=== PATIENT | female | born 1955 | race Caucasian/White ===

== ENCOUNTER 2024-08-23 08:53 | Inpatient (IN) ==
[~2024-08-23 08:53] MED LIST: MIDAZOLAM HCL 1 MG/ML 2ML VIAL ONE
--- NOTE | 2024-08-23 09:15 | Emergency Department Note ---
Impression & Plan Severe sepsis with acute organ dysfunction, Status post laparoscopic appendectomy, Pneumoperitoneum, Acute renal failure, Atrial fibrillation, new onset, Ileus due to infection ED Provider Note Name: BART PULLIAM Age: 68 Sex: Female Arrives Via: Walk-In Informant: Patient, ED Provider: Ricki Escobar MD Chief Complaint: Postoperative abdominal pain Impression: As per impressions above Medical Decision Making: Pleasant 68-year-old female who had no significant past medical history. She had appendectomy 5 days ago with mucocele found. Apparently surgical approach was difficult. Since discharge continued worsening abdominal pain, abdominal distention and nausea. No bowel movements in several days. On examination she has diffuse tenderness palpation without overt peritonitis. She does have decreased bowel sounds as well. CT scan of the abdomen pelvis was ordered initially with IV contrast but following findings of acute renal failure this was converted to Noncon. Laboratory workup reveals significant changes from her baseline with acute renal failure, hyperkalemia amongst others. The CT shows significant more free air than would be expected along with some free fluid. At this point blood cultures and lactic acid were ordered. Due to amount of nausea and her gastric distention without any recent oral intake, NG tube was felt indicated. While no clear evidence of obstruction via CT her examination and gastric distention with lead towards consideration of ileus to the point of needing an NG tube. Patient was ordered 2 L normal saline bolus IV for acute renal failure in the setting of hyperkalemia and development of paroxysmal A-fib while in the department. In the setting of moderate hyperkalemia it was felt that with the flipping in and out of A-fib it would be appropriate to start her on calcium bicarb and insulin. Patient does have a low sodium however in the setting of arrhythmia and elevated potassium along with acute kidney failure fluid boluses are indicated. Given the recent surgery and symptoms I do feel that the kidney issues are most likely due to prerenal dehydration from not eating or drinking anything for the last 4 to 5 days. Following NG tube patient did have worsening respiratory distress. Some crackles and shortness of breath were noted along with hypoxia. She was being evaluated by hospitalist at this point. Concern for possible aspiration during NG tube placement versus fluid overload as she has now received 2 L fluid. Hospitalist ordering further workup and management. Hospitalist also ordered some Lopressor for A-fib as it continues despite adequate fluid boluses and treatment of the moderate hyperkalemia. Surgeon did evaluate the patient. They feel that it would be best to medically manage the patient given her multiple other findings rather than emergently taken to the OR at this time. Hospitalist on board and aware of this plan. Given the elevated lactate the somewhat elevated white blood cell count and the concern for possible intra-abdominal infection treatment for sepsis indicated. With that in mind I would not give her 30 mL/kg IV fluids as we are concerned she is already overloaded along with being in acute renal failure and thus only received the 2 L normal saline bolus. She was given Zosyn IV for broad-spectrum coverage. Multiple repeat evaluations do reveal that patient's blood pressure is stable. She does not require pressors. A repeat sepsis examination was completed at 1:30 PM by me. Triage/Nursing Notes reviewed by Me External Chart Review by me: I did review the surgical note from 08/21/2024. Differential:Infection, dehydration, metabolic abnormality, hypo/hyperglycemia, electrolyte disturbance, anemia, hypoxia, cardiac sources, intracerebral event, toxicologic, neurologic, as well as other pathologies. Vital Signs: reviewed and remarkable for no significant abnormalities Interventions: Normal saline bolus IV, insulin IV, calcium IV, bicarb IV, glucose of IV, Zosyn IV Labs:ED labs Reviewed by me and remarkable for acute kidney failure, hyponatremia, hyperkalemia Imaging:CT of the abdomen pelvis as per my informant to rotation reveals diffuse free air and free fluid. This was immediately discussed with who evaluated the patient at bedside. Confirmed by radiologist EKG:#1: Normal sinus rhythm at 93 beats minute QTc of 410. There is no ectopy nor ischemia. There are no previous EKGs for comparison. EKG #2: A-fib with RVR at 150 bpm and a QTc of 458. There is no overt ischemia. When compared to EKG from 1019 she is now in A-fib. Cardiac/Tele Monitoring: Cardiac Monitoring: An Order was placed for continuous cardiac monitoring. The monitor shows a rate of 130 with a paroxysmal afib rhythm. Consults:Discussed with Dr. Vaughn of the [facility] surgical service as well as Dr. Oropeza of the [facility] service who will manage patient. Plan: Disposition:Hospitalization. Condition: Serious History of Present Illness: 68-year-old female arrives for evaluation of abdominal discomfort. Patient had an appendectomy on Saturday (5 days ago). During surgery it was felt that the patient had a mucocele and thus further exploration with increased port entry was done. She states following the surgery she had some abdominal discomfort but was feeling bit better and thus went home. Over the last few days worsening abdominal distention discomfort, lack of appetite, nausea, periodic vomiting and no bowel movements. Does feel that her abdomen continues to distend. Discomfort with any ambulation. She states she had some blood in her urine yesterday but has had minimal urine output since then. Patient has been using Percocet at home and initially was using a stool softener but has been able to eat anything for the last several days. Denies any falls, trauma, injuries. She does note she is a bit lightheaded as well. Not having any chest pain, shortness of breath, syncope, measured fevers, rashes, leg swelling or other concerning signs or symptoms. Past Medical History: Denies significant past medical history. Did have surgery on her foot and hip. 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 Dry mucous membranes RESPIRATORY: No dyspnea. Clear to auscultation and equal bilaterally. CARDIOVASCULAR: Tachy.No murmur appreciated. GASTROINTESTINAL: Moderately distended with diffuse tenderness palpation, minimal active bowel sounds appreciated. No overt peritonitis. Multiple port sites throughout abdomen with Dermabond over them. No significant surrounding cellulitis or drainage appreciated EXTREMITIES: Normal motion all extremities, no cyanosis, no edema. NEUROLOGIC: Alert and oriented. No focal neurologic deficits appreciated SKIN: No rash, no jaundice, no diaphoresis. PSYCH: Appropriate GCS: 15 ED Course: Times/Reassessments: Multiple repeat evaluations patient throughout the stay. She did get quite hypoxic following NG tube placement with concern for possible aspiration versus pulmonary edema. Placed on nonrebreather and will get breathing treatments. Patient's blood pressure remained stable. She did develop A-fib RVR while in the department. Did not initially respond to fluids and treatment for hyperkalemia thus Lopressor being ordered by hospital service. Critical Care: I have personally spent 35 minutes of critical care time in the direct management of this patient. Acute renal failure with hyperkalemia and cardiac irritability/A-fib RVR possibly secondary to severe sepsis. This was a life/limb threatening event. This 35 minutes is in excess of all separately billable procedures. 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 no hx medication or intervention. Last occurence: " i don't know" Rotator cuff tear no hx sx, right, denies limitations. Arthritis of both feet Gallstone found on last ct may of 2024/no trouble with at current. Elevated blood pressure reading at dr's offices elevated. monitored. Obesity Surgical History History of foot surgery left/hardware History of colonoscopy Hx of tooth extraction History of lumpectomy of left breast Social History Smoking Status: Never smoker Second Hand Exposure: No; Do You Dip or Chew Tobacco: No; Hx Alcohol Use: No Hx Substance Use: No Preferred Language: Frisian Communication Ability: Effective Visual Impairment: No Limitations Pricing Strategist Required: No Beliefs That Will Affect Care: None Current Living Situation: Spouse Feels Safe at Home: Yes Assistive Devices: None Allergies Allergies Allergy/AdvReac Type Severity Reaction Status Date / Time No Known Allergies Allergy Verified 08/23/24 11:05 Home Meds Home Medications Medication Instructions Recorded Confirmed No Known Home Medications 08/23/24 08/23/24 Results & Data (ED) Vital Signs Vital Signs - 24 hr 08/23/24 08:57 08/23/24 09:26 08/23/24 10:24 Temperature 36.7 C Temperature Source Skin Pulse Rate 98 H 99 H 160 H Pulse Rate [Apical] Respiratory Rate 16 Respiratory Effort / Characteristics Non-Labored Spontaneous Respiratory Depth Normal Respiratory Pattern Regular Blood Pressure 144/80 H Blood Pressure [Right Arm] Blood Pressure Mean 101 Blood Pressure Mean [Right Arm] Blood Pressure Position Sitting Pulse Oximetry 96 Oxygen Delivery Method Room Air Sepsis Recent Fever Within 48 Hours No Sepsis New/Unexplained Change in Mental Status N/A Sepsis Action Taken by Nursing No Action Required 08/23/24 10:53 08/23/24 11:45 Temperature Temperature Source Pulse Rate 136 H Pulse Rate [Apical] 163 H Respiratory Rate 20 Respiratory Effort / Characteristics Non-Labored Spontaneous Respiratory Depth Normal Respiratory Pattern Blood Pressure 144/95 H Blood Pressure [Right Arm] 168/84 H Blood Pressure Mean Blood Pressure Mean [Right Arm] 112 Blood Pressure Position Pulse Oximetry 91 Oxygen Delivery Method Room Air Sepsis Recent Fever Within 48 Hours Sepsis New/Unexplained Change in Mental Status Sepsis Action Taken by Nursing Laboratory Data 08/23/24 13:34 08/23/24 13:34 Lab Results 08/23/24 08/23/24 08/23/24 Range/Units 09:15 09:15 09:15 WBC 14.35 H (4.8-10.8) K/ul RBC 4.83 (4.20-5.40) M/uL Hgb 13.2 (12.0-16.0) g/dl Hct 38.2 (37.0-47.0) % MCV 79.1 L (80.0-100.0) fL MCH 27.3 (25.0-34.0) pg MCHC 34.6 (32.0-36.0) g/dL RDW Std Deviation 42.9 (36.4-46.3) fL RDW Coeff of Albino 15.0 H (11.5-14.5) % Plt Count 322 (130-400) K/uL MPV 10.1 (9.4-12.4) fL Immature Gran % (Auto) 1.5 % Neut % (Auto) 87.5 % Lymph % (Auto) 6.1 % Wayne % (Auto) 4.7 % Eos % (Auto) 0.1 % Baso % (Auto) 0.1 % Neut # (Auto) 12.54 H (1.40-6.50) K/uL Lymph # (Auto) 0.88 L (1.20-3.40) K/uL Wayne # (Auto) 0.67 H (0.11-0.59) K/uL Eos # (Auto) 0.02 (0.00-0.50) K/uL Baso # (Auto) 0.02 (0.00-0.20) K/uL Immature Gran # (Auto) 0.22 H (0.01-0.20) K/uL Absolute Nucleated RBC 0.04 (0.00-0.12) K/uL Nucleated RBC % (auto) 0.3 % Toxic Granulation 3+ Toxic Vacuolation 2+ Dohle Bodies 1+ Echinocytes 1+ Sodium Cancelled 121 L Potassium Cancelled 5.8 H Chloride Cancelled Carbon Dioxide Anion Gap BUN Creatinine Est Cr Clr Drug Dosing eGFR BUN/Creatinine Ratio Glucose POC Glucose (70-99) mg/dl Lactate (0.4-2.0) mmol/L Calcium Magnesium (1.7-2.4) mg/dl Total Bilirubin (0.2-1.0) mg/dl Direct Bilirubin (0-0.2) mg/dl AST (13-39) U/L ALT (7-52) U/L Alkaline Phosphatase (34-104) U/L Troponin I High Sens (0-14) pg/ml Total Protein (6.0-8.3) gm/dl Albumin (3.4-5.0) gm/dl Lipase (11-82) U/L Procalcitonin (0-0.5) ng/ml Blood Type Antibody Screen 08/23/24 08/23/24 08/23/24 Range/Units 09:15 09:15 09:15 WBC (4.8-10.8) K/ul RBC (4.20-5.40) M/uL Hgb (12.0-16.0) g/dl Hct (37.0-47.0) % MCV (80.0-100.0) fL MCH (25.0-34.0) pg MCHC (32.0-36.0) g/dL RDW Std Deviation (36.4-46.3) fL RDW Coeff of Albino (11.5-14.5) % Plt Count (130-400) K/uL MPV (9.4-12.4) fL Immature Gran % (Auto) % Neut % (Auto) % Lymph % (Auto) % Wayne % (Auto) % Eos % (Auto) % Baso % (Auto) % Neut # (Auto) (1.40-6.50) K/uL Lymph # (Auto) (1.20-3.40) K/uL Wayne # (Auto) (0.11-0.59) K/uL Eos # (Auto) (0.00-0.50) K/uL Baso # (Auto) (0.00-0.20) K/uL Immature Gran # (Auto) (0.01-0.20) K/uL Absolute Nucleated RBC (0.00-0.12) K/uL Nucleated RBC % (auto) % Toxic Granulation Toxic Vacuolation Dohle Bodies Echinocytes Sodium Potassium Chloride 81 L Carbon Dioxide Cancelled 25 Anion Gap Cancelled 15 H BUN Cancelled Creatinine Est Cr Clr Drug Dosing eGFR BUN/Creatinine Ratio Glucose POC Glucose (70-99) mg/dl Lactate (0.4-2.0) mmol/L Calcium Magnesium (1.7-2.4) mg/dl Total Bilirubin (0.2-1.0) mg/dl Direct Bilirubin (0-0.2) mg/dl AST (13-39) U/L ALT (7-52) U/L Alkaline Phosphatase (34-104) U/L Troponin I High Sens (0-14) pg/ml Total Protein (6.0-8.3) gm/dl Albumin (3.4-5.0) gm/dl Lipase (11-82) U/L Procalcitonin (0-0.5) ng/ml Blood Type Antibody Screen 08/23/24 08/23/24 08/23/24 Range/Units 09:15 09:15 09:15 WBC (4.8-10.8) K/ul RBC (4.20-5.40) M/uL Hgb (12.0-16.0) g/dl Hct (37.0-47.0) % MCV (80.0-100.0) fL MCH (25.0-34.0) pg MCHC (32.0-36.0) g/dL RDW Std Deviation (36.4-46.3) fL RDW Coeff of Albino (11.5-14.5) % Plt Count (130-400) K/uL MPV (9.4-12.4) fL Immature Gran % (Auto) % Neut % (Auto) % Lymph % (Auto) % Wayne % (Auto) % Eos % (Auto) % Baso % (Auto) % Neut # (Auto) (1.40-6.50) K/uL Lymph # (Auto) (1.20-3.40) K/uL Wayne # (Auto) (0.11-0.59) K/uL Eos # (Auto) (0.00-0.50) K/uL Baso # (Auto) (0.00-0.20) K/uL Immature Gran # (Auto) (0.01-0.20) K/uL Absolute Nucleated RBC (0.00-0.12) K/uL Nucleated RBC % (auto) % Toxic Granulation Toxic Vacuolation Dohle Bodies Echinocytes Sodium Potassium Chloride Carbon Dioxide Anion Gap BUN 77 H Creatinine Cancelled 4.78 H* Est Cr Clr Drug Dosing Cancelled 11.2 eGFR Cancelled BUN/Creatinine Ratio Glucose POC Glucose (70-99) mg/dl Lactate (0.4-2.0) mmol/L Calcium Magnesium (1.7-2.4) mg/dl Total Bilirubin (0.2-1.0) mg/dl Direct Bilirubin (0-0.2) mg/dl AST (13-39) U/L ALT (7-52) U/L Alkaline Phosphatase (34-104) U/L Troponin I High Sens (0-14) pg/ml Total Protein (6.0-8.3) gm/dl Albumin (3.4-5.0) gm/dl Lipase (11-82) U/L Procalcitonin (0-0.5) ng/ml Blood Type Antibody Screen 08/23/24 08/23/24 08/23/24 Range/Units 09:15 09:15 09:15 WBC (4.8-10.8) K/ul RBC (4.20-5.40) M/uL Hgb (12.0-16.0) g/dl Hct (37.0-47.0) % MCV (80.0-100.0) fL MCH (25.0-34.0) pg MCHC (32.0-36.0) g/dL RDW Std Deviation (36.4-46.3) fL RDW Coeff of Albino (11.5-14.5) % Plt Count (130-400) K/uL MPV (9.4-12.4) fL Immature Gran % (Auto) % Neut % (Auto) % Lymph % (Auto) % Wayne % (Auto) % Eos % (Auto) % Baso % (Auto) % Neut # (Auto) (1.40-6.50) K/uL Lymph # (Auto) (1.20-3.40) K/uL Wayne # (Auto) (0.11-0.59) K/uL Eos # (Auto) (0.00-0.50) K/uL Baso # (Auto) (0.00-0.20) K/uL Immature Gran # (Auto) (0.01-0.20) K/uL Absolute Nucleated RBC (0.00-0.12) K/uL Nucleated RBC % (auto) % Toxic Granulation Toxic Vacuolation Dohle Bodies Echinocytes Sodium Potassium Chloride Carbon Dioxide Anion Gap BUN Creatinine Est Cr Clr Drug Dosing eGFR 9.39 BUN/Creatinine Ratio Cancelled 16.1 Glucose Cancelled 104 H POC Glucose (70-99) mg/dl Lactate (0.4-2.0) mmol/L Calcium Cancelled Magnesium (1.7-2.4) mg/dl Total Bilirubin (0.2-1.0) mg/dl Direct Bilirubin (0-0.2) mg/dl AST (13-39) U/L ALT (7-52) U/L Alkaline Phosphatase (34-104) U/L Troponin I High Sens (0-14) pg/ml Total Protein (6.0-8.3) gm/dl Albumin (3.4-5.0) gm/dl Lipase (11-82) U/L Procalcitonin (0-0.5) ng/ml Blood Type Antibody Screen 08/23/24 08/23/24 08/23/24 Range/Units 09:15 10:33 11:05 WBC (4.8-10.8) K/ul RBC (4.20-5.40) M/uL Hgb (12.0-16.0) g/dl Hct (37.0-47.0) % MCV (80.0-100.0) fL MCH (25.0-34.0) pg MCHC (32.0-36.0) g/dL RDW Std Deviation (36.4-46.3) fL RDW Coeff of Albino (11.5-14.5) % Plt Count (130-400) K/uL MPV (9.4-12.4) fL Immature Gran % (Auto) % Neut % (Auto) % Lymph % (Auto) % Wayne % (Auto) % Eos % (Auto) % Baso % (Auto) % Neut # (Auto) (1.40-6.50) K/uL Lymph # (Auto) (1.20-3.40) K/uL Wayne # (Auto) (0.11-0.59) K/uL Eos # (Auto) (0.00-0.50) K/uL Baso # (Auto) (0.00-0.20) K/uL Immature Gran # (Auto) (0.01-0.20) K/uL Absolute Nucleated RBC (0.00-0.12) K/uL Nucleated RBC % (auto) % Toxic Granulation Toxic Vacuolation Dohle Bodies Echinocytes Sodium Potassium Chloride Carbon Dioxide Anion Gap BUN Creatinine Est Cr Clr Drug Dosing eGFR BUN/Creatinine Ratio Glucose POC Glucose 86 (70-99) mg/dl Lactate 2.9 H* (0.4-2.0) mmol/L Calcium 9.9 Magnesium 4.5 H (1.7-2.4) mg/dl Total Bilirubin 0.6 (0.2-1.0) mg/dl Direct Bilirubin 0.2 (0-0.2) mg/dl AST 22 (13-39) U/L ALT 18 (7-52) U/L Alkaline Phosphatase 117 H (34-104) U/L Troponin I High Sens 16.5 H (0-14) pg/ml Total Protein 7.5 (6.0-8.3) gm/dl Albumin 3.6 (3.4-5.0) gm/dl Lipase 4 L (11-82) U/L Procalcitonin 53.40 H (0-0.5) ng/ml Blood Type A Positive Antibody Screen NEGATIVE Administered Medications Dextrose/Sodium Chloride (D5w And Nss) 1,000 mls @ 125 mls/hr IV .Q8H ARMANDO Stop: 08/26/24 13:08 Last Admin: 08/23/24 13:59 Dose: 125 mls/hr Documented By: KEATON Discontinued Medications Albuterol (Albut/Ipratrop 3mg/0.5mg Neb 3 Ml Vial) 3 ml NEB NOW STA; Protocol Stop: 08/23/24 11:28 Last Admin: 08/23/24 11:44 Dose: 3 ml Documented By: JONI Benzocaine/Butamben/Tetracaine HCl (Benzocaine/Tetracain/Butam 50 Appln/5 Gm Can) Confirm Administered Dose 50 appln EXT .STK-MED ONE Stop: 08/23/24 10:37 Last Admin: 08/23/24 10:41 Dose: Not Given Documented By: PAWAN Benzocaine/Butamben/Tetracaine HCl (Benzocaine/Tetracain/Butam 50 Appln/5 Gm Can) 1 appln EXT ONCE ONE Stop: 08/23/24 10:41 Last Admin: 08/23/24 11:54 Dose: 1 appln Documented By: JONI Dextrose (Dextrose 50% 50 Ml Syringe) 50 ml IV NOW ONE Stop: 08/23/24 10:26 Last Admin: 08/23/24 10:34 Dose: 50 ml Documented By: JONI Dextrose (Dextrose 50% 50 Ml Syringe) 25 - 50 ml IV UD STA; Protocol Stop: 08/23/24 11:50 Last Admin: 08/23/24 12:13 Dose: 50 ml Documented By: JONI Hydromorphone HCl (Hydromorphone Inj 0.5 Mg/0.5 Ml Syr) 0.5 mg IV NOW STA Stop: 08/23/24 09:11 Last Admin: 08/23/24 09:16 Dose: 0.5 mg Documented By: SAMUEL Sodium Chloride (Nss) 1,000 mls @ 999 mls/hr IV .Q1H1M ONE Stop: 08/23/24 10:10 Last Infusion: 08/23/24 10:27 Dose: Infused Documented By: Admin: 08/23/24 09:16 Dose: 999 mls/hr Documented By: SAMUEL Calcium Gluconate () 1,000 mg in 60 mls @ 240 mls/hr IV NOW STA Stop: 08/23/24 10:39 Last Infusion: 08/23/24 10:51 Dose: Infused Documented By: Admin: 08/23/24 10:36 Dose: 240 mls/hr Documented By: JONI Insulin Human Regular 10 units (/ Syringe) 10 mls @ 30 mls/min IV ONE ONE Stop: 08/23/24 10:46 Last Admin: 08/23/24 10:47 Dose: 30 mls/min Documented By: JONI Co-signed By: PAWAN Sodium Chloride (Nss) 1,000 mls @ 999 mls/hr IV .Q1H1M ONE Stop: 08/23/24 11:41 Last Infusion: 08/23/24 11:53 Dose: Infused Documented By: Admin: 08/23/24 10:44 Dose: 999 mls/hr Documented By: JONI Piperacillin Sod/Tazobactam Sod (Zosyn) 4.5 gm in 100 mls @ 200 mls/hr IV NOW ONE; Protocol Stop: 08/23/24 11:49 Last Infusion: 08/23/24 12:19 Dose: Infused Documented By: Admin: 08/23/24 11:43 Dose: 200 mls/hr Documented By: JONI Insulin Human Regular (Novolin-R Insulin Per Unit Charge) Confirm Administered Dose 1 units .ROUTE .STK-MED ONE Stop: 08/23/24 10:48 Last Admin: 08/23/24 10:49 Dose: Not Given Documented By: JONI Lidocaine HCl (Lidocaine Viscous 2% 15 Ml Udc) Confirm Administered Dose 15 ml .ROUTE .STK-MED ONE Stop: 08/23/24 10:37 Last Admin: 08/23/24 10:41 Dose: Not Given Documented By: PAWAN Lidocaine HCl (Lidocaine Viscous 2% 15 Ml Udc) 15 ml PO NOW ONE Stop: 08/23/24 10:40 Last Admin: 08/23/24 10:44 Dose: 15 ml Documented By: PAWAN Metoprolol Tartrate (Metoprolol Tartrate 1 Mg/Ml Vial) 5 mg IV NOW STA Stop: 08/23/24 11:28 Last Admin: 08/23/24 11:45 Dose: 5 mg Documented By: JONI Ondansetron HCl (Ondansetron Inj 2 Mg/Ml 2 Ml Vial) 4 mg IV NOW STA Stop: 08/23/24 09:11 Last Admin: 08/23/24 09:16 Dose: 4 mg Documented By: SAMUEL Sodium Bicarbonate (Sodium Bicarb 8.4% Inj 50 Meq/50 Ml Syr) 50 meq IV NOW STA Stop: 08/23/24 10:26 Last Admin: 08/23/24 10:40 Dose: 50 meq Documented By: JONI Imaging Data Radiologist's Impression: Abdomen/Pelvis CT 08/23/24 10:01 EXAMINATION: CT of the abdomen and pelvis performed without contrast. TECHNIQUE: Helical CT images from the lung bases through the symphysis pubis were obtained without contrast. Coronal and sagittal reformatted images were generated at a workstation for further assessment. Dose reduction techniques were achieved by using automatic exposure control and/or adjustment of mA and/or kV according to patient size and/or use of iterative reconstruction technique. HISTORY: Post appendectomy with continued pain. COMPARISON: None. FINDINGS: Licensed Therapist film demonstrates air-fluid levels within the bowel. Additional linear gas densities likely representing pneumoperitoneum. Lung windows demonstrate likely bibasilar subsegmental atelectasis. Small element of pneumomediastinum. Mild scattered elements of pneumoperitoneum. Additional prominent soft tissue gas right pararenal and retroperitoneal space. Soft tissue windows demonstrate 1 cm round calcification at the level of the oleg hepatis. Definitive location indeterminant. No intrahepatic or extrahepatic ductal dilatation. Pancreas is within normal limits. Prominent distended probably fluid-filled gastric viscus. No discrete mechanical obstruction. Gallbladder is not identified. Correlate with clinical data. Bilateral adrenal glands and spleen are within normal limits. Nonobstructing approximately 6 mm calcified left renal calculus. Free fluid within the abdomen and pelvis. Hounsfield units measured 23. Fluid extends along the paracolic gutters. Air-fluid levels at these levels are noted. Radiopaque staple line at the level of the cecum. Surgical clips right lower abdominal quadrant. Appendix is not identified consistent with appendectomy history. Increased fluid and gas and mesenteric fat stranding at the level of the postsurgical right lower quadrant. No definitive encapsulated process. Fecal type densities within the distal small bowel with additional prominent fluid-filled proximal small bowel. This can be seen in slow small bowel transit. Remaining solid and hollow organs of the abdomen and pelvis are within normal limits. Fat stranding along the ventral abdomen subcutaneous soft tissues likely postintervention in origin. There is a uncomplicated fat-containing anterior left pelvis hernia. Bone windows demonstrate degenerative changes of the spine. No appreciated acute osseous process. IMPRESSION: 1. Absent appendix consistent with appendectomy history with increased fluid and gas throughout the abdomen and pelvis more than expected particularly at the level of the surgical bed. Dehiscence is not excluded. No discrete encapsulated drainable fluid collection although early abscess cannot be excluded. Recommend contrast-enhanced exam. Recommend surgical consult. 2. Prominent fluid distended proximal small bowel and to some extent distal small bowel fecal type densities which can be seen in slow small bowel transit. Mild ileus is not excluded. 3. Likely bibasilar subsegmental atelectasis. Please see above for details. Electronically signed by Lan Blanton 08-23-2024 10:51 AM KUB X-Ray 08/23/24 11:13 Exam: KUB. History: Gastric intubation tube placement. Comparison: CT abdomen and pelvis correlate earlier same day. Findings: Interval gastric intubation tube with tip at the level of the left abdomen likely within the gastric viscus. Nonspecific bowel gas pattern. Impression: Interval gastric intubation tube with tip at the level of the left abdomen likely within the distal gastric viscus. Correlate with clinical data. Electronically signed by Lan Blanton 08-23-2024 12:02 PM Discharge Plan Visit Data Chief Complaint: Abdominal Pain Stated Complaint: APPENDIX OUT WEDS, STILL PAIN, CAN'T EAT/DRINK ED Provider: Ricki Escobar Discharge Problem: Severe sepsis with acute organ dysfunction, Status post laparoscopic appendectomy, Pneumoperitoneum, Acute renal failure, Atrial fibrillation, new onset, Ileus due to infection Patient Disposition: Admitted As Inpatient Condition: Serious Discharge Instructions Interventions: ED Discharge Assessment Last Done: 08/23/24 12:09
[2024-08-23] MEDS: HYDROmorphone INJ 0.5 MG/0.5 ML SYR IV STA (09:16)
[2024-08-23] MEDS: SODIUM CHLORIDE 0.9% 1,000 ML IV ONE ×2 (09:16→10:44)
[2024-08-23] MEDS: ONDANSETRON INJ 2 MG/ML 2 ML VIAL IV STA (09:16)
[2024-08-23 09:43] LABS: Hematocrit (blood only) 38.2 % (37.0-47.0); Hemoglobin 13.2 g/dl (12.0-16.0); Mean Corpuscular Hemoglobin 27.3 pg (25.0-34.0); Mean Corpuscular Volume 79.1 fL (80.0-100.0); Platelet Count 322 K/uL (130-400); RDW Standard Deviation 42.9 fL (36.4-46.3); Red Blood Count 4.83 M/uL (4.20-5.40)
[2024-08-23 09:49] LABS: White Blood Count 14.35 K/ul (4.8-10.8)
[2024-08-23 10:02] LABS: Alanine Aminotransferase 18.0 U/L (7-52); Alkaline Phosphatase 117.0 U/L (34-104); Anion Gap 15.0 (3-11); Bilirubin,Total 0.6 mg/dl (0.2-1.0); Blood Urea Nitrogen 77.0 mg/dl (6-23); Calcium 9.9 mg/dl (8.6-10.3); Carbon Dioxide 25.0 mmol/L (21-32); Chloride 81.0 mmol/L (98-107); Creatinine Clr Calc Pharmacy 11.2 ml/min; Glucose 104.0 mg/dl (70-99(Fasting)); Lipase 4.0 U/L (11-82); Magnesium 4.5 mg/dl (1.7-2.4); Potassium 5.8 mmol/L (3.5-5.1); Sodium 121.0 mmol/L (136-145); Total Protein 7.5 gm/dl (6.0-8.3)
[2024-08-23 10:08] LABS: Dohle Bodies 1+; Immature Granulocytes # (auto) 0.22 K/uL (0.01-0.20); Immature Granulocytes % (auto) 1.5 %; Toxic Granulation 3+; Toxic Vacuolation 2+
[2024-08-23] MEDS ORDERED: INSULIN HUMAN REGULAR IV STA (10:25)
[2024-08-23] MEDS: DEXTROSE 50% 50 ML SYRINGE IV ONE (10:34)
[2024-08-23] MEDS: CALCIUM GLUCONATE 1,000 MG/60 ML BAG IV STA (10:36)
[2024-08-23] MEDS: SODIUM BICARB 8.4% INJ 50 MEQ/50 ML SYR IV STA (10:40)
[2024-08-23] MEDS: LIDOCAINE VISCOUS 2% 15 ML UDC ONE (10:41)
[2024-08-23] MEDS: BENZOCAINE/TETRACAIN/BUTAM 50 APPLN/5 GM CAN EXT ONE ×2 (10:41→11:54)
[2024-08-23] MEDS: LIDOCAINE VISCOUS 2% 15 ML UDC PO ONE (10:44)
[2024-08-23] MEDS: INSULIN HUMAN REGULAR PER UNIT 10 UNITS in SYRINGE 9.9 ML IV ONE (10:47)
[2024-08-23] MEDS: NovoLIN-R INSULIN PER UNIT CHARGE ONE (10:49)
--- NOTE | 2024-08-23 10:52 | CT Scan Report ---
EXAMINATION: CT of the abdomen and pelvis performed without contrast. TECHNIQUE: Helical CT images from the lung bases through the symphysis pubis were obtained without contrast. Coronal and sagittal reformatted images were generated at a workstation for further assessment. Dose reduction techniques were achieved by using automatic exposure control and/or adjustment of mA and/or kV according to patient size and/or use of iterative reconstruction technique. HISTORY: Post appendectomy with continued pain. COMPARISON: None. FINDINGS: Sweatband Cutting Machine Operator film demonstrates air-fluid levels within the bowel. Additional linear gas densities likely representing pneumoperitoneum. Lung windows demonstrate likely bibasilar subsegmental atelectasis. Small element of pneumomediastinum. Mild scattered elements of pneumoperitoneum. Additional prominent soft tissue gas right pararenal and retroperitoneal space. Soft tissue windows demonstrate 1 cm round calcification at the level of the oleg hepatis. Definitive location indeterminant. No intrahepatic or extrahepatic ductal dilatation. Pancreas is within normal limits. Prominent distended probably fluid-filled gastric viscus. No discrete mechanical obstruction. Gallbladder is not identified. Correlate with clinical data. Bilateral adrenal glands and spleen are within normal limits. Nonobstructing approximately 6 mm calcified left renal calculus. Free fluid within the abdomen and pelvis. Hounsfield units measured 23. Fluid extends along the paracolic gutters. Air-fluid levels at these levels are noted. Radiopaque staple line at the level of the cecum. Surgical clips right lower abdominal quadrant. Appendix is not identified consistent with appendectomy history. Increased fluid and gas and mesenteric fat stranding at the level of the postsurgical right lower quadrant. No definitive encapsulated process. Fecal type densities within the distal small bowel with additional prominent fluid-filled proximal small bowel. This can be seen in slow small bowel transit. Remaining solid and hollow organs of the abdomen and pelvis are within normal limits. Fat stranding along the ventral abdomen subcutaneous soft tissues likely postintervention in origin. There is a uncomplicated fat-containing anterior left pelvis hernia. Bone windows demonstrate degenerative changes of the spine. No appreciated acute osseous process. IMPRESSION: 1. Absent appendix consistent with appendectomy history with increased fluid and gas throughout the abdomen and pelvis more than expected particularly at the level of the surgical bed. Dehiscence is not excluded. No discrete encapsulated drainable fluid collection although early abscess cannot be excluded. Recommend contrast-enhanced exam. Recommend surgical consult. 2. Prominent fluid distended proximal small bowel and to some extent distal small bowel fecal type densities which can be seen in slow small bowel transit. Mild ileus is not excluded. 3. Likely bibasilar subsegmental atelectasis. Please see above for details. Electronically signed by Lan Blanton 08-23-2024 10:51 AM
[2024-08-23] MEDS: PIPERACILLIN/TAZOBACTAM 4.5 GM/100 ML BAG IV ONE (11:43)
[2024-08-23] MEDS: ALBUT/IPRATROP 3MG/0.5MG NEB 3 ML VIAL NEB STA (11:44)
[2024-08-23] MEDS: METOPROLOL TARTRATE 1 MG/ML VIAL IV STA (11:45)
[2024-08-23] MEDS ORDERED: DEXTROSE 50% 50 ML SYRINGE IV PRN ×2 (11:48→11:54)
[2024-08-23] MEDS ORDERED: GLUCOSE 40% GEL 15 GM TUBE PO PRN (11:54)
[2024-08-23] MEDS ORDERED: GLUCAGON FOR INJ 1 MG VIAL SQ PRN (11:54)
[2024-08-23] MEDS ORDERED: CARBOHYDRATES FOR HYPOGLYCEMIA PO PRN (11:54)
[2024-08-23] MEDS ORDERED: GLUCOSE 10 TAB/TUBE PO PRN (11:54)
--- NOTE | 2024-08-23 11:55 | Surgery Consultation ---
Date of Consultation August 23, 2024 Assessment & Plan (1) Mucocele of appendix: Her CT images and results were personally viewed and interpreted by myself She does have a fair amount of pneumoperitoneum which is mainly confined to the right lower quadrant and right retroperitoneum I did review Dr. Pacheco's operative note which stated he did have some difficulty mobilizing the cecum and mucocele and appendix and had to do a fair amount of work in the retroperitoneum The patient is in A-fib with RVR as well as hyperkalemic and in acute renal failure Medicine is admitting the patient and there is no current indications for any surgical intervention at this time Hopefully with some fluid resuscitation we can correct her electrolyte abnormalities If she does decompensate, would plan on diagnostic laparoscopy versus laparotomy Surgery will follow closely (2) Status post laparoscopic appendectomy: (3) Pneumoperitoneum: History of Present Illness Reason for Consultation: Postoperative pain/pneumoperitoneum History of Present Illness This is a 68-year-old female who presented to the ER today with worsening generalized abdominal pain right greater than left. She underwent a la paroscopic appendectomy for an appendiceal mucocele with Dr. Pacheco on 08/19/2024. She is also been nauseous since surgery. She states the pain has been present since surgery. It did worsen today which part of the ER. She denies any fevers or chills. This was her only abdominal surgery. She has not had a bowel movement since surgery. Allergies Allergy/AdvReac Type Severity Reaction Status Date / Time No Known Allergies Allergy Verified 08/23/24 11:05 Home Medications Medication Instructions Recorded Confirmed Type No Known Home Medications 08/23/24 08/23/24 History Patient History Medical History Paroxysmal SVT (supraventricular tachycardia) sometimes occurs in the morning hours/not at any other times. no hx medication or intervention. Last occurence: " i don't know" Rotator cuff tear no hx sx, right, denies limitations. Arthritis of both feet Gallstone found on last ct may of 2024/no trouble with at current. Elevated blood pressure reading at dr's offices elevated. monitored. Obesity Surgical History History of foot surgery left/hardware History of colonoscopy Hx of tooth extraction History of lumpectomy of left breast Social History Smoking Status: Never smoker Second Hand Exposure: No; Do You Dip or Chew Tobacco: No; Hx Alcohol Use: Yes Alcohol type: wine Hx Substance Use: No Preferred Language: [place] Communication Ability: Effective Visual Impairment: No Limitations Speech Language Pathologist Travel Required: No Beliefs That Will Affect Care: None Current Living Situation: Spouse Feels Safe at Home: Yes Assistive Devices: Other Review of Systems Constitutional: no fever and no chills Eyes: no blind spots and no corrective lenses Ear, Nose, Mouth, Throat: no ear pain and no hearing loss Respiratory: no cough and no dyspnea Cardiovascular: no chest pain and no dyspnea on exertion Gastrointestinal: + abdominal pain, + nausea, + vomiting a nd + constipation; no diarrhea/loose stools Genitourinary: no dysuria and no urinary urgency Musculoskeletal: no back pain and no neck pain Integumentary: no acne and no lesions Neurologic: no gait abnormality and no unsteadiness Psychiatric: no behavioral changes and no depression Hematologic / Lymphatic: no easy bleeding and no easy bruising Physical Exam Constitutional: WD/WN, vitals as above Eyes: PERRL, conjunctivae normal, anicteric sclerae ENMT: external ear and nose normal, oropharynx normal Neck: trachea midline, no thyromegaly Respiratory: normal respiratory effort, lungs clear to auscultation Cardiovascular: Rate/Rhythm: + tachycardic and + irregularly irregular Gastrointestinal (Abdomen): Inspection/Auscultation: abdomen normal to inspection and + abdomen distended (Mild) Percussion/Palpation: + abdomen tender (Generalized) and abdomen soft; no guarding Musculoskeletal: no cyanosis or clubbing, extremities motor strength 5/5 Skin: no rashes, warm and dry Neurologic: PERRL, EOMI, accommodation nl, no face palsy, no dysarthria Psychiatric: A+Ox3, euthymic affect Results & Data Vital Signs (Past 12 Hours) Vital Signs Temp Pulse Pulse Resp BP BP Pulse Ox 08/23/24 11:45 136 H 144/95 H 08/23/24 10:53 163 H 20 168/84 H 91 08/23/24 10:24 160 H 08/23/24 09:26 99 H 08/23/24 08:57 36.7 C 98 H 16 144/80 H 96 O2 Del Method 08/23/24 11:45 08/23/24 10:53 Room Air 08/23/24 10:24 08/23/24 09:26 08/23/24 08:57 Room Air PG Care Time/CCT Total # of Minutes Spent Total Time Spent with Patient: Total time spent is greater than 50% in coordination of care (as documented) at patient's floor/unit and/or counseling patient: Coding Level of Care Code 91558 INT INP/OBS CARE 3/75MIN Diagnoses Mucocele of appendix K38.8 Status post laparoscopic appendectomy Z90.49 Pneumoperitoneum K66.8
--- NOTE | 2024-08-23 12:02 | XRay Report ---
Exam: KUB. History: Gastric intubation tube placement. Comparison: CT abdomen and pelvis correlate earlier same day. Findings: Interval gastric intubation tube with tip at the level of the left abdomen likely within the gastric viscus. Nonspecific bowel gas pattern. Impression: Interval gastric intubation tube with tip at the level of the left abdomen likely within the distal gastric viscus. Correlate with clinical data. Electronically signed by Lan Blanton 08-23-2024 12:02 PM
--- NOTE | 2024-08-23 12:06 | History & Physical Report ---
Date of Service August 23, 2024 Assessment & Plan (1) Severe sepsis with acute organ dysfunction: (2) Atrial fibrillation, new onset: (3) Acute renal failure: (4) Ileus due to infection: (5) Peritonitis due to abscess: (6) Electrolyte abnormality: (7) Pneumoperitoneum: (8) Demand ischemia of myocardium: (9) Low grade mucinous neoplasm of appendix: (10) Status post laparoscopic appendectomy: (11) Paroxysmal SVT (supraventricular tachycardia): Plan Patient is a 68-year-old female status post appendectomy for mucocele on 08/19/2024. Presents critically ill with acute renal failure, multiple electrolyte abnormalities and evidence of severe sepsis with organ dysfunction as evidenced by renal failure and new onset atrial fibrillation. 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 Patient requires hospital level care with IV medications, support, specialty consultation and possible surgical intervention Admit to the PCU monitored setting Broad-spectrum IV antibiotics, Zosyn Fluid resuscitation, add dextrose to IV fluids Patient was given treatment for hyperkalemia in the ED Patient will need additional glucose supplementation, her glucose was decreased after given some insulin for the hyperkalemia. Closely monitor laboratory studies, recheck labs this afternoon Monitor glucose and supplement as needed Communication with Dr. Vaughn, general surgery, will need to consider additi onal imaging with oral contrast at some point. He will continue to monitor patient's symptoms determine whether imaging or surgical intervention is required. Echocardiogram for new onset atrial fibrillation, suspect this is due to her sepsis. Will hold on full anticoagulation at this time. She is at high risk for possibly needing surgical intervention. Suspect atrial fibrillation may only be transient in the setting of severe sepsis. CHADSVASC=2. Consult cardiology for new onset atrial fibrillation. IV Lopressor for rate control NG tube to low intermittent suction and maintain n.p.o. Suspect patient may have had an aspiration event when placing NG tube. Reported that she had some emesis while that was being placed and acute desaturation. Support with oxygen to maintain adequate O2 sat DuoNeb treatments as needed at bedside understands the plan of care as well. History of Present Illness Chief Complaint: Abdominal pain persistent after appendectomy. Unable to eat or drink, no bowel movement Primary Care Provider: Jairo Broussard DO Patient is a 68-year-old female who underwent laparoscopic appendectomy and removal of mucocele on 08/19/2024. There were no immediate postoperative complications. Patient was at home recovering. However she continued with some significant abdominal pain. Since her discharge she really has been unable to eat or drink much at all. She denies any fever or chills but noticed increasing abdominal pain and no bowel movement since yesterday came to the emergency room for evaluation. In the emergency room laboratory studies were revealing for significant electrolyte abnormalities, elevated white blood cell count and acute renal failure. Imaging was consistent with ileus and fluid and gas surrounding the surgical site. While in the emergency department patient also had new onset of atrial fibrillation with rapid ventricular response. Unfortunately when inserting the NG tube patient had some emesis at the high suspicion of aspiration with acute desaturation. Patient was referred to our service for medical management and coordination of specialty care. Time my evaluation patient had just had NG tube placed. She was on oxy mask to support oxygen. She states that she has had persistent abdominal pain and is worsening over the last 24 hours. She denies any fever or chills. She is short of breath with some audible wheezing after this aspiration event but was not short of breath prior to insertion of the NG tube. No chest pain. No noted changes in her urinary habits. is at the bedside confirms history. They both state that at the most she has had a few bites of applesauce, crackers and a little bit of fluid intake since her discharge. No new joint pains. No new noted swelling. Reviewing her medical history she has had a previous history of paroxysmal SVT this is somewhat remotely and she is not on any medications for this. Allergies Allergy/AdvReac Type Severity Reaction Status Date / Time No Known Allergies Allergy Verified 08/23/24 11:05 Home Medications Medication Instructions Recorded Confirmed Type No Known Home Medications 08/23/24 08/23/24 History Past Med/Surg History Problem List (Updated 08/23/24 @ 12:18 by Julian Oropeza DO) Peritonitis due to abscess Ileus due to infection Low grade mucinous neoplasm of appendix Atrial fibrillation, new onset Demand ischemia of myocardium Electrolyte abnormality Acute renal failure Severe sepsis with acute organ dysfunction Pneumoperitoneum Status post laparoscopic appendectomy Mucocele of appendix Arthritis of right hip Greater trochanteric bursitis of right hip Rotator cuff tear, right Left foot pain Degenerative arthritis of left foot Bone cyst of left foot Metatarsalgia, left foot 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 no hx medication or intervention. Last occurence: " i don't know" Rotator cuff tear no hx sx, right, denies limitations. Arthritis of both feet Gallstone found on last ct may of 2024/no trouble with at current. Elevated blood pressure reading at dr's offices elevated. monitored. Obesity Surgical History History of foot surgery left/hardware History of colonoscopy Hx of tooth extraction History of lumpectomy of left breast Social History Smoking Status: Never smoker Second Hand Exposure: No; Do You Dip or Chew Tobacco: No; Hx Alcohol Use: Yes Alcohol type: wine Hx Substance Use: No Preferred Language: Pashto Communication Ability: Effective Visual Impairment: No Limitations Tourist Information Officer Required: No Beliefs That Will Affect Care: None Current Living Situation: Spouse Feels Safe at Home: Yes Assistive Devices: Other Review of Systems Review of Systems: Pertinent positive and negative review of systems as mentioned in the HPI Physical Exam Physical Exam: Constitutional: Alert, ill in appearance, moderate distress, mildly toxic HEENT: Mucous membranes dry sclera clear Neck: Soft, no adenopathy Lungs: Decreased breath sounds, tight airflow with wheezing and some upper airway rhonchi CV: S1-S2, irregular, tachycardic, no murmurs Abdomen: Hypoactive bowel sounds, moderate distention, diffuse tenderness right lower quadrant with guarding, no definitive rigidity Extremities: Trace pretibial edema Musculoskeletal: No significant joint tenderness Neuro: No focal deficits, generally weak Psych: Cooperative, slightly anxious Results & Data Results & Data Vital Signs (Past 12 Hours) Vital Signs Temp Pulse Pulse Resp BP BP Pulse Ox 08/23/24 11:45 136 H 144/95 H 08/23/24 10:53 163 H 20 168/84 H 91 08/23/24 10:24 160 H 08/23/24 09:26 99 H 08/23/24 08:57 36.7 C 98 H 16 144/80 H 96 O2 Del Method 08/23/24 11:45 08/23/24 10:53 Room Air 08/23/24 10:24 08/23/24 09:26 08/23/24 08:57 Room Air Diagnostic Findings Reviewed imaging, laboratory and diagnostic studies. Pertinent findings as below. Reviewed CT abdomen pelvis report, fluid and gas throughout the abdomen and pelvis could not exclude dehiscence, evidence of ileus versus partial bowel obstruction and some atelectasis Personally reviewed KUB post NG tube insertion, NG tube below the diaphragm in the stomach. No infiltrative process in the lungs noted Personally reviewed EKG initially on presentation normal sinus rhythm. Telemetry review at this time shows atrial fibrillation WBCs 14.3 Hemoglobin 13.2 Platelets of 322 Sodium 121 Potassium 5.8 Chloride of 81 Anion gap 15 BUN 77 Creatinine 4.78 Glucose 104 Lactate 2.8 Magnesium 4.5 Troponin 16.5 Lipase 4 Procalcitonin 53.4 Reviewed outside EMR. Reviewed preoperative medical clearance Reviewed echocardiogram from 2017, normal ejection fraction, no significant valvular dysfunctions, no significant right ventricular failure Reviewed preoperative laboratory studies done June 2024, renal function within normal range, electrolytes within normal range at that time. Code Status & VTE Plan VTE Prophylaxis Plan VTE Prophylaxis will be ordered: No Reason for no VTE drug order: Treatment not indicated
[2024-08-23] MEDS: DEXTROSE 50% 50 ML SYRINGE IV STA (12:13)
[2024-08-23] MEDS ORDERED: ALBUT/IPRATROP 3MG/0.5MG NEB 3 ML VIAL NEB PRN (13:09)
[2024-08-23 13:57] LABS: Hematocrit (blood only) 36.5 % (37.0-47.0); Hemoglobin 12.3 g/dl (12.0-16.0); Mean Corpuscular Hemoglobin 27.3 pg (25.0-34.0); Mean Corpuscular Volume 80.9 fL (80.0-100.0); Platelet Count 236 K/uL (130-400); RDW Standard Deviation 44.9 fL (36.4-46.3); Red Blood Count 4.51 M/uL (4.20-5.40); White Blood Count 7.88 K/ul (4.8-10.8)
[2024-08-23] MEDS: D5W AND NSS 1,000 ML IV SCH (13:59)
[2024-08-23 14:05] LABS: Anion Gap 15.0 (3-11); Calcium 8.9 mg/dl (8.6-10.3); Carbon Dioxide 22.0 mmol/L (21-32); Chloride 89.0 mmol/L (98-107); Magnesium 4.0 mg/dl (1.7-2.4); Potassium 4.9 mmol/L (3.5-5.1); Sodium 126.0 mmol/L (136-145)
[2024-08-23 14:10] LABS: Blood Urea Nitrogen 75.0 mg/dl (6-23); Creatinine Clr Calc Pharmacy 13.4 ml/min; Glucose 102.0 mg/dl (70-99(Fasting))
[2024-08-23] MEDS: HEPARIN SOD 5,000 UNIT/0.5 ML VIAL SQ SCH (15:22)
[2024-08-23] MEDS: METOPROLOL TARTRATE 1 MG/ML VIAL IV SCH (17:34)
[2024-08-23] MEDS: PIPERACILLIN/TAZOBACTAM 4.5 GM/100 ML BAG IV SCH (21:42)
[2024-08-23 21:55] LABS: Appearance Urine Turbid (Clear); Bacteria Urine Automated None Seen (None Seen); Cast Urine Automated >20 /lpf (0-2); Glucose Urine UA Negative (Negative); WBC Urine Automated 0-5 /hpf (0-5)
[2024-08-24 04:15] LABS: A calco-baum cmplx NotReported Not Detected (NotDetected); Bact fragilis Not Reported Not Detected (NotDetected); Blood Culture Id Panel See PCR Comment (NotDetected); C auris Not Reported Not Detected (NotDetected); CTX-M Resistant Gene Not Detected (NotDetected); Calbicans Not Reported Not Detected (NotDetected); Candida glabrata Not Reported Not Detected (NotDetected); Candida krusei Not Reported Not Detected (NotDetected); Cneoformans/gatti Not Reported Not Detected (NotDetected); Cparapsilosis Not Reported Not Detected (NotDetected); Ctropicalis Not Reported Not Detected (NotDetected); E cloacae compx Not Reported Not Detected (NotDetected); Efaecalis Not Reported Not Detected (NotDetected); Efaecium Not Reported Not Detected (NotDetected); Enterobacterales DETECTED (NotDetected); Enterobacterales Not Reported DETECTED (NotDetected); Escherichia coli Not Reported Not Detected (NotDetected); H influenzae Not Reported Not Detected (NotDetected); IMP Resistant Gene Not Detected (NotDetected); K aerogenes Not Reported Not Detected (NotDetected); KPC Resistant Gene Not Detected (NotDetected); Koxytoca Not Reported Not Detected (NotDetected); Kpneumoniae grp Not Reported Not Detected (NotDetected); Lmonocyt Not Reported Not Detected (NotDetected); N meningitidis Not Reported Not Detected (NotDetected); NDM Resistant Gene Not Detected (NotDetected); OXA 48 Like Resistant Gene Not Detected (NotDetected); P aeruginosa Not Reported Not Detected (NotDetected); Proteus spp Not Reported DETECTED (NotDetected); Salmonella spp Not Reported Not Detected (NotDetected); Staph lugdunensis Not Reported Not Detected (NotDetected); Staph spp. Not Reported Not Detected (NotDetected); Staphaureus Not Reported Not Detected (NotDetected); Staphepi Not Reported Not Detected (NotDetected); Stenmaltophilia Not Reported Not Detected (NotDetected); Strep agal(GrpB) Not Reported Not Detected (NotDetected); Strep pneum Not Reported Not Detected (NotDetected); Strep pyog (GrpA) Not Reported Not Detected (NotDetected); Strep spp Not Reported Not Detected (NotDetected); VIM Resistant Gene Not Detected (NotDetected)
[2024-08-24 04:31] LABS: Proteus species DETECTED (NotDetected)
--- NOTE | 2024-08-24 06:00 | Electrocardiogram Report ---
Test Reason : Blood Pressure : */* mmHG Vent. Rate : 93 BPM Atrial Rate : 93 BPM P-R Int : 138 ms QRS Dur : 88 ms QT Int : 330 ms P-R-T Axes : 52 77 12 degrees QTcB Int : 410 ms Normal sinus rhythm Normal ECG No previous ECGs available Confirmed by Yoshi Quijano ([id number]) on 08/24/2024 5:59:59 AM Referred By: REFERRED SELF Confirmed By: Yoshi Quijano
[2024-08-24 06:08] LABS: Hematocrit (blood only) 30.7 % (37.0-47.0); Hemoglobin 10.8 g/dl (12.0-16.0); Mean Corpuscular Hemoglobin 27.6 pg (25.0-34.0); Mean Corpuscular Volume 78.3 fL (80.0-100.0); Platelet Count 245 K/uL (130-400); RDW Standard Deviation 42.9 fL (36.4-46.3); Red Blood Count 3.92 M/uL (4.20-5.40); White Blood Count 14.71 K/ul (4.8-10.8)
[2024-08-24 06:24] LABS: Anion Gap 12.0 (3-11); Blood Urea Nitrogen 85.0 mg/dl (6-23); Calcium 8.3 mg/dl (8.6-10.3); Carbon Dioxide 26.0 mmol/L (21-32); Chloride 91.0 mmol/L (98-107); Creatinine Clr Calc Pharmacy 13.8 ml/min; Glucose 117.0 mg/dl (70-99(Fasting)); Magnesium 4.0 mg/dl (1.7-2.4); Potassium 5.1 mmol/L (3.5-5.1); Sodium 129.0 mmol/L (136-145)
[2024-08-24] MEDS: D5W AND NSS 1,000 ML IV SCH (07:40)
--- NOTE | 2024-08-24 08:58 | Cardiology Consultation ---
Date of Consultation August 24, 2024 Assessment & Plan (1) Severe sepsis with acute organ dysfunction: (2) Gram-negative bacteremia: (3) Atrial fibrillation, new onset: (4) Acute renal failure: (5) Status post laparoscopic appendectomy: Plan 68-year-old female admitted after recent laparoscopic appendectomy with evidence of severe sepsis and gram-negative bacteremia. Acute renal failure with serum creatinine up to 4.0 (previously normal). Transient paroxysmal atrial fibri llation with rapid ventricular response secondary to sepsis, electrolyte derangement, and hypovolemia. Currently sinus rhythm. Recommendations: * Continue IV Lopressor 2.5 mg every 6 hours. * Would not recommend additional IV heparin infusion at this time due to brief duration of atrial fibrillation. * Continue subcutaneous heparin for DVT prophylaxis. * Monitor telemetry. * Supplement electrolytes as indicated to maintain serum potassium greater than 4.0, and serum magnesium greater than 2.0. * Bedside echocardiogram demonstrates normal LV function without significant valvular pathology. * Consider nephrology consultation. * Antibiotics, sepsis management as per internal medicine. Lalo Ortega DO, [facility] History of Present Illness Reason for Consultation: New atrial fibrillation, sepsis Requesting Physician: Dr. Chago Oropeza Attending Physician: Jered Hollis MD History of Present Illness 68-year-old female with recent laparoscopic appendectomy for removal of mucocele 08/19/2024. No immediate postoperative complications noted. Significant abdominal discomfort noted at home with poor p.o. intake. Came to the ER due to worsening abdominal discomfort. Abdominal discomfort/distention ongoing. Atrial fibrillation with rapid rate ventricular response recorded on telemetry from 11 AM to 12 PM yesterday. Heart rates ranging 150 to 170 bpm. She spontaneously converted to sinus rhythm. Remains in sinus rhythm today with heart rate in the 70s and 80s. N.p.o. at this time due to abdominal issues. Tolerating IV Lopressor. No recurrent atrial fibrillation on telemetry. Previously evaluated by the undersigned due to palpitations and supraventricular tachycardia January 2018. ZIO monitor performed in January 2018 demonstrating 11 runs of supraventricular tachycardia correlating with patient's symptoms. Patient declined prescription of beta-royce therapy at that time. Allergies Allergy/AdvReac Type Severity Reaction Status Date / Time No Known Allergies Allergy Verified 08/23/24 11:05 Home Medications Medication Instructions Recorded Confirmed Type No Known Home Medications 08/23/24 08/23/24 History Patient History Medical History Paroxysmal SVT (supraventricular tachycardia) sometimes occurs in the morning hours/not at any other times. no hx medication or intervention. Last occurence: " i don't know" Rotator cuff tear no hx sx, right, denies limitations. Arthritis of both feet Gallstone found on last ct may of 2024/no trouble with at current. Elevated blood pressure reading at dr's offices elevated. monitored. Obesity Surgical History History of foot surgery left/hardware History of colonoscopy Hx of tooth extraction History of lumpectomy of left breast Social History Smoking Status: Never smoker Second Hand Exposure: No; Do You Dip or Chew Tobacco: No; Hx Alcohol Use: No Hx Substance Use: No Preferred Language: Salvadorean Communication Ability: Effective Visual Impairment: No Limitations Financial Internship Required: No Beliefs That Will Affect Care: None Current Living Situation: Spouse Feels Safe at Home: Yes Assistive Devices: None Review of Systems Review of Systems: All systems reviewed & are unremarkable except as noted in Subjective Physical Exam Constitutional: well nourished; no acute distress Respiratory: no respiratory distress, no labored breathing and no retractions Auscultation: no crackles, no rales, no rhonchi and no wheezes Cardiovascular: Rate/Rhythm: regular rate and regular rhythm Heart Sounds: normal S1 and normal S2; no murmur Vessels: radial pulses present; no JVD and no carotid bruit Extremities: no edema Gastrointestinal (Abdomen): Inspection/Auscultation: + abdomen distended; + ab normal bowel sounds (Absent/hypoactive) Percussion/Palpation: + abdomen tender; no guarding and abdomen not rigid Neurologic: CN's II-XI intact bilaterally and moves all extremities; no focal motor deficits Results & Data Vital Signs (Past 12 Hours) Vital Signs Temp Pulse Pulse Resp BP BP Pulse Ox 08/24/24 08:38 78 08/24/24 07:34 37.0 C 78 20 135/71 94 08/24/24 06:16 89 154/73 H 08/24/24 03:04 37.3 C 86 18 118/69 95 08/24/24 01:56 87 106/65 08/24/24 01:54 36.6 C 87 18 106/65 94 08/24/24 01:09 103 H 124/69 08/24/24 00:49 36.6 C 103 H 18 124/69 90 08/23/24 22:00 97 H 08/23/24 21:22 90 138/70 O2 Del Method O2 Flow Rate 08/24/24 08:38 08/24/24 07:34 Room Air 08/24/24 06:16 08/24/24 03:04 Nasal Cannula 2 08/24/24 01:56 08/24/24 01:54 Nasal Cannula 2 08/24/24 01:09 08/24/24 00:49 Nasal Cannula 1 08/23/24 22:00 08/23/24 21:22 Laboratory Results Cardiac Enzymes 08/23/24 08/23/24 Range/Units 13:34 18:44 Troponin I High Sens 11.6 D 23.2 H D (0-14) pg/ml CBC 08/23/24 08/24/24 Range/Units 13:34 05:31 WBC 7.88 14.71 H (4.8-10.8) K/ul RBC 4.51 3.92 L (4.20-5.40) M/uL Hgb 12.3 10.8 L (12.0-16.0) g/dl Hct 36.5 L 30.7 L (37.0-47.0) % Plt Count 236 245 (130-400) K/uL Comprehensive Metabolic Panel 08/23/24 08/24/24 Range/Units 13:34 05:31 Sodium 126 L 129 L (136-145) mmol/L Potassium 4.9 5.1 (3.5-5.1) mmol/L Chloride 89 L 91 L (98-107) mmol/L Carbon Dioxide 22 26 (21-32) mmol/L BUN 75 H 85 H (6-23) mg/dl Creatinine 4.11 H D 3.99 H (0.6-1.2) mg/dl Glucose 102 H 117 H (70-99(Fasting)) mg/dl Calcium 8.9 8.3 L (8.6-10.3) mg/dl Intake and Output 08/23/24 08/24/24 08/24/24 22:59 06:59 14:59 Intake Total 1950 / 4410 300 / 4410 1000 / 1000 Balance 1950 / 4210 300 / 4210 1000 / 1000 Intake: IV 1000 / 3260 100 / 3260 1000 / 1000 D5w and Nss 1,000 ml @ 125 mls/ 1000 / 1000 1000 / 1000 hr IV .Q8H ARMANDO Rx#:[id number] Piperacillin/Tazobactam 4.5 gm 100 / 100 In 100 ml @ 25 mls/hr IV Q12H ARMANDO Rx#:[id number] Other 950 / 1150 200 / 1150 Other: Other Intake Source Iv fluids iv # Unmeasured Voids 2 Weight 81.3 kg Weight Measurement Method Built in [facility]
--- NOTE | 2024-08-24 10:02 | Surgery Progress Note ---
Date of Service August 24, 2024 Assessment & Plan (1) Ileus due to infection: (2) Atrial fibrillation, new onset: (3) Severe sepsis with acute organ dysfunction: (4) Acute renal failure: (5) Status post laparoscopic appendectomy: (6) Mucocele of appendix: (7) Pneumoperitoneum: Plan POD # 5 s/p laparoscopic appendectomy for large mucocele of appendix avss Creatinine slowly improving blood culture + gram negative bacilli leukocytosis of 14k today abdomen soft with firmness in RLQ no peritonitis, mild distention Plan: Order ct scan abd/pelvis with oral contrast via NGT to further evaluate continue IV abx pain management and antiemetics as needed Cardiology consulted continue scds and encouraged incentive spirometer Continue medical management Discussed with Dr. Pacheco who agrees with above. Admission and Anticipated Discharge Date Admission Date: August 23, 2024 Subjective "just not feeling well" no further nausea and vomiting since NGT was placed feeling very hot not passing gas , has not had bowel movement since surgery no chest pain or shortness of breath was able to urinate on own but not very much Physical Exam Constitutional: WD/WN, vitals as above + ill appearing and cooperative; no acute distress, + uncomfortable, not combative and not diaphoretic Respiratory: normal respiratory effort; no respiratory distress, no labored breathing and no retractions Gastrointestinal (Abdomen): Inspection/Auscultation: + abdomen distended (mild distention), + abdominal surgical incision (c/d/i with dermabdon, surrounding ecchymosis) and + hypoactive bowel sounds; + abnormal bowel sounds Percussion/Palpation: + abdomen tender (RLQ), abdomen soft and + abdomen firm (Firm in the RLQ on palpation); no guarding and abdomen not rigid Skin: no rashes, warm and dry Psychiatric: Orientation: alert and oriented x 3 Results & Data Vital Signs (Past 12 Hours) Vital Signs Temp Pulse Pulse Resp BP BP Pulse Ox 08/24/24 08:38 78 08/24/24 07:34 37.0 C 78 20 135/71 94 08/24/24 06:16 89 154/73 H 08/24/24 03:04 37.3 C 86 18 118/69 95 08/24/24 01:56 87 106/65 08/24/24 01:54 36.6 C 87 18 106/65 94 08/24/24 01:09 103 H 124/69 08/24/24 00:49 36.6 C 103 H 18 124/69 90 08/23/24 22:00 97 H O2 Del Method O2 Flow Rate 08/24/24 08:38 08/24/24 07:34 Room Air 08/24/24 06:16 08/24/24 03:04 Nasal Cannula 2 08/24/24 01:56 08/24/24 01:54 Nasal Cannula 2 08/24/24 01:09 08/24/24 00:49 Nasal Cannula 1 08/23/24 22:00 Laboratory Results 08/24/24 08/24/24 08/23/24 Range/Units 05:31 03:12 Unknown WBC 14.71 H (4.8-10.8) K/ul RBC 3.92 L (4.20-5.40) M/uL Hgb 10.8 L (12.0-16.0) g/dl Hct 30.7 L (37.0-47.0) % MCV 78.3 L (80.0-100.0) fL MCH 27.6 (25.0-34.0) pg MCHC 35.2 (32.0-36.0) g/dL RDW Std Deviation 42.9 (36.4-46.3) fL RDW Coeff of [place] 15.1 H (11.5-14.5) % Plt Count 245 (130-400) K/uL MPV 10.3 (9.4-12.4) fL Immature Gran % (Auto) % Neut % (Auto) % Lymph % (Auto) % [place] % (Auto) % Eos % (Auto) % Baso % (Auto) % Neut # (Auto) (1.40-6.50) K/uL Lymph # (Auto) (1.20-3.40) K/uL [place] # (Auto) (0.11-0.59) K/uL Eos # (Auto) (0.00-0.50) K/uL Baso # (Auto) (0.00-0.20) K/uL Immature Gran # (Auto) (0.01-0.20) K/uL Absolute Nucleated RBC 0.07 (0.00-0.12) K/uL Nucleated RBC % (auto) 0.5 % Toxic Granulation Toxic Vacuolation Dohle Bodies Echinocytes Sodium 129 L (136-145) mmol/L Potassium 5.1 (3.5-5.1) mmol/L Chloride 91 L (98-107) mmol/L Carbon Dioxide 26 (21-32) mmol/L Anion Gap 12 H (3-11) BUN 85 H (6-23) mg/dl Creatinine 3.99 H (0.6-1.2) mg/dl Est Cr Clr Drug Dosing 13.8 ml/min eGFR 11.66 BUN/Creatinine Ratio 21.3 H (10-20) Glucose 117 H (70-99(Fasting)) mg/dl POC Glucose 110 H (70-99) mg/dl Lactate (0.4-2.0) mmol/L Calcium 8.3 L (8.6-10.3) mg/dl Phosphorus 5.3 H (2.5-4.9) mg/dl Magnesium 4.0 H (1.7-2.4) mg/dl Total Bilirubin (0.2-1.0) mg/dl Direct Bilirubin (0-0.2) mg/dl AST (13-39) U/L ALT (7-52) U/L Alkaline Phosphatase (34-104) U/L Troponin I High Sens (0-14) pg/ml Total Protein (6.0-8.3) gm/dl Albumin (3.4-5.0) gm/dl Lipase (11-82) U/L Procalcitonin (0-0.5) ng/ml Urine Color Dark Yellow Urine Appearance Turbid A (Clear) Urine pH 5.0 (4.5-7.5) Ur Specific [place] 1.021 (1.000-1.030) Urine Protein 2+ H (Negative) Urine Glucose (UA) Negative (Negative) Urine Ketones Trace H (Negative) Urine Blood Negative (Negative) Urine Nitrite Negative (Negative) Urine Bilirubin Negative (Negative) Urine Urobilinogen Negative (Negative) Ur Leukocyte Esterase Negative (Negative) Urine WBC (Auto) 0-5 (0-5) /hpf Urine RBC (Auto) 6-10 H (0-2) /hpf U Hyaline Cast (Auto) >20 H (0-2) /lpf U Epithel Cells (Auto) 11-20 H (0-2) /hpf Urine Bacteria (Auto) None Seen (None Seen) Calcium Oxalate Crystal Present A (None Prsent) Urine Comment Enterobacterales (PCR) (NotDetected) Proteus species (PCR) (NotDetected) blaIMP Car res Gene PCR (NotDetected) KPC-Carbap Res Gene PCR (NotDetected) blaNDM Car Res Gene PCR (NotDetected) OXA-48 Carbapenem Resis Gene (PCR) (NotDetected) blaVIM Car Res Gene PCR (NotDetected) CTX-M Gene Resistance (PCR) (NotDetected) Bld Cult ID Panel PCR (NotDetected) Blood Type Antibody Screen 08/23/24 08/23/24 08/23/24 Range/Units 18:44 13:34 13:11 WBC 7.88 (4.8-10.8) K/ul RBC 4.51 (4.20-5.40) M/uL Hgb 12.3 (12.0-16.0) g/dl Hct 36.5 L (37.0-47.0) % MCV 80.9 (80.0-100.0) fL MCH 27.3 (25.0-34.0) pg MCHC 33.7 (32.0-36.0) g/dL RDW Std Deviation 44.9 (36.4-46.3) fL RDW Coeff of [place] 15.3 H (11.5-14.5) % Plt Count 236 (130-400) K/uL MPV 10.2 (9.4-12.4) fL Immature Gran % (Auto) % Neut % (Auto) % Lymph % (Auto) % [place] % (Auto) % Eos % (Auto) % Baso % (Auto) % Neut # (Auto) (1.40-6.50) K/uL Lymph # (Auto) (1.20-3.40) K/uL [place] # (Auto) (0.11-0.59) K/uL Eos # (Auto) (0.00-0.50) K/uL Baso # (Auto) (0.00-0.20) K/uL Immature Gran # (Auto) (0.01-0.20) K/uL Absolute Nucleated RBC 0.03 (0.00-0.12) K/uL Nucleated RBC % (auto) 0.4 % Toxic Granulation Toxic Vacuolation Dohle Bodies Echinocytes Sodium 126 L (136-145) mmol/L Potassium 4.9 (3.5-5.1) mmol/L Chloride 89 L (98-107) mmol/L Carbon Dioxide 22 (21-32) mmol/L Anion Gap 15 H (3-11) BUN 75 H (6-23) mg/dl Creatinine 4.11 H D (0.6-1.2) mg/dl Est Cr Clr Drug Dosing 13.4 ml/min eGFR 11.25 BUN/Creatinine Ratio 18.2 (10-20) Glucose 102 H (70-99(Fasting)) mg/dl POC Glucose (70-99) mg/dl Lactate 3.8 H* 4.1 H* (0.4-2.0) mmol/L Calcium 8.9 (8.6-10.3) mg/dl Phosphorus (2.5-4.9) mg/dl Magnesium 4.0 H (1.7-2.4) mg/dl Total Bilirubin (0.2-1.0) mg/dl Direct Bilirubin (0-0.2) mg/dl AST (13-39) U/L ALT (7-52) U/L Alkaline Phosphatase (34-104) U/L Troponin I High Sens 23.2 H D 11.6 D (0-14) pg/ml Total Protein (6.0-8.3) gm/dl Albumin (3.4-5.0) gm/dl Lipase (11-82) U/L Procalcitonin (0-0.5) ng/ml Urine Color Urine Appearance (Clear) Urine pH (4.5-7.5) Ur Specific [place] (1.000-1.030) Urine Protein (Negative) Urine Glucose (UA) (Negative) Urine Ketones (Negative) Urine Blood (Negative) Urine Nitrite (Negative) Urine Bilirubin (Negative) Urine Urobilinogen (Negative) Ur Leukocyte Esterase (Negative) Urine WBC (Auto) (0-5) /hpf Urine RBC (Auto) (0-2) /hpf U Hyaline Cast (Auto) (0-2) /lpf U Epithel Cells (Auto) (0-2) /hpf Urine Bacteria (Auto) (None Seen) Calcium Oxalate Crystal (None Prsent) Urine Comment Enterobacterales (PCR) (NotDetected) Proteus species (PCR) (NotDetected) blaIMP Car res Gene PCR (NotDetected) KPC-Carbap Res Gene PCR (NotDetected) blaNDM Car Res Gene PCR (NotDetected) OXA-48 Carbapenem Resis Gene (PCR) (NotDetected) blaVIM Car Res Gene PCR (NotDetected) CTX-M Gene Resistance (PCR) (NotDetected) Bld Cult ID Panel PCR (NotDetected) Blood Type Antibody Screen 08/23/24 08/23/24 08/23/24 Range/Units 11:42 11:05 10:33 WBC (4.8-10.8) K/ul RBC (4.20-5.40) M/uL Hgb (12.0-16.0) g/dl Hct (37.0-47.0) % MCV (80.0-100.0) fL MCH (25.0-34.0) pg MCHC (32.0-36.0) g/dL RDW Std Deviation (36.4-46.3) fL RDW Coeff of [place]ino (11.5-14.5) % Plt Count (130-400) K/uL MPV (9.4-12.4) fL Immature Gran % (Auto) % Neut % (Auto) % Lymph % (Auto) % [place] % (Auto) % Eos % (Auto) % Baso % (Auto) % Neut # (Auto) (1.40-6.50) K/uL Lymph # (Auto) (1.20-3.40) K/uL [place] # (Auto) (0.11-0.59) K/uL Eos # (Auto) (0.00-0.50) K/uL Baso # (Auto) (0.00-0.20) K/uL Immature Gran # (Auto) (0.01-0.20) K/uL Absolute Nucleated RBC (0.00-0.12) K/uL Nucleated RBC % (auto) % Toxic Granulation Toxic Vacuolation Dohle Bodies Echinocytes Sodium (136-145) mmol/L Potassium (3.5-5.1) mmol/L Chloride (98-107) mmol/L Carbon Dioxide (21-32) mmol/L Anion Gap (3-11) BUN (6-23) mg/dl Creatinine (0.6-1.2) mg/dl Est Cr Clr Drug Dosing ml/min eGFR BUN/Creatinine Ratio (10-20) Glucose (70-99(Fasting)) mg/dl POC Glucose 74 86 (70-99) mg/dl Lactate 2.9 H* (0.4-2.0) mmol/L Calcium (8.6-10.3) mg/dl Phosphorus (2.5-4.9) mg/dl Magnesium (1.7-2.4) mg/dl Total Bilirubin (0.2-1.0) mg/dl Direct Bilirubin (0-0.2) mg/dl AST (13-39) U/L ALT (7-52) U/L Alkaline Phosphatase (34-104) U/L Troponin I High Sens (0-14) pg/ml Total Protein (6.0-8.3) gm/dl Albumin (3.4-5.0) gm/dl Lipase (11-82) U/L Procalcitonin 53.40 H (0-0.5) ng/ml Urine Color Urine Appearance (Clear) Urine pH (4.5-7.5) Ur Specific [place] (1.000-1.030) Urine Protein (Negative) Urine Glucose (UA) (Negative) Urine Ketones (Negative) Urine Blood (Negative) Urine Nitrite (Negative) Urine Bilirubin (Negative) Urine Urobilinogen (Negative) Ur Leukocyte Esterase (Negative) Urine WBC (Auto) (0-5) /hpf Urine RBC (Auto) (0-2) /hpf U Hyaline Cast (Auto) (0-2) /lpf U Epithel Cells (Auto) (0-2) /hpf Urine Bacteria (Auto) (None Seen) Calcium Oxalate Crystal (None Prsent) Urine Comment Enterobacterales (PCR) DETECTED A (NotDetected) Proteus species (PCR) DETECTED A (NotDetected) blaIMP Car res Gene PCR Not Detected (NotDetected) KPC-Carbap Res Gene PCR Not Detected (NotDetected) blaNDM Car Res Gene PCR Not Detected (NotDetected) OXA-48 Carbapenem Resis Gene (PCR) Not Detected (NotDetected) blaVIM Car Res Gene PCR Not Detected (NotDetected) CTX-M Gene Resistance (PCR) Not Detected (NotDetected) Bld Cult ID Panel PCR See PCR Comment (NotDetected) Blood Type A Positive Antibody Screen NEGATIVE 08/23/24 Range/Units 09:15 WBC (4.8-10.8) K/ul RBC (4.20-5.40) M/uL Hgb (12.0-16.0) g/dl Hct (37.0-47.0) % MCV (80.0-100.0) fL MCH (25.0-34.0) pg MCHC (32.0-36.0) g/dL RDW Std Deviation (36.4-46.3) fL RDW Coeff of [place] (11.5-14.5) % Plt Count (130-400) K/uL MPV (9.4-12.4) fL Immature Gran % (Auto) 1.5 % Neut % (Auto) 87.5 % Lymph % (Auto) 6.1 % [place] % (Auto) 4.7 % Eos % (Auto) 0.1 % Baso % (Auto) 0.1 % Neut # (Auto) 12.54 H (1.40-6.50) K/uL Lymph # (Auto) 0.88 L (1.20-3.40) K/uL [place] # (Auto) 0.67 H (0.11-0.59) K/uL Eos # (Auto) 0.02 (0.00-0.50) K/uL Baso # (Auto) 0.02 (0.00-0.20) K/uL Immature Gran # (Auto) 0.22 H (0.01-0.20) K/uL Absolute Nucleated RBC (0.00-0.12) K/uL Nucleated RBC % (auto) % Toxic Granulation 3+ Toxic Vacuolation 2+ Dohle Bodies 1+ Echinocytes 1+ Sodium 121 L (136-145) mmol/L Potassium 5.8 H (3.5-5.1) mmol/L Chloride 81 L (98-107) mmol/L Carbon Dioxide 25 (21-32) mmol/L Anion Gap 15 H (3-11) BUN 77 H (6-23) mg/dl Creatinine 4.78 H* (0.6-1.2) mg/dl Est Cr Clr Drug Dosing 11.2 ml/min eGFR 9.39 BUN/Creatinine Ratio 16.1 (10-20) Glucose 104 H (70-99(Fasting)) mg/dl POC Glucose (70-99) mg/dl Lactate (0.4-2.0) mmol/L Calcium 9.9 (8.6-10.3) mg/dl Phosphorus (2.5-4.9) mg/dl Magnesium 4.5 H (1.7-2.4) mg/dl Total Bilirubin 0.6 (0.2-1.0) mg/dl Direct Bilirubin 0.2 (0-0.2) mg/dl AST 22 (13-39) U/L ALT 18 (7-52) U/L Alkaline Phosphatase 117 H (34-104) U/L Troponin I High Sens 16.5 H (0-14) pg/ml Total Protein 7.5 (6.0-8.3) gm/dl Albumin 3.6 (3.4-5.0) gm/dl Lipase 4 L (11-82) U/L Procalcitonin (0-0.5) ng/ml Urine Color Urine Appearance (Clear) Urine pH (4.5-7.5) Ur Specific [place] (1.000-1.030) Urine Protein (Negative) Urine Glucose (UA) (Negative) Urine Ketones (Negative) Urine Blood (Negative) Urine Nitrite (Negative) Urine Bilirubin (Negative) Urine Urobilinogen (Negative) Ur Leukocyte Esterase (Negative) Urine WBC (Auto) (0-5) /hpf Urine RBC (Auto) (0-2) /hpf U Hyaline Cast (Auto) (0-2) /lpf U Epithel Cells (Auto) (0-2) /hpf Urine Bacteria (Auto) (None Seen) Calcium Oxalate Crystal (None Prsent) Urine Comment Enterobacterales (PCR) (NotDetected) Proteus species (PCR) (NotDetected) blaIMP Car res Gene PCR (NotDetected) KPC-Carbap Res Gene PCR (NotDetected) blaNDM Car Res Gene PCR (NotDetected) OXA-48 Carbapenem Resis Gene (PCR) (NotDetected) blaVIM Car Res Gene PCR (NotDetected) CTX-M Gene Resistance (PCR) (NotDetected) Bld Cult ID Panel PCR (NotDetected) Blood Type Antibody Screen
--- NOTE | 2024-08-24 11:14 | Hospitalist Progress Note ---
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 Presents critically ill with acute renal failure, multiple electrolyte abnormalities and evidence of severe sepsis with organ dysfunction as evidenced by renal failure, postsurgical ileus, and new onset atrial fibrillation. Postsurgical ileus Mucocele of appendix Pneumoperitoneum S/P laparoscopic appendicectomy of large mucocele of appendix by Dr. Pacheco on 08/19/2024 --CT ABD:Absent appendix consistent with appendectomy history with increased fluid and gas throughout the abdomen and pelvis more than expected particularly at the level of the surgical bed. Dehiscence is not excluded. No discrete encapsulated drainable fluid collection although early abscess cannot be excluded. Prominent fluid distended proximal small bowel and to some extent distal small bowel fecal type densities which can be seen in slow small bowel transit. Mild ileus is not excluded. -- CT abdomen with oral contrast pending --Continue NG tube, bowel rest, IV fluids Empirically on IV Zosyn Appreciate surgery input Sepsis Gram-negative bacteremia Due to above -- Blood culture growing gram-negative --Continue IV Zosyn for now --Continue IV fluids Atrial fibrillation--new onset In the setting of sepsis Spontaneously converted to sinus --ECHO: EF 55 to 60%. Mild concentric LVH. Left atrium mildly dilated. Mild tricuspid regurgitation. No significant pulmonary hypertension. Continue IV Lopressor 2.5 mg every 6 hours for now Hold anticoagulation for now Appreciate cardiology input Replete electrolytes as needed May need ZIO monitor as outpatient Acute kidney injury Creatinine 3.9 today Likely ATN, prerenal Hypomagnesemia likely due to above Continue IV fluids Renal function slowly improving Avoid nephrotoxic agents as able Bladder scan as needed to monitor for retention Consider nephrology evaluation if no improvement Hyponatremia Likely due to dehydration Sodium level slowly improving Continue to monitor sodium levels Mild troponin elevation Likely demand ischemia secondary to sepsis, A-fib RVR Denies any chest pain, dyspnea Monitor Hyperkalemia Received bicarbonate, insulin, calcium gluconate Potassium levels normalized Monitor DVT Px: Heparin SQ Code Status Full Code Admission and Anticipated Discharge Date Admission Date: August 23, 2024 Subjective Patient is seen and examined at bedside Nausea resolved after placing NG tube States having right-sided abdominal pain, last bowel movement many days ago Denies any chest pain, dyspnea, dizziness No other complaints Review of Systems Review of Systems: All systems reviewed & are unremarkable except as noted in Subjective Physical Exam Physical Exam: Physical Exam: Vitals signs as noted above General Appearance:Moderately built and nourished, no apparent distress Head: normocephalic, Atraumatic,+ NG tube Eyes: normal inspection, EOMI Neck: supple, Trachea midline Respiratory/Chest: Normal breath sounds, CTA, No accessory muscle use Cardiovascular: S1, S2, No murmur Abdomen/GI:Soft, right sided tender, hypoactive Bowel sounds, mildly distended Extremities/Musculoskeletal:normal inspection, Trace edema Neurologic/Psych:AAOX3, grossly no focal neurological deficits Skin: normal color, warm Results & Data Results & Data Vital Signs (Past 12 Hours) Vital Signs Temp Pulse Pulse Resp BP BP Pulse Ox 08/24/24 08:38 78 08/24/24 07:34 37.0 C 78 20 135/71 94 08/24/24 06:16 89 154/73 H 08/24/24 03:04 37.3 C 86 18 118/69 95 08/24/24 01:56 87 106/65 08/24/24 01:54 36.6 C 87 18 106/65 94 08/24/24 01:09 103 H 124/69 08/24/24 00:49 36.6 C 103 H 18 124/69 90 O2 Del Method O2 Flow Rate 08/24/24 08:38 08/24/24 07:34 Room Air 08/24/24 06:16 08/24/24 03:04 Nasal Cannula 2 08/24/24 01:56 08/24/24 01:54 Nasal Cannula 2 08/24/24 01:09 08/24/24 00:49 Nasal Cannula 1 Laboratory Results Short CBC 08/23/24 08/24/24 Range/Units 13:34 05:31 WBC 7.88 14.71 H (4.8-10.8) K/ul Hgb 12.3 10.8 L (12.0-16.0) g/dl Hct 36.5 L 30.7 L (37.0-47.0) % Plt Count 236 245 (130-400) K/uL BMP 08/23/24 08/24/24 13:34 05:31 Sodium 126 L 129 L Potassium 4.9 5.1 Chloride 89 L 91 L Carbon Dioxide 22 26 BUN 75 H 85 H Creatinine 4.11 H D 3.99 H Glucose 102 H 117 H Calcium 8.9 8.3 L Urine 08/23/24 Range/Units Unknown Urine Color Dark Yellow Urine Appearance Turbid A (Clear) Urine pH 5.0 (4.5-7.5) Ur Specific [place] 1.021 (1.000-1.030) Urine Protein 2+ H (Negative) Urine Glucose (UA) Negative (Negative)
--- NOTE | 2024-08-24 12:41 | CT Scan Report ---
ABDOMEN AND PELVIS CT WITH ORAL CONTRAST CT DOSE: 1383.92 mGy.cm HISTORY: s/p lap appy for large mucocele, r/o leak TECHNIQUE: Multiaxial CT images of the abdomen and pelvis were performed following the use of oral co ntrast. A dose lowering technique was utilized adhering to the principles of ALARA. COMPARISON STUDY: 08/23/2024 FINDINGS: There is a very small right pleural effusion with mild bilateral lung base atelectasis. ABDOMEN: There is a small amount of free air, stable. Nasogastric tube tip is in the distal body of t he stomach. Stomach is mildly distended with enteric contrast. Stable mildly distended proximal jejun um. Stable collection of predominantly gas with small amount of layering fluid left abdomen just belo w the stomach measuring 7 cm greatest dimension. Stable small amount of scattered free fluid. There is a gallstone without evidence of acute cholecystitis. Liver, spleen, pancreas, and adrenal gl ands have an unremarkable non-IV contrasted appearance. Kidneys show no hydronephrosis. Stable small calculus lower left kidney. Pelvis: Uterus and adnexal regions are grossly unremarkable. Urinary bladder is nondistended. There i s mild sigmoid diverticulosis. No acute diverticulitis. Stable appendectomy. There is stable mild wal l thickening at the cecum. Stable small amount of scattered free fluid and free air. Significant ente tisha contrast has not progressed to the ileum or colon. No extravasated enteric contrast seen. No acut e osseous findings. IMPRESSION: 1. Majority of the contrast remains in the stomach. There is mild distention of the proximal jejunum, likely ileus. Suggest follow-up CT scan tonight or tomorrow morning to see if the contrast progresse s beyond the appendectomy site to better evaluate for leak. 2. Stable small amount of scattered free fluid and free air. 3. Otherwise as described. ACT 112: Negative or not required by law. The above report was generated using voice recognition software. It may contain grammatical, syntax o r spelling errors. Electronically signed by: Joshua Godinez M.D. 08/24/2024 12:39 PM
[2024-08-24] MEDS: METOPROLOL TARTRATE 1 MG/ML VIAL IV SCH (12:42)
--- NOTE | 2024-08-24 15:51 | Surgery Progress Note ---
Date of Service August 24, 2024 Assessment & Plan (1) Ileus due to infection: Plan: pain about the same vitals stable CT as above repeat CT in AM IV abx Admission and Anticipated Discharge Date Admission Date: August 23, 2024 Subjective feels about the same no increased pain Physical Exam Gastrointestinal (Abdomen): Percussion/Palpation: + abdomen tender and abdomen soft; no guarding and abdomen not rigid Results & Data Vital Signs (Past 12 Hours) Vital Signs Temp Pulse Pulse Resp BP BP Pulse Ox 08/24/24 11:15 36.7 C 87 14 179/81 H 94 08/24/24 08:38 78 08/24/24 08:36 08/24/24 07:34 37.0 C 78 20 135/71 94 08/24/24 06:16 89 154/73 H O2 Del Method O2 Flow Rate 08/24/24 11:15 Room Air 08/24/24 08:38 08/24/24 08:36 Nasal Cannula 1 08/24/24 07:34 Room Air 08/24/24 06:16 Diagnostic Findings ABDOMEN AND PELVIS CT WITH ORAL CONTRAST CT DOSE: 1383.92 mGy.cm HISTORY: s/p lap appy for large mucocele, r/o leak TECHNIQUE: Multiaxial CT images of the abdomen and pelvis were performed following the use of oral contrast. A dose lowering technique was utilized adhering to the principles of ALARA. COMPARISON STUDY: 08/23/2024 FINDINGS: There is a very small right pleural effusion with mild bilateral lung base atelectasis. ABDOMEN: There is a small amount of free air, stable. Nasogastric tube tip is in the distal body of the stomach. Stomach is mildly distended with enteric contrast. Stable mildly distended proximal jejunum. Stable collection of predominantly gas with small amount of layering fluid left abdomen just below the stomach measuring 7 cm greatest dimension. Stable small amount of scattered free fluid. There is a gallstone without evidence of acute cholecystitis. Liver, spleen, pancreas, and adrenal glands have an unremarkable non-IV contrasted appearance. Kidneys show no hydronephrosis. Stable small calculus lower left kidney. Pelvis: Uterus and adnexal regions are grossly unremarkable. Urinary bladder is nondistended. There is mild sigmoid diverticulosis. No acute diverticulitis. Stable appendectomy. There is stable mild wall thickening at the cecum. Stable small amount of scattered free fluid and free air. Significant enteric contrast has not progressed to the ileum or colon. No extravasated enteric contrast seen. No acute osseous findings. IMPRESSION: 1. Majority of the contrast remains in the stomach. There is mild distention of the proximal jejunum, likely ileus. Suggest follow-up CT scan tonight or tomorrow morning to see if the contrast progresses beyond the appendectomy site to better evaluate for leak. 2. Stable small amount of scattered free fluid and free air. 3. Otherwise as described.
[2024-08-24 20:49] LABS: Base Excess VBG 5.5 mEq/L; HCO3 VBG 29 mmol/L; Oxygen Saturation VBG 95.9 %; PCO2 VBG 37 mmHg (38-50); PO2 VBG 68 mmHg; pH VBG 7.50 (7.36-7.41)
[2024-08-24 21:10] LABS: Anion Gap 13.0 (3-11); Blood Urea Nitrogen 83.0 mg/dl (6-23); Calcium 8.2 mg/dl (8.6-10.3); Carbon Dioxide 26.0 mmol/L (21-32); Chloride 94.0 mmol/L (98-107); Creatinine Clr Calc Pharmacy 18.9 ml/min; Glucose 138.0 mg/dl (70-99(Fasting)); Potassium 4.0 mmol/L (3.5-5.1); Sodium 133.0 mmol/L (136-145)
[2024-08-24 21:43] LABS: Thyroid Stimulating Hormone 1.1 uIu/ml (0.300-4.500)
[2024-08-25 06:03] LABS: Anion Gap 10.0 (3-11); Calcium 7.8 mg/dl (8.6-10.3); Carbon Dioxide 29.0 mmol/L (21-32); Chloride 97.0 mmol/L (98-107); Magnesium 3.8 mg/dl (1.7-2.4); Potassium 3.5 mmol/L (3.5-5.1); Sodium 136.0 mmol/L (136-145)
[2024-08-25 06:09] LABS: Blood Urea Nitrogen 69.0 mg/dl (6-23); Creatinine Clr Calc Pharmacy 24.6 ml/min; Glucose 147.0 mg/dl (70-99(Fasting))
[2024-08-25 07:11] LABS: Hematocrit (blood only) 29.6 % (37.0-47.0); Hemoglobin 10.3 g/dl (12.0-16.0); Mean Corpuscular Hemoglobin 27.2 pg (25.0-34.0); Mean Corpuscular Volume 78.1 fL (80.0-100.0); Platelet Count 231 K/uL (130-400); RDW Standard Deviation 42.6 fL (36.4-46.3); Red Blood Count 3.79 M/uL (4.20-5.40); White Blood Count 18.64 K/ul (4.8-10.8)
[2024-08-25] MEDS ORDERED: LABETALOL HCL IV 5 MG/ML 20ML IV PRN (09:08)
[2024-08-25] MEDS: POTASSIUM CHLORIDE / WTR 10 MEQ/100 ML PLCT IV SCH (10:25)
--- NOTE | 2024-08-25 11:43 | Surgery Progress Note ---
Date of Service August 25, 2024 Assessment & Plan (1) Ileus due to infection: Plan: better this AM WBC increased, will trend afebrile vitals stable con't NG, IVF, and IV abx Admission and Anticipated Discharge Date Admission Date: August 23, 2024 Subjective feels better some flatus NG bilious Review of Systems Constitutional: no fever and no chills Respiratory: no cough and no dyspnea Cardiovascular: no chest pain Gastrointestinal: + abdominal pain and + change in bowel h abits; no nausea and no vomiting Neurologic: + generalized weakness; no localized wea kness Psychiatric: no behavioral changes Physical Exam Constitutional: WD/WN, vitals as above Respiratory: normal respiratory effort, lungs clear to auscultation Cardiovascular: RRR, no murmur, no edema Gastrointestinal (Abdomen): Inspection/Auscultation: abdomen normal to inspection, + abdomen distended and normal bowel sounds Percussion/Palpation: + abdomen tender and abdomen soft; no guarding and abdomen not rigid Musculoskeletal: Head/Neck/Chest: normocephalic and head atraumatic Skin: no rashes, warm and dry Results & Data Vital Signs (Past 12 Hours) Vital Signs Temp Pulse Pulse Resp BP BP Pulse Ox 08/25/24 10:46 36.8 C 74 18 150/80 H 97 08/25/24 09:52 83 08/25/24 05:55 81 170/67 H 08/25/24 05:39 90 171/79 H 08/25/24 03:00 37.1 C 80 18 150/83 H 96 O2 Del Method O2 Flow Rate 08/25/24 10:46 Room Air 2 08/25/24 09:52 08/25/24 05:55 08/25/24 05:39 08/25/24 03:00 Nasal Cannula 2
--- NOTE | 2024-08-25 13:28 | CT Scan Report ---
CT OF THE ABDOMEN AND PELVIS WITHOUT CONTRAST CLINICAL HISTORY: s/p lap appy r/o leak f/u ct 08/24/24 with oral cont COMPARISON STUDY: CTs of the abdomen and pelvis August 23, 2024 and August 24, 2024. TECHNIQUE: Axial images of the abdomen and pelvis were obtained without IV contrast. Images were revi ewed in the axial, sagittal, and coronal planes. Automated exposure control was utilized for the dina dy. A dose lowering technique was utilized adhering to the principles of ALARA. FINDINGS: Tip of nasogastric tube is within the distal body of the stomach. Trace right pleural effus ion is present. Subpleural lower lung opacities favor atelectasis. Pneumomediastinum has decreased si nce CT of August 24, 2024. Pneumoperitoneum and right retroperitoneal gas has mildly decreased since CT of August 24, 2024. Evaluat ion of the abdomen and pelvis is suboptimal on this unenhanced exam. There is no biliary or pancreati c ductal dilatation. There is a gallstone within the gallbladder. The gallbladder is mildly distended without pericholecystic infiltration. Unenhanced images of the adrenal glands, right kidney and panc reas are normal. There is a 5 mm left renal calculus. There are no ureteral calculi. Abdominal wall s tranding is likely postsurgical. Postoperative findings consistent with appendectomy are noted. Multi ple fluid and gas containing collections within the lower abdomen and pelvis are similar to prior exa m. Index right retroperitoneal fluid collection lateral to the right psoas muscle on image [id number] me asures 5.7 x 3.8 cm. An additional fluid and gas containing collection along the posterior left of th e right colon measures 4.9 x 2.8 cm. A central mesenteric fluid collection measuring 7 x 5.1 cm is un changed. Several smaller left-sided fluid collections are unchanged. Moderate amount of fluid within the pelvis is unchanged. Mild dilatation of small and large bowel similar to prior exam. Oral contras t has not reached the distal small bowel. Thickening of the cecum and ascending colon is unchanged. IMPRESSION: 1. Status post appendectomy. Pneumoperitoneum and right retroperitoneal gas, mildly decreased in amou nt since CT of August 24, 2024. No change in numerous fluid and gas containing collections within the lo wer abdomen and pelvis. These findings may be postsurgical however an anastomotic leak with abscess f ormation could appear similar. Oral contrast from prior exam has not reached the distal small bowel. 2. No change in mild small and large bowel dilatation suggestive of an ileus. 3. No change in cecal and ascending colon wall thickening. 4. Subpleural opacities within the lower lungs suggestive of atelectasis. ACT 112: Negative or not required by law. Electronically signed by: Yovany Belle M.D. 08/25/2024 1:27 PM
--- NOTE | 2024-08-25 14:06 | Hospitalist Progress Note ---
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 Presents critically ill with acute renal failure, multiple electrolyte abnormalities and evidence of severe sepsis with organ dysfunction as evidenced by renal failure, postsurgical ileus, and new onset atrial fibrillation. Postsurgical ileus Mucocele of appendix Pneumoperitoneum S/P laparoscopic appendicectomy of large mucocele of appendix by Dr. Pacheco on 08/19/2024 --CT ABD:Absent appendix consistent with appendectomy history with increased fluid and gas throughout the abdomen and pelvis more than expected particularly at the level of the surgical bed. Dehiscence is not excluded. No discrete encapsulated drainable fluid collection although early abscess cannot be excluded. Prominent fluid distended proximal small bowel and to some extent distal small bowel fecal type densities which can be seen in slow small bowel transit. Mild ileus is not excluded. -- CT abdomen with oral contrast: Pneumoperitoneum with right retroperitoneal gas mildly decreased. Cannot rule out anastomotic leak with abscess. Contrast has not reached the distal small bowel. Findings suggestive of ileus. --Continue NG tube, bowel rest, IV fluids Empirically on IV Zosyn Appreciate surgery input Continue conservative management as recommended by surgery Sepsis Proteus bacteremia Due to above -- Blood culture grew Proteus vulgaris on preliminary cultures --Continue IV Zosyn for now --Continue IV fluids Adjust antibiotics as needed once sensitivities result Atrial fibrillation--new onset In the setting of sepsis Spontaneously converted to sinus --ECHO: EF 55 to 60%. Mild concentric LVH. Left atrium mildly dilated. Mild tricuspid regurgitation. No significant pulmonary hypertension. Continue IV Lopressor 2.5 mg every 6 hours for now Hold anticoagulation for now Appreciate cardiology input Replete electrolytes as needed May need ZIO monitor as outpatient Acute kidney injury Creatinine 3.9>>2.26 Likely ATN, prerenal Hypermagnesemia likely due to above Continue IV fluids Avoid nephrotoxic agents as able Bladder scan as needed to monitor for retention Renal function improving Hyponatremia--resolved Likely due to dehydration Sodium level 136 today Continue to monitor sodium levels Mild troponin elevation Likely demand ischemia secondary to sepsis, A-fib RVR Denies any chest pain, dyspnea Monitor Hyperkalemia--resolved Received bicarbonate, insulin, calcium gluconate Potassium levels normalized Monitor DVT Px: Heparin SQ Code Status Full Code Admission and Anticipated Discharge Date Admission Date: August 23, 2024 Subjective Patient is seen and examined at bedside Less abdominal pain today No bowel movement or flatus today Denies any nausea, vomiting, chest pain, dyspnea, dizziness Had abdominal CT scan today Review of Systems Review of Systems: All systems reviewed & are unremarkable except as noted in Subjective Physical Exam Physical Exam: Physical Exam: Vitals signs as noted above General Appearance:Moderately built and nourished, no apparent distress Head: normocephalic, Atraumatic,+ NG tube Eyes: normal inspection, EOMI Neck: supple, Trachea midline Respiratory/Chest: Normal breath sounds, CTA, No accessory muscle use Cardiovascular: S1, S2, No murmur Abdomen/GI:Soft, non tender, hypoactive Bowel sounds, mildly distended Extremities/Musculoskeletal:normal inspection, Trace edema Neurologic/Psych:AAOX3, grossly no focal neurological deficits Skin: normal color, warm Results & Data Results & Data Vital Signs (Past 12 Hours) Vital Signs Temp Pulse Pulse Resp BP BP Pulse Ox 08/25/24 13:04 74 08/25/24 10:46 36.8 C 74 18 150/80 H 97 08/25/24 09:52 83 08/25/24 05:55 81 170/67 H 08/25/24 05:39 90 171/79 H 08/25/24 03:00 37.1 C 80 18 150/83 H 96 O2 Del Method O2 Flow Rate 08/25/24 13:04 08/25/24 10:46 Room Air 2 08/25/24 09:52 08/25/24 05:55 08/25/24 05:39 08/25/24 03:00 Nasal Cannula 2 Laboratory Results Short CBC 08/25/24 Range/Units 05:18 WBC 18.64 H (4.8-10.8) K/ul Hgb 10.3 L (12.0-16.0) g/dl Hct 29.6 L (37.0-47.0) % Plt Count 231 (130-400) K/uL BMP 08/24/24 08/25/24 20:27 05:18 Sodium 133 L 136 Potassium 4.0 D 3.5 Chloride 94 L 97 L Carbon Dioxide 26 29 BUN 83 H 69 H Creatinine 2.94 H D 2.26 H D Glucose 138 H 147 H Calcium 8.2 L 7.8 L
--- NOTE | 2024-08-25 14:37 | Cardiology Progress Note ---
Date of Service August 25, 2024 Assessment & Plan (1) Severe sepsis with acute organ dysfunction: (2) Gram-negative bacteremia: (3) Atrial fibrillation, new onset: (4) Acute renal failure: (5) Status post laparoscopic appendectomy: Plan 68-year-old female admitted after recent laparoscopic appendectomy with evidence of severe sepsis and gram-negative bacteremia. Acute renal failure with serum creatinine up to 4.0 (previously normal). Creatinine trending downward today. Transient paroxysmal atrial fibrillation with rapid ventricular response secondary to sepsis, electrolyte derangement, and hypovolemia. Currently sinus rhythm. Recommendations: * Continue IV Lopressor 2.5 mg every 6 hours. * Transition to oral metoprolol to tartrate 25 mg twice daily when able to take oral medications. * Would not recommend additional IV heparin infusion at this time due to brief d uration of atrial fibrillation. * Continue subcutaneous heparin for DVT prophylaxis. * Monitor telemetry. * Supplement electrolytes as indicated to maintain serum potassium greater than 4.0, and serum magnesium greater than 2.0. * Bedside echocardiogram demonstrates normal LV function without significant valvular pathology. * Antibiotics, sepsis management as per internal medicine. * Cardiology will sign off. Please contact with any further concerns/questions. Lalo Ortega DO, [facility] Admission and Anticipated Discharge Date Admission Date: August 23, 2024 Subjective 68-year-old female seen and examined at the bedside. Generally feeling unwell. Abdominal distention/discomfort unchanged. No recurrent atrial fibrillation on telemetry. Review of Systems Review of Systems: All systems reviewed & are unremarkable except as noted in Subjective Physical Exam Constitutional: well nourished; no acute distress Respiratory: no respiratory distress, no labored breathing and no retractions Auscultation: no crackles, no rales, no rhonchi and no wheezes Cardiovascular: Rate/Rhythm: regular rate and regular rhythm Heart Sounds: normal S1 and normal S2; no murmur Vessels: radial pulses present; no JVD and no carotid bruit Extremities: no edema Gastrointestinal (Abdomen): Inspection/Auscultation: + abdomen distended; + abnormal bowel sounds (Absent/hypoactive) Percussion/Palpation: + abdomen tender; no guarding and abdomen not rigid Neurologic: CN's II-XI intact bilaterally and moves all extremities; no focal motor deficits Results & Data Vital Signs (Past 12 Hours) Vital Signs Temp Pulse Pulse Resp BP BP Pulse Ox 08/25/24 13:04 74 08/25/24 10:46 36.8 C 74 18 150/80 H 97 08/25/24 09:52 83 08/25/24 05:55 81 170/67 H 08/25/24 05:39 90 171/79 H 08/25/24 03:00 37.1 C 80 18 150/83 H 96 O2 Del Method O2 Flow Rate 08/25/24 13:04 08/25/24 10:46 Room Air 2 08/25/24 09:52 08/25/24 05:55 08/25/24 05:39 08/25/24 03:00 Nasal Cannula 2 Laboratory Results CBC 08/25/24 Range/Units 05:18 WBC 18.64 H (4.8-10.8) K/ul RBC 3.79 L (4.20-5.40) M/uL Hgb 10.3 L (12.0-16.0) g/dl Hct 29.6 L (37.0-47.0) % Plt Count 231 (130-400) K/uL Comprehensive Metabolic Panel 08/24/24 08/25/24 Range/Units 20:27 05:18 Sodium 133 L 136 (136-145) mmol/L Potassium 4.0 D 3.5 (3.5-5.1) mmol/L Chloride 94 L 97 L (98-107) mmol/L Carbon Dioxide 26 29 (21-32) mmol/L BUN 83 H 69 H (6-23) mg/dl Creatinine 2.94 H D 2.26 H D (0.6-1.2) mg/dl Glucose 138 H 147 H (70-99(Fasting)) mg/dl Calcium 8.2 L 7.8 L (8.6-10.3) mg/dl Intake and Output 08/24/24 08/25/24 08/25/24 22:59 06:59 14:59 Intake Total 158.333 / 3200.000 1100 / 3200.000 300 / 300 Output Total 650 / 2950 1200 / 2950 600 / 600 Balance -491.667 / 250.000 -100 / 250.000 -300 / -300 Intake: IV 158.333 / 3200.000 1100 / 3200.000 300 / 300 D5w and Nss 1,000 ml @ 75 mls/ 158.333 / 3000.000 1000 / 3000.000 hr IV .[id number] [facility] Rx#:[id number] Piperacillin/Tazobactam 4.5 gm 100 / 200 100 / 100 In 100 ml @ 25 mls/hr IV Q12H [facility] Rx#:[id number] Potassium Chloride / Wtr 10 meq 200 / 200 In 100 ml @ 100 mls/hr IV Q1H [facility] Rx#:[id number] Output: Urine 650 / 1650 700 / 1650 600 / 600 Gastric Drainage 500 / 1300 Right Nare 500 / 1300 Other: Other Intake Source [employer]
[2024-08-25] MEDS: PIPERACILLIN/TAZOBACTAM 4.5 GM/100 ML BAG IV SCH (17:03)
--- NOTE | 2024-08-25 22:31 | Electrocardiogram Report ---
Test Reason : Blood Pressure : */* mmHG Vent. Rate : 150 BPM Atrial Rate : * BPM P-R Int : * ms QRS Dur : 90 ms QT Int : 290 ms P-R-T Axes : * 86 -30 degrees QTcB Int : 458 ms Atrial fibrillation with rapid ventricular response Cannot rule out Anterior infarct , age undetermined Abnormal ECG When compared with ECG of 23-Aug-2024 10:19, Atrial fibrillation has replaced Sinus rhythm Vent. rate has increased by 57 bpm T wave inversion more evident in Inferior leads Confirmed by Yoshi Quijano ([id number]) on 08/25/2024 10:30:55 PM Referred By: REFERRED SELF Confirmed By: Yoshi Quijano
[2024-08-26] MEDS ORDERED: ATROPINE SULFATE 0.1 MG/ML 10ML SYR IV PRN (03:17)
--- NOTE | 2024-08-26 04:41 | Communication Note ---
Date of Service: August 26, 2024 Patient with episodic bradycardic episodes, heart rate 40s. Patient asymptomatic. AP Episodic bradycardia Patient asymptomatic Hold beta-royce for now Update cardiology of development in a.m.
[2024-08-26 06:17] LABS: Hematocrit (blood only) 34.5 % (37.0-47.0); Hemoglobin 11.5 g/dl (12.0-16.0); Mean Corpuscular Hemoglobin 27.2 pg (25.0-34.0); Mean Corpuscular Volume 81.6 fL (80.0-100.0); Platelet Count 218 K/uL (130-400); RDW Standard Deviation 46.0 fL (36.4-46.3); Red Blood Count 4.23 M/uL (4.20-5.40); White Blood Count 17.19 K/ul (4.8-10.8)
[2024-08-26 06:36] LABS: Anion Gap 10.0 (3-11); Blood Urea Nitrogen 44.0 mg/dl (6-23); Calcium 7.9 mg/dl (8.6-10.3); Carbon Dioxide 31.0 mmol/L (21-32); Chloride 102.0 mmol/L (98-107); Creatinine Clr Calc Pharmacy 52.5 ml/min; Glucose 166.0 mg/dl (70-99(Fasting)); Magnesium 3.4 mg/dl (1.7-2.4); Potassium 3.2 mmol/L (3.5-5.1); Sodium 143.0 mmol/L (136-145)
[2024-08-26] MEDS: POTASSIUM CHLORIDE / WTR 10 MEQ/100 ML PLCT IV SCH (09:18)
--- NOTE | 2024-08-26 11:34 | Hospitalist Progress Note ---
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 Presents critically ill with acute renal failure, multiple electrolyte abnormalities and evidence of severe sepsis with organ dysfunction as evidenced by renal failure, postsurgical ileus, and new onset atrial fibrillation. Postsurgical ileus S/P laparoscopic appendicectomy of large mucocele of appendix by Dr. Pacheco on 08/19/2024 -CT ABD:Absent appendix consistent with appendectomy history with increased fluid and gas throughout the abdomen and pelvis more than expected particularly at the level of the surgical bed. Dehiscence is not excluded. No discrete encapsulated drainable fluid collection although early abscess cannot be excluded. Prominent fluid distended proximal small bowel and to some extent distal small bowel fecal type densities which can be seen in slow small bowel transit. Mild ileus is not excluded. - CT abdomen with oral contrast: Pneumoperitoneum with right retroperitoneal gas mildly decreased. Cannot rule out anastomotic leak with abscess. Contrast has not reached the distal small bowel. Findings suggestive of ileus. Currently on NGT per surgery If diet is not started soon, will consider PPN for nutrition Continue to monitor GI function Replete hypokalemia and monitor. Will ensure adequate electrolyte repletion Continue IVF Sepsis Proteus bacteremia Due to above - Blood culture grew Proteus vulgaris on preliminary cultures Continue IV Zosyn for now Atrial fibrillation--new onset In the setting of sepsis Spontaneously converted to sinus -ECHO: EF 55 to 60%. Mild concentric LVH. Left atrium mildly dilated. Mild tricuspid regurgitation. No significant pulmonary hypertension. Cardiology eval noted. No anticoagulation recommended Had bradycardia with HR down to 40s overnight and lopressor IV 2.5mg q6h was held Tele reviewed Discussed with Cardiology team (Nancy) today. Recommends changing lopressor IV to 2.5mg q8h and once able to take po to do metoprolol succinate 25mg qAM May need ZIO monitor as outpatient Acute kidney injury Resolving Creatinine 3.9>>2.26>>1.09 Continue IV fluids Avoid nephrotoxic agents as able Bladder scan as needed to monitor for retention Hyponatremia--resolved Hypokalemia today. Repletion ordered as above Mild troponin elevation Likely demand ischemia secondary to sepsis, A-fib RVR Denies any chest pain, dyspnea DVT Px: Heparin SQ Code Status Full Code I spent a total of 60 minutes coordinating, documenting and providing care for this patient excluding time spent in performance of separately billed services Admission and Anticipated Discharge Date Admission Date: August 23, 2024 Subjective Patient seen and examined Reports fatigue Denied nausea, vomiting No BM yet No other complaints Had Bradycardia to 40s overnight and iv lopressor was held Physical Exam Constitutional: + well hydrated; no acute distress Eyes: PERRL, conjunctivae normal, anicteric sclerae ENMT: NGT in situ Respiratory: normal respiratory effort, lungs clear to auscultation Cardiovascular: Rate/Rhythm: regular rate and regular rhythm Gastrointestinal (Abdomen): Soft, mild tenderness, normal bowel sounds Musculoskeletal: No pedal edema Neurologic: PERRL, EOMI, accommodation nl, no face palsy, no dysarthria Psychiatric: A+Ox3, euthymic affect Results & Data Results & Data Vital Signs (Past 12 Hours) Vital Signs Temp Pulse Resp BP BP BP Pulse Ox 08/26/24 10:59 36.7 C 71 18 147/76 H 90 08/26/24 07:15 36.5 C 69 19 159/81 H 96 08/26/24 03:34 36.6 C 70 18 143/74 H 92 08/25/24 23:40 157/74 H O2 Del Method O2 Flow Rate 08/26/24 10:59 Room Air 08/26/24 07:15 Nasal Cannula 2 08/26/24 03:34 Room Air 08/25/24 23:40 Laboratory Results Abnormal lab results 08/25/24 08/25/24 08/26/24 Range/Units 16:42 23:20 05:27 WBC 17.19 H (4.8-10.8) K/ul Hgb 11.5 L (12.0-16.0) g/dl Hct 34.5 L (37.0-47.0) % RDW Coeff of Albino 15.6 H (11.5-14.5) % Potassium 3.2 L (3.5-5.1) mmol/L BUN 44 H D (6-23) mg/dl BUN/Creatinine Ratio 40.4 H (10-20) Glucose 166 H (70-99(Fasting)) mg/dl POC Glucose 174 H 161 H (70-99) mg/dl Calcium 7.9 L (8.6-10.3) mg/dl Magnesium 3.4 H (1.7-2.4) mg/dl 08/26/24 08/26/24 Range/Units 05:57 11:52 WBC (4.8-10.8) K/ul Hgb (12.0-16.0) g/dl Hct (37.0-47.0) % RDW Coeff of Albino (11.5-14.5) % Potassium (3.5-5.1) mmol/L BUN (6-23) mg/dl BUN/Creatinine Ratio (10-20) Glucose (70-99(Fasting)) mg/dl POC Glucose 158 H 174 H (70-99) mg/dl Calcium (8.6-10.3) mg/dl Magnesium (1.7-2.4) mg/dl
--- NOTE | 2024-08-26 12:00 | Surgery Progress Note ---
Date of Service August 26, 2024 Assessment & Plan (1) Ileus due to infection: Plan: con't NG check KUB in AM clears but only sips IV abx WBC down Admission and Anticipated Discharge Date Admission Date: August 23, 2024 Subjective feels OK working with PT minimal GI function Review of Systems Constitutional: no fever and no chills Respiratory: no cough Cardiovascular: no chest pain Gastrointestinal: + abdominal pain; no nausea and no vomit ing Neurologic: + generalized weakness Psychiatric: no behavioral changes Physical Exam Constitutional: WD/WN, vitals as above Respiratory: normal respiratory effort, lungs clear to auscultation Cardiovascular: RRR, no murmur, no edema Gastrointestinal (Abdomen): Inspection/Auscultation: abdomen normal to inspection, + abdomen distended and normal bowel sounds Percussion/Palpation: + abdomen tender and abdomen soft; no guarding and abdomen not rigid Musculoskeletal: Head/Neck/Chest: normocephalic and head atraumatic Results & Data Vital Signs (Past 12 Hours) Vital Signs Temp Pulse Resp BP BP Pulse Ox O2 Del Method 08/26/24 10:59 36.7 C 71 18 147/76 H 90 Room Air 08/26/24 07:15 36.5 C 69 19 159/81 H 96 Nasal Cannula 08/26/24 03:34 36.6 C 70 18 143/74 H 92 Room Air O2 Flow Rate 08/26/24 10:59 08/26/24 07:15 2 08/26/24 03:34
[2024-08-26] MEDS: D5W AND NSS 1,000 ML IV SCH (14:08)
[2024-08-26] MEDS: SODIUM CHLORIDE 0.9% 1,000 ML IV SCH (22:31)
[2024-08-27 06:29] LABS: Hematocrit (blood only) 34.8 % (37.0-47.0); Hemoglobin 11.3 g/dl (12.0-16.0); Mean Corpuscular Hemoglobin 27.0 pg (25.0-34.0); Mean Corpuscular Volume 83.1 fL (80.0-100.0); Platelet Count 232 K/uL (130-400); RDW Standard Deviation 47.3 fL (36.4-46.3); Red Blood Count 4.19 M/uL (4.20-5.40); White Blood Count 17.51 K/ul (4.8-10.8)
[2024-08-27 07:00] LABS: Anion Gap 9.0 (3-11); Blood Urea Nitrogen 32.0 mg/dl (6-23); Calcium 7.6 mg/dl (8.6-10.3); Carbon Dioxide 34.0 mmol/L (21-32); Chloride 104.0 mmol/L (98-107); Creatinine Clr Calc Pharmacy 78.5 ml/min; Glucose 147.0 mg/dl (70-99(Fasting)); Magnesium 3.0 mg/dl (1.7-2.4); Potassium 2.9 mmol/L (3.5-5.1); Sodium 147.0 mmol/L (136-145)
--- NOTE | 2024-08-27 07:56 | XRay Report ---
EXAM: XR KUB/Abdomen 1 view CLINICAL HISTORY: ileus and contrast movement TECHNIQUE: X-ray images of the abdomen were obtained in supine and upright positions. COMPARISON: 08/23/2024 10:38:00 [employer] FINDINGS: Gastric tube is seen in situ with tip is noted in the body of stomach. Gas Pattern: Gas pattern within the abdomen is normal. No evidence of bowel obstruction or distention. Soft Tissues: Soft tissues of the abdomen appear normal without evidence of masses or calcifications. Liver, spleen, and kidneys are of normal size and position. Few metallic clips are noted involving right lower quadrant IMPRESSION: Normal abdominal X-ray. No acute abnormalities identified. No other new interval abnormality since prior study. Electronically signed by Jc Barclay 08-27-2024 07:55 AM
[2024-08-27 07:58] LABS: Hemoglobin A1C 6.3 % (4.5-5.6)
[2024-08-27] MEDS: SODIUM CHLORIDE 0.45 % 1,000 ML IV SCH (08:55)
[2024-08-27] MEDS: POTASSIUM CHLORIDE / WTR 10 MEQ/100 ML PLCT IV SCH ×2 (08:57→16:58)
--- NOTE | 2024-08-27 09:01 | Surgery Progress Note ---
Date of Service August 27, 2024 Assessment & Plan (1) Ileus due to infection: Plan: con't abx attempt NG removal ambulate IVF sips/chips only Admission and Anticipated Discharge Date Admission Date: August 23, 2024 Subjective feels better one small episode of emesis yesterday passing flatus KUB normal without ileus pattern WBC stable Review of Systems Constitutional: no fever and no chills Respiratory: no cough and no dyspnea Cardiovascular: no chest pain Gastrointestinal: + abdominal pain and + vomiting; no naus ea Neurologic: + generalized weakness Psychiatric: no behavioral changes Physical Exam Constitutional: WD/WN, vitals as above Respiratory: normal respiratory effort, lungs clear to auscultation Cardiovascular: RRR, no murmur, no edema Gastrointestinal (Abdomen): Inspection/Auscultation: abdomen normal to inspection and normal bowel sounds; abdomen not distended Percussion/Palpation: + abdomen tender and abdomen soft; no guarding and abdomen not rigid Musculoskeletal: Head/Neck/Chest: normocephalic and head atraumatic Results & Data Vital Signs (Past 12 Hours) Vital Signs Temp Pulse Pulse Resp BP BP Pulse Ox 08/27/24 08:20 36.4 C L 69 17 156/77 H 97 08/27/24 03:00 36.6 C 72 20 144/76 H 96 08/26/24 23:37 37.0 C 76 17 152/82 H 92 08/26/24 21:45 72 O2 Del Method O2 Flow Rate 08/27/24 08:20 Nasal Cannula 2 08/27/24 03:00 Nasal Cannula 2 08/26/24 23:37 Room Air 08/26/24 21:45
--- NOTE | 2024-08-27 10:28 | Hospitalist Progress Note ---
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 Presents critically ill with acute renal failure, multiple electrolyte abnormalities and evidence of severe sepsis with organ dysfunction as evidenced by renal failure, postsurgical ileus, and new onset atrial fibrillation. Postsurgical ileus S/P laparoscopic appendicectomy of large mucocele of appendix by Dr. Pacheco on 08/19/2024 -CT ABD:Absent appendix consistent with appendectomy history with increased fluid and gas throughout the abdomen and pelvis more than expected particularly at the level of the surgical bed. Dehiscence is not excluded. No discrete encapsulated drainable fluid collection although early abscess cannot be excluded. Prominent fluid distended proximal small bowel and to some extent distal small bowel fecal type densities which can be seen in slow small bowel transit. Mild ileus is not excluded. - CT abdomen with oral contrast: Pneumoperitoneum with right retroperitoneal gas mildly decreased. Cannot rule out anastomotic leak with abscess. Contrast has not reached the distal small bowel. Findings suggestive of ileus. NGT has been removed this AM On clears Will monitor Surgery recs noted Sepsis Proteus bacteremia Due to above - Blood culture grew Proteus vulgaris on preliminary cultures Still has leukocytosis Continue IV Zosyn for now Atrial fibrillation--new onset In the setting of sepsis Spontaneously converted to sinus -ECHO: EF 55 to 60%. Mild concentric LVH. Left atrium mildly dilated. Mild tricuspid regurgitation. No significant pulmonary hypertension. Cardiology eval noted. No anticoagulation recommended Continue tele monitor Continue lopressor IV 2.5mg q8h. Plan to change to metoprolol succinate 25mg qAM eventually May need ZIO monitor as outpatient Acute kidney injury Resolved Creatinine 3.9>>2.26>>0.74 Continue IV fluids Avoid nephrotoxic agents as able Bladder scan as needed to monitor for retention Hypernatremia Hypokalemia Na is 147 and K is 2.9 today IVF changed to 0.45% saline IV Potassium Chloride repletion ordered Recheck BMP at 2 pm Mild troponin elevation Likely demand ischemia secondary to sepsis, A-fib RVR Denies any chest pain, dyspnea DVT Px: Heparin SQ Code Status Full Code I spent a total of 50 minutes coordinating, documenting and providing care for this patient excluding time spent in performance of separately billed services Admission and Anticipated Discharge Date Admission Date: August 23, 2024 Subjective Patient seen and examined Had an episode of vomiting last night NGT removed this AM. Has been moving around. On clear liquid Reports passing flatus but no BM Reports abd pain is improving On sips and ice chips Physical Exam Constitutional: + well hydrated; no acute distress Eyes: PERRL, conjunctivae normal, anicteric sclerae Respiratory: normal respiratory effort, lungs clear to auscultation Cardiovascular: Rate/Rhythm: regular rate and regular rhythm Gastrointestinal (Abdomen): Soft, mild tenderness, normal bowel sounds Musculoskeletal: No pedal edema Neurologic: PERRL, EOMI, accommodation nl, no face palsy, no dysarthria Psychiatric: A+Ox3, euthymic affect Results & Data Results & Data Vital Signs (Past 12 Hours) Vital Signs Temp Pulse Resp BP BP Pulse Ox O2 Del Method 08/27/24 08:20 36.4 C L 69 17 156/77 H 97 Nasal Cannula 08/27/24 03:00 36.6 C 72 20 144/76 H 96 Nasal Cannula 08/26/24 23:37 37.0 C 76 17 152/82 H 92 Room Air O2 Flow Rate 08/27/24 08:20 2 08/27/24 03:00 2 08/26/24 23:37 Laboratory Results Abnormal lab results 08/26/24 08/26/24 08/26/24 Range/Units 11:52 16:43 20:32 WBC (4.8-10.8) K/ul RBC (4.20-5.40) M/uL Hgb (12.0-16.0) g/dl Hct (37.0-47.0) % RDW Std Deviation (36.4-46.3) fL RDW Coeff of Albino (11.5-14.5) % Sodium (136-145) mmol/L Potassium (3.5-5.1) mmol/L Carbon Dioxide (21-32) mmol/L BUN (6-23) mg/dl BUN/Creatinine Ratio (10-20) Glucose (70-99(Fasting)) mg/dl POC Glucose 174 H 184 H 210 H (70-99) mg/dl Hemoglobin A1c (4.5-5.6) % Calcium (8.6-10.3) mg/dl Phosphorus (2.5-4.9) mg/dl Magnesium (1.7-2.4) mg/dl 08/27/24 Range/Units 05:59 WBC 17.51 H (4.8-10.8) K/ul RBC 4.19 L (4.20-5.40) M/uL Hgb 11.3 L (12.0-16.0) g/dl Hct 34.8 L (37.0-47.0) % RDW Std Deviation 47.3 H (36.4-46.3) fL RDW Coeff of Albino 15.8 H (11.5-14.5) % Sodium 147 H (136-145) mmol/L Potassium 2.9 L (3.5-5.1) mmol/L Carbon Dioxide 34 H (21-32) mmol/L BUN 32 H (6-23) mg/dl BUN/Creatinine Ratio 43.2 H (10-20) Glucose 147 H (70-99(Fasting)) mg/dl POC Glucose (70-99) mg/dl Hemoglobin A1c 6.3 H (4.5-5.6) % Calcium 7.6 L (8.6-10.3) mg/dl Phosphorus 2.3 L (2.5-4.9) mg/dl Magnesium 3.0 H (1.7-2.4) mg/dl
[2024-08-27 15:16] LABS: Anion Gap 9.0 (3-11); Blood Urea Nitrogen 32.0 mg/dl (6-23); Calcium 7.9 mg/dl (8.6-10.3); Carbon Dioxide 33.0 mmol/L (21-32); Chloride 99.0 mmol/L (98-107); Creatinine Clr Calc Pharmacy 68.4 ml/min; Glucose 211.0 mg/dl (70-99(Fasting)); Potassium 3.0 mmol/L (3.5-5.1); Sodium 141.0 mmol/L (136-145)
[2024-08-27] MEDS: HYDROmorphone INJ 0.5 MG/0.5 ML SYR IV PRN (23:03)
[2024-08-28 04:15] LABS: Hematocrit (blood only) 34.3 % (37.0-47.0); Hemoglobin 11.0 g/dl (12.0-16.0); Mean Corpuscular Hemoglobin 27.2 pg (25.0-34.0); Mean Corpuscular Volume 84.9 fL (80.0-100.0); Platelet Count 236 K/uL (130-400); RDW Standard Deviation 48.5 fL (36.4-46.3); Red Blood Count 4.04 M/uL (4.20-5.40); White Blood Count 26.68 K/ul (4.8-10.8)
[2024-08-28 04:18] LABS: Anion Gap 10.0 (3-11); Calcium 6.7 mg/dl (8.6-10.3); Carbon Dioxide 26.0 mmol/L (21-32); Chloride 100.0 mmol/L (98-107); Magnesium 2.2 mg/dl (1.7-2.4); Potassium 3.4 mmol/L (3.5-5.1); Sodium 136.0 mmol/L (136-145)
[2024-08-28 04:24] LABS: Blood Urea Nitrogen 28.0 mg/dl (6-23); Creatinine Clr Calc Pharmacy 61.8 ml/min; Glucose 106.0 mg/dl (70-99(Fasting))
[2024-08-28] MEDS ORDERED: POTASSIUM PHOS 3 MMOL/1 ML INFUSION IV STA (04:29)
[2024-08-28] MEDS: POTASSIUM PHOSPHATE 30 MMOL in SODIUM CHLORIDE 0.9% 500 ML IV ONE (04:56)
[2024-08-28 05:55] LABS: Cdiff Toxin B Gene (2yr or >) Positive Cdiff Gene (Neg)
[2024-08-28 05:58] LABS: Cdiff Toxin A+B Negative Cdiff Toxin (Negative)
--- NOTE | 2024-08-28 09:02 | Surgery Progress Note ---
Date of Service August 28, 2024 Assessment & Plan (1) Low grade mucinous neoplasm of appendix: (2) Acute renal failure: Plan: resolved creatinine 0.96 (3) Severe sepsis with acute organ dysfunction: (4) Ileus due to infection: Plan: resolving, + BMs last night Plan POD # 9 s/p laparoscopic appendectomy for large mucocele -avss - leukocytosis increasing 17k to 26k today - + more abdominal pain last evening required IV Dilaudid x 2 (has not had any during this admission since last night) - no peritonitis on examination but tender in RLQ with firmness in RLQ - Initial CT scan without IV contrast and repeat CT scans with oral contrast limited as patient had ileus and retained oral contrast in stomach and small bowel - Bacteremia with gram negative bacilli - C. diff gene positive, tx negative Plan: Given increase in leukocytosis would consider repeating CT scan with IV contrast to evaluate for postop abscess need for IR drainage/intervention May need to consider switching IV abx as leukocytosis increase on IV Zosyn, ID Consult? continue IV fluids continue pain management and antiemetics as needed continue scds and IV heparin q 8h for DVT prophylaxis PT/OT encouraged incentive spirometry as shallow breathing although lungs clear, atelectasis on CT scan OOB to chair and ambulate continue medical management will discuss with Dr. Pacheco for next steps/imaging above Admission and Anticipated Discharge Date Admission Date: August 23, 2024 Subjective feeling about the same, pain at incision sites when bending over no n,v tolerating clears but belching loose bowel movement last evening , mild streak of blood no sharon blood nurse states he more pain last night per report and required IV dilaudid x 2 no fever or chills no chest pain or shortness of breath urinating without difficulty Physical Exam Constitutional: WD/WN, vitals as above + obese and cooperative; no acute distress, not ill appearing, not in distress and not diaphoretic Respiratory: no labored breathing, no retractions and no cough Auscultation: lungs clear to auscultation bilaterally and + diminished lung sounds Cardiovascular: Rate/Rhythm: regular rate and regular rhythm Heart Sounds: no murmur Gastrointestinal (Abdomen): Inspection/Auscultation: abdomen normal to inspection and + abdominal surgical incision (c/d/i with dermabond); abdomen not distended Percussion/Palpation: + abdomen tender (RLQ ), abdomen soft and + abdomen firm (firm to palpation in the RLQ); no guarding and abdomen not rigid Skin: no rashes, warm and dry Psychiatric: Orientation: alert and oriented x 3 Eye Contact: good eye contact Affect: + flat affect Results & Data Vital Signs (Past 12 Hours) Vital Signs Temp Pulse Pulse Resp BP BP Pulse Ox 08/28/24 07:48 36.7 C 92 H 20 102/70 91 08/28/24 02:51 36.7 C 112 H 22 93/61 L 92 08/27/24 23:03 37.0 C 73 18 139/79 93 08/27/24 21:55 77 O2 Del Method 08/28/24 07:48 Room Air 08/28/24 02:51 Room Air 08/27/24 23:03 Room Air 08/27/24 21:55 Laboratory Results 08/28/24 08/28/24 08/27/24 Range/Units Unknown 03:01 14:34 WBC 26.68 H D (4.8-10.8) K/ul RBC 4.04 L (4.20-5.40) M/uL Hgb 11.0 L (12.0-16.0) g/dl Hct 34.3 L (37.0-47.0) % MCV 84.9 (80.0-100.0) fL MCH 27.2 (25.0-34.0) pg MCHC 32.1 (32.0-36.0) g/dL RDW Std Deviation 48.5 H (36.4-46.3) fL RDW Coeff of Albino 15.7 H (11.5-14.5) % Plt Count 236 (130-400) K/uL MPV 10.2 (9.4-12.4) fL Absolute Nucleated RBC 0.05 (0.00-0.12) K/uL Nucleated RBC % (auto) 0.2 % Sodium 136 141 (136-145) mmol/L Potassium 3.4 L 3.0 L (3.5-5.1) mmol/L Chloride 100 99 (98-107) mmol/L Carbon Dioxide 26 33 H (21-32) mmol/L Anion Gap 10 9 (3-11) BUN 28 H 32 H (6-23) mg/dl Creatinine 0.94 0.85 (0.6-1.2) mg/dl Est Cr Clr Drug Dosing 61.8 68.4 ml/min eGFR 66.09 74.58 BUN/Creatinine Ratio 29.8 H 37.6 H (10-20) Glucose 106 H 211 H (70-99(Fasting)) mg/dl Calcium 6.7 L 7.9 L (8.6-10.3) mg/dl Phosphorus 1.4 L* (2.5-4.9) mg/dl Magnesium 2.2 (1.7-2.4) mg/dl Stl C. diff Tox B Gene Positive Cdiff Gene A (Neg) Stl C.difficile Tox A&B Negative Cdiff Toxin (Negative) Stl C. diff [id number] NEGATIVE Microbiology 08/23/24 11:00 Blood Aerobic Blood Culture - Preliminary No growth in Aerobic bottle after 48 hours. 08/23/24 11:00 Blood Anaerobic Blood Culture - Final 08/23/24 11:05 Blood Aerobic Blood Culture - Preliminary Proteus vulagris group 08/23/24 11:05 Blood Anaerobic Blood Culture - Preliminary Proteus vulagris group
--- NOTE | 2024-08-28 10:02 | Hospitalist Progress Note ---
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 Presents critically ill with acute renal failure, multiple electrolyte abnormalities and evidence of severe sepsis with organ dysfunction as evidenced by renal failure, postsurgical ileus, and new onset atrial fibrillation. Sepsis Proteus bacteremia Intra abdominal abscesses Postsurgical ileus Recent laparoscopic appendicectomy of large mucocele of appendix by Dr. Pacheco on 08/19/2024 -CT ABD:Absent appendix consistent with appendectomy history with increased fluid and gas throughout the abdomen and pelvis more than expected particularly at the level of the surgical bed. Dehiscence is not excluded. No discrete encapsulated drainable fluid collection although early abscess cannot be excluded. Prominent fluid distended proximal small bowel and to some extent distal small bowel fecal type densities which can be seen in slow small bowel transit. Mild ileus is not excluded. - CT abdomen with oral contrast: Pneumoperitoneum with right retroperitoneal gas mildly decreased. Cannot rule out anastomotic leak with abscess. Contrast has not reached the distal small bowel. Findings suggestive of ileus. NGT removed on 08/27/24 Blood culture grew Proteus vulgaris on preliminary cultures With worsening leukocytosis and increased pain last night, concern for worsening infection. ID consulted Discussed with Gen Surg team CT Abd/Pelvis with IV contrast today showed increased pneumoperitoneum and right retroperitoneal gas, multifocal abscesses IV antibiotics broadened to Vanc and meropenem Discussed with Gen surg who recommends IR drainage of abscess Will follow up drain culture Pain control Atrial fibrillation--new onset In the setting of sepsis Spontaneously converted to sinus -ECHO: EF 55 to 60%. Mild concentric LVH. Left atrium mildly dilated. Mild tricuspid regurgitation. No significant pulmonary hypertension. Cardiology eval noted. No anticoagulation recommended Continue tele monitor Continue lopressor IV 2.5mg q8h. Plan to change to metoprolol succinate 25mg qAM eventually May need ZIO monitor as outpatient Acute kidney injury Resolved Creatinine 3.9>>2.26>>0.94 Continue IV fluids especially with IV contrast as above Avoid nephrotoxic agents as able Bladder scan as needed to monitor for retention Hypernatremia - resolved Hypokalemia Hypophosphatemia K is 3.4 and Phos 1.4 Getting repletion Recheck BMP and Phos this afternoon Mild troponin elevation Likely demand ischemia secondary to sepsis, A-fib RVR Denies any chest pain, dyspnea DVT Px: Heparin SQ Code Status Full Code I spent a total of 55 minutes coordinating, documenting and providing care for this patient excluding time spent in performance of separately billed services Admission and Anticipated Discharge Date Admission Date: August 23, 2024 Subjective Patient seen and examined Reports increased pain overnight requiring IV diluadid Reports she feels better now Still reports fatigue. No nausea/vomiting Had large BM last night with some blood in it per Night team No fever but worsening leukocytosis Physical Exam Constitutional: + well hydrated; no acute distress Eyes: PERRL, conjunctivae normal, anicteric sclerae ENMT: external ear and nose normal, oropharynx normal Respiratory: normal respiratory effort, lungs clear to auscultation Cardiovascular: Rate/Rhythm: regular rate and regular rhythm Gastrointestinal (Abdomen): Soft, +tenderness, normal bolwel sounds Neurologic: PERRL, EOMI, accommodation nl, no face palsy, no dysarthria Psychiatric: A+Ox3, euthymic affect Results & Data Results & Data Vital Signs (Past 12 Hours) Vital Signs Temp Pulse Resp BP BP Pulse Ox O2 Del Method 08/28/24 07:48 36.7 C 92 H 20 102/70 91 Room Air 08/28/24 02:51 36.7 C 112 H 22 93/61 L 92 Room Air 08/27/24 23:03 37.0 C 73 18 139/79 93 Room Air Laboratory Results Abnormal lab results 08/27/24 08/28/24 08/28/24 Range/Units 14:34 03:01 Unknown WBC 26.68 H D (4.8-10.8) K/ul RBC 4.04 L (4.20-5.40) M/uL Hgb 11.0 L (12.0-16.0) g/dl Hct 34.3 L (37.0-47.0) % RDW Std Deviation 48.5 H (36.4-46.3) fL RDW Coeff of Albino 15.7 H (11.5-14.5) % Potassium 3.0 L 3.4 L (3.5-5.1) mmol/L Carbon Dioxide 33 H (21-32) mmol/L BUN 32 H 28 H (6-23) mg/dl BUN/Creatinine Ratio 37.6 H 29.8 H (10-20) Glucose 211 H 106 H (70-99(Fasting)) mg/dl Calcium 7.9 L 6.7 L (8.6-10.3) mg/dl Phosphorus 1.4 L* (2.5-4.9) mg/dl Stl C. diff Tox B Gene Positive Cdiff Gene A (Neg)
[2024-08-28] MEDS: OPTIRAY 320 100ml IV ONE (11:01)
--- NOTE | 2024-08-28 11:47 | CT Scan Report ---
CT SCAN OF THE ABDOMEN AND PELVIS WITH IV CONTRAST CLINICAL HISTORY: Leukocytosis. Status post appendectomy. COMPARISON STUDY: CT of the abdomen and pelvis August 25, 2024. KUB August 27, 2024. TECHNIQUE: Following the IV administration of 94 cc of Optiray 320, CT scan of the abdomen and pelvi s is performed from the lung bases to the proximal femora. Images are reviewed in the axial, sagittal , and coronal planes. IV contrast was administered without complication. A dose lowering technique wa s utilized adhering to the principles of ALARA. CT DOSE: 1354.22 mGy.cm FINDINGS: A small right pleural effusion has slightly increased in size. Subpleural right lower lobe opacity favors atelectasis. A small amount of pneumomediastinum shown on prior CTs related to pneumop eritoneum. Pneumomediastinum has decreased. Mild circumferential wall thickening of the esophagus is present. The nasogastric tube has been removed. The stomach and duodenum are mildly distended and flu id-filled. A gallstone within the gallbladder is noted. The gallbladder is moderately distended. Ther e is no pericholecystic infiltration. There are no hepatic lesions. Spleen, adrenal glands, right kid emmie and pancreas are unremarkable. There is a 5 mm renal calculus. There are postoperative findings c onsistent with appendectomy. Extensive adjacent intraperitoneal and extraperitoneal gas has increased since CT of August 242024. A suspected anastomotic leak, likely within the cecum, on image 222 o f 381 is noted. There are numerous gas and fluid containing intraperitoneal and right retroperitoneal fluid collections. A central mesenteric collection on image 166 of 381 measures 7.1 x 5.5 cm. This c ontains hyperdense material which may represent oral contrast from prior CT. A rim-enhancing right pe lvic fluid collection measures 9.5 x 7.2 cm. An adjacent contiguous anterior pelvic fluid collection measures 8.8 x 4.9 cm. There are multiple gas and fluid containing collection along the paracolic gut ters. Diffuse mesenteric stranding associated ascites has increased. Diffuse small bowel wall thicken ing is noted. IMPRESSION: 1. Status post appendectomy. Increase in pneumoperitoneum and right retroperitoneal extraluminal gas since CT of August 25, 2024 consistent with anastomotic leak, likely within the cecum. This finding will be called/faxed to the ordering provider at time of dictation. 2. Numerous associated fluid and gas containing abdominal and pelvic fluid collections suggestive of multifocal abscesses. Central mesenteric fluid collection contains hyperdense material which likely r epresents oral contrast from prior CT. 3. Increase in diffuse mesenteric stranding which suggests diffuse peritoneal inflammation. Increase in ascites and small bowel wall thickening. 4. Mildly distended fluid-filled stomach and duodenum. Distended portions of the colon. The findings may represent an ileus. 5. Circumferential wall thickening of the distal esophagus. This may represent esophagitis. 6. Cholelithiasis with gallbladder distention. However, no convincing evidence for acute cholecystiti s. ACT 112: Negative or not required by law. Electronically signed by: Yovany Belle M.D. 08/28/2024 11:45 AM
[2024-08-28] MEDS ORDERED: VANCOMYCIN CONSULT ACTIVE PRN (12:12)
[2024-08-28] MEDS: MEROPENEM 500 MG in SYRINGE 0 ML IV SCH (13:55)
[2024-08-28] MEDS: VANCOMYCIN HCL 2,000 MG in SODIUM CHLORIDE 0.9% 500 ML IV ONE (13:59)
--- NOTE | 2024-08-28 14:31 | Pharmacy Report ---
Pharmacy PK ABX Note - Date of Service August 28, 2024 - Assessment and Plan Assessment 68 year old F receiving vancomycin and meropenem for treatment of sepsis and likely multiple abscesses in the abdomen and pelvis. Patient was previously on Zosyn but condition was worsening so antibiotic treatment was escalated. ID has been consulted. Pertinent microbiologic data includes: Blood cultures x 2 from 08/23 are growing steiner sensitive P. vulgaris Day # 1 of vancomycin therapy. Plan Vancomycin * Loading dose: 2000 mg IV x 1 * Maintenance dose: 1500 mg IV every 24 hours * Regimen is predicted to achieve target AUC/ESTELLA of 400-600 mg/L.hr * Random level ordered for: 08/31/24 with AM labs. Pharmacy will continue to follow and will adjust dose/frequency as necessary. Thank you. Pharmacy has transitioned to AUC monitoring for vancomycin. AUC/ESTELLA is the p referred PK/PD target and is associated with decreased risk of nephrotoxicity compared to traditional trough targets.
--- NOTE | 2024-08-28 15:47 | CT Scan Report ---
CT-guided pelvic abscess drain placement INDICATION: Large pelvic abscess PROCEDURE: Procedure and risks were explained. Informed consent was obtained. A final timeout was com pleted. The patient was placed prone on the CT exam table. The right gluteal region was prepped and d raped in sterile fashion. 1% lidocaine was utilized for skin anesthesia. Utilizing CT guidance, an 18-gauge Chiba needle was advanced into pelvic fluid collection. A 0.035 Am curtis wire was introduced through the entry needle and exchanged for an 8 Portuguese locking pigtail cath eter. Approximately 200 mL of purulent fluid was removed at the time the procedure with a small porti on sent to lab for analysis. The catheter was sutured to the skin with 2-0 Prolene and placed to suct ion bag drainage. The patient tolerated the procedure well. Post CT imaging demonstrated adequate cat heter position without immediate complication. Vital signs will be monitored on the floor. IMPRESSION: Pelvic abscess drain placement as above. Performed, dictated, and signed by Korey Valle PA-C; to be co-signed by Dr. Joshua Godinez. Electronically signed by: Joshua Godinez M.D. 08/28/2024 4:00 PM
[2024-08-28 16:52] LABS: Anion Gap 11.0 (3-11); Blood Urea Nitrogen 37.0 mg/dl (6-23); Calcium 6.7 mg/dl (8.6-10.3); Carbon Dioxide 26.0 mmol/L (21-32); Chloride 95.0 mmol/L (98-107); Creatinine Clr Calc Pharmacy 38.3 ml/min; Glucose 144.0 mg/dl (70-99(Fasting)); Potassium 3.8 mmol/L (3.5-5.1); Sodium 132.0 mmol/L (136-145)
[2024-08-28] MEDS: ACETAMINOPHEN 325 MG TAB PO PRN (16:53)
[2024-08-28] MEDS: SODIUM CHLORIDE 0.9% 1,000 ML IV SCH (17:44)
[2024-08-28] MEDS: METOPROLOL TARTRATE 1 MG/ML VIAL IV STA (21:38)
[2024-08-28] MEDS: METOPROLOL TARTRATE 1 MG/ML VIAL IV ONE (21:40)
[2024-08-28] MEDS: ONDANSETRON INJ 2 MG/ML 2 ML VIAL IV PRN (21:51)
[2024-08-29] MEDS: VANCOMYCIN HCL 1,500 MG in SODIUM CHLORIDE 0.9% 500 ML IV SCH (06:01)
[2024-08-29] MEDS: METOPROLOL TARTRATE 1 MG/ML VIAL IV ONE (06:11)
[2024-08-29] MEDS: METOPROLOL TARTRATE 1 MG/ML VIAL IV STA ×2 (06:11→06:36)
[2024-08-29 06:32] LABS: Hematocrit (blood only) 28.2 % (37.0-47.0); Hemoglobin 9.5 g/dl (12.0-16.0); Mean Corpuscular Hemoglobin 27.4 pg (25.0-34.0); Mean Corpuscular Volume 81.3 fL (80.0-100.0); Platelet Count 237 K/uL (130-400); RDW Standard Deviation 45.7 fL (36.4-46.3); Red Blood Count 3.47 M/uL (4.20-5.40); White Blood Count 38.86 K/ul (4.8-10.8)
[2024-08-29 06:37] LABS: Anion Gap 13.0 (3-11); Blood Urea Nitrogen 43.0 mg/dl (6-23); Calcium 6.5 mg/dl (8.6-10.3); Carbon Dioxide 23.0 mmol/L (21-32); Chloride 99.0 mmol/L (98-107); Creatinine Clr Calc Pharmacy 39.9 ml/min; Glucose 104.0 mg/dl (70-99(Fasting)); Magnesium 2.3 mg/dl (1.7-2.4); Potassium 3.7 mmol/L (3.5-5.1); Sodium 135.0 mmol/L (136-145)
[2024-08-29] MEDS: HYDROmorphone INJ 1 MG/ML SYRINGE IV PRN (07:49)
--- NOTE | 2024-08-29 09:40 | Hospitalist Progress Note ---
Date of Service August 29, 2024 Assessment & Plan (1) Severe sepsis with acute organ dysfunction: (2) Atrial fibrillation, new onset: (3) Acute renal failure: (4) Ileus due to infection: (5) Peritonitis due to abscess: (6) Electrolyte abnormality: (7) Pneumoperitoneum: (8) Demand ischemia of myocardium: (9) Low grade mucinous neoplasm of appendix: (10) Status post laparoscopic appendectomy: (11) Paroxysmal SVT (supraventricular tachycardia): Plan 68-year-old female status post appendectomy for mucocele on 08/19/2024. Presents critically ill with acute renal failure, multiple electrolyte abnormalities and evidence of severe sepsis with organ dysfunction as evidenced by renal failure, postsurgical ileus, and new onset atrial fibrillation. Sepsis Proteus bacteremia Intra abdominal abscesses Postsurgical ileus Recent laparoscopic appendicectomy of large mucocele of appendix by Dr. Pacheco on 08/19/2024 -CT ABD 08/25/24 :Absent appendix consistent with appendectomy history with increased fluid and gas throughout the abdomen and pelvis more than expected particularly at the level of the surgical bed. Dehiscence is not excluded. No discrete encapsulated drainable fluid collection although early abscess cannot be excluded. Prominent fluid distended proximal small bowel and to some extent distal small bowel fecal type densities which can be seen in slow small bowel transit. Mild ileus is not excluded. - CT abdomen with oral contrast: Pneumoperitoneum with right retroperitoneal gas mildly decreased. Cannot rule out anastomotic leak with abscess. Contrast has not reached the distal small bowel. Findings suggestive of ileus. NGT removed on 08/27/24 Blood culture grew Proteus vulgaris on preliminary cultures CT Abd/Pelvis with IV contrast on 08/28/24 showed increased pneumoperitoneum and right retroperitoneal gas, multifocal abscesses IV antibiotics broadened to Vanc and meropenem S/p IR placement of drain on 08/28/24 Worsening leukocytosis Follow up cultures Awaiting ID eval Will follow up surgery. May need exploration Meropenem dose adjusted per CrCl Monitor Vanc level Atrial fibrillation--new onset In the setting of sepsis Spontaneously converted to sinus -ECHO: EF 55 to 60%. Mild concentric LVH. Left atrium mildly dilated. Mild tricuspid regurgitation. No significant pulmonary hypertension. Cardiology eval noted. No anticoagulation recommended Continue tele monitor Continue lopressor IV 2.5mg q8h. Plan to change to metoprolol succinate 25mg qAM eventually May need ZIO monitor as outpatient Acute kidney injury JANET had initially resolved but developed again yesterday with worsening clinical status Creatinine 3.9>>2.26>>0.94>1.51>1.45 Likely from sepsis + contrast Continue IVF Will appreciate Nephro eval considering patient's clinical status Hypernatremia - resolved Hypokalemia - resolved K is 3.7 today. Monitor Mild troponin elevation Likely demand ischemia secondary to sepsis, A-fib RVR Denies any chest pain, dyspnea DVT Px: Heparin SQ Code Status Full Code I spent a total of 55 minutes coordinating, documenting and providing care for this patient excluding time spent in performance of separately billed services Admission and Anticipated Discharge Date Admission Date: August 23, 2024 Subjective Patient seen and examined Reports fatigue. Had abdominal pain earlier which was controlled with meds Had paroxysmal Afib on tele overnight but back to sinus rhythm Physical Exam Constitutional: + well hydrated; no acute distress Eyes: PERRL, conjunctivae normal, anicteric sclerae ENMT: external ear and nose normal, oropharynx normal Respiratory: normal respiratory effort, lungs clear to auscultation Cardiovascular: Rate/Rhythm: regular rate and regular rhythm Gastrointestinal (Abdomen): Soft, distended, +tender, posterior pelvic drain in situ with bloody purulent drainage Neurologic: PERRL, EOMI, accommodation nl, no face palsy, no dysarthria Psychiatric: A+Ox3, euthymic affect Results & Data Results & Data Vital Signs (Past 12 Hours) Vital Signs Temp Pulse Pulse Resp BP BP BP 08/29/24 07:16 37.5 C 88 19 137/73 08/29/24 07:03 80 94/64 L 08/29/24 06:35 143 H 101/67 08/29/24 06:26 88 08/29/24 05:59 161 H 119/76 08/29/24 03:17 37.4 C 100 H 20 113/73 08/28/24 23:00 36.6 C 104 H 18 111/70 08/28/24 22:15 89 101/67 08/28/24 21:53 119 H 108/57 L Pulse Ox O2 Del Method 08/29/24 07:16 92 Room Air 08/29/24 07:03 08/29/24 06:35 08/29/24 06:26 08/29/24 05:59 08/29/24 03:17 93 Room Air 08/28/24 23:00 95 Room Air 08/28/24 22:15 92 Room Air 08/28/24 21:53 Laboratory Results Abnormal lab results 08/28/24 08/29/24 Range/Units 16:02 05:36 WBC 38.86 H* (4.8-10.8) K/ul RBC 3.47 L (4.20-5.40) M/uL Hgb 9.5 L (12.0-16.0) g/dl Hct 28.2 L (37.0-47.0) % RDW Coeff of Albino 15.5 H (11.5-14.5) % Sodium 132 L 135 L (136-145) mmol/L Chloride 95 L (98-107) mmol/L Anion Gap 13 H (3-11) BUN 37 H 43 H (6-23) mg/dl Creatinine 1.51 H D 1.45 H (0.6-1.2) mg/dl BUN/Creatinine Ratio 24.5 H 29.7 H (10-20) Glucose 144 H 104 H (70-99(Fasting)) mg/dl Calcium 6.7 L 6.5 L (8.6-10.3) mg/dl Phosphorus 5.0 H (2.5-4.9) mg/dl
--- NOTE | 2024-08-29 09:56 | Surgery Progress Note ---
Date of Service August 29, 2024 Assessment & Plan (1) Peritonitis due to abscess: Plan: will give gentle prep con't IV abx/drain will plan exploration and R colectomy in AM if she does not turn the corner today clears NPO p MN Admission and Anticipated Discharge Date Admission Date: August 23, 2024 Subjective Feels better but had rough night vitals stable WBC elevatred drain with purulent drainage Review of Systems Constitutional: + fever; no chills and no anorexia Respiratory: no cough and no dyspnea Cardiovascular: no chest pain Gastrointestinal: + abdominal pain, + nausea and + vomitin g Musculoskeletal: no back pain Neurologic: + generalized weakness Physical Exam Constitutional: WD/WN, vitals as above Respiratory: normal respiratory effort, lungs clear to auscultation Cardiovascular: RRR, no murmur, no edema Gastrointestinal (Abdomen): Inspection/Auscultation: abdomen normal to inspection, + abdomen distended and normal bowel sounds Percussion/Palpation: + abdomen tender and abdomen soft; no guarding and abdomen not rigid Musculoskeletal: Head/Neck/Chest: normocephalic and head atraumatic Results & Data Vital Signs (Past 12 Hours) Vital Signs Temp Pulse Pulse Resp BP BP BP 08/29/24 07:16 37.5 C 88 19 137/73 08/29/24 07:03 80 94/64 L 08/29/24 06:35 143 H 101/67 08/29/24 06:26 88 08/29/24 05:59 161 H 119/76 08/29/24 03:17 37.4 C 100 H 20 113/73 08/28/24 23:00 36.6 C 104 H 18 111/70 08/28/24 22:15 89 101/67 08/28/24 21:53 119 H 108/57 L Pulse Ox O2 Del Method 08/29/24 07:16 92 Room Air 08/29/24 07:03 08/29/24 06:35 08/29/24 06:26 08/29/24 05:59 08/29/24 03:17 93 Room Air 08/28/24 23:00 95 Room Air 08/28/24 22:15 92 Room Air 08/28/24 21:53
[2024-08-29] MEDS: METOPROLOL TARTRATE 1 MG/ML VIAL IV SCH (12:28)
--- NOTE | 2024-08-29 16:28 | Surgery Progress Note ---
Date of Service August 29, 2024 Assessment & Plan (1) Peritonitis due to abscess: Plan: alittle better still not great response abdomen uptwister tender but no peritonitis if not significantly improved by AM, will plan ex lap and R colectomy Admission and Anticipated Discharge Date Admission Date: August 23, 2024 Results & Data Vital Signs (Past 12 Hours) Vital Signs Temp Pulse Pulse Resp BP BP Pulse Ox 08/29/24 15:43 36.8 C 84 19 136/82 96 08/29/24 15:21 77 08/29/24 12:43 84 119/77 08/29/24 12:33 101/64 08/29/24 12:28 70 114/47 L 08/29/24 11:25 36.4 C L 70 18 120/72 92 08/29/24 07:16 37.5 C 88 19 137/73 92 08/29/24 07:03 80 94/64 L 08/29/24 06:35 143 H 101/67 08/29/24 06:26 88 08/29/24 05:59 161 H 119/76 O2 Del Method 08/29/24 15:43 Room Air 08/29/24 15:21 08/29/24 12:43 08/29/24 12:33 08/29/24 12:28 08/29/24 11:25 Room Air 08/29/24 07:16 Room Air 08/29/24 07:03 08/29/24 06:35 08/29/24 06:26 08/29/24 05:59
--- NOTE | 2024-08-29 17:16 | Nephrology Consultation ---
Date of Consultation August 29, 2024 Assessment & Plan (1) Acute renal failure: Patient with acute kidney injury likely due to contrast-induced nephropathy. Patient initially had acute kidney injury likely ATN in setting of sepsis but had improved back to normal. Creatinine started rising after contrast administration 08/28. CT showed no hydronephrosis. She has non obstructive kidney stone. Creatinine remained stable today. She has hypocalcemia and hyperphosphatemia. She has signs of volume overload. -Recommend stopping IV fluids unless patient is hypotensive. -Avoid further contrast. -Will give ergocalciferal [id number] once -Will continue to monitor input output Daily BMP (2) Peritonitis due to abscess: She is on vancomycin and meropenem renally dosed. Monitor vanco level and avoid levels above 25 which can potentially worsen renal function. History of Present Illness Reason for Consultation: Acute Kidney injury Requesting Physician: Peggy Gupta MD Attending Physician: Peggy Gupta MD History of Present Illness This is a 68-year-old female who was initially admitted for appendectomy on 08/19/2024. She was then discharged home but continued to have abdominal pain. She was readmitted 08/23/24 and found to have intra-abdominal abscess as well as Proteus bacteremia. She is status post drainage of the abscess but continues to have leukocytosis. On admission she had acute kidney injury with creatinine peak of 4.7 on 08/23/2024. Creatinine improved back to normal but started uptrending on 08/[address] scan at 1.5. The CT showed intra- abdominal abscess but no hydronephrosis. She will evaluate her renal stone. Today she feels better denies any nausea or vomiting. No diarrhea. She is making urine about 900 mL today. She complains of shortness of breath lying flat and prefers to lie in the semiprone position. Patient is receiving normal saline at 100 mL/h. She has hypocalcemia of 6.5 high phosphorus of 5. at the bedside. Allergies Allergy/AdvReac Type Severity Reaction Status Date / Time No Known Allergies Allergy Verified 08/23/24 11:05 Home Medications Medication Instructions Recorded Confirmed Type No Known Home Medications 08/23/24 08/23/24 History Patient History Medical History Paroxysmal SVT (supraventricular tachycardia) sometimes occurs in the morning hours/not at any other times. no hx medication or intervention. Last occurence: " i don't know" Rotator cuff tear no hx sx, right, denies limitations. Arthritis of both feet Gallstone found on last ct may of 2024/no trouble with at current. Elevated blood pressure reading at dr's offices elevated. monitored. Obesity Surgical History History of foot surgery left/hardware History of colonoscopy Hx of tooth extraction History of lumpectomy of left breast Social History Smoking Status: Never smoker Second Hand Exposure: No; Do You Dip or Chew Tobacco: No; Hx Alcohol Use: No Hx Substance Use: No Preferred Language: Danish Communication Ability: Effective Visual Impairment: No Limitations Wood Setter Required: No Beliefs That Will Affect Care: None Current Living Situation: Spouse Feels Safe at Home: Yes Assistive Devices: None Review of Systems 2 Review of Systems: All other systems were reviewed and negative except as noted in HPI Physical Exam 2 Physical Exam: General exam: Appears comfortable, no acute distress HEENT: Pupils are equal and reactive to light Neck: No JVD, neck is supple trachea is midline Respiratory system: Clear breath sounds bilaterally. Gastrointestinal: Abdomen is soft, non distended, non tender, bowel sounds are present CVS: Regular rate and rhythm. No murmurs, rubs or gallops Musculoskeletal: No joint or muscle tenderness Extremities: Non tender, 1+ thigh edema, Neuro: Oriented, no tremors, no focal neurological deficits Skin: No rashes Results & Data Vital Signs (Past 12 Hours) Vital Signs Temp Pulse Pulse Resp BP BP Pulse Ox 08/29/24 15:43 36.8 C 84 19 136/82 96 08/29/24 15:21 77 08/29/24 12:43 84 119/77 08/29/24 12:33 101/64 08/29/24 12:28 70 114/47 L 08/29/24 11:25 36.4 C L 70 18 120/72 92 08/29/24 07:16 37.5 C 88 19 137/73 92 08/29/24 07:03 80 94/64 L 08/29/24 06:35 143 H 101/67 08/29/24 06:26 88 08/29/24 05:59 161 H 119/76 O2 Del Method 08/29/24 15:43 Room Air 08/29/24 15:21 08/29/24 12:43 08/29/24 12:33 08/29/24 12:28 08/29/24 11:25 Room Air 08/29/24 07:16 Room Air 08/29/24 07:03 08/29/24 06:35 08/29/24 06:26 08/29/24 05:59 Laboratory Results 08/29/24 05:36 08/29/24 05:36 WBC 38.86 H* RBC 3.47 L MCV 81.3 MCH 27.4 MCHC 33.7 RDW Std Deviation 45.7 RDW Coeff of Albino 15.5 H Plt Count 237 MPV 10.4 Phosphorus 5.0 H
[2024-08-29] MEDS: ERGOCALCIFEROL 1250 MCG (50,000 UNITS) CAP PO ONE (17:57)
[2024-08-29] MEDS: POLYETHYLENE (MIRALAX) 17 GM PACK PO SCH (20:20)
[2024-08-29] MEDS: MEROPENEM 500 MG in SYRINGE 0 ML IV SCH (20:20)
[2024-08-30 05:11] LABS: Hematocrit (blood only) 27.1 % (37.0-47.0); Hemoglobin 9.0 g/dl (12.0-16.0); Mean Corpuscular Hemoglobin 27.2 pg (25.0-34.0); Mean Corpuscular Volume 81.9 fL (80.0-100.0); Platelet Count 255 K/uL (130-400); RDW Standard Deviation 45.8 fL (36.4-46.3); Red Blood Count 3.31 M/uL (4.20-5.40); White Blood Count 25.62 K/ul (4.8-10.8)
[2024-08-30 05:26] LABS: Anion Gap 10.0 (3-11); Blood Urea Nitrogen 51.0 mg/dl (6-23); Calcium 6.5 mg/dl (8.6-10.3); Carbon Dioxide 22.0 mmol/L (21-32); Chloride 99.0 mmol/L (98-107); Creatinine Clr Calc Pharmacy 40.9 ml/min; Glucose 112.0 mg/dl (70-99(Fasting)); Magnesium 2.3 mg/dl (1.7-2.4); Potassium 3.6 mmol/L (3.5-5.1); Sodium 131.0 mmol/L (136-145)
--- NOTE | 2024-08-30 08:13 | Surgery Progress Note ---
Date of Service August 30, 2024 Assessment & Plan (1) Peritonitis due to abscess: Plan: clinically not progressing will plan ex lap and right colon resection and abd washout risks explained Admission and Anticipated Discharge Date Admission Date: August 23, 2024 Subjective clinically not improving well WBC down AF VSS Review of Systems Constitutional: no fever and no chills Gastrointestinal: + abdominal pain, + nausea and + change in bowel habits; no vomiting Neurologic: + generalized weakness Psychiatric: no behavioral changes Physical Exam Constitutional: WD/WN, vitals as above Gastrointestinal (Abdomen): Inspection/Auscultation: abdomen normal to inspection, + abdomen distended and normal bowel sounds Percussion/Palpation: + abdomen tender and abdomen soft; no guarding and abdomen not rigid Musculoskeletal: Head/Neck/Chest: normocephalic and head atraumatic Results & Data Vital Signs (Past 12 Hours) Vital Signs Temp Pulse Pulse Resp BP Pulse Ox O2 Del Method 08/30/24 07:33 86 08/30/24 07:17 37.1 C 80 16 110/65 94 Room Air 08/30/24 06:20 79 08/30/24 03:54 36.9 C 85 16 143/88 H 95 Room Air 08/29/24 23:49 37.0 C 80 19 148/80 H 95 Room Air 08/29/24 22:07 91 H 08/29/24 20:33 93 H
--- NOTE | 2024-08-30 08:26 | Anesthesiology Consultation ---
Date of Service August 30, 2024 Assessment & Plan Chart Review Chart Review: Acceptable Risk for Surgery and Patient NOT seen in Pre Admission Testing Consults Requested none ASA [id number] Proposed Anesthesia Anesthesia Type: General Anesthesia Line Insertion: Arterial line History Surgery Operation Date: 08/30/24 08:30 Proposed Procedures p Sigmoid Colon Resection - Macario Pacheco MD Height/Weight Height: 5 ft 4 in Weight: 93.485 kg Allergies Allergy/AdvReac Type Severity Reaction Status Date / Time No Known Allergies Allergy Verified 08/23/24 11:05 Medications Home Medications Medication Instructions Recorded Confirmed Last Taken No Known Home Medications 08/23/24 08/23/24 Unknown Active Medications Generic Name Dose Route Start Last Admin Trade Name Freq PRN Reason Stop Dose Admin Acetaminophen 650 mg 08/23/24 13:09 08/29/24 22:59 Acetaminophen 325 Mg Tab PO 09/22/24 13:08 650 mg Q4H PRN Administration Pain or Fever Heparin Sodium (Porcine) 5,000 units 08/23/24 14:00 08/30/24 06:04 Heparin Sod 5,000 Unit/0.5 Ml Vial SQ 09/22/24 13:59 5,000 units Q8 ARMANDO Administration Hydromorphone HCl 0.5 mg 08/23/24 13:09 08/28/24 05:03 Hydromorphone Inj 0.5 Mg/0.5 Ml Syr IV 09/06/24 13:08 0.5 mg Q3H PRN Administration moderate pain Hydromorphone HCl 1 mg 08/28/24 13:30 08/29/24 15:50 Hydromorphone Inj 1 Mg/Ml Syringe IV 09/11/24 13:29 1 mg Q3H PRN Administration severe pain Meropenem 500 mg/ Syringe 10 mls @ 2 mls/min 08/29/24 21:00 08/30/24 06:06 IV 09/11/24 12:59 2 mls/min Q8H ARMANDO Administration Protocol Metoprolol Tartrate 2.5 mg 08/26/24 13:00 08/30/24 06:05 Metoprolol Tartrate 1 Mg/Ml Vial IV 09/25/24 12:59 2.5 mg Q8H ARMANDO Administration Ondansetron HCl 4 mg 08/23/24 13:09 08/28/24 21:51 Ondansetron Inj 2 Mg/Ml 2 Ml Vial IV 09/22/24 13:08 4 mg Q6H PRN Administration Nausea Polyethylene Glycol 17 gm 08/29/24 21:00 08/30/24 07:10 Polyethylene (Miralax) 17 Gm Pack PO 09/28/24 20:59 Not Given BID ARMANDO Past Medical History Medical History Paroxysmal SVT (supraventricular tachycardia) sometimes occurs in the morning hours/not at any other times. no hx medication or intervention. Last occurence: " i don't know" Rotator cuff tear no hx sx, right, denies limitations. Arthritis of both feet Gallstone found on last ct may of 2024/no trouble with at current. Elevated blood pressure reading at dr's offices elevated. monitored. Obesity new onset A Fib JANET/ARF Sepsis Hyponatremia Anemia SVT Aspiration pneumonitis Exercise / Class Metabolic Activity III < 4 Walking/Shop/Light housework Past Surgical History Surgical History History of foot surgery left/hardware History of colonoscopy Hx of tooth extraction History of lumpectomy of left breast Past Anesthesia History No Hx of Anesthesia Complications and No Family Hx of Anesthesia Complications History of PONV No Hx of PONV and No Hx of Motion Sickness Social History Smoking Status: Never smoker Do You Dip or Chew Tobacco: No Hx Alcohol Use: No Alcohol type: wine alcohol intake frequency: a few times a month Hx Substance Use: No substance use type: does not use Physical Exam Vital Signs Last Vital Signs Temp 37.1 C 08/30/24 07:17 Pulse 86 08/30/24 07:33 Resp 16 08/30/24 07:17 BP 110/65 08/30/24 07:17 Pulse Ox 94 08/30/24 07:17 O2 Del Method Room Air 08/30/24 08:20 O2 Flow Rate 2 08/27/24 08:20 Testing Laboratory Results 08/30/24 04:56 08/30/24 04:56 Hemoglobin A1c 6.3 % (4.5-5.6) H 08/27/24 05:59 Urine Color Dark Yellow 08/23/24 Unknown Urine Appearance Turbid (Clear) A 08/23/24 Unknown Urine pH 5.0 (4.5-7.5) 08/23/24 Unknown Ur Specific [place] 1.021 (1.000-1.030) 08/23/24 Unknown Urine Protein 2+ (Negative) H 08/23/24 Unknown Urine Glucose (UA) Negative (Negative) 08/23/24 Unknown Urine Ketones Trace (Negative) H 08/23/24 Unknown Urine Nitrite Negative (Negative) 08/23/24 Unknown Ur Leukocyte Esterase Negative (Negative) 08/23/24 Unknown Urine WBC (Auto) 0-5 /hpf (0-5) 08/23/24 Unknown Urine RBC (Auto) 6-10 /hpf (0-2) H 08/23/24 Unknown U Hyaline Cast (Auto) >20 /lpf (0-2) H 08/23/24 Unknown U Epithel Cells (Auto) 11-20 /hpf (0-2) H 08/23/24 Unknown Urine Bacteria (Auto) None Seen (None Seen) 08/23/24 Unknown Blood Type A Positive 08/23/24 11:05 Antibody Screen NEGATIVE 08/23/24 11:05 08/23/24 11:05 Aerobic Blood Culture - Final Blood Proteus vulagris group Anaerobic Blood Culture - Final Proteus vulagris group 08/28/24 Unknown Gram Stain - Final Abdomen Aerobic and Anaerobic Culture - Preliminary Pin-point growth present, reincubating. 08/23/24 11:00 Aerobic Blood Culture - Final Blood No growth in Aerobic bottle after 5 days. Anaerobic Blood Culture - Final Electrocardiogram Date: 08/23/24 Findings: + AFIB @ (@ 150 RVR; ST & T wave abnl) Echocardiogram Date: 08/23/24 EF: 55% LV Function: normal RWMA: + none Other Findings: + atrial enlargement (LA mildly dilated), + LVH (mild) and + diastolic dysfunction (Grade 1) TR/OK-mild
[2024-08-30] MEDS ORDERED: SODIUM CHLORIDE 0.9% 100 ML IV PRN (08:28)
--- NOTE | 2024-08-30 09:24 | Hospitalist Progress Note ---
Date of Service August 30, 2024 Assessment & Plan (1) Severe sepsis with acute organ dysfunction: (2) Atrial fibrillation, new onset: (3) Acute renal failure: (4) Ileus due to infection: (5) Peritonitis due to abscess: (6) Electrolyte abnormality: (7) Pneumoperitoneum: (8) Demand ischemia of myocardium: (9) Low grade mucinous neoplasm of appendix: (10) Status post laparoscopic appendectomy: (11) Paroxysmal SVT (supraventricular tachycardia): Plan 68-year-old female status post appendectomy for mucocele on 08/19/2024. Presents critically ill with acute renal failure, multiple electrolyte abnormalities and evidence of severe sepsis with organ dysfunction as evidenced by renal failure, postsurgical ileus, and new onset atrial fibrillation. Sepsis Proteus bacteremia Intra abdominal abscesses Postsurgical ileus Recent laparoscopic appendicectomy of large mucocele of appendix by Dr. Pacheco on 08/19/2024 -CT ABD 08/25/24 :Absent appendix consistent with appendectomy history with increased fluid and gas throughout the abdomen and pelvis more than expected particularly at the level of the surgical bed. Dehiscence is not excluded. No discrete encapsulated drainable fluid collection although early abscess cannot be excluded. Prominent fluid distended proximal small bowel and to some extent distal small bowel fecal type densities which can be seen in slow small bowel transit. Mild ileus is not excluded. - CT abdomen with oral contrast: Pneumoperitoneum with right retroperitoneal gas mildly decreased. Cannot rule out anastomotic leak with abscess. Contrast has not reached the distal small bowel. Findings suggestive of ileus. NGT removed on 08/27/24 Blood culture grew Proteus vulgaris on preliminary cultures CT Abd/Pelvis with IV contrast on 08/28/24 showed increased pneumoperitoneum and right retroperitoneal gas, multifocal abscesses IV antibiotics broadened to Vanc and meropenem S/p IR placement of drain on 08/28/24 Persistent leukocytosis Follow up IR cultures. No growth so far Awaiting ID eval Gen surg planing exploration and possible sigmoid resection today Continue vanc and meropenem (renally dosed) Atrial fibrillation--new onset In the setting of sepsis Spontaneously converted to sinus -ECHO: EF 55 to 60%. Mild concentric LVH. Left atrium mildly dilated. Mild tricuspid regurgitation. No significant pulmonary hypertension. Cardiology eval noted. No anticoagulation recommended Continue tele monitor Continue lopressor IV 2.5mg q8h. Plan to change to metoprolol succinate 25mg qAM eventually May need ZIO monitor as outpatient Acute kidney injury JANET had initially resolved but developed again yesterday with worsening clinical status Creatinine 3.9>>2.26>>0.94>1.51>1.46 Likely from sepsis + contrast Avoid further contrast Nephro recs noted IVF held for now in view of volume status. Will continue to monitor and reassess Hyponatremia Hypokalemia - resolved K is 3.6 today. Monitor Mild troponin elevation Likely demand ischemia secondary to sepsis, A-fib RVR Denies any chest pain, dyspnea DVT Px: Heparin SQ on hold for procedure Code Status Full Code Discussed with and daughter at bedside I spent a total of 50 minutes coordinating, documenting and providing care for this patient excluding time spent in performance of separately billed services Admission and Anticipated Discharge Date Admission Date: August 23, 2024 Subjective Patient seen and examined Reports fatigue and abd pain Physical Exam Constitutional: + ill appearing and + well hydrated Eyes: PERRL, conjunctivae normal, anicteric sclerae ENMT: external ear and nose normal, oropharynx normal Respiratory: normal respiratory effort, lungs clear to auscultation Cardiovascular: Rate/Rhythm: regular rate and regular rhythm Gastrointestinal (Abdomen): Abd is distended, tender. IR drain in situ Musculoskeletal: +pedal edema Neurologic: PERRL, EOMI, accommodation nl, no face palsy, no dysarthria Psychiatric: A+Ox3, euthymic affect Results & Data Results & Data Vital Signs (Past 12 Hours) Vital Signs Temp Pulse Pulse Resp BP Pulse Ox O2 Del Method 08/30/24 08:20 Room Air 08/30/24 07:33 86 08/30/24 07:17 37.1 C 80 16 110/65 94 Room Air 08/30/24 06:20 79 08/30/24 03:54 36.9 C 85 16 143/88 H 95 Room Air 08/29/24 23:49 37.0 C 80 19 148/80 H 95 Room Air 08/29/24 22:07 91 H Laboratory Results Abnormal lab results 08/30/24 08/30/24 Range/Units 04:56 09:47 WBC 25.62 H (4.8-10.8) K/ul RBC 3.31 L (4.20-5.40) M/uL Hgb 9.0 L (12.0-16.0) g/dl Hct 27.1 L (37.0-47.0) % RDW Coeff of Albino 15.5 H (11.5-14.5) % Sodium 131 L (136-145) mmol/L BUN 51 H (6-23) mg/dl Creatinine 1.46 H (0.6-1.2) mg/dl BUN/Creatinine Ratio 34.9 H (10-20) Glucose 112 H (70-99(Fasting)) mg/dl Calcium 6.5 L (8.6-10.3) mg/dl Crossmatch See Detail
--- NOTE | 2024-08-30 09:35 | Pharmacy Report ---
Pharmacy PK ABX Note - Date of Service August 30, 2024 - Assessment and Plan Assessment * 68 year old F receiving vancomycin and meropenem for treatment of sepsis 2nd Proteus vulgaris bacteremia and multiple abscesses in the abdomen and pelvis, s/p drainage 08/28. Patient was previously on pip/tazo but condition was worsening so antibiotic treatment was escalated. * ID has been consulted - awaiting input * Pertinent microbiologic data includes: * Blood cultures x 2 from 08/23 are growing steiner sensitive P. vulgaris * Abdomen / abscess 08/28 with gram stain only showing GPC, GNR, GPB * SCr jumped significantly yesterday. Stable but remains elevated today. Will dose vancomycin via level Plan Vancomycin * Target AUC/ESTELLA of 400-600 mg/L.hr, once renal function stabilizes. Will dose via level for now. * Random level of 15.9 mcg/mL this AM. Will wait a few hours then give one time dose at lower than previous (1000 mg) * Random level ordered for: 08/31/24 with AM labs. Pharmacy will continue to follow and will adjust dose/frequency as necessary. Thank you. Pharmacy has transitioned to AUC monitoring for vancomycin. AUC/ESTELLA is the preferred PK/PD target and is associated with decreased risk of nephrotoxicity compared to traditional trough targets.
[2024-08-30] MEDS ORDERED: DEXAMETHASONE SOD INJ 4 MG/ML VIAL ONE (10:06)
[2024-08-30] MEDS ORDERED: SUGAMMADEX SODIUM 200 MG/2 ML VIAL IV ONE (10:06)
[2024-08-30] MEDS ORDERED: SUCCINYLCHOLINE CHLORIDE 20 MG/ML 10 ML VIAL IV ONE (10:06)
[2024-08-30] MEDS ORDERED: PROPOFOL IV EMULSION 10 MG/ML 20 ML VIAL IV ONE ×2 (10:06→12:38)
[2024-08-30] MEDS ORDERED: ROCURONIUM BROMIDE 10 MG/ML 5 ML VIAL IV ONE (10:06)
[2024-08-30] MEDS ORDERED: ONDANSETRON INJ 2 MG/ML 2 ML VIAL ONE (10:06)
[2024-08-30] MEDS ORDERED: CISATRACURIUM BESYLATE IV SOLN 2 MG/ML 10 ML VIAL IV ONE ×3 (10:57→11:54)
[2024-08-30] MEDS ORDERED: ONDANSETRON INJ 2 MG/ML 2 ML VIAL IV PRN (11:11)
[2024-08-30] MEDS ORDERED: HYDROmorphone INJ 1 MG/ML SYRINGE IV PRN (11:11)
[2024-08-30] MEDS ORDERED: ATROPINE SULFATE 0.1 MG/ML 10ML SYR IV PRN (11:11)
[2024-08-30] MEDS ORDERED: NALOXONE HCL 0.4 MG/1 ML VIAL/CARP IV PRN (11:11)
[2024-08-30] MEDS ORDERED: FLUMAZENIL 0.1 MG/1 ML 10 ML VIAL IV PRN (11:11)
[2024-08-30] MEDS ORDERED: NEOSTIGMINE METHYLSULFATE 1 MG/ML 10ML VIAL ONE (11:11)
[2024-08-30] MEDS ORDERED: PROMETHAZINE HCL 6.25 MG in SODIUM CHLORIDE 0.9% 50 ML IV PRN (11:11)
[2024-08-30] MEDS ORDERED: GLYCOPYRROLATE 0.2 MG/ML VIAL ONE (11:11)
[2024-08-30] MEDS ORDERED: VASOPRESSIN 20 UNIT/ML VIAL ONE (11:48)
--- NOTE | 2024-08-30 12:30 | Communication Note ---
Date of Service: August 30, 2024 Patient is an ASA 4E
--- NOTE | 2024-08-30 12:49 | Operative Report ---
Post Operative Report Pre & Post Diagnosis Operation Date: 08/30/24 08:30 Pre-Op Diagnosis: Peritonitis due to Abscess Post-Op Diagnosis: Small Bowel Perforation with Abscess I identified the patient and participated in the time-out.: Yes Procedure Operation Date: 08/30/24 08:30 Actual Procedures p Exploratory Laparotomy, Extended Right Colectomy with Drainage of Abscess(Not Applicable) - Macario Pacheco MD Surgeon Macario Pacheco MD Piano Regulator Inspector none Estimated Blood Loss 120 Findings Consistent with Post-Op Diagnosis Specimens extended right colon resection Drains joey in RLQ/pelvis Anesthesia Type General Complications none Disposition Accompanied Patient To Recovery: No Disposition: Surgical ICU Indications This is a 68-year-old female who is status post a laparoscopic appendectomy for a large mucocele. She postoperatively had some issues and was admitted a CT scan showed a contained perforation with abscess. We initially tried to treat t his conservatively with IV antibiotics and a drain but she continued to not progress appropriately we will plan on doing exploratory laparotomy. We went over the risks in detail. Description of Procedure The patient was taken to the OR and underwent excellent general endotracheal anesthesia. A Leon was placed preoperatively. Her abdomen was then prepped and draped in normal sterile fashion. A midline incision was made. Dissection was taken down to identify her fascia which was incised. Once the peritoneal cavity was entered there was significant inflammation noted. With the finger dissection I was able to enter the abscess cavity was mainly in the midportion of the abdominal area, their abscess was drained and cultured. The small bowel was freed with blunt dissection. The ligament of Treitz was identified and the small bowel was traced down to the ileocecal valve near the ileocecal valve there was a small perforation noted in the proximal terminal ileum. There was a large amount of fibropurulent material. The abdomen was irrigated out and suctioned to clear. There was also some significant inflammation in the right colon. Using blunt and sharp dissection the right colon was freed around the hepatic flexure. A portion of normal colon was noted in the proximal transverse colon. A BOBO stapler was used to transect the proximal transverse colon. A Ksenia clamp was then placed proximally on the blood supply and the blood supply was clamped. Silk ties were used to ligate the blood supply. The small bowel perforation was identified. A BOBO stapler was used to transect the small bowel proximal to the perforation. A small proximal segment was then also taken since it appeared dusky. The abdomen was then irrigated out and suctioned to clears again, there is no obvious bleeders. A functional end-to-end anastomosis was created in a [id number] manner. This was done with a BOBO stapler. The defect was then closed with a BOBO stapler and reinforced with interrupted silks in a [place] fashion. The defect in the mesentery was closed with interrupted silks. This completed the the anastomosis and there was a good patent anastomosis and healthy tissue with good blood supply noted. Once this was completed the anastomosis was placed into the abdominal cavity. A joey drain was placed in the RLQ and into pelvis. The fascia was then closed number 1 PDS suture. The incisions were then closed with sutures loosely and packed with betadine 4x4s. Sterile dressings were applied. The patient tolerated procedure with some pressor help and therefore will be sent to the ICU for her care. I attest to the content of the Intraoperative Record and any orders documented therein. Any exceptions are noted below.
[2024-08-30] MEDS: MIDAZOLAM HCL 1 MG/ML 2ML VIAL ONE (13:25)
[2024-08-30 13:27] LABS: Hematocrit (blood only) 27.1 % (37.0-47.0); Hemoglobin 9.1 g/dl (12.0-16.0)
--- NOTE | 2024-08-30 13:27 | Nephrology Progress Note ---
Date of Service August 30, 2024 Assessment & Plan (1) Acute renal failure: Plan: Patient with acute kidney injury likely due to contrast-induced nephropathy. Patient initially had acute kidney injury likely ATN in setting of sepsis but had improved back to normal. Creatinine started rising after contrast administration 08/28. CT showed no hydronephrosis. She has non obstructive kidney stone. Creatinine remained stable today. She has hypocalcemia and hyperphosphatemia. She has signs of volume overload. -Continue pressors to maintain MAP above 65. -Avoid further contrast. -Will give calcium gluconate 2g -Will continue to monitor input output Daily BMP (2) Peritonitis due to abscess: Plan: She is s/p colectomy with primary anastomosis. Currently on vancomycin and meropenem renally dosed. Monitor vanco level and avoid levels above 25 which can potentially worsen renal function. Admission and Anticipated Discharge Date Admission Date: August 23, 2024 Subjective Seen for acute kidney injury. Patient had laparotomy and colectomy with primary anastomosis. Abscesses were drained. She was intubated in the OR and now in ICU. Unable to provide history. She is on levo and got a litre of normal saline. Urine output has dropped Review of Systems 2 Review of Systems: Unable to obtain due to intubation Physical Exam 2 Physical Exam: General exam: Appears comfortable, intubated and sedated HEENT: Pupils are equal and reactive to light Neck: No JVD, neck is supple trachea is midline Respiratory system: Clear breath sounds bilaterally. Gastrointestinal: Abdomen is soft, non distended, non tender, bowel sounds are present CVS: Regular rate and rhythm. No murmurs, rubs or gallops Musculoskeletal: No joint or muscle tenderness Extremities: Non tender, 1+ thigh edema, Neuro: sedated Skin: No rashes Results & Data Vital Signs (Past 12 Hours) Vital Signs Temp Pulse Pulse Resp BP Pulse Ox O2 Del Method 08/30/24 08:20 Room Air 08/30/24 07:33 86 08/30/24 07:17 37.1 C 80 16 110/65 94 Room Air 08/30/24 06:20 79 08/30/24 03:54 36.9 C 85 16 143/88 H 95 Room Air Laboratory Results 08/30/24 04:56 08/30/24 04:56 WBC 25.62 H RBC 3.31 L MCV 81.9 MCH 27.2 MCHC 33.2 RDW Std Deviation 45.8 RDW Coeff of Albino 15.5 H Plt Count 255 MPV 10.6 Phosphorus 4.3
--- NOTE | 2024-08-30 13:29 | XRay Report ---
EXAM: Radiograph of the Chest 1 View INDICATION: Fever TECHNIQUE: Frontal view of the chest. Image obtained at 1:14 PM. COMPARISON: No relevant prior studies available. FINDINGS: Lungs and pleural spaces: There is atelectasis in both lung bases right greater than left. No pleural effusion or pneumothorax. Heart: Shape and configuration within normal limits allowing for technique. Mediastinum: Normal contour. Bones/joints: Degenerative changes noted throughout the spine. No acute osseous abnormality seen. Soft tissues: No abnormality noted. No radiopaque foreign body noted. Tubes, lines and devices: The endotracheal tube terminates 1.0 cm above the keegan. Nasogastric tube tip in the gastric fundus. Upper abdomen: No abnormality noted. IMPRESSION: 1. Basilar atelectasis right greater than left. 2. Lines and tubes as above. ACT 112: N/A Electronically signed by Dhara Kim 08-30-2024 13:29 PM
[2024-08-30] MEDS ORDERED: STAT IV Infusion **Titration per Protocol STA ×2 (13:34→13:56)
[2024-08-30] MEDS: NOREPINEPHRINE/D5W 4 MG/250 ML IV ONE (13:49)
[2024-08-30 13:50] LABS: Alanine Aminotransferase 23.0 U/L (7-52); Albumin Globulin Ratio 0.7 (0.9-2); Alkaline Phosphatase 74.0 U/L (34-104); Anion Gap 14.0 (3-11); Bilirubin,Total 0.5 mg/dl (0.2-1.0); Blood Urea Nitrogen 52.0 mg/dl (6-23); Calcium 6.2 mg/dl (8.6-10.3); Carbon Dioxide 14.0 mmol/L (21-32); Chloride 103.0 mmol/L (98-107); Creatinine Clr Calc Pharmacy 33.9 ml/min; Globulin 2.4 gm/dl (2.5-4.0); Glucose 220.0 mg/dl (70-99(Fasting)); Potassium 4.7 mmol/L (3.5-5.1); Sodium 131.0 mmol/L (136-145); Total Protein 4.0 gm/dl (6.0-8.3)
[2024-08-30] MEDS: PHENYLEPHRINE/NSS 25 MG/250 ML BAG IV SCH (13:50)
[2024-08-30] MEDS: fentaNYL citrate 2,500 MCG/250 ML BAG IV SCH (13:50)
--- NOTE | 2024-08-30 13:52 | Critical Care Consultation ---
Date of Consultation August 30, 2024 Assessment & Plan (1) Septic shock: (2) Bacteremia due to Proteus species: (3) Peritonitis due to abscess: (4) Acute aspiration pneumonitis: (5) Acute kidney injury: (6) Paroxysmal SVT (supraventricular tachycardia): Plan 68-year-old female who presented with peritonitis and was found to have bacteremia with Proteus vulgaris. Currently on meropenem. She is postop day 0 status post ex lap and partial colectomy. She has a HAYDEE drain in place. She is requiring phenylephrine due to hypotension and septic shock she is intubated due to aspiration pneumonia hypoxemia. Neurologic: Continue fentanyl and ketamine. RASS -1-0. Pulmonary: Continue lung protective ventilation strategy. Chest x-ray with possible aspiration pneumonia versus atelectasis. Lung compliance reasonable. Cardiovascular: Holding anticoagulants due to surgery. Maintain maps above 65 point phenylephrine. Crystalloid boluses as needed. Patient with a history of SVT and atrial fibrillation. Echo 08/23/2024 within normal LVEF. Gastrointestinal: NG tube to low intermittent wall suction. NPO. Postop day 0 status post ex lap. Pantoprazole 40 mg daily. Renal: Patient with JANET likely due to ischemic ATN. Lactic acidosis which is improving. Continue bicarbonate drip. Obtain ABG to follow-up acid-base status. If pH above 7.3, will discontinue bicarb drip and start lactated Ringer's. Infectious disease: Patient with Proteus bacteremia. Follow-up blood cultures. Continue meropenem. Possible aspiration pneumonia as well. MRSA screen negative. Hematologic: Patient with mild anemia and postoperative hemoglobin of 9.1. No signs of active bleeding. Small amount of serosanguineous fluid noted in the HAYDEE drain. Endocrine: Maintain euglycemia. Start insulin drip due to hyperglycemia. Lines and tubes: Right IJ CVL placed 08/30/2024. Leon catheter in place. Right arm IV in place. VTE prophylaxis: SCDs CODE STATUS: Full Family at bedside: Not available at bedside Disposition: ICU. Care coordinated with general surgeon, anesthesiologist, bedside nurse, RT and hospitalist service. I have personally spent 63 minutes of critical care time in the direct management of this patient. This is a life/limb threatening event. This includes time spent evaluating patient, direct bedside care, chart review, placing orders, interpretation of diagnostic studies, discussion with consultants, patient, and family members, as well as other required patient management activities. This time is exclusive of all separately billable procedures, and teaching time and separate from and in addition to any other critical care service time. Thank you for allowing us to participate in the care of this patient. History of Present Illness Reason for Consultation: "Severe sepsis, intra-abdominal abscess status post ex lap" Attending Physician: Peggy Gupta MD History of Present Illness 68-year-old female who presented to the hospital with a small bowel perforation and abscess. She was taken to the OR today and had an extended colectomy with drain of abscess. She lost about 125 mL of blood per OR staff. She received 1 L bolus by the OR. They were unable to successfully extubate her due to low lung volumes and she was sent to the ICU intubated with an arterial line, 1 IV, Leon catheter in no sedation. I urgently placed a right internal jugular central line for vasopressors. She was actively titrated up on phenylephrine for maps of greater than 65 per my instruction. Hemodynamics stabilized. She was started on a ketamine and fentanyl infusion for anxiolysis and pain control. Lactate was elevated to 6.7 and was downtrending. She was given an additional liter of fluid. She was also started on a bicarbonate infusion and given 1 amp of bicarb due to acidemia noted on CMP. Chest x-rays demonstrated appropriate positioning of right internal jugular vein central line and endotracheal tube. There was concern of possible aspiration pneumonia on admission to the hospital and she is currently on broad-spectrum antibiotics. Allergies Allergy/AdvReac Type Severity Reaction Status Date / Time No Known Allergies Allergy Verified 08/23/24 11:05 Home Medications Medication Instructions Recorded Confirmed Type No Known Home Medications 08/23/24 08/23/24 History Patient History Medical History Paroxysmal SVT (supraventricular tachycardia) sometimes occurs in the morning hours/not at any other times. no hx medication or intervention. Last occurence: " i don't know" Rotator cuff tear no hx sx, right, denies limitations. Arthritis of both feet Gallstone found on last ct may of 2024/no trouble with at current. Elevated blood pressure reading at dr's offices elevated. monitored. Obesity Surgical History History of foot surgery left/hardware History of colonoscopy Hx of tooth extraction History of lumpectomy of left breast Social History Smoking Status: Never smoker Second Hand Exposure: No; Do You Dip or Chew Tobacco: No; Hx Alcohol Use: No Hx Substance Use: No Preferred Language: Tajik Communication Ability: Effective Visual Impairment: No Limitations [employer] Required: No Beliefs That Will Affect Care: None Current Living Situation: Spouse Feels Safe at Home: Yes Assistive Devices: None Review of Systems Review of Systems: Unobtainable due to cognitive status and Unobtainable due to endotracheal tube Physical Exam Physical Exam: Constitutional: Patient appears to be of their stated age. Patient is in moderate distress. Patient is well-developed. Eyes: Pupils are equal round and reactive to light. Conjunctivae are normal. Anicteric sclera. Ears nose, mouth and throat: Intubated Neck: Trachea is midline. Visual inspection is normal. Respiratory: Clear to auscultation bilaterally. No use of accessory muscles. No significant clubbing noted. Cardiovascular: Regular rate and rhythm. No murmurs. No edema. Gastrointestinal: Abdominal incision noted. HAYDEE drain in place. Musculoskeletal: No cyanosis. Patient is able to move all extremities. Strength is 5 out of 5 in the upper and lower extremities. Skin: No rashes, warm dry and intact. Neurologic: No obvious focal neurological deficits seen. Psychiatric: Unable to assess Results & Data Results & Data Vital Signs (Past 12 Hours) Vital Signs Temp Pulse Pulse Resp BP Pulse Ox O2 Del Method 08/30/24 13:31 105 H 27 H 100 08/30/24 08:20 Room Air 08/30/24 07:33 86 08/30/24 07:17 37.1 C 80 16 110/65 94 Room Air 08/30/24 06:20 79 08/30/24 03:54 36.9 C 85 16 143/88 H 95 Room Air FiO2 08/30/24 13:31 30 08/30/24 08:20 08/30/24 07:33 08/30/24 07:17 08/30/24 06:20 08/30/24 03:54 Coding Level of Care Code 97800 CRITICAL CARE 1ST 30-74M Diagnoses Septic shock A41.9; R65.21 Bacteremia due to Proteus species R78.81; B96.4 Peritonitis due to abscess K65.1 Acute aspiration pneumonitis J69.0 Acute kidney injury N17.9 Paroxysmal SVT (supraventricular tachycardia) I47.10
--- NOTE | 2024-08-30 13:53 | Procedure Note ---
Procedure Note Date of Service August 30, 2024 Right INTERNAL JUGULAR CENTRAL LINE PROCEDURE NOTE: Procedure: Internal Jugular Central Line Placement Indication: Central Drug Administration, Poor Venous Access, Multiple Lab Draws Necessary, etc. Anesthesia: Continuous fentanyl/10 mL lidocaine 1% Consent was signed and placed on the chart prior to procedure. Indication, risks, and benefits were explained at length. A time-out was completed verifying correct patient, procedure, site, positioni ng, and implants(s) or special equipment if applicable. Patients right neck was cleansed and draped in the typical sterile fashion using Chloraprep. The Internal Jugular Vein and Carotid Artery were identified using ultrasound. The superficial tissue was anesthetized using 10 mL of 1% lidocaine without epinephrine under direct visualization with the ultrasound. After adequate anesthetization was achieved, the Internal Jugular vein was cannulated under direct ultrasound guidance using an introducer needle on a syringe. Good venous blood return was maintained prior to removal of syringe from introducer needle. Using Seldinger Technique, a guide wire was advanced through the introducer needle without resistance. The introducer needle was removed and ultrasound images were obtained of the guide wire within the Internal Jugular Vein and saved to the patients medical record. A small incision was made in penetrating fashion at the guide wire insertion site utilizing an 11 blade scalpel. The dilator was advanced to the vessel without resistance. The dilator was exchanged for the triple lumen catheter which was advanced into the vessel without resistance. The guide wire was removed intact from the catheter without issue. Claves were placed on each catheter tip with confirmation of good blood flow from each lumen. Each port was easily flushed with sterile saline. The catheter was placed at 16 cm and sutured in place. BioPatch was applied to the catheter and a sterile Tegaderm dressing was applied over the catheter with careful attention to sterility. Patient tolerated procedure well. No immediate complications were met. Postprocedure chest x-ray is pending. [facility] [place] Procedure Codes (Charges) Tubes, Drains, and Vasc Access Procedure 1: Tubes, Drains, and Vasc Access: [id number] Ultrasonic Guide For Needle Placement Procedure 2: Tubes, Drains, and Vasc Access: [id number] Place catheter in vein superior or inferior vena cava Coding CPT Codes Tubes, Drains, and Vasc Access - Tubes, Drains, and Vasc Access: [id number] Ultrasonic Guide For Needle Placement ([id number]) Tubes, Drains, and Vasc Access - Tubes, Drains, and Vasc Access: [id number] Place catheter in vein superior or inferior vena cava ([id number]) Additional Codes Date of Service ([email or web address])
--- NOTE | 2024-08-30 13:53 | Anesthesiology Progress Note ---
Date of Service August 30, 2024 Anesthesia Post Procedure Vital Signs Vital Signs: Temp Pulse Pulse Resp BP Pulse Ox O2 Del Method 08/30/24 13:31 105 H 27 H 100 08/30/24 08:20 Room Air 08/30/24 07:33 86 08/30/24 07:17 37.1 C 80 16 110/65 94 Room Air 08/30/24 06:20 79 08/30/24 03:54 36.9 C 85 16 143/88 H 95 Room Air 08/29/24 23:49 37.0 C 80 19 148/80 H 95 Room Air 08/29/24 22:07 91 H 08/29/24 20:33 93 H 08/29/24 19:47 36.8 C 85 16 133/82 93 Room Air 08/29/24 15:43 36.8 C 84 19 136/82 96 Room Air 08/29/24 15:21 77 FiO2 08/30/24 13:31 30 08/30/24 08:20 08/30/24 07:33 08/30/24 07:17 08/30/24 06:20 08/30/24 03:54 08/29/24 23:49 08/29/24 22:07 08/29/24 20:33 08/29/24 19:47 08/29/24 15:43 08/29/24 15:21 Pain Intensity Abdomen: Pain Intensity: 10 Transfer of Care Handoff Completed per policy Notes Mental Status: see notes below Patient Amnestic to Procedure: Yes Nausea / Vomiting: adequately controlled Pain: improving with treatment Airway Patency, RR, SpO2: stable & adequate BP & HR: see Notes below Hydration State: see Notes below Anesthetic Complications: no major complications apparent Notes: Pt was kept intubated and attached to [facility]. vent. post op, as pt may have had a recent aspiration pneumonitis around 08/23/2024. Pt is obese,anemic,frail,hyponatremic, w/ JANET(improving). Pt had a resection of colon w/ a large abd. incision; s/p appy w/ peritonitis/abscess. DR Chase may attempt to extubate her today,but since she's critical may keep her intubated overnite and wean off vent in am. Discussed w/ Dr Pacheco and he concurs.
[2024-08-30] MEDS: MIDAZOLAM HCL 1 MG/ML 2ML VIAL IV STA (13:54)
[2024-08-30] MEDS: PHENYLEPHRINE HCL 25 MG/250 ML NSS IV ONE (13:54)
[2024-08-30] MEDS: fentaNYL citrate 2,500 MCG/250 ML BAG IV ONE (13:54)
[2024-08-30] MEDS ORDERED: STAT IV/IM STA ×2 (13:55→13:57)
[2024-08-30] MEDS: VANCOMYCIN HCL 1,000 MG/270 ML BAG IV ONE (13:59)
[2024-08-30] MEDS: CALCIUM GLUCONATE 1,000 MG/60 ML BAG IV SCH (14:00)
[2024-08-30] MEDS ORDERED: Nursing to Pharmacy Communication SCH (14:00)
[2024-08-30] MEDS: SODIUM BICARB 8.4% INJ 50 MEQ/50 ML SYR IV ONE (14:00)
--- NOTE | 2024-08-30 14:18 | XRay Report ---
EXAM: X-ray chest one-view portable CLINICAL HISTORY: New IJ central venous catheter PRIORS: 08/30/2024 TECHNIQUE: Frontal view chest FINDINGS: Diminished lung volumes noted. Right internal jugular central venous catheter present with distal tip terminating at the expected position of the atrial caval junction. Endotracheal tube is again noted in unchanged. Lainey is not well visualized. Feeding tube present with distal tip coiled in the stomach. Opacification present at the right lower lung, possibly atelectasis or could represent pneumonia. Heart size within normal limits. IMPRESSION: Right internal jugular catheter, appearing in the interval with no pneumothorax or acute complication. Electronically signed by Rebeca Bullard 08-30-2024 2:18 PM
[2024-08-30] MEDS: SODIUM BICARBONATE 8.4% 150 MEQ in DEXTROSE 5% 1,000 ML IV SCH (14:23)
[2024-08-30] MEDS: SODIUM BICARB 8.4% INJ 50 MEQ/50 ML SYR IV STA (14:24)
[2024-08-30] MEDS: KETAMINE HCL / NSS 500 MG/500 ML BAG IV SCH (14:29)
[2024-08-30] MEDS: NovoLIN-R BOLUS FROM BAG IV ONE (14:38)
[2024-08-30] MEDS: INSULIN REGULAR 250 UNITS in SODIUM CHLORIDE 0.9% 247.5 ML IV SCH (14:38)
[2024-08-30] MEDS: KETAMINE HCL INJ 50 MG/ML 10 ML VIAL IV ONE (14:40)
[2024-08-30] MEDS: INSULIN PROTOCOL GOAL RANGE ONE (14:47)
[2024-08-30] MEDS: INSULIN ASPART PER UNIT CHARGE SC SCH (16:46)
[2024-08-30 16:51] LABS: iSTAT Art Bld Gas Base Excess -5.0 meg/L (-9-1.8); iSTAT Art Bld Gas pCO2 Correct 29 mmHg (35-46); iSTAT Art Bld Gas pH Corrected 7.439 (7.35-7.45); iSTAT Arterial Blood Gas pO2 C 165
[2024-08-30] MEDS: LACTATED RINGER'S 1,000 ML IV SCH (18:19)
[2024-08-30] MEDS: ALBUMIN 5% 250 ML IV ONE (20:18)
[2024-08-30] MEDS: PANTOprazole 40 MG/10 ML SYR IV SCH (20:18)
[2024-08-30] MEDS: ACETAMINOPHEN 1,000 MG/100 ML VIAL IV PRN (20:33)
[2024-08-30] MEDS: MAX Conc; 100mg in 250mL (Std Protocol) *PHA PREP IV SCH (20:46)
[2024-08-31] MEDS: ALBUMIN 5% 250 ML IV ONE (03:36)
[2024-08-31 04:37] LABS: Hematocrit (blood only) 21.9 % (37.0-47.0); Hemoglobin 7.4 g/dl (12.0-16.0); Mean Corpuscular Hemoglobin 27.5 pg (25.0-34.0); Mean Corpuscular Volume 81.4 fL (80.0-100.0); Platelet Count 308 K/uL (130-400); RDW Standard Deviation 44.8 fL (36.4-46.3); Red Blood Count 2.69 M/uL (4.20-5.40); White Blood Count 22.57 K/ul (4.8-10.8)
[2024-08-31 04:51] LABS: Alanine Aminotransferase 21.0 U/L (7-52); Albumin Globulin Ratio 1.0 (0.9-2); Alkaline Phosphatase 78.0 U/L (34-104); Anion Gap 10.0 (3-11); Bilirubin,Total 0.8 mg/dl (0.2-1.0); Blood Urea Nitrogen 54.0 mg/dl (6-23); Calcium 6.4 mg/dl (8.6-10.3); Carbon Dioxide 21.0 mmol/L (21-32); Chloride 104.0 mmol/L (98-107); Creatinine Clr Calc Pharmacy 31.9 ml/min; Globulin 2.1 gm/dl (2.5-4.0); Glucose 109.0 mg/dl (70-99(Fasting)); Magnesium 2.1 mg/dl (1.7-2.4); Potassium 4.3 mmol/L (3.5-5.1); Sodium 135.0 mmol/L (136-145); Total Protein 4.3 gm/dl (6.0-8.3)
--- NOTE | 2024-08-31 07:27 | Critical Care Progress Note ---
Date of Service August 31, 2024 Assessment & Plan (1) Septic shock: (2) Bacteremia due to Proteus species: (3) Peritonitis due to abscess: (4) Acute aspiration pneumonitis: (5) Acute kidney injury: (6) Paroxysmal SVT (supraventricular tachycardia): Plan 68-year-old female who presented with peritonitis and was found to have bacteremia with Proteus vulgaris. Currently on meropenem. She is postop, surgery 6025 status post ex lap and partial colectomy. She has a HAYDEE drain in place. Transferred to ICU for intubation and hypotension Neurologic: Continue fentanyl and ketamine. RASS -1 Pulmonary: -- Vent support Post OR Keep RASS -1 Daily SBT --Probable VERN/OHS Cardiovascular: -- Septic shock Continue with vasopressor support to keep MAP greater than 65 Echo 09/11/2024: EF 55-60%, mild concentric LVH, RV normal in size and function Gastrointestinal: --Peritonitis with abscess S/p right-sided colectomy 08/30/2024 Surgery on board Renal: -- JANET Monitor BUN/creatinine Avoid nephrotoxic medications Strict ins and outs Infectious disease: -- Proteus bacteremia with peritoneal abscess and peritonitis S/p right-sided colectomy 08/30/2024 Continue with meropenem MRSA negative Hematologic: -- Acute on chronic anemia Monitor H&H Transfuse for hemoglobin less than 7 Endocrine: -- ICU hypoglycemia protocol VTE prophylaxis: SCDs --Prophylaxis VTE: Heparin on hold GI: Pantoprazole Lines: Right IJ, peripherals Diet: N.p.o. Plan: In/out: +3150, urine output 1845 Tmax 38.4 Hemoglobin is trending down, repeat H&H later today, if it is still trending down we will transfuse 1 unit of PRBC Try to wean off vasopressors while keeping the MAP greater than 65 SBT today I have personally spent 43 minutes of critical care time in the direct management of this patient. This is a life/limb threatening event. This includes time spent evaluating patient, direct bedside care, chart review, placing orders, interpretation of diagnostic studies, discussion with consultants, patient, and family members, as well as other required patient management activities. This time is exclusive of all separately billable procedures, and teaching time and separate from and in addition to any other critical care service time. Thank you for allowing us to participate in the care of this patient. Admission and Anticipated Discharge Date Admission Date: August 23, 2024 Subjective Patient seen and examined at bedside. No acute distress, no neurochanges overnight She was on pressure support of 5 while on fentanyl 50 and ketamine 0.35 at time of examination She was alert and answering all the questions appropriately. Complain of mild abdominal discomfort, no chest pain, no shortness of breath She was also on 1.7 of phenylephrine while her systolic blood pressure was in the 160s. Review of Systems 2 Review of Systems: All systems reviewed & are unremarkable except as noted in Subjective Physical Exam 2 Physical Exam: Constitutional: No acute distress HEENT: EOMI, PERRLA Respiratory system: Decreased air entry bilaterally, no wheeze, no rhonchi, mild crackles bilateral lower lobe CVS: S1-S2 positive, no murmurs or gallops Abdomen: Soft, nontender, nondistended, decreased bowel sounds x4, HAYDEE drain in place Extremities: +2 pulses bilaterally radialis/ dorsalis pedis, no cyanosis, no edema Neuro: Awake alert oriented x3 Psych: Normal mood and affect G/U: Positive Leon Skin: no rashes, warm and dry Lymphatic: no cervical or axillary lymphadenopathy Results & Data Results & Data Vital Signs (Past 12 Hours) Vital Signs Temp Pulse Pulse Resp BP BP Pulse Ox 08/31/24 07:05 105 H 16 96 08/31/24 06:37 120/49 L 08/31/24 06:37 120/49 L 08/31/24 06:33 38.3 C H 53 L 17 96 08/31/24 06:30 38.3 C H 54 L 13 96 08/31/24 06:12 38.3 C H 60 18 96 08/31/24 05:42 38.2 C H 53 L 18 96 08/31/24 05:37 120/50 L 08/31/24 05:33 38.2 C H 51 L 16 96 08/31/24 05:09 38.2 C H 56 L 19 95 08/31/24 04:37 148/68 H 08/31/24 04:36 38.1 C H 55 L 18 96 08/31/24 04:30 38.2 C H 95 H 18 95 08/31/24 04:06 38.3 C H 93 H 18 97 08/31/24 04:00 08/31/24 04:00 38.2 C H 55 L 18 145/43 H 95 08/31/24 04:00 56 L 146/44 H 08/31/24 03:37 127/69 08/31/24 03:37 127/69 08/31/24 03:37 127/69 08/31/24 03:37 127/69 08/31/24 03:36 38.4 C H 96 H 19 97 08/31/24 03:18 38.4 C H 98 H 18 97 08/31/24 02:39 38.4 C H 94 H 18 96 08/31/24 02:37 132/71 08/31/24 02:37 132/71 08/31/24 02:24 38.4 C H 99 H 18 97 08/31/24 02:19 99 H 18 97 08/31/24 02:00 38.4 C H 100 H 18 96 08/31/24 01:37 114/69 08/31/24 01:36 38.4 C H 96 H 18 97 08/31/24 01:33 38.4 C H 98 H 18 97 08/31/24 01:03 38.4 C H 94 H 18 96 08/31/24 00:57 38.4 C H 99 H 19 97 08/31/24 00:37 123/72 08/31/24 00:24 38.4 C H 89 18 98 08/31/24 00:20 84 08/31/24 00:06 38.4 C H 85 18 97 08/31/24 00:00 08/31/24 00:00 38.4 C H 85 18 126/53 L 97 08/31/24 00:00 85 116/52 L 08/30/24 23:37 115/64 08/30/24 23:37 115/64 08/30/24 23:37 115/64 08/30/24 23:36 38.5 C H 81 18 98 08/30/24 23:00 38.5 C H 97 H 18 96 08/30/24 22:54 97 H 20 96 08/30/24 22:45 38.5 C H 94 H 18 95 08/30/24 22:38 08/30/24 22:37 119/72 08/30/24 22:21 38.5 C H 92 H 18 96 08/30/24 22:19 08/30/24 22:00 38.5 C H 90 18 96 08/30/24 21:37 125/65 08/30/24 21:37 125/65 08/30/24 21:36 38.5 C H 84 18 95 08/30/24 21:30 38.6 C H 86 19 95 08/30/24 21:06 38.7 C H 85 18 94 08/30/24 20:39 39.0 C H 102 H 18 96 08/30/24 20:37 102/49 L 08/30/24 20:37 102/49 L 08/30/24 20:37 102/49 L 08/30/24 20:21 39.0 C H 103 H 19 95 08/30/24 20:09 38.9 C H 106 H 19 95 08/30/24 20:00 83 141/50 H 08/30/24 19:37 92/62 L 08/30/24 19:36 95 H 18 95 08/30/24 19:33 95 H 18 95 08/30/24 19:30 96 H 18 97 O2 Del Method FiO2 08/31/24 07:05 21 08/31/24 06:37 08/31/24 06:37 08/31/24 06:33 08/31/24 06:30 08/31/24 06:12 08/31/24 05:42 08/31/24 05:37 08/31/24 05:33 08/31/24 05:09 08/31/24 04:37 08/31/24 04:36 08/31/24 04:30 08/31/24 04:06 08/31/24 04:00 08/31/24 04:00 Mechanical Vent 08/31/24 04:00 08/31/24 03:37 08/31/24 03:37 08/31/24 03:37 08/31/24 03:37 08/31/24 03:36 08/31/24 03:18 08/31/24 02:39 08/31/24 02:37 08/31/24 02:37 08/31/24 02:24 08/31/24 02:19 21 08/31/24 02:00 08/31/24 01:37 08/31/24 01:36 08/31/24 01:33 08/31/24 01:03 08/31/24 00:57 08/31/24 00:37 08/31/24 00:24 08/31/24 00:20 08/31/24 00:06 08/31/24 00:00 21 08/31/24 00:00 Mechanical Vent 21 08/31/24 00:00 08/30/24 23:37 08/30/24 23:37 08/30/24 23:37 08/30/24 23:36 08/30/24 23:00 08/30/24 22:54 21 08/30/24 22:45 08/30/24 22:38 21 08/30/24 22:37 08/30/24 22:21 08/30/24 22:19 Mechanical Vent 21 08/30/24 22:00 08/30/24 21:37 08/30/24 21:37 08/30/24 21:36 08/30/24 21:30 08/30/24 21:06 08/30/24 20:39 08/30/24 20:37 08/30/24 20:37 08/30/24 20:37 08/30/24 20:21 08/30/24 20:09 08/30/24 20:00 08/30/24 19:37 08/30/24 19:36 08/30/24 19:33 08/30/24 19:30 21 Laboratory Results 08/31/24 04:23 08/31/24 04:23 Coding Level of Care Code 81093 CRITICAL CARE 1ST 30-74M Diagnoses Septic shock A41.9; R65.21 Bacteremia due to Proteus species R78.81; B96.4 Peritonitis due to abscess K65.1 Acute aspiration pneumonitis J69.0 Acute kidney injury N17.9 Paroxysmal SVT (supraventricular tachycardia) I47.10
--- NOTE | 2024-08-31 07:45 | XRay Report ---
EXAM: XR chest 1V portable CLINICAL HISTORY: eval lines/tubes/lung contreras while intubated TECHNIQUE: Radiograph of chest was acquired. COMPARISON: 08/30/2024 12:59:00 LAW SECRETARY FINDINGS: Endotracheal tube is with tip at the level of keegan - needs repositioning Nasogastric tube is seen in-situ with tip in stomach Right internal jugular vein line in situ with the tip seen at the region of superior vena cava - right atrial junction Cardiomegaly - unchanged Mild diffuse ill-defined haziness in bilateral lung contreras - likely due to congestion Rest of the lungs are clear and well-expanded with no pleural effusion. Rest of the cardiomediastinal silhouette is within normal limits. No acute osseous abnormality. IMPRESSION: Endotracheal tube is in situ and tip is seen at the level of keegan - needs to be repositioned cranially by 3 cm Nasogastric tube is seen in-situ with tip in stomach Right internal jugular vein line in situ with the tip seen at the region of superior vena cava - right atrial junction Cardiomegaly - unchanged Mild diffuse ill-defined haziness in bilateral lung contreras - likely due to pulmonary congestion No significant interval chnages compared to prior study Electronically signed by Jc Barclay 08-31-2024 07:44 AM
[2024-08-31] MEDS: CALCIUM GLUCONATE 1,000 MG/60 ML BAG IV SCH (07:58)
--- NOTE | 2024-08-31 08:39 | Surgery Progress Note ---
Date of Service August 31, 2024 Assessment & Plan (1) Peritonitis due to abscess: Plan: s/p R colectomy monitor H/H extubsate today con't NG drain serous Admission and Anticipated Discharge Date Admission Date: August 23, 2024 Subjective alert intubated follows commands Physical Exam 2 Constitutional: WD/WN, vitals as above Respiratory: normal respiratory effort intubated Cardiovascular: Rate/Rhythm: regular rate and regular rhythm Gastrointestinal (Abdomen): Inspection/Auscultation: + abdomen distended; + abnormal bowel sounds Percussion/Palpation: + abdomen tender and abdomen soft Skin: no rashes, warm and dry Results & Data Vital Signs (Past 12 Hours) Vital Signs Temp Pulse Pulse Pulse Resp BP BP 08/31/24 08:30 38.1 C H 57 L 20 08/31/24 08:15 38.2 C H 74 17 08/31/24 08:14 08/31/24 08:10 134/46 L 08/31/24 08:00 38.1 C H 56 L 08/31/24 07:51 38.1 C H 55 L 08/31/24 07:47 114/47 L 08/31/24 07:47 114/47 L 08/31/24 07:47 114/47 L 08/31/24 07:47 114/47 L 08/31/24 07:45 38.1 C H 56 L 08/31/24 07:40 114/41 L 08/31/24 07:40 114/41 L 08/31/24 07:36 111/44 L 08/31/24 07:36 38.1 C H 58 L 18 08/31/24 07:34 101/44 L 08/31/24 07:34 101/44 L 08/31/24 07:24 38.2 C H 109 H 19 08/31/24 07:18 38.2 C H 106 H 16 08/31/24 07:10 136/62 08/31/24 07:09 38.2 C H 104 H 20 08/31/24 07:05 105 H 16 08/31/24 07:00 38.2 C H 98 H 18 08/31/24 06:39 38.3 C H 103 H 18 08/31/24 06:37 120/49 L 08/31/24 06:37 120/49 L 08/31/24 06:33 38.3 C H 53 L 17 08/31/24 06:30 38.3 C H 54 L 13 08/31/24 06:12 38.3 C H 60 18 08/31/24 05:42 38.2 C H 53 L 18 08/31/24 05:37 120/50 L 08/31/24 05:33 38.2 C H 51 L 16 08/31/24 05:09 38.2 C H 56 L 19 08/31/24 04:37 148/68 H 08/31/24 04:36 38.1 C H 55 L 18 08/31/24 04:30 38.2 C H 95 H 18 08/31/24 04:06 38.3 C H 93 H 18 08/31/24 04:00 08/31/24 04:00 38.2 C H 55 L 18 145/43 H 08/31/24 04:00 56 L 146/44 H 08/31/24 03:37 127/69 08/31/24 03:37 127/69 08/31/24 03:37 127/69 08/31/24 03:37 127/69 08/31/24 03:36 38.4 C H 96 H 08/31/24 03:18 38.4 C H 98 H 08/31/24 02:39 38.4 C H 94 H 08/31/24 02:37 132/71 08/31/24 02:37 132/71 08/31/24 02:24 38.4 C H 99 H 18 08/31/24 02:19 99 H 18 08/31/24 02:00 38.4 C H 100 H 18 08/31/24 01:37 114/69 08/31/24 01:36 38.4 C H 96 H 08/31/24 01:33 38.4 C H 98 H 18 08/31/24 01:03 38.4 C H 94 H 08/31/24 00:57 38.4 C H 99 H 08/31/24 00:37 123/72 08/31/24 00:24 38.4 C H 89 08/31/24 00:20 84 08/31/24 00:06 38.4 C H 85 08/31/24 00:00 08/31/24 00:00 38.4 C H 85 18 126/53 L 08/31/24 00:00 85 116/52 L 08/30/24 23:37 115/64 08/30/24 23:37 115/64 08/30/24 23:37 115/64 08/30/24 23:36 38.5 C H 81 18 08/30/24 23:00 38.5 C H 97 H 18 08/30/24 22:54 97 H 20 08/30/24 22:45 38.5 C H 94 H 18 08/30/24 22:38 08/30/24 22:37 119/72 08/30/24 22:21 38.5 C H 92 H 18 08/30/24 22:19 08/30/24 22:00 38.5 C H 90 18 08/30/24 21:37 125/65 08/30/24 21:37 125/65 08/30/24 21:36 38.5 C H 84 18 08/30/24 21:30 38.6 C H 86 19 08/30/24 21:06 38.7 C H 85 18 08/30/24 20:39 39.0 C H 102 H 18 08/30/24 20:37 102/49 L 08/30/24 20:37 102/49 L 08/30/24 20:37 102/49 L BP Pulse Ox O2 Del Method FiO2 08/31/24 08:30 97 08/31/24 08:15 95 08/31/24 08:14 21 08/31/24 08:10 08/31/24 08:00 114/47 L 96 CPAP, Mechanical Vent 21 08/31/24 07:51 94 08/31/24 07:47 08/31/24 07:47 08/31/24 07:47 08/31/24 07:47 08/31/24 07:45 95 08/31/24 07:40 08/31/24 07:40 08/31/24 07:36 08/31/24 07:36 95 08/31/24 07:34 08/31/24 07:34 08/31/24 07:24 97 08/31/24 07:18 95 08/31/24 07:10 08/31/24 07:09 95 08/31/24 07:05 96 21 08/31/24 07:00 95 08/31/24 06:39 92 08/31/24 06:37 08/31/24 06:37 08/31/24 06:33 96 08/31/24 06:30 96 08/31/24 06:12 96 08/31/24 05:42 96 08/31/24 05:37 08/31/24 05:33 96 08/31/24 05:09 95 08/31/24 04:37 08/31/24 04:36 96 08/31/24 04:30 95 08/31/24 04:06 97 08/31/24 04:00 21 08/31/24 04:00 95 Mechanical Vent 21 08/31/24 04:00 08/31/24 03:37 08/31/24 03:37 08/31/24 03:37 08/31/24 03:37 08/31/24 03:36 97 08/31/24 03:18 97 08/31/24 02:39 96 08/31/24 02:37 08/31/24 02:37 08/31/24 02:24 97 08/31/24 02:19 97 21 08/31/24 02:00 96 08/31/24 01:37 08/31/24 01:36 97 08/31/24 01:33 97 08/31/24 01:03 96 08/31/24 00:57 97 08/31/24 00:37 08/31/24 00:24 98 08/31/24 00:20 08/31/24 00:06 97 08/31/24 00:00 21 08/31/24 00:00 97 Mechanical Vent 08/31/24 00:00 08/30/24 23:37 08/30/24 23:37 08/30/24 23:37 08/30/24 23:36 98 08/30/24 23:00 96 08/30/24 22:54 96 21 08/30/24 22:45 95 08/30/24 22:38 21 08/30/24 22:37 08/30/24 22:21 96 08/30/24 22:19 Mechanical Vent 21 08/30/24 22:00 96 08/30/24 21:37 08/30/24 21:37 08/30/24 21:36 95 08/30/24 21:30 95 08/30/24 21:06 94 08/30/24 20:39 96 08/30/24 20:37 08/30/24 20:37 08/30/24 20:37
[2024-08-31 10:13] LABS: Hematocrit (blood only) 19.7 % (37.0-47.0); Hemoglobin 6.6 g/dl (12.0-16.0)
[2024-08-31] MEDS ORDERED: SODIUM CHLORIDE 0.9% 100 ML IV PRN ×2 (10:13→14:34)
--- NOTE | 2024-08-31 10:21 | Pharmacy Report ---
Pharmacy PK ABX Note - Date of Service August 31, 2024 - Assessment and Plan Assessment 08/31: * Day #4 of Vancomycin and Meropenem. Underwent colectomy yesterday and abdominal washout. Did have a bowel perforation and abscess drained. * 24 hour Tmax was 39oC. White count improving, 23k today. SCr worsening, up to 1.87 mg/dL today. * Proteus vulgaris, pansensitive, growing in 08/23 blood cultures. Repeat blood cultures from 08/30 show no growth to date. Peritoneal fluid culture from OR on 08/30 growing E. coli, sensitivities pending. * Dosing vancomycin per level. Level supratherapeutic today. 08/30: * 68 year old F receiving vancomycin and meropenem for treatment of sepsis 2nd Proteus vulgaris bacteremia and multiple abscesses in the abdomen and pelvis, s/p drainage 08/28. Patient was previously on pip/tazo but condition was worsening so antibiotic treatment was escalated. * ID has been consulted - awaiting input * Pertinent microbiologic data includes: * Blood cultures x 2 from 08/23 are growing steiner sensitive P. vulgaris * Abdomen / abscess 08/28 with gram stain only showing GPC, GNR, GPB * SCr jumped significantly yesterday. Stable but remains elevated today. Will dose vancomycin via level Plan Vancomycin * Random level this AM was 21.6 mcg/mL. This is supratherapeutic. * Urine output and SCr worsened today. Will forego any vancomycin today. * Repeat random level with AM labs tomorrow morning Meropenem * 500 mg IV every 8 hours Pharmacy will continue to follow and will adjust dose/frequency as necessary. Thank you. Pharmacy has transitioned to AUC monitoring for vancomycin. AUC/ESTELLA is the preferred PK/PD target and is associated with decreased risk of nephrotoxicity compared to traditional trough targets.
[2024-08-31] MEDS ORDERED: TPN/PPN CONSULT PHARMACY STA (10:34)
--- NOTE | 2024-08-31 10:35 | Nephrology Progress Note ---
Date of Service August 31, 2024 Assessment & Plan Admission and Anticipated Discharge Date Admission Date: August 23, 2024 Subjective Assessment & Plan (1) Acute renal failure: Plan: Patient with acute kidney injury likely due to contrast-induced nephropathy. Patient initially had acute kidney injury likely ATN in setting of sepsis but had improved back to normal. Creatinine started rising after contrast administration 08/28. CT showed no hydronephrosis. She has non obstructive kidney stone. Creatinine remained slightly higher today. She has hypocalcemia but corrected Ca++ is only slightly low) and hyperphosphatemia. geeting Iv calcium currently. She has signs of volume overload. -Support hemodynamics to maintain MAP above 65. -Avoid further contrast. Creat still rising but slowly--big drop in hgb makes renal recovery less likely. Making urine about 30 ml/hr. Getting lot of iv fluids as well as PRBC--high risk of going into Pulm edema --would stop IV fluid totally after TPN gets Started. No need of dialysis. Will continue to monitor input output Daily BMP (2) Peritonitis due to abscess: Plan: She is s/p colectomy with primary anastomosis. Currently on vancomycin and meropenem renally dosed. Monitor vanco level and avoid levels above 25 which can potentially worsen renal function. Subjective Seen for acute kidney injury. Patient had laparotomy and colectomy with primary anastomosis. Abscesses were drained. She was intubated in the OR and now in ICU--justt got extubarted. Big drop in hgb overnight and getting PRBC. Almost off the pressors. urine about 30 ml/hr Review of Systems Review of Systems: Unable to obtain Physical Exam Physical Exam: General exam: Appears comfortable and sleeping HEENT: Pupils are equal and reactive to light Neck: No JVD, neck is supple trachea is midline Respiratory system: Clear breath sounds bilaterally. Gastrointestinal: Abdomen is soft, non distended, non tender, bowel sounds are present CVS: Regular rate and rhythm. No murmurs, rubs or gallops Musculoskeletal: No joint or muscle tenderness Extremities: Non tender, 1+ thigh edema, Results & Data Vital Signs (Past 12 Hours) Vital Signs Temp Pulse Pulse Pulse Resp BP BP 08/31/24 10:10 146/58 H 08/31/24 10:00 37.9 C H 60 20 08/31/24 09:42 38.0 C H 56 L 22 08/31/24 09:40 116/47 L 08/31/24 09:19 118/53 L 08/31/24 09:12 38.0 C H 53 L 22 08/31/24 09:10 120/67 08/31/24 09:00 38.0 C H 54 L 26 H 08/31/24 08:56 126/58 L 08/31/24 08:30 38.1 C H 57 L 20 08/31/24 08:15 38.2 C H 74 17 08/31/24 08:14 08/31/24 08:10 134/46 L 08/31/24 08:00 38.1 C H 56 L 20 08/31/24 07:51 38.1 C H 55 L 19 08/31/24 07:47 114/47 L 08/31/24 07:47 114/47 L 08/31/24 07:47 114/47 L 08/31/24 07:47 114/47 L 08/31/24 07:45 38.1 C H 56 L 08/31/24 07:40 114/41 L 08/31/24 07:40 114/41 L 08/31/24 07:36 111/44 L 08/31/24 07:36 38.1 C H 58 L 18 08/31/24 07:34 101/44 L 08/31/24 07:34 101/44 L 08/31/24 07:24 38.2 C H 109 H 08/31/24 07:18 38.2 C H 106 H 08/31/24 07:10 136/62 08/31/24 07:09 38.2 C H 104 H 08/31/24 07:05 105 H 16 08/31/24 07:00 38.2 C H 98 H 18 08/31/24 06:39 38.3 C H 103 H 18 08/31/24 06:37 120/49 L 08/31/24 06:37 120/49 L 08/31/24 06:33 38.3 C H 53 L 17 08/31/24 06:30 38.3 C H 54 L 13 08/31/24 06:12 38.3 C H 60 18 08/31/24 05:42 38.2 C H 53 L 18 08/31/24 05:37 120/50 L 08/31/24 05:33 38.2 C H 51 L 16 08/31/24 05:09 38.2 C H 56 L 19 08/31/24 04:37 148/68 H 08/31/24 04:36 38.1 C H 55 L 18 08/31/24 04:30 38.2 C H 95 H 18 08/31/24 04:06 38.3 C H 93 H 18 08/31/24 04:00 08/31/24 04:00 38.2 C H 55 L 18 145/43 H 08/31/24 04:00 56 L 146/44 H 08/31/24 03:37 127/69 08/31/24 03:37 127/69 08/31/24 03:37 127/69 08/31/24 03:37 127/69 08/31/24 03:36 38.4 C H 96 H 19 08/31/24 03:18 38.4 C H 98 H 18 08/31/24 02:39 38.4 C H 94 H 18 08/31/24 02:37 132/71 08/31/24 02:37 132/71 08/31/24 02:24 38.4 C H 99 H 18 08/31/24 02:19 99 H 18 08/31/24 02:00 38.4 C H 100 H 18 08/31/24 01:37 114/69 08/31/24 01:36 38.4 C H 96 H 18 08/31/24 01:33 38.4 C H 98 H 18 08/31/24 01:03 38.4 C H 94 H 18 08/31/24 00:57 38.4 C H 99 H 19 08/31/24 00:37 123/72 08/31/24 00:24 38.4 C H 89 18 08/31/24 00:20 84 08/31/24 00:06 38.4 C H 85 18 08/31/24 00:00 08/31/24 00:00 38.4 C H 85 18 126/53 L 08/31/24 00:00 85 116/52 L 08/30/24 23:37 115/64 08/30/24 23:37 115/64 08/30/24 23:37 115/64 08/30/24 23:36 38.5 C H 81 18 08/30/24 23:00 38.5 C H 97 H 18 08/30/24 22:54 97 H 20 08/30/24 22:45 38.5 C H 94 H 18 08/30/24 22:38 08/30/24 22:37 119/72 BP Pulse Ox O2 Del Method O2 Flow Rate FiO2 08/31/24 10:10 08/31/24 10:00 99 Nasal Cannula 4 08/31/24 09:42 100 08/31/24 09:40 08/31/24 09:19 08/31/24 09:12 100 08/31/24 09:10 08/31/24 09:00 100 08/31/24 08:56 08/31/24 08:30 97 08/31/24 08:15 95 08/31/24 08:14 21 08/31/24 08:10 08/31/24 08:00 114/47 L 96 CPAP, Mechanical Vent 21 08/31/24 07:51 94 08/31/24 07:47 08/31/24 07:47 08/31/24 07:47 08/31/24 07:47 08/31/24 07:45 95 08/31/24 07:40 08/31/24 07:40 08/31/24 07:36 08/31/24 07:36 95 08/31/24 07:34 08/31/24 07:34 08/31/24 07:24 97 08/31/24 07:18 95 08/31/24 07:10 08/31/24 07:09 95 08/31/24 07:05 96 21 08/31/24 07:00 95 08/31/24 06:39 92 08/31/24 06:37 08/31/24 06:37 08/31/24 06:33 96 08/31/24 06:30 96 08/31/24 06:12 96 08/31/24 05:42 96 08/31/24 05:37 08/31/24 05:33 96 08/31/24 05:09 95 08/31/24 04:37 08/31/24 04:36 96 08/31/24 04:30 95 08/31/24 04:06 97 08/31/24 04:00 21 08/31/24 04:00 95 Mechanical Vent 21 08/31/24 04:00 08/31/24 03:37 08/31/24 03:37 08/31/24 03:37 08/31/24 03:37 08/31/24 03:36 97 08/31/24 03:18 97 08/31/24 02:39 96 08/31/24 02:37 08/31/24 02:37 08/31/24 02:24 97 08/31/24 02:19 97 21 08/31/24 02:00 96 08/31/24 01:37 08/31/24 01:36 97 08/31/24 01:33 97 08/31/24 01:03 96 08/31/24 00:57 97 08/31/24 00:37 08/31/24 00:24 98 08/31/24 00:20 08/31/24 00:06 97 08/31/24 00:00 21 08/31/24 00:00 97 Mechanical Vent 08/31/24 00:00 08/30/24 23:37 08/30/24 23:37 08/30/24 23:37 08/30/24 23:36 98 08/30/24 23:00 96 08/30/24 22:54 96 21 08/30/24 22:45 95 08/30/24 22:38 21 08/30/24 22:37
--- NOTE | 2024-08-31 10:40 | Hospitalist Progress Note ---
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 Presents critically ill with acute renal failure, multiple electrolyte abnormalities and evidence of severe sepsis with organ dysfunction as evidenced by renal failure, postsurgical ileus, and new onset atrial fibrillation. Sepsis Proteus bacteremia Intra abdominal abscesses Postsurgical ileus Recent laparoscopic appendicectomy of large mucocele of appendix by Dr. Pacheco on 08/19/2024 -CT ABD 08/25/24 :Absent appendix consistent with appendectomy history with increased fluid and gas throughout the abdomen and pelvis more than expected particularly at the level of the surgical bed. Dehiscence is not excluded. No discrete encapsulated drainable fluid collection although early abscess cannot be excluded. Prominent fluid distended proximal small bowel and to some extent distal small bowel fecal type densities which can be seen in slow small bowel transit. Mild ileus is not excluded. - CT abdomen with oral contrast: Pneumoperitoneum with right retroperitoneal gas mildly decreased. Cannot rule out anastomotic leak with abscess. Contrast has not reached the distal small bowel. Findings suggestive of ileus. Blood culture grew Proteus vulgaris on preliminary cultures CT Abd/Pelvis with IV contrast on 08/28/24 showed increased pneumoperitoneum and right retroperitoneal gas, multifocal abscesses IV antibiotics broadened to Vanc and meropenem S/p IR placement of drain on 08/28/24 Persistent leukocytosis IR drain culture from 08/28/24 growing E coli S/p Exploratory laparotomy which showed small bowel perforation with abscess on 08/30/24 Continue vanc and meropenem, renally dosed Awaiting ID eval Wean phenylephrine as appropriate Discussed with ICU team Pharm consult for TPN Acute on chronic anemia Likely due to sepsis and possible blood loss Hb is 6.6 today Will get 1 PRBC Monitor Atrial fibrillation--new onset In the setting of sepsis Spontaneously converted to sinus -ECHO: EF 55 to 60%. Mild concentric LVH. Left atrium mildly dilated. Mild tricuspid regurgitation. No significant pulmonary hypertension. Cardiology eval noted. No anticoagulation recommended Continue tele monitor IV lopressor on hold for now. Plan to resume beta royce once stable May need ZIO monitor as outpatient Acute kidney injury JANET had initially resolved but developed again yesterday with worsening clinical status Creatinine 3.9>>2.26>>0.94>1.51>>1.87 Likely from sepsis + contrast Avoid further contrast Nephro recs noted Hyponatremia Hypokalemia - resolved K is 3.9 today. Monitor Mild troponin elevation Likely demand ischemia secondary to sepsis, A-fib RVR Denies any chest pain, dyspnea DVT Px: Heparin SQ on hold for now in view of recent procedure and anemia Code Status Full Code I spent a total of 50 minutes coordinating, documenting and providing care for this patient excluding time spent in performance of separately billed services Admission and Anticipated Discharge Date Admission Date: August 23, 2024 Subjective Patient seen and examined Had exploratory laparotomy yesterday which showed small bowel perforation with abscess Was extubated this AM Currently reports abd pain is controlled. Reports fatigue No other complaints at this time Physical Exam Constitutional: + well hydrated; no acute distress Eyes: PERRL, conjunctivae normal, anicteric sclerae ENMT: external ear and nose normal, oropharynx normal NGT in situ Neck: Right central line in place Respiratory: normal respiratory effort, lungs clear to auscultation Cardiovascular: Rate/Rhythm: regular rate and regular rhythm Gastrointestinal (Abdomen): Dressing over laparotomy site with drain in situ Neurologic: PERRL, EOMI, accommodation nl, no face palsy, no dysarthria Psychiatric: A+Ox3, euthymic affect Genitourinary: Leon in situ Results & Data Results & Data Vital Signs (Past 12 Hours) Vital Signs Temp Pulse Pulse Pulse Resp BP BP 08/31/24 10:39 37.7 C H 95 H 20 146/58 H 08/31/24 10:10 146/58 H 08/31/24 10:00 37.9 C H 60 20 08/31/24 09:42 38.0 C H 56 L 08/31/24 09:40 116/47 L 08/31/24 09:19 118/53 L 08/31/24 09:12 38.0 C H 53 L 22 08/31/24 09:10 120/67 08/31/24 09:00 38.0 C H 54 L 26 H 08/31/24 08:56 126/58 L 08/31/24 08:30 38.1 C H 57 L 20 08/31/24 08:15 38.2 C H 74 17 08/31/24 08:14 08/31/24 08:10 134/46 L 08/31/24 08:00 38.1 C H 56 L 20 08/31/24 07:51 38.1 C H 55 L 19 08/31/24 07:47 114/47 L 08/31/24 07:47 114/47 L 08/31/24 07:47 114/47 L 08/31/24 07:47 114/47 L 08/31/24 07:45 38.1 C H 56 L 20 08/31/24 07:40 114/41 L 08/31/24 07:40 114/41 L 08/31/24 07:36 111/44 L 08/31/24 07:36 38.1 C H 58 L 18 08/31/24 07:34 101/44 L 08/31/24 07:34 101/44 L 08/31/24 07:24 38.2 C H 109 H 19 08/31/24 07:18 38.2 C H 106 H 16 08/31/24 07:10 136/62 08/31/24 07:09 38.2 C H 104 H 20 08/31/24 07:05 105 H 16 08/31/24 07:00 38.2 C H 98 H 18 08/31/24 06:39 38.3 C H 103 H 18 08/31/24 06:37 120/49 L 08/31/24 06:37 120/49 L 08/31/24 06:33 38.3 C H 53 L 17 08/31/24 06:30 38.3 C H 54 L 13 08/31/24 06:12 38.3 C H 60 18 08/31/24 05:42 38.2 C H 53 L 18 08/31/24 05:37 120/50 L 08/31/24 05:33 38.2 C H 51 L 16 08/31/24 05:09 38.2 C H 56 L 19 08/31/24 04:37 148/68 H 08/31/24 04:36 38.1 C H 55 L 18 08/31/24 04:30 38.2 C H 95 H 18 08/31/24 04:06 38.3 C H 93 H 18 08/31/24 04:00 08/31/24 04:00 38.2 C H 55 L 18 145/43 H 08/31/24 04:00 56 L 146/44 H 08/31/24 03:37 127/69 08/31/24 03:37 127/69 08/31/24 03:37 127/69 08/31/24 03:37 127/69 08/31/24 03:36 38.4 C H 96 H 19 08/31/24 03:18 38.4 C H 98 H 18 08/31/24 02:39 38.4 C H 94 H 18 08/31/24 02:37 132/71 08/31/24 02:37 132/71 08/31/24 02:24 38.4 C H 99 H 18 08/31/24 02:19 99 H 18 08/31/24 02:00 38.4 C H 100 H 18 08/31/24 01:37 114/69 08/31/24 01:36 38.4 C H 96 H 18 08/31/24 01:33 38.4 C H 98 H 18 08/31/24 01:03 38.4 C H 94 H 18 08/31/24 00:57 38.4 C H 99 H 19 08/31/24 00:37 123/72 08/31/24 00:24 38.4 C H 89 18 08/31/24 00:20 84 08/31/24 00:06 38.4 C H 85 18 08/31/24 00:00 08/31/24 00:00 38.4 C H 85 18 126/53 L 08/31/24 00:00 85 116/52 L 08/30/24 23:37 115/64 08/30/24 23:37 115/64 08/30/24 23:37 115/64 08/30/24 23:36 38.5 C H 81 18 08/30/24 23:00 38.5 C H 97 H 18 08/30/24 22:54 97 H 20 08/30/24 22:45 38.5 C H 94 H 18 BP Pulse Ox O2 Del Method O2 Flow Rate FiO2 08/31/24 10:39 99 4 08/31/24 10:10 08/31/24 10:00 99 Nasal Cannula 4 08/31/24 09:42 100 08/31/24 09:40 08/31/24 09:19 08/31/24 09:12 100 08/31/24 09:10 08/31/24 09:00 100 08/31/24 08:56 08/31/24 08:30 97 08/31/24 08:15 95 08/31/24 08:14 21 08/31/24 08:10 08/31/24 08:00 114/47 L 96 CPAP, Mechanical Vent 08/31/24 07:51 94 08/31/24 07:47 08/31/24 07:47 08/31/24 07:47 08/31/24 07:47 08/31/24 07:45 95 08/31/24 07:40 08/31/24 07:40 08/31/24 07:36 08/31/24 07:36 95 08/31/24 07:34 08/31/24 07:34 08/31/24 07:24 97 08/31/24 07:18 95 08/31/24 07:10 08/31/24 07:09 95 08/31/24 07:05 96 21 08/31/24 07:00 95 08/31/24 06:39 92 08/31/24 06:37 08/31/24 06:37 08/31/24 06:33 96 08/31/24 06:30 96 08/31/24 06:12 96 08/31/24 05:42 96 08/31/24 05:37 08/31/24 05:33 96 08/31/24 05:09 95 08/31/24 04:37 08/31/24 04:36 96 08/31/24 04:30 95 08/31/24 04:06 97 08/31/24 04:00 21 08/31/24 04:00 95 Mechanical Vent 08/31/24 04:00 08/31/24 03:37 08/31/24 03:37 08/31/24 03:37 08/31/24 03:37 08/31/24 03:36 97 08/31/24 03:18 97 08/31/24 02:39 96 08/31/24 02:37 08/31/24 02:37 08/31/24 02:24 97 08/31/24 02:19 97 21 08/31/24 02:00 96 08/31/24 01:37 08/31/24 01:36 97 08/31/24 01:33 97 08/31/24 01:03 96 08/31/24 00:57 97 08/31/24 00:37 08/31/24 00:24 98 08/31/24 00:20 08/31/24 00:06 97 08/31/24 00:00 21 08/31/24 00:00 97 Mechanical Vent 21 08/31/24 00:00 08/30/24 23:37 08/30/24 23:37 08/30/24 23:37 08/30/24 23:36 98 08/30/24 23:00 96 08/30/24 22:54 96 21 08/30/24 22:45 95 Laboratory Results Abnormal lab results 08/30/24 08/30/24 08/30/24 Range/Units 09:47 13:18 13:22 WBC (4.8-10.8) K/ul RBC (4.20-5.40) M/uL Hgb 9.1 L (12.0-16.0) g/dl POC Hgb (12.0-16.0) g/dl Hct 27.1 L (37.0-47.0) % POC Hct (37-47) % RDW Coeff of Albino (11.5-14.5) % POC pCO2 (35-46) mmHg POC pO2 (80-95) mmHg POC Total CO2 (24-31) mmol/L ABG pCO2 (Temp Corrct (35-46) mmHg POC ABG O2 Sat (90-95) % POC Sodium (135-144) mmol/L Sodium 131 L (136-145) mmol/L Carbon Dioxide 14 L (21-32) mmol/L Anion Gap 14 H (3-11) BUN 52 H (6-23) mg/dl Creatinine 1.76 H D (0.6-1.2) mg/dl BUN/Creatinine Ratio 29.5 H (10-20) Glucose 220 H (70-99(Fasting)) mg/dl POC Glucose (other) (70-99) mg/dl Lactate (0.4-2.0) mmol/L Calcium 6.2 L (8.6-10.3) mg/dl Phosphorus (2.5-4.9) mg/dl AST 40 H (13-39) U/L Total Protein 4.0 L (6.0-8.3) gm/dl Albumin 1.6 L (3.4-5.0) gm/dl Globulin 2.4 L (2.5-4.0) gm/dl Albumin/Globulin Ratio 0.7 L (0.9-2) Random Vancomycin (10-20) mcg/ml Crossmatch See Detail 08/30/24 08/30/24 08/30/24 Range/Units 13:23 15:03 15:41 WBC (4.8-10.8) K/ul RBC (4.20-5.40) M/uL Hgb (12.0-16.0) g/dl POC Hgb (12.0-16.0) g/dl Hct (37.0-47.0) % POC Hct (37-47) % RDW Coeff of Albino (11.5-14.5) % POC pCO2 (35-46) mmHg POC pO2 (80-95) mmHg POC Total CO2 (24-31) mmol/L ABG pCO2 (Temp Corrct (35-46) mmHg POC ABG O2 Sat (90-95) % POC Sodium (135-144) mmol/L Sodium (136-145) mmol/L Carbon Dioxide (21-32) mmol/L Anion Gap (3-11) BUN (6-23) mg/dl Creatinine (0.6-1.2) mg/dl BUN/Creatinine Ratio (10-20) Glucose (70-99(Fasting)) mg/dl POC Glucose (other) 109 H (70-99) mg/dl Lactate 6.8 H* 5.7 H* (0.4-2.0) mmol/L Calcium (8.6-10.3) mg/dl Phosphorus (2.5-4.9) mg/dl AST (13-39) U/L Total Protein (6.0-8.3) gm/dl Albumin (3.4-5.0) gm/dl Globulin (2.5-4.0) gm/dl Albumin/Globulin Ratio (0.9-2) Random Vancomycin (10-20) mcg/ml Crossmatch 08/30/24 08/30/24 08/30/24 Range/Units 16:35 16:40 17:54 WBC (4.8-10.8) K/ul RBC (4.20-5.40) M/uL Hgb (12.0-16.0) g/dl POC Hgb 8.2 L (12.0-16.0) g/dl Hct (37.0-47.0) % POC Hct 24 L (37-47) % RDW Coeff of Albino (11.5-14.5) % POC pCO2 29 L (35-46) mmHg POC pO2 164 H (80-95) mmHg POC Total CO2 20 L (24-31) mmol/L ABG pCO2 (Temp Corrct 29 L (35-46) mmHg POC ABG O2 Sat 100.0 H (90-95) % POC Sodium 134 L (135-144) mmol/L Sodium (136-145) mmol/L Carbon Dioxide (21-32) mmol/L Anion Gap (3-11) BUN (6-23) mg/dl Creatinine (0.6-1.2) mg/dl BUN/Creatinine Ratio (10-20) Glucose (70-99(Fasting)) mg/dl POC Glucose (other) 142 H 137 H (70-99) mg/dl Lactate (0.4-2.0) mmol/L Calcium (8.6-10.3) mg/dl Phosphorus (2.5-4.9) mg/dl AST (13-39) U/L Total Protein (6.0-8.3) gm/dl Albumin (3.4-5.0) gm/dl Globulin (2.5-4.0) gm/dl Albumin/Globulin Ratio (0.9-2) Random Vancomycin (10-20) mcg/ml Crossmatch 08/30/24 08/30/24 08/30/24 Range/Units 18:56 20:01 20:55 WBC (4.8-10.8) K/ul RBC (4.20-5.40) M/uL Hgb (12.0-16.0) g/dl POC Hgb (12.0-16.0) g/dl Hct (37.0-47.0) % POC Hct (37-47) % RDW Coeff of Albino (11.5-14.5) % POC pCO2 (35-46) mmHg POC pO2 (80-95) mmHg POC Total CO2 (24-31) mmol/L ABG pCO2 (Temp Corrct (35-46) mmHg POC ABG O2 Sat (90-95) % POC Sodium (135-144) mmol/L Sodium (136-145) mmol/L Carbon Dioxide (21-32) mmol/L Anion Gap (3-11) BUN (6-23) mg/dl Creatinine (0.6-1.2) mg/dl BUN/Creatinine Ratio (10-20) Glucose (70-99(Fasting)) mg/dl POC Glucose (other) 108 H 107 H 114 H (70-99) mg/dl Lactate (0.4-2.0) mmol/L Calcium (8.6-10.3) mg/dl Phosphorus (2.5-4.9) mg/dl AST (13-39) U/L Total Protein (6.0-8.3) gm/dl Albumin (3.4-5.0) gm/dl Globulin (2.5-4.0) gm/dl Albumin/Globulin Ratio (0.9-2) Random Vancomycin (10-20) mcg/ml Crossmatch 08/30/24 08/30/24 08/31/24 Range/Units 22:02 22:57 00:02 WBC (4.8-10.8) K/ul RBC (4.20-5.40) M/uL Hgb (12.0-16.0) g/dl POC Hgb (12.0-16.0) g/dl Hct (37.0-47.0) % POC Hct (37-47) % RDW Coeff of Albino (11.5-14.5) % POC pCO2 (35-46) mmHg POC pO2 (80-95) mmHg POC Total CO2 (24-31) mmol/L ABG pCO2 (Temp Corrct (35-46) mmHg POC ABG O2 Sat (90-95) % POC Sodium (135-144) mmol/L Sodium (136-145) mmol/L Carbon Dioxide (21-32) mmol/L Anion Gap (3-11) BUN (6-23) mg/dl Creatinine (0.6-1.2) mg/dl BUN/Creatinine Ratio (10-20) Glucose (70-99(Fasting)) mg/dl POC Glucose (other) 105 H 104 H 100 H (70-99) mg/dl Lactate (0.4-2.0) mmol/L Calcium (8.6-10.3) mg/dl Phosphorus (2.5-4.9) mg/dl AST (13-39) U/L Total Protein (6.0-8.3) gm/dl Albumin (3.4-5.0) gm/dl Globulin (2.5-4.0) gm/dl Albumin/Globulin Ratio (0.9-2) Random Vancomycin (10-20) mcg/ml Crossmatch 08/31/24 08/31/24 08/31/24 Range/Units 01:02 02:00 03:01 WBC (4.8-10.8) K/ul RBC (4.20-5.40) M/uL Hgb (12.0-16.0) g/dl POC Hgb (12.0-16.0) g/dl Hct (37.0-47.0) % POC Hct (37-47) % RDW Coeff of Albino (11.5-14.5) % POC pCO2 (35-46) mmHg POC pO2 (80-95) mmHg POC Total CO2 (24-31) mmol/L ABG pCO2 (Temp Corrct (35-46) mmHg POC ABG O2 Sat (90-95) % POC Sodium (135-144) mmol/L Sodium (136-145) mmol/L Carbon Dioxide (21-32) mmol/L Anion Gap (3-11) BUN (6-23) mg/dl Creatinine (0.6-1.2) mg/dl BUN/Creatinine Ratio (10-20) Glucose (70-99(Fasting)) mg/dl POC Glucose (other) 100 H 102 H 101 H (70-99) mg/dl Lactate (0.4-2.0) mmol/L Calcium (8.6-10.3) mg/dl Phosphorus (2.5-4.9) mg/dl AST (13-39) U/L Total Protein (6.0-8.3) gm/dl Albumin (3.4-5.0) gm/dl Globulin (2.5-4.0) gm/dl Albumin/Globulin Ratio (0.9-2) Random Vancomycin (10-20) mcg/ml Crossmatch 08/31/24 08/31/24 08/31/24 Range/Units 03:58 04:23 05:03 WBC 22.57 H (4.8-10.8) K/ul RBC 2.69 L (4.20-5.40) M/uL Hgb 7.4 L (12.0-16.0) g/dl POC Hgb (12.0-16.0) g/dl Hct 21.9 L (37.0-47.0) % POC Hct (37-47) % RDW Coeff of Albino 15.5 H (11.5-14.5) % POC pCO2 (35-46) mmHg POC pO2 (80-95) mmHg POC Total CO2 (24-31) mmol/L ABG pCO2 (Temp Corrct (35-46) mmHg POC ABG O2 Sat (90-95) % POC Sodium (135-144) mmol/L Sodium 135 L (136-145) mmol/L Carbon Dioxide (21-32) mmol/L Anion Gap (3-11) BUN 54 H (6-23) mg/dl Creatinine 1.87 H (0.6-1.2) mg/dl BUN/Creatinine Ratio 28.9 H (10-20) Glucose 109 H (70-99(Fasting)) mg/dl POC Glucose (other) 103 H 102 H (70-99) mg/dl Lactate (0.4-2.0) mmol/L Calcium 6.4 L (8.6-10.3) mg/dl Phosphorus 5.7 H (2.5-4.9) mg/dl AST 44 H (13-39) U/L Total Protein 4.3 L (6.0-8.3) gm/dl Albumin 2.2 L (3.4-5.0) gm/dl Globulin 2.1 L (2.5-4.0) gm/dl Albumin/Globulin Ratio (0.9-2) Random Vancomycin 21.6 H (10-20) mcg/ml Crossmatch 08/31/24 08/31/24 08/31/24 Range/Units 05:57 06:52 08:11 WBC (4.8-10.8) K/ul RBC (4.20-5.40) M/uL Hgb (12.0-16.0) g/dl POC Hgb (12.0-16.0) g/dl Hct (37.0-47.0) % POC Hct (37-47) % RDW Coeff of Albino (11.5-14.5) % POC pCO2 (35-46) mmHg POC pO2 (80-95) mmHg POC Total CO2 (24-31) mmol/L ABG pCO2 (Temp Corrct (35-46) mmHg POC ABG O2 Sat (90-95) % POC Sodium (135-144) mmol/L Sodium (136-145) mmol/L Carbon Dioxide (21-32) mmol/L Anion Gap (3-11) BUN (6-23) mg/dl Creatinine (0.6-1.2) mg/dl BUN/Creatinine Ratio (10-20) Glucose (70-99(Fasting)) mg/dl POC Glucose (other) 104 H 103 H 100 H (70-99) mg/dl Lactate (0.4-2.0) mmol/L Calcium (8.6-10.3) mg/dl Phosphorus (2.5-4.9) mg/dl AST (13-39) U/L Total Protein (6.0-8.3) gm/dl Albumin (3.4-5.0) gm/dl Globulin (2.5-4.0) gm/dl Albumin/Globulin Ratio (0.9-2) Random Vancomycin (10-20) mcg/ml Crossmatch 08/31/24 Range/Units 09:55 WBC (4.8-10.8) K/ul RBC (4.20-5.40) M/uL Hgb 6.6 L* (12.0-16.0) g/dl POC Hgb (12.0-16.0) g/dl Hct 19.7 L* (37.0-47.0) % POC Hct (37-47) % RDW Coeff of Albino (11.5-14.5) % POC pCO2 (35-46) mmHg POC pO2 (80-95) mmHg POC Total CO2 (24-31) mmol/L ABG pCO2 (Temp Corrct (35-46) mmHg POC ABG O2 Sat (90-95) % POC Sodium (135-144) mmol/L Sodium (136-145) mmol/L Carbon Dioxide (21-32) mmol/L Anion Gap (3-11) BUN (6-23) mg/dl Creatinine (0.6-1.2) mg/dl BUN/Creatinine Ratio (10-20) Glucose (70-99(Fasting)) mg/dl POC Glucose (other) (70-99) mg/dl Lactate (0.4-2.0) mmol/L Calcium (8.6-10.3) mg/dl Phosphorus (2.5-4.9) mg/dl AST (13-39) U/L Total Protein (6.0-8.3) gm/dl Albumin (3.4-5.0) gm/dl Globulin (2.5-4.0) gm/dl Albumin/Globulin Ratio (0.9-2) Random Vancomycin (10-20) mcg/ml Crossmatch
[2024-08-31] MEDS ORDERED: TPN/PPN CONSULT PHARMACY PRN (10:50)
--- NOTE | 2024-08-31 12:00 | Pharmacy Report ---
Pharmacy Initial PN Consult Nt - Date of Service August 31, 2024 - Scope Pharmacy has been consulted on this date to manage parenteral nutrition orders and order appropriate labs. As part of the Nutrition Support Team Guidelines, pharmacy will work in conjunction with dietary when determining the patients ca loric needs. - Subjective * The patient is a 68 year old Female admitted on 08/23/24 for JANET. * Patient is to receive parenteral nutrition for bowel perforation s/p right co lectomy and NPO status > 7 days. * Pertinent PMHx: * None - Objective Vascular Access: * Patient currently has a central line. * Right IJ Height & Weight (Last Documented) Height 5 ft 4 in Weight 97.1 kg Diet Order(s) 08/30/24 00:01 NPO Intake & Ouput (24hrs) 08/30/24 08/31/24 09/01/24 06:59 06:59 06:59 Intake Total 2638.333 / 2638.333 4995.029 / 4995.029 1171.289 / 1171.289 Output Total 850 / 850 1845 / 1845 130 / 130 Balance 1788.333 / 5140.170 4658.029 / 3150.029 1041.289 / 1041.289 Selected Laboratory Results 08/30/24 08/31/24 13:22 04:23 Sodium 131 L 135 L Potassium 4.7 D 4.3 Chloride 103 104 Carbon Dioxide 14 L 21 Anion Gap 14 H 10 BUN 52 H 54 H Creatinine 1.76 H D 1.87 H BUN/Creatinine Ratio 29.5 H 28.9 H Glucose 220 H 109 H Calcium 6.2 L 6.4 L Phosphorus 5.7 H Magnesium 2.1 Total Bilirubin 0.5 0.8 AST 40 H 44 H ALT 23 21 Alkaline Phosphatase [address] RD - Follow Up Nutrition Assessment Start: 08/26/24 12:40 Freq: Status: Active Protocol: Document 08/31/24 11:04 WN (Rec: 08/31/24 11:17 WN [id number]) RD - Initial Nutrition Assessment Start: 08/26/24 12:28 Freq: Status: Active Protocol: Document 08/26/24 12:28 WN (Rec: 08/26/24 12:40 WN [id number]) - Assessment & Plan Assessment: * Appreciate dietitians recommendations for macronutrients. Will start day #1 below goal to prevent refeeding syndrome. Plan to advance to goal on day #2 if patient tolerates. * JANET so will be cautious with electrolyte replacement. Monitor urine output. * No fluid restrictions at this time per nephrology; however, patient is +17 L since admission so trying to limit volume as much as possible. * Calcium low at 6.4 mg/dL today, corrected for hypoalbuminemia is 7.8 mg/dL. Phosphorus elevated. * Receiving 2 u PRBC today. Plan: * For Day #1 of TPN administration, the following will be ordered: * Macronutrients: * Amino Acids: 58 grams/day * Dextrose: 101 grams/day * Lipids: 50 grams/day * Micronutrients: * Sodium chloride: 20 mEq/day * Potassium acetate: 20 mEq/day * Calcium gluconate: 9.3 mEq/day * Multivitamins: 10 mL/day * Trace elements: 1 mL/day * Thiamine: 100 mg/day * Total volume of 770 mL will be infused over 24 hours and will provide 1073.1 kcal/day * Labs will be ordered per PN protocol. * Pharmacy will follow and adjust PN orders on a daily basis. Thank you!
[2024-08-31] MEDS: METOPROLOL TARTRATE 1 MG/ML VIAL IV STA ×3 (12:10→20:10)
[2024-08-31] MEDS: MAGNESIUM SULFATE / D5W 1 GM/100 ML BAG IV SCH (12:20)
[2024-08-31 13:11] LABS: Anion Gap 10.0 (3-11); Blood Urea Nitrogen 55.0 mg/dl (6-23); Calcium 6.4 mg/dl (8.6-10.3); Carbon Dioxide 21.0 mmol/L (21-32); Chloride 105.0 mmol/L (98-107); Creatinine Clr Calc Pharmacy 32.6 ml/min; Glucose 106.0 mg/dl (70-99(Fasting)); Magnesium 2.2 mg/dl (1.7-2.4); Potassium 4.3 mmol/L (3.5-5.1); Sodium 136.0 mmol/L (136-145)
--- NOTE | 2024-08-31 13:30 | Infectious Disease Consult ---
<Statement entered by Marva Waters MD - 08/31/24 13:55> I was present during the entire telemedicine visit and I personally interacted with the patient and together with Dr Fuller we reviewed her labs and imaging and formulated a treatment plan Date of Service August 31, 2024 Telehealth Information I performed this visit using a real-time telehealth connection between my location and the patients location ([facility]). After connecting through interactive tele-video, patient was identified by name and date of and/or wristband check.Patient (or authorized healthcare reimbursement representative) was informed that this was a telemedicine visit and it was being conducted confidentially over secure lines. My office door was closed and no one else was present in the room with me.Patient (or authorized healthcare reimbursement representative) provided consent to proceed with the visit, expressed an understanding of privacy and security of the telemedicine visit, and gave permission to have a hospital reimbursement representative in the room in order to assist with the visit and to conduct portions of the visit, as needed. I informed the patient (or authorized healthcare reimbursement representative) that I reviewed their record and presented the opportunity for them to ask any questions regarding the visit today. The patient agreed to participate. Assessment & Plan (1) Ileus: (2) Intra-abdominal abscess: (3) Ileus due to infection: (4) Electrolyte abnormality: (5) Atrial fibrillation, new onset: (6) Acute renal failure: (7) Severe sepsis with acute organ dysfunction: Plan 68-year-old female with a complex postoperative course following a laparoscopic appendectomy and mucocele removal. She presents with severe sepsis secondary to an anastomotic leak, resulting in multiple organ dysfunctions, including acute renal failure, ileus, and new-onset atrial fibrillation. The presence of Proteus vulgaris and E. coli in cultures indicates a polymicrobial infection, likely originating from the gastrointestinal tract. 1.Severe Sepsis with Organ Dysfunction: Likely secondary to an anastomotic leak and subsequent intra-abdominal infection. Persistent leukocytosis despite initial broad-spectrum antibiotic therapy. 2.Acute Renal Failure: Likely multifactorial, including sepsis-related hypoperfusion and possible nephrotoxic effects of medications. 3.New-Onset Atrial Fibrillation: Likely secondary to systemic inflammatory response and electrolyte imbalances. 4.Ileus: Likely secondary to intra-abdominal infection and inflammation. 5.Small Bowel Perforation with Abscess: Confirmed during exploratory laparotomy. 6.Polymicrobial Infection: Cultures positive for Proteus vulgaris and E. coli. Plan: 1.Discontinue meropenem and initiate ertapenem due to the absence of Pseudomonas in cultures. 2.If E. coli is confirmed to be non-ESBL, consider de-escalating to ceftriaxone and metronidazole. 3.Plan for a total antibiotic course of 3-4 weeks. 4.Repeat imaging to reassess abscess size and response to treatment. History of Present Illness History of Present Illness A 68-year-old female underwent a laparoscopic appendectomy and mucocele removal on August 19, 2024. Initially, there were no postoperative complications, but she later developed significant abdominal pain and was unable to eat or drink a dequately. She denied fever or chills but reported increasing abdominal pain and lack of bowel movement, leading to an emergency room visit. In ED,Lab tests revealed significant electrolyte imbalances, elevated white blood cell count, and acute renal failure. Imaging showed an ileus and fluid and gas around the surgical site. The patient developed new-onset atrial fibrillation with rapid ventricular response. During NG tube insertion, she experienced emesis, raising suspicion of aspiration and resulting in acute desaturation. The patient is critically ill with acute renal failure, multiple electrolyte abnormalities, and severe sepsis with organ dysfunction, indicated by renal failure, postsurgical ileus, and new-onset atrial fibrillation. Blood cultures initially grew Proteus vulgaris. A CT scan on August 28, 2024, showed increased pneumoperitoneum and right retroperitoneal gas, suggesting an anastomotic leak likely within the cecum, multifocal abscesses, diffuse peritoneal inflammation, and signs of ileus. There was also evidence of esophagitis and cholelithiasis without acute cholecystitis. The patient was started on broad-spectrum IV antibiotics (meropenem). An interventional radiology (IR) drain was placed on August 28, 2024, with cultures growing E. coli. Despite treatment, leukocytosis persisted. An exploratory laparotomy on August 30, 2024, revealed a small bowel perforation with an abscess. Allergies Allergy/AdvReac Type Severity Reaction Status Date / Time No Known Allergies Allergy Verified 08/23/24 11:05 Home Medications Medication Instructions Recorded Confirmed Type No Known Home Medications 08/23/24 08/23/24 History Patient History Medical History Paroxysmal SVT (supraventricular tachycardia) sometimes occurs in the morning hours/not at any other times. no hx medication or intervention. Last occurence: " i don't know" Rotator cuff tear no hx sx, right, denies limitations. Arthritis of both feet Gallstone found on last ct may of 2024/no trouble with at current. Elevated blood pressure reading at 's offices elevated. monitored. Obesity Surgical History History of foot surgery left/hardware History of colonoscopy Hx of tooth extraction History of lumpectomy of left breast Social History Smoking Status: Never smoker Second Hand Exposure: No; Do You Dip or Chew Tobacco: No; Hx Alcohol Use: No Hx Substance Use: No Preferred Language: Yoruba Communication Ability: Effective Visual Impairment: No Limitations Drosophere Operator Required: No Beliefs That Will Affect Care: None Current Living Situation: Spouse Feels Safe at Home: Yes Assistive Devices: None Review of Systems negative except mentioned in HPI Physical Exam could not be done as this was a tele visit. Results & Data Vital Signs (Past 12 Hours) Vital Signs Temp Pulse Pulse Pulse Resp BP BP 08/31/24 12:54 37.3 C 71 18 150/49 H 08/31/24 12:51 37.3 C 74 16 08/31/24 12:44 37.4 C 72 18 118/53 L 08/31/24 12:40 118/53 L 08/31/24 12:40 118/53 L 08/31/24 12:36 37.3 C 68 17 08/31/24 12:26 69 129/48 L 08/31/24 12:26 69 120/48 L 08/31/24 12:19 154 H 142/58 H 08/31/24 12:10 125/69 08/31/24 12:10 155 H 125/69 08/31/24 12:06 37.4 C 166 H 17 08/31/24 11:48 37.6 C H 63 15 08/31/24 11:44 37.7 C H 58 L 18 121/46 L 08/31/24 11:40 121/46 L 08/31/24 11:39 37.6 C H 58 L 19 08/31/24 11:36 37.6 C H 58 L 18 08/31/24 11:14 37.7 C H 64 18 113/60 08/31/24 11:10 113/60 08/31/24 11:09 37.7 C H 63 16 08/31/24 10:59 37.7 C H 70 20 131/59 L 08/31/24 10:39 37.7 C H 96 H 18 08/31/24 10:39 37.7 C H 95 H 20 146/58 H 08/31/24 10:10 146/58 H 08/31/24 10:00 37.9 C H 60 20 08/31/24 09:42 38.0 C H 56 L 22 08/31/24 09:40 116/47 L 08/31/24 09:19 118/53 L 08/31/24 09:12 38.0 C H 53 L 22 08/31/24 09:10 120/67 08/31/24 09:00 08/31/24 09:00 38.0 C H 54 L 26 H 08/31/24 08:56 126/58 L 08/31/24 08:30 38.1 C H 57 L 08/31/24 08:15 38.2 C H 74 17 08/31/24 08:14 08/31/24 08:10 134/46 L 08/31/24 08:00 38.1 C H 56 L 08/31/24 07:51 38.1 C H 55 L 08/31/24 07:47 114/47 L 08/31/24 07:47 114/47 L 08/31/24 07:47 114/47 L 08/31/24 07:47 114/47 L 08/31/24 07:45 38.1 C H 56 L 08/31/24 07:40 114/41 L 08/31/24 07:40 114/41 L 08/31/24 07:36 111/44 L 08/31/24 07:36 38.1 C H 58 L 18 08/31/24 07:34 101/44 L 08/31/24 07:34 101/44 L 08/31/24 07:24 38.2 C H 109 H 19 08/31/24 07:18 38.2 C H 106 H 16 08/31/24 07:10 136/62 08/31/24 07:09 38.2 C H 104 H 20 08/31/24 07:05 105 H 16 08/31/24 07:00 96 H 08/31/24 07:00 38.2 C H 98 H 18 08/31/24 06:39 38.3 C H 103 H 18 08/31/24 06:37 120/49 L 08/31/24 06:37 120/49 L 08/31/24 06:33 38.3 C H 53 L 17 08/31/24 06:30 38.3 C H 54 L 13 08/31/24 06:12 38.3 C H 60 18 08/31/24 05:42 38.2 C H 53 L 18 08/31/24 05:37 120/50 L 08/31/24 05:33 38.2 C H 51 L 16 08/31/24 05:09 38.2 C H 56 L 19 08/31/24 04:37 148/68 H 08/31/24 04:36 38.1 C H 55 L 18 08/31/24 04:30 38.2 C H 95 H 18 08/31/24 04:06 38.3 C H 93 H 18 08/31/24 04:00 08/31/24 04:00 38.2 C H 55 L 18 145/43 H 08/31/24 04:00 56 L 146/44 H 08/31/24 03:37 127/69 08/31/24 03:37 127/69 08/31/24 03:37 127/69 08/31/24 03:37 127/69 08/31/24 03:36 38.4 C H 96 H 19 08/31/24 03:18 38.4 C H 98 H 18 08/31/24 02:39 38.4 C H 94 H 18 08/31/24 02:37 132/71 08/31/24 02:37 132/71 08/31/24 02:24 38.4 C H 99 H 18 08/31/24 02:19 99 H 18 08/31/24 02:00 38.4 C H 100 H 18 08/31/24 01:37 114/69 08/31/24 01:36 38.4 C H 96 H 18 08/31/24 01:33 38.4 C H 98 H 18 BP Pulse Ox O2 Del Method O2 Flow Rate FiO2 08/31/24 12:54 100 08/31/24 12:51 100 08/31/24 12:44 100 08/31/24 12:40 08/31/24 12:40 08/31/24 12:36 100 08/31/24 12:26 08/31/24 12:26 08/31/24 12:19 08/31/24 12:10 08/31/24 12:10 08/31/24 12:06 100 08/31/24 11:48 100 08/31/24 11:44 100 08/31/24 11:40 08/31/24 11:39 100 08/31/24 11:36 98 08/31/24 11:14 100 4 08/31/24 11:10 08/31/24 11:09 100 08/31/24 10:59 99 08/31/24 10:39 99 08/31/24 10:39 99 4 08/31/24 10:10 08/31/24 10:00 99 Nasal Cannula 4 08/31/24 09:42 100 08/31/24 09:40 08/31/24 09:19 08/31/24 09:12 100 08/31/24 09:10 08/31/24 09:00 Nasal Cannula 4 08/31/24 09:00 100 08/31/24 08:56 08/31/24 08:30 97 08/31/24 08:15 95 08/31/24 08:14 21 08/31/24 08:10 08/31/24 08:00 114/47 L 96 CPAP, Mechanical Vent 21 08/31/24 07:51 94 08/31/24 07:47 08/31/24 07:47 08/31/24 07:47 08/31/24 07:47 08/31/24 07:45 95 08/31/24 07:40 08/31/24 07:40 08/31/24 07:36 08/31/24 07:36 95 08/31/24 07:34 08/31/24 07:34 08/31/24 07:24 97 08/31/24 07:18 95 08/31/24 07:10 08/31/24 07:09 95 08/31/24 07:05 96 21 08/31/24 07:00 08/31/24 07:00 95 08/31/24 06:39 92 08/31/24 06:37 08/31/24 06:37 08/31/24 06:33 96 08/31/24 06:30 96 08/31/24 06:12 96 08/31/24 05:42 96 08/31/24 05:37 08/31/24 05:33 96 08/31/24 05:09 95 08/31/24 04:37 08/31/24 04:36 96 08/31/24 04:30 95 08/31/24 04:06 97 08/31/24 04:00 21 08/31/24 04:00 95 Mechanical Vent 21 08/31/24 04:00 08/31/24 03:37 08/31/24 03:37 08/31/24 03:37 08/31/24 03:37 08/31/24 03:36 97 08/31/24 03:18 97 08/31/24 02:39 96 08/31/24 02:37 08/31/24 02:37 08/31/24 02:24 97 08/31/24 02:19 97 21 08/31/24 02:00 96 08/31/24 01:37 08/31/24 01:36 97 08/31/24 01:33 97 Laboratory Results 08/28/24 Unknown Gram Stain - Final Abdomen Aerobic and Anaerobic Culture - Preliminary Moderate counts mixed probable skin microbiota. 08/30/24 11:20 Gram Stain - Final Peritoneal Fluid Aerobic and Anaerobic Culture - Preliminary Escherichia coli 08/30/24 17:16 Aerobic Blood Culture - Pending Blood Anaerobic Blood Culture - Pending 08/30/24 17:17 Aerobic Blood Culture - Pending Blood Anaerobic Blood Culture - Pending 08/31/24 08/31/24 08/31/24 12:33 09:55 08:11 WBC RBC Hgb 6.6 L* POC Hgb Hct 19.7 L* POC Hct MCV MCH MCHC RDW Std Deviation RDW Coeff of Albino Plt Count MPV Absolute Nucleated RBC Nucleated RBC % (auto) Specimen Type Sample Site POC pH POC pCO2 POC pO2 POC HCO3 POC Total CO2 POC Base Excess O2 Sat Pulse Oximetry ABG pH (Temp Correct) ABG pCO2 (Temp Corrct POC ABG pO2 at Pt Temp POC ABG O2 Sat Julito Test O2 Delivery Device Vent Mode POC FiO2 End Tidal CO2 POC Sodium Sodium 136 POC Potassium Potassium 4.3 Chloride 105 Carbon Dioxide 21 Anion Gap 10 BUN 55 H Creatinine 1.87 H Est Cr Clr Drug Dosing 32.6 eGFR 28.95 BUN/Creatinine Ratio 29.4 H Glucose 106 H POC Glucose (other) 100 H Lactate Calcium 6.4 L Phosphorus 6.1 H Magnesium 2.2 Total Bilirubin AST ALT Alkaline Phosphatase Total Protein Albumin Globulin Albumin/Globulin Ratio Random Vancomycin Blood Type Antibody Screen Crossmatch 08/31/24 08/31/24 08/31/24 06:52 05:57 05:03 WBC RBC Hgb POC Hgb Hct POC Hct MCV MCH MCHC RDW Std Deviation RDW Coeff of Albino Plt Count MPV Absolute Nucleated RBC Nucleated RBC % (auto) Specimen Type Sample Site POC pH POC pCO2 POC pO2 POC HCO3 POC Total CO2 POC Base Excess O2 Sat Pulse Oximetry ABG pH (Temp Correct) ABG pCO2 (Temp Corrct POC ABG pO2 at Pt Temp POC ABG O2 Sat Julito Test O2 Delivery Device Vent Mode POC FiO2 End Tidal CO2 POC Sodium Sodium POC Potassium Potassium Chloride Carbon Dioxide Anion Gap BUN Creatinine Est Cr Clr Drug Dosing eGFR BUN/Creatinine Ratio Glucose POC Glucose (other) 103 H 104 H 102 H Lactate Calcium Phosphorus Magnesium Total Bilirubin AST ALT Alkaline Phosphatase Total Protein Albumin Globulin Albumin/Globulin Ratio Random Vancomycin Blood Type Antibody Screen Crossmatch 08/31/24 08/31/24 08/31/24 04:23 03:58 03:01 WBC 22.57 H RBC 2.69 L Hgb 7.4 L POC Hgb Hct 21.9 L POC Hct MCV 81.4 MCH 27.5 MCHC 33.8 RDW Std Deviation 44.8 RDW Coeff of Albino 15.5 H Plt Count 308 MPV 11.2 Absolute Nucleated RBC 0.02 Nucleated RBC % (auto) 0.1 Specimen Type Sample Site POC pH POC pCO2 POC pO2 POC HCO3 POC Total CO2 POC Base Excess O2 Sat Pulse Oximetry ABG pH (Temp Correct) ABG pCO2 (Temp Corrct POC ABG pO2 at Pt Temp POC ABG O2 Sat Julito Test O2 Delivery Device Vent Mode POC FiO2 End Tidal CO2 POC Sodium Sodium 135 L POC Potassium Potassium 4.3 Chloride 104 Carbon Dioxide 21 Anion Gap 10 BUN 54 H Creatinine 1.87 H Est Cr Clr Drug Dosing 31.9 eGFR 28.95 BUN/Creatinine Ratio 28.9 H Glucose 109 H POC Glucose (other) 103 H 101 H Lactate 1.7 Calcium 6.4 L Phosphorus 5.7 H Magnesium 2.1 Total Bilirubin 0.8 AST 44 H ALT 21 Alkaline Phosphatase 78 Total Protein 4.3 L Albumin 2.2 L Globulin 2.1 L Albumin/Globulin Ratio 1.0 Random Vancomycin 21.6 H Blood Type Antibody Screen Crossmatch 08/31/24 08/31/24 08/31/24 02:00 01:02 00:02 WBC RBC Hgb POC Hgb Hct POC Hct MCV MCH MCHC RDW Std Deviation RDW Coeff of Albino Plt Count MPV Absolute Nucleated RBC Nucleated RBC % (auto) Specimen Type Sample Site POC pH POC pCO2 POC pO2 POC HCO3 POC Total CO2 POC Base Excess O2 Sat Pulse Oximetry ABG pH (Temp Correct) ABG pCO2 (Temp Corrct POC ABG pO2 at Pt Temp POC ABG O2 Sat Julito Test O2 Delivery Device Vent Mode POC FiO2 End Tidal CO2 POC Sodium Sodium POC Potassium Potassium Chloride Carbon Dioxide Anion Gap BUN Creatinine Est Cr Clr Drug Dosing eGFR BUN/Creatinine Ratio Glucose POC Glucose (other) 102 H 100 H 100 H Lactate Calcium Phosphorus Magnesium Total Bilirubin AST ALT Alkaline Phosphatase Total Protein Albumin Globulin Albumin/Globulin Ratio Random Vancomycin Blood Type Antibody Screen Crossmatch 08/30/24 08/30/24 08/30/24 22:57 22:02 20:55 WBC RBC Hgb POC Hgb Hct POC Hct MCV MCH MCHC RDW Std Deviation RDW Coeff of Albino Plt Count MPV Absolute Nucleated RBC Nucleated RBC % (auto) Specimen Type Sample Site POC pH POC pCO2 POC pO2 POC HCO3 POC Total CO2 POC Base Excess O2 Sat Pulse Oximetry ABG pH (Temp Correct) ABG pCO2 (Temp Corrct POC ABG pO2 at Pt Temp POC ABG O2 Sat Julito Test O2 Delivery Device Vent Mode POC FiO2 End Tidal CO2 POC Sodium Sodium POC Potassium Potassium Chloride Carbon Dioxide Anion Gap BUN Creatinine Est Cr Clr Drug Dosing eGFR BUN/Creatinine Ratio Glucose POC Glucose (other) 104 H 105 H 114 H Lactate Calcium Phosphorus Magnesium Total Bilirubin AST ALT Alkaline Phosphatase Total Protein Albumin Globulin Albumin/Globulin Ratio Random Vancomycin Blood Type Antibody Screen Crossmatch 08/30/24 08/30/24 08/30/24 20:01 19:35 18:56 WBC RBC Hgb POC Hgb Hct POC Hct MCV MCH MCHC RDW Std Deviation RDW Coeff of Albino Plt Count MPV Absolute Nucleated RBC Nucleated RBC % (auto) Specimen Type Sample Site POC pH POC pCO2 POC pO2 POC HCO3 POC Total CO2 POC Base Excess O2 Sat Pulse Oximetry ABG pH (Temp Correct) ABG pCO2 (Temp Corrct POC ABG pO2 at Pt Temp POC ABG O2 Sat Julito Test O2 Delivery Device Vent Mode POC FiO2 End Tidal CO2 POC Sodium Sodium POC Potassium Potassium Chloride Carbon Dioxide Anion Gap BUN Creatinine Est Cr Clr Drug Dosing eGFR BUN/Creatinine Ratio Glucose POC Glucose (other) 107 H 99 108 H Lactate Calcium Phosphorus Magnesium Total Bilirubin AST ALT Alkaline Phosphatase Total Protein Albumin Globulin Albumin/Globulin Ratio Random Vancomycin Blood Type Antibody Screen Crossmatch 08/30/24 08/30/24 08/30/24 17:54 16:40 16:35 WBC RBC Hgb POC Hgb 8.2 L Hct POC Hct 24 L MCV MCH MCHC RDW Std Deviation RDW Coeff of Albino Plt Count MPV Absolute Nucleated RBC Nucleated RBC % (auto) Specimen Type Arterial Sample Site Art Line POC pH 7.44 POC pCO2 29 L POC pO2 164 H POC HCO3 19 POC Total CO2 20 L POC Base Excess -5.0 O2 Sat Pulse Oximetry 100 ABG pH (Temp Correct) 7.439 ABG pCO2 (Temp Corrct 29 L POC ABG pO2 at Pt Temp 165 POC ABG O2 Sat 100.0 H Julito Test NA O2 Delivery Device Ventilator Vent Mode AC POC FiO2 40 End Tidal CO2 28 POC Sodium 134 L Sodium POC Potassium 3.9 Potassium Chloride Carbon Dioxide Anion Gap BUN Creatinine Est Cr Clr Drug Dosing eGFR BUN/Creatinine Ratio Glucose POC Glucose (other) 137 H 142 H Lactate Calcium Phosphorus Magnesium Total Bilirubin AST ALT Alkaline Phosphatase Total Protein Albumin Globulin Albumin/Globulin Ratio Random Vancomycin Blood Type Antibody Screen Crossmatch 08/30/24 08/30/24 08/30/24 15:41 15:03 13:22 WBC RBC Hgb POC Hgb Hct POC Hct MCV MCH MCHC RDW Std Deviation RDW Coeff of Albino Plt Count MPV Absolute Nucleated RBC Nucleated RBC % (auto) Specimen Type Sample Site POC pH POC pCO2 POC pO2 POC HCO3 POC Total CO2 POC Base Excess O2 Sat Pulse Oximetry ABG pH (Temp Correct) ABG pCO2 (Temp Corrct POC ABG pO2 at Pt Temp POC ABG O2 Sat Julito Test O2 Delivery Device Vent Mode POC FiO2 End Tidal CO2 POC Sodium Sodium 131 L POC Potassium Potassium 4.7 D Chloride 103 Carbon Dioxide 14 L Anion Gap 14 H BUN 52 H Creatinine 1.76 H D Est Cr Clr Drug Dosing 33.9 eGFR 31.14 BUN/Creatinine Ratio 29.5 H Glucose 220 H POC Glucose (other) 109 H Lactate 5.7 H* Calcium 6.2 L Phosphorus Magnesium Total Bilirubin 0.5 AST 40 H ALT 23 Alkaline Phosphatase 74 Total Protein 4.0 L Albumin 1.6 L Globulin 2.4 L Albumin/Globulin Ratio 0.7 L Random Vancomycin Blood Type Antibody Screen Crossmatch 08/30/24 09:47 WBC RBC Hgb POC Hgb Hct POC Hct MCV MCH MCHC RDW Std Deviation RDW Coeff of Albino Plt Count MPV Absolute Nucleated RBC Nucleated RBC % (auto) Specimen Type Sample Site POC pH POC pCO2 POC pO2 POC HCO3 POC Total CO2 POC Base Excess O2 Sat Pulse Oximetry ABG pH (Temp Correct) ABG pCO2 (Temp Corrct POC ABG pO2 at Pt Temp POC ABG O2 Sat Julito Test O2 Delivery Device Vent Mode POC FiO2 End Tidal CO2 POC Sodium Sodium POC Potassium Potassium Chloride Carbon Dioxide Anion Gap BUN Creatinine Est Cr Clr Drug Dosing eGFR BUN/Creatinine Ratio Glucose POC Glucose (other) Lactate Calcium Phosphorus Magnesium Total Bilirubin AST ALT Alkaline Phosphatase Total Protein Albumin Globulin Albumin/Globulin Ratio Random Vancomycin Blood Type A Positive Antibody Screen NEGATIVE Crossmatch See Detail Abnormal Lab Results 08/30/24 08/30/24 08/30/24 09:47 13:22 15:03 WBC RBC Hgb POC Hgb Hct POC Hct MCV MCH MCHC RDW Std Deviation RDW Coeff of Ablino Plt Count MPV Absolute Nucleated RBC Nucleated RBC % (auto) Specimen Type Sample Site POC pH POC pCO2 POC pO2 POC HCO3 POC Total CO2 POC Base Excess O2 Sat Pulse Oximetry ABG pH (Temp Correct) ABG pCO2 (Temp Corrct POC ABG pO2 at Pt Temp POC ABG O2 Sat Julito Test O2 Delivery Device Vent Mode POC FiO2 End Tidal CO2 POC Sodium Sodium 131 L POC Potassium Potassium 4.7 D Chloride 103 Carbon Dioxide 14 L Anion Gap 14 H BUN 52 H Creatinine 1.76 H D Est Cr Clr Drug Dosing 33.9 eGFR 31.14 BUN/Creatinine Ratio 29.5 H Glucose 220 H POC Glucose (other) Lactate 5.7 H* Calcium 6.2 L Phosphorus Magnesium Total Bilirubin 0.5 AST 40 H ALT 23 Alkaline Phosphatase 74 Total Protein 4.0 L Albumin 1.6 L Globulin 2.4 L Albumin/Globulin Ratio 0.7 L Random Vancomycin Blood Type A Positive Antibody Screen NEGATIVE Crossmatch See Detail 08/30/24 08/30/24 08/30/24 15:41 16:35 16:40 WBC RBC Hgb POC Hgb 8.2 L Hct POC Hct 24 L MCV MCH MCHC RDW Std Deviation RDW Coeff of Albino Plt Count MPV Absolute Nucleated RBC Nucleated RBC % (auto) Specimen Type Arterial Sample Site Art Line POC pH 7.44 POC pCO2 29 L POC pO2 164 H POC HCO3 19 POC Total CO2 20 L POC Base Excess -5.0 O2 Sat Pulse Oximetry 100 ABG pH (Temp Correct) 7.439 ABG pCO2 (Temp Corrct 29 L POC ABG pO2 at Pt Temp 165 POC ABG O2 Sat 100.0 H Julito Test NA O2 Delivery Device Ventilator Vent Mode AC POC FiO2 40 End Tidal CO2 28 POC Sodium 134 L Sodium POC Potassium 3.9 Potassium Chloride Carbon Dioxide Anion Gap BUN Creatinine Est Cr Clr Drug Dosing eGFR BUN/Creatinine Ratio Glucose POC Glucose (other) 109 H 142 H Lactate Calcium Phosphorus Magnesium Total Bilirubin AST ALT Alkaline Phosphatase Total Protein Albumin Globulin Albumin/Globulin Ratio Random Vancomycin Blood Type Antibody Screen Crossmatch 08/30/24 08/30/24 08/30/24 17:54 18:56 19:35 WBC RBC Hgb POC Hgb Hct POC Hct MCV MCH MCHC RDW Std Deviation RDW Coeff of Albino Plt Count MPV Absolute Nucleated RBC Nucleated RBC % (auto) Specimen Type Sample Site POC pH POC pCO2 POC pO2 POC HCO3 POC Total CO2 POC Base Excess O2 Sat Pulse Oximetry ABG pH (Temp Correct) ABG pCO2 (Temp Corrct POC ABG pO2 at Pt Temp POC ABG O2 Sat Julito Test O2 Delivery Device Vent Mode POC FiO2 End Tidal CO2 POC Sodium Sodium POC Potassium Potassium Chloride Carbon Dioxide Anion Gap BUN Creatinine Est Cr Clr Drug Dosing eGFR BUN/Creatinine Ratio Glucose POC Glucose (other) 137 H 108 H 99 Lactate Calcium Phosphorus Magnesium Total Bilirubin AST ALT Alkaline Phosphatase Total Protein Albumin Globulin Albumin/Globulin Ratio Random Vancomycin Blood Type Antibody Screen Crossmatch 08/30/24 08/30/24 08/30/24 20:01 20:55 22:02 WBC RBC Hgb POC Hgb Hct POC Hct MCV MCH MCHC RDW Std Deviation RDW Coeff of Albino Plt Count MPV Absolute Nucleated RBC Nucleated RBC % (auto) Specimen Type Sample Site POC pH POC pCO2 POC pO2 POC HCO3 POC Total CO2 POC Base Excess O2 Sat Pulse Oximetry ABG pH (Temp Correct) ABG pCO2 (Temp Corrct POC ABG pO2 at Pt Temp POC ABG O2 Sat Julito Test O2 Delivery Device Vent Mode POC FiO2 End Tidal CO2 POC Sodium Sodium POC Potassium Potassium Chloride Carbon Dioxide Anion Gap BUN Creatinine Est Cr Clr Drug Dosing eGFR BUN/Creatinine Ratio Glucose POC Glucose (other) 107 H 114 H 105 H Lactate Calcium Phosphorus Magnesium Total Bilirubin AST ALT Alkaline Phosphatase Total Protein Albumin Globulin Albumin/Globulin Ratio Random Vancomycin Blood Type Antibody Screen Crossmatch 08/30/24 08/31/24 08/31/24 22:57 00:02 01:02 WBC RBC Hgb POC Hgb Hct POC Hct MCV MCH MCHC RDW Std Deviation RDW Coeff of Albino Plt Count MPV Absolute Nucleated RBC Nucleated RBC % (auto) Specimen Type Sample Site POC pH POC pCO2 POC pO2 POC HCO3 POC Total CO2 POC Base Excess O2 Sat Pulse Oximetry ABG pH (Temp Correct) ABG pCO2 (Temp Corrct POC ABG pO2 at Pt Temp POC ABG O2 Sat Julito Test O2 Delivery Device Vent Mode POC FiO2 End Tidal CO2 POC Sodium Sodium POC Potassium Potassium Chloride Carbon Dioxide Anion Gap BUN Creatinine Est Cr Clr Drug Dosing eGFR BUN/Creatinine Ratio Glucose POC Glucose (other) 104 H 100 H 100 H Lactate Calcium Phosphorus Magnesium Total Bilirubin AST ALT Alkaline Phosphatase Total Protein Albumin Globulin Albumin/Globulin Ratio Random Vancomycin Blood Type Antibody Screen Crossmatch 08/31/24 08/31/24 08/31/24 02:00 03:01 03:58 WBC RBC Hgb POC Hgb Hct POC Hct MCV MCH MCHC RDW Std Deviation RDW Coeff of Albino Plt Count MPV Absolute Nucleated RBC Nucleated RBC % (auto) Specimen Type Sample Site POC pH POC pCO2 POC pO2 POC HCO3 POC Total CO2 POC Base Excess O2 Sat Pulse Oximetry ABG pH (Temp Correct) ABG pCO2 (Temp Corrct POC ABG pO2 at Pt Temp POC ABG O2 Sat Julito Test O2 Delivery Device Vent Mode POC FiO2 End Tidal CO2 POC Sodium Sodium POC Potassium Potassium Chloride Carbon Dioxide Anion Gap BUN Creatinine Est Cr Clr Drug Dosing eGFR BUN/Creatinine Ratio Glucose POC Glucose (other) 102 H 101 H 103 H Lactate Calcium Phosphorus Magnesium Total Bilirubin AST ALT Alkaline Phosphatase Total Protein Albumin Globulin Albumin/Globulin Ratio Random Vancomycin Blood Type Antibody Screen Crossmatch 08/31/24 08/31/24 08/31/24 04:23 05:03 05:57 WBC 22.57 H RBC 2.69 L Hgb 7.4 L POC Hgb Hct 21.9 L POC Hct MCV 81.4 MCH 27.5 MCHC 33.8 RDW Std Deviation 44.8 RDW Coeff of Albino 15.5 H Plt Count 308 MPV 11.2 Absolute Nucleated RBC 0.02 Nucleated RBC % (auto) 0.1 Specimen Type Sample Site POC pH POC pCO2 POC pO2 POC HCO3 POC Total CO2 POC Base Excess O2 Sat Pulse Oximetry ABG pH (Temp Correct) ABG pCO2 (Temp Corrct POC ABG pO2 at Pt Temp POC ABG O2 Sat Julito Test O2 Delivery Device Vent Mode POC FiO2 End Tidal CO2 POC Sodium Sodium 135 L POC Potassium Potassium 4.3 Chloride 104 Carbon Dioxide 21 Anion Gap 10 BUN 54 H Creatinine 1.87 H Est Cr Clr Drug Dosing 31.9 eGFR 28.95 BUN/Creatinine Ratio 28.9 H Glucose 109 H POC Glucose (other) 102 H 104 H Lactate 1.7 Calcium 6.4 L Phosphorus 5.7 H Magnesium 2.1 Total Bilirubin 0.8 AST 44 H ALT 21 Alkaline Phosphatase 78 Total Protein 4.3 L Albumin 2.2 L Globulin 2.1 L Albumin/Globulin Ratio 1.0 Random Vancomycin 21.6 H Blood Type Antibody Screen Crossmatch 08/31/24 08/31/24 08/31/24 06:52 08:11 09:55 WBC RBC Hgb 6.6 L* POC Hgb Hct 19.7 L* POC Hct MCV MCH MCHC RDW Std Deviation RDW Coeff of Albino Plt Count MPV Absolute Nucleated RBC Nucleated RBC % (auto) Specimen Type Sample Site POC pH POC pCO2 POC pO2 POC HCO3 POC Total CO2 POC Base Excess O2 Sat Pulse Oximetry ABG pH (Temp Correct) ABG pCO2 (Temp Corrct POC ABG pO2 at Pt Temp POC ABG O2 Sat Julito Test O2 Delivery Device Vent Mode POC FiO2 End Tidal CO2 POC Sodium Sodium POC Potassium Potassium Chloride Carbon Dioxide Anion Gap BUN Creatinine Est Cr Clr Drug Dosing eGFR BUN/Creatinine Ratio Glucose POC Glucose (other) 103 H 100 H Lactate Calcium Phosphorus Magnesium Total Bilirubin AST ALT Alkaline Phosphatase Total Protein Albumin Globulin Albumin/Globulin Ratio Random Vancomycin Blood Type Antibody Screen Crossmatch 08/31/24 12:33 WBC RBC Hgb POC Hgb Hct POC Hct MCV MCH MCHC RDW Std Deviation RDW Coeff of Albino Plt Count MPV Absolute Nucleated RBC Nucleated RBC % (auto) Specimen Type Sample Site POC pH POC pCO2 POC pO2 POC HCO3 POC Total CO2 POC Base Excess O2 Sat Pulse Oximetry ABG pH (Temp Correct) ABG pCO2 (Temp Corrct POC ABG pO2 at Pt Temp POC ABG O2 Sat Julito Test O2 Delivery Device Vent Mode POC FiO2 End Tidal CO2 POC Sodium Sodium 136 POC Potassium Potassium 4.3 Chloride 105 Carbon Dioxide 21 Anion Gap 10 BUN 55 H Creatinine 1.87 H Est Cr Clr Drug Dosing 32.6 eGFR 28.95 BUN/Creatinine Ratio 29.4 H Glucose 106 H POC Glucose (other) Lactate Calcium 6.4 L Phosphorus 6.1 H Magnesium 2.2 Total Bilirubin AST ALT Alkaline Phosphatase Total Protein Albumin Globulin Albumin/Globulin Ratio Random Vancomycin Blood Type Antibody Screen Crossmatch Laboratory Results - last 24 hr 08/30/24 08/30/24 08/30/24 09:47 13:22 15:03 WBC RBC Hgb POC Hgb Hct POC Hct MCV MCH MCHC RDW Std Deviation RDW Coeff of Albino Plt Count MPV Absolute Nucleated RBC Nucleated RBC % (auto) Specimen Type Sample Site POC pH POC pCO2 POC pO2 POC HCO3 POC Total CO2 POC Base Excess O2 Sat Pulse Oximetry ABG pH (Temp Correct) ABG pCO2 (Temp Corrct POC ABG pO2 at Pt Temp POC ABG O2 Sat Julito Test O2 Delivery Device Vent Mode POC FiO2 End Tidal CO2 POC Sodium Sodium 131 L POC Potassium Potassium 4.7 D Chloride 103 Carbon Dioxide 14 L Anion Gap 14 H BUN 52 H Creatinine 1.76 H D Est Cr Clr Drug Dosing 33.9 eGFR 31.14 BUN/Creatinine Ratio 29.5 H Glucose 220 H POC Glucose (other) Lactate 5.7 H* Calcium 6.2 L Phosphorus Magnesium Total Bilirubin 0.5 AST 40 H ALT 23 Alkaline Phosphatase 74 Total Protein 4.0 L Albumin 1.6 L Globulin 2.4 L Albumin/Globulin Ratio 0.7 L Random Vancomycin Blood Type A Positive Antibody Screen NEGATIVE Crossmatch See Detail 08/30/24 08/30/24 08/30/24 15:41 16:35 16:40 WBC RBC Hgb POC Hgb 8.2 L Hct POC Hct 24 L MCV MCH MCHC RDW Std Deviation RDW Coeff of Albino Plt Count MPV Absolute Nucleated RBC Nucleated RBC % (auto) Specimen Type Arterial Sample Site Art Line POC pH 7.44 POC pCO2 29 L POC pO2 164 H POC HCO3 19 POC Total CO2 20 L POC Base Excess -5.0 O2 Sat Pulse Oximetry 100 ABG pH (Temp Correct) 7.439 ABG pCO2 (Temp Corrct 29 L POC ABG pO2 at Pt Temp 165 POC ABG O2 Sat 100.0 H Julito Test NA O2 Delivery Device Ventilator Vent Mode AC POC FiO2 40 End Tidal CO2 28 POC Sodium 134 L Sodium POC Potassium 3.9 Potassium Chloride Carbon Dioxide Anion Gap BUN Creatinine Est Cr Clr Drug Dosing eGFR BUN/Creatinine Ratio Glucose POC Glucose (other) 109 H 142 H Lactate Calcium Phosphorus Magnesium Total Bilirubin AST ALT Alkaline Phosphatase Total Protein Albumin Globulin Albumin/Globulin Ratio Random Vancomycin Blood Type Antibody Screen Crossmatch 08/30/24 08/30/24 08/30/24 17:54 18:56 19:35 WBC RBC Hgb POC Hgb Hct POC Hct MCV MCH MCHC RDW Std Deviation RDW Coeff of Albino Plt Count MPV Absolute Nucleated RBC Nucleated RBC % (auto) Specimen Type Sample Site POC pH POC pCO2 POC pO2 POC HCO3 POC Total CO2 POC Base Excess O2 Sat Pulse Oximetry ABG pH (Temp Correct) ABG pCO2 (Temp Corrct POC ABG pO2 at Pt Temp POC ABG O2 Sat Julito Test O2 Delivery Device Vent Mode POC FiO2 End Tidal CO2 POC Sodium Sodium POC Potassium Potassium Chloride Carbon Dioxide Anion Gap BUN Creatinine Est Cr Clr Drug Dosing eGFR BUN/Creatinine Ratio Glucose POC Glucose (other) 137 H 108 H 99 Lactate Calcium Phosphorus Magnesium Total Bilirubin AST ALT Alkaline Phosphatase Total Protein Albumin Globulin Albumin/Globulin Ratio Random Vancomycin Blood Type Antibody Screen Crossmatch 08/30/24 08/30/24 08/30/24 20:01 20:55 22:02 WBC RBC Hgb POC Hgb Hct POC Hct MCV MCH MCHC RDW Std Deviation RDW Coeff of Albino Plt Count MPV Absolute Nucleated RBC Nucleated RBC % (auto) Specimen Type Sample Site POC pH POC pCO2 POC pO2 POC HCO3 POC Total CO2 POC Base Excess O2 Sat Pulse Oximetry ABG pH (Temp Correct) ABG pCO2 (Temp Corrct POC ABG pO2 at Pt Temp POC ABG O2 Sat Julito Test O2 Delivery Device Vent Mode POC FiO2 End Tidal CO2 POC Sodium Sodium POC Potassium Potassium Chloride Carbon Dioxide Anion Gap BUN Creatinine Est Cr Clr Drug Dosing eGFR BUN/Creatinine Ratio Glucose POC Glucose (other) 107 H 114 H 105 H Lactate Calcium Phosphorus Magnesium Total Bilirubin AST ALT Alkaline Phosphatase Total Protein Albumin Globulin Albumin/Globulin Ratio Random Vancomycin Blood Type Antibody Screen Crossmatch 08/30/24 08/31/24 08/31/24 22:57 00:02 01:02 WBC RBC Hgb POC Hgb Hct POC Hct MCV MCH MCHC RDW Std Deviation RDW Coeff of Albino Plt Count MPV Absolute Nucleated RBC Nucleated RBC % (auto) Specimen Type Sample Site POC pH POC pCO2 POC pO2 POC HCO3 POC Total CO2 POC Base Excess O2 Sat Pulse Oximetry ABG pH (Temp Correct) ABG pCO2 (Temp Corrct POC ABG pO2 at Pt Temp POC ABG O2 Sat Julito Test O2 Delivery Device Vent Mode POC FiO2 End Tidal CO2 POC Sodium Sodium POC Potassium Potassium Chloride Carbon Dioxide Anion Gap BUN Creatinine Est Cr Clr Drug Dosing eGFR BUN/Creatinine Ratio Glucose POC Glucose (other) 104 H 100 H 100 H Lactate Calcium Phosphorus Magnesium Total Bilirubin AST ALT Alkaline Phosphatase Total Protein Albumin Globulin Albumin/Globulin Ratio Random Vancomycin Blood Type Antibody Screen Crossmatch 08/31/24 08/31/24 08/31/24 02:00 03:01 03:58 WBC RBC Hgb POC Hgb Hct POC Hct MCV MCH MCHC RDW Std Deviation RDW Coeff of Albino Plt Count MPV Absolute Nucleated RBC Nucleated RBC % (auto) Specimen Type Sample Site POC pH POC pCO2 POC pO2 POC HCO3 POC Total CO2 POC Base Excess O2 Sat Pulse Oximetry ABG pH (Temp Correct) ABG pCO2 (Temp Corrct POC ABG pO2 at Pt Temp POC ABG O2 Sat Julito Test O2 Delivery Device Vent Mode POC FiO2 End Tidal CO2 POC Sodium Sodium POC Potassium Potassium Chloride Carbon Dioxide Anion Gap BUN Creatinine Est Cr Clr Drug Dosing eGFR BUN/Creatinine Ratio Glucose POC Glucose (other) 102 H 101 H 103 H Lactate Calcium Phosphorus Magnesium Total Bilirubin AST ALT Alkaline Phosphatase Total Protein Albumin Globulin Albumin/Globulin Ratio Random Vancomycin Blood Type Antibody Screen Crossmatch 08/31/24 08/31/24 08/31/24 04:23 05:03 05:57 WBC 22.57 H RBC 2.69 L Hgb 7.4 L POC Hgb Hct 21.9 L POC Hct MCV 81.4 MCH 27.5 MCHC 33.8 RDW Std Deviation 44.8 RDW Coeff of Albino 15.5 H Plt Count 308 MPV 11.2 Absolute Nucleated RBC 0.02 Nucleated RBC % (auto) 0.1 Specimen Type Sample Site POC pH POC pCO2 POC pO2 POC HCO3 POC Total CO2 POC Base Excess O2 Sat Pulse Oximetry ABG pH (Temp Correct) ABG pCO2 (Temp Corrct POC ABG pO2 at Pt Temp POC ABG O2 Sat Julito Test O2 Delivery Device Vent Mode POC FiO2 End Tidal CO2 POC Sodium Sodium 135 L POC Potassium Potassium 4.3 Chloride 104 Carbon Dioxide 21 Anion Gap 10 BUN 54 H Creatinine 1.87 H Est Cr Clr Drug Dosing 31.9 eGFR 28.95 BUN/Creatinine Ratio 28.9 H Glucose 109 H POC Glucose (other) 102 H 104 H Lactate 1.7 Calcium 6.4 L Phosphorus 5.7 H Magnesium 2.1 Total Bilirubin 0.8 AST 44 H ALT 21 Alkaline Phosphatase 78 Total Protein 4.3 L Albumin 2.2 L Globulin 2.1 L Albumin/Globulin Ratio 1.0 Random Vancomycin 21.6 H Blood Type Antibody Screen Crossmatch 08/31/24 08/31/24 08/31/24 06:52 08:11 09:55 WBC RBC Hgb 6.6 L* POC Hgb Hct 19.7 L* POC Hct MCV MCH MCHC RDW Std Deviation RDW Coeff of Albino Plt Count MPV Absolute Nucleated RBC Nucleated RBC % (auto) Specimen Type Sample Site POC pH POC pCO2 POC pO2 POC HCO3 POC Total CO2 POC Base Excess O2 Sat Pulse Oximetry ABG pH (Temp Correct) ABG pCO2 (Temp Corrct POC ABG pO2 at Pt Temp POC ABG O2 Sat Julito Test O2 Delivery Device Vent Mode POC FiO2 End Tidal CO2 POC Sodium Sodium POC Potassium Potassium Chloride Carbon Dioxide Anion Gap BUN Creatinine Est Cr Clr Drug Dosing eGFR BUN/Creatinine Ratio Glucose POC Glucose (other) 103 H 100 H Lactate Calcium Phosphorus Magnesium Total Bilirubin AST ALT Alkaline Phosphatase Total Protein Albumin Globulin Albumin/Globulin Ratio Random Vancomycin Blood Type Antibody Screen Crossmatch 08/31/24 12:33 WBC RBC Hgb POC Hgb Hct POC Hct MCV MCH MCHC RDW Std Deviation RDW Coeff of Albino Plt Count MPV Absolute Nucleated RBC Nucleated RBC % (auto) Specimen Type Sample Site POC pH POC pCO2 POC pO2 POC HCO3 POC Total CO2 POC Base Excess O2 Sat Pulse Oximetry ABG pH (Temp Correct) ABG pCO2 (Temp Corrct POC ABG pO2 at Pt Temp POC ABG O2 Sat Julito Test O2 Delivery Device Vent Mode POC FiO2 End Tidal CO2 POC Sodium Sodium 136 POC Potassium Potassium 4.3 Chloride 105 Carbon Dioxide 21 Anion Gap 10 BUN 55 H Creatinine 1.87 H Est Cr Clr Drug Dosing 32.6 eGFR 28.95 BUN/Creatinine Ratio 29.4 H Glucose 106 H POC Glucose (other) Lactate Calcium 6.4 L Phosphorus 6.1 H Magnesium 2.2 Total Bilirubin AST ALT Alkaline Phosphatase Total Protein Albumin Globulin Albumin/Globulin Ratio Random Vancomycin Blood Type Antibody Screen Crossmatch Diagnostic Findings Chest X-Ray 08/30/24 13:47 EXAM: X-ray chest one-view portable CLINICAL HISTORY: New IJ central venous catheter PRIORS: 08/30/2024 TECHNIQUE: Frontal view chest FINDINGS: Diminished lung volumes noted. Right internal jugular central venous catheter present with distal tip terminating at the expected position of the atrial caval junction. Endotracheal tube is again noted in unchanged. Lainey is not well visualized. Feeding tube present with distal tip coiled in the stomach. Opacification present at the right lower lung, possibly atelectasis or could represent pneumonia. Heart size within normal limits. IMPRESSION: Right internal jugular catheter, appearing in the interval with no pneumothorax or acute complication. Electronically signed by Rebeca Bullard 08-30-2024 2:18 PM Chest X-Ray 08/31/24 06:00 EXAM: XR chest 1V portable CLINICAL HISTORY: eval lines/tubes/lung contreras while intubated TECHNIQUE: Radiograph of chest was acquired. COMPARISON: 08/30/2024 12:59:00 [employer] FINDINGS: Endotracheal tube is with tip at the level of lainey - needs repositioning Nasogastric tube is seen in-situ with tip in stomach Right internal jugular vein line in situ with the tip seen at the region of superior vena cava - right atrial junction Cardiomegaly - unchanged Mild diffuse ill-defined haziness in bilateral lung contreras - likely due to congestion Rest of the lungs are clear and well-expanded with no pleural effusion. Rest of the cardiomediastinal silhouette is within normal limits. No acute osseous abnormality. IMPRESSION: Endotracheal tube is in situ and tip is seen at the level of lainey - needs to be repositioned cranially by 3 cm Nasogastric tube is seen in-situ with tip in stomach Right internal jugular vein line in situ with the tip seen at the region of superior vena cava - right atrial junction Cardiomegaly - unchanged Mild diffuse ill-defined haziness in bilateral lung contreras - likely due to pulmonary congestion No significant interval chnages compared to prior study Electronically signed by Jc Barclay 08-31-2024 07:44 AM
[2024-08-31 14:34] LABS: Hematocrit (blood only) 20.2 % (37.0-47.0); Hemoglobin 6.8 g/dl (12.0-16.0)
[2024-08-31] MEDS ORDERED: DEXTROSE 10% 1,000 ML IV PRN (16:00)
[2024-08-31] MEDS: [UNRECOGNIZED DRUG - OTHER] IV SCH (16:06)
[2024-08-31] MEDS: CENTRAL TPN IV SCH (16:06)
[2024-08-31] MEDS: CLINOLIPID 20% IV FAT EMULSION 250 ML IV SCH (16:06)
[2024-08-31] MEDS: METOPROLOL TARTRATE 1 MG/ML VIAL IV PRN (20:25)
[2024-08-31 21:50] LABS: Hematocrit (blood only) 25.1 % (37.0-47.0); Hemoglobin 9.2 g/dl (12.0-16.0)
[2024-08-31] MEDS: STOP CLINOLIPID SCH (22:00)
[2024-09-01] MEDS ORDERED: METOPROLOL TARTRATE 1 MG/ML VIAL IV SCH
[2024-09-01] MEDS: METOPROLOL TARTRATE 1 MG/ML VIAL IV SCH (02:50)
[2024-09-01 04:21] LABS: Hematocrit (blood only) 25.2 % (37.0-47.0); Hemoglobin 8.5 g/dl (12.0-16.0); Mean Corpuscular Hemoglobin 26.9 pg (25.0-34.0); Mean Corpuscular Volume 79.7 fL (80.0-100.0); Platelet Count 279 K/uL (130-400); RDW Standard Deviation 48.0 fL (36.4-46.3); Red Blood Count 3.16 M/uL (4.20-5.40); White Blood Count 17.45 K/ul (4.8-10.8)
[2024-09-01 04:40] LABS: Alanine Aminotransferase 19.0 U/L (7-52); Albumin Globulin Ratio 0.8 (0.9-2); Alkaline Phosphatase 60.0 U/L (34-104); Anion Gap 8.0 (3-11); Bilirubin,Total 0.6 mg/dl (0.2-1.0); Blood Urea Nitrogen 56.0 mg/dl (6-23); Calcium 7.0 mg/dl (8.6-10.3); Carbon Dioxide 23.0 mmol/L (21-32); Chloride 105.0 mmol/L (98-107); Creatinine Clr Calc Pharmacy 37.8 ml/min; Globulin 2.5 gm/dl (2.5-4.0); Glucose 161.0 mg/dl (70-99(Fasting)); Magnesium 2.6 mg/dl (1.7-2.4); Potassium 4.1 mmol/L (3.5-5.1); Sodium 136.0 mmol/L (136-145); Total Protein 4.6 gm/dl (6.0-8.3); Triglycerides 264.0 mg/dl (0-150)
--- NOTE | 2024-09-01 08:12 | Critical Care Progress Note ---
Date of Service September 01, 2024 Assessment & Plan (1) Septic shock: (2) Bacteremia due to Proteus species: (3) Peritonitis due to abscess: (4) Acute aspiration pneumonitis: (5) Acute kidney injury: (6) Paroxysmal SVT (supraventricular tachycardia): Plan 68-year-old female who presented with peritonitis and was found to have bacteremia with Proteus vulgaris. Currently on meropenem. She is postop, surgery 6025 status post ex lap and partial colectomy. She has a HAYDEE drain in place. Transferred to ICU for intubation and hypotension Neurologic: Continue fentanyl and ketamine. 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 coli from the peritoneal fluid which is resistant to Zosyn and Bactrim but sensitive to Rocephin, as well as carbapenems S/p right-sided colectomy 08/30/2024 Meropenem changed to Rocephin and Flagyl on 09/01/2024 MRSA negative Hematologic: -- Acute on chronic anemia S/p 2 units of PRBC 08/31/2024 Monitor H&H Transfuse for hemoglobin less than 7 Endocrine: -- ICU hypoglycemia protocol VTE prophylaxis: SCDs --Prophylaxis VTE: Heparin on hold GI: Pantoprazole Lines: Right IJ, peripherals Diet: N.p.o. Plan: In/out: In/out: +1.2 L, urine output 1860 Monitor H&H, if the hemoglobin is persistently trending down then CTA abdomen pelvis will be sought E. coli is sensitive to Rocephin as well as carbapenems. Will change antibiotic to Rocephin and Flagyl. Flagyl for anaerobic coverage Continue with IV metoprolol given the presence of A-fib RVR. Case discussed with primary team Hemodynamically stable to be downgraded to med telemetry floor I spent more than 50 minutes looking in the chart, images, discussing the plan of care with the patient, RN as well as primary team Please note the above document was generated using voice recognition software. It may contain grammatical, syntax or spelling errors.Any formal questions or concerns about the content, text or information contained within the body of this dictation should be directly addressed to the provider for clarification. Admission and Anticipated Discharge Date Admission Date: August 23, 2024 Subjective Patient seen and examined at bedside. No acute distress, notable symptoms overnight She was saturating well on room air Did complain of abdominal discomfort and was getting pain medication when I entered the room No bowel movement, denied flatulence NG tube still to suction No shortness of breath, no chest discomfort Review of Systems 2 Review of Systems: All systems reviewed & are unremarkable except as noted in Subjective Physical Exam 2 Physical Exam: Constitutional: No acute distress HEENT: EOMI, PERRLA Respiratory system: Decreased air entry bilaterally, no wheeze, no rhonchi, mild crackles bilateral lower lobe CVS: S1-S2 positive, no murmurs or gallops Abdomen: Soft, nontender, nondistended, no bowel sounds x4, HAYDEE drain in place Extremities: +2 pulses bilaterally radialis/ dorsalis pedis, no cyanosis, +2 pitting edema bilateral lower extremity Neuro: Awake alert oriented x3 Psych: Normal mood and affect G/U: Positive Leon Skin: no rashes, warm and dry Lymphatic: no cervical or axillary lymphadenopathy Results & Data Results & Data Vital Signs (Past 12 Hours) Vital Signs Temp Pulse Resp BP Pulse Ox O2 Del Method O2 Flow Rate 09/01/24 07:10 36.3 C L 67 16 148/57 H 100 Nasal Cannula 2 09/01/24 07:00 Nasal Cannula 2 09/01/24 06:41 130/48 L 09/01/24 06:41 130/48 L 09/01/24 06:41 130/48 L 09/01/24 06:39 36.3 C L 66 18 100 09/01/24 06:30 36.4 C L 64 19 100 09/01/24 06:10 134/65 09/01/24 06:03 36.4 C L 68 16 100 09/01/24 05:48 36.5 C 71 19 100 09/01/24 05:40 130/60 09/01/24 05:40 130/60 09/01/24 05:30 36.5 C 68 18 100 09/01/24 05:12 36.5 C 69 21 09/01/24 05:10 134/51 L 09/01/24 05:10 134/51 L 09/01/24 05:09 36.5 C 72 19 09/01/24 05:06 36.5 C 65 19 100 09/01/24 04:42 36.5 C 64 17 09/01/24 04:40 134/56 L 09/01/24 04:40 134/56 L 09/01/24 04:40 134/56 L 09/01/24 04:24 36.6 C 65 18 09/01/24 04:15 36.6 C 72 18 09/01/24 04:10 127/55 L 09/01/24 04:10 127/55 L 09/01/24 04:10 127/55 L 09/01/24 03:41 121/63 09/01/24 03:39 36.5 C 69 18 09/01/24 03:38 69 152/66 H 09/01/24 03:27 36.5 C 63 17 09/01/24 03:10 152/66 H 09/01/24 03:09 36.5 C 86 17 99 09/01/24 02:50 80 156/66 H 09/01/24 02:40 134/59 L 09/01/24 02:40 134/59 L 09/01/24 02:39 36.6 C 71 13 09/01/24 02:36 36.6 C 71 13 09/01/24 02:10 125/58 L 09/01/24 02:10 125/58 L 09/01/24 02:10 125/58 L 09/01/24 02:10 125/58 L 09/01/24 02:09 36.6 C 65 13 09/01/24 02:03 36.6 C 67 12 09/01/24 01:40 134/57 L 09/01/24 01:40 134/57 L 09/01/24 01:36 36.6 C 71 13 09/01/24 01:30 36.6 C 67 13 100 09/01/24 01:10 128/57 L 09/01/24 01:10 128/57 L 09/01/24 01:09 36.6 C 70 15 100 09/01/24 00:40 126/57 L 09/01/24 00:39 36.6 C 84 16 100 09/01/24 00:05 77 09/01/24 00:03 36.6 C 84 18 99 08/31/24 23:42 36.7 C 78 19 99 08/31/24 23:40 124/53 L 08/31/24 23:40 124/53 L 08/31/24 23:33 88 134/62 08/31/24 23:24 88 23 94 08/31/24 23:15 36.7 C 77 16 100 08/31/24 23:10 134/62 08/31/24 23:09 36.7 C 80 17 99 08/31/24 23:00 36.7 C 81 19 99 08/31/24 22:41 130/45 L 08/31/24 22:36 36.7 C 77 14 100 08/31/24 22:30 36.7 C 81 19 100 08/31/24 22:12 36.7 C 73 14 100 08/31/24 22:10 116/54 L 08/31/24 22:10 116/54 L 08/31/24 21:48 36.6 C 69 12 100 08/31/24 21:40 139/66 08/31/24 21:40 139/66 08/31/24 21:33 36.7 C 69 16 100 08/31/24 21:10 115/57 L 08/31/24 21:10 115/57 L 08/31/24 21:03 36.7 C 71 16 100 08/31/24 20:40 118/51 L 08/31/24 20:33 36.6 C 66 14 99 08/31/24 20:25 144 H 123/61 08/31/24 20:23 123 H 123/61 08/31/24 20:10 138 H 111/59 L Laboratory Results 09/01/24 03:54 09/01/24 03:54 Coding Level of Care Code 39798 SUB INP/OBS CARE 350MIN Diagnoses Septic shock A41.9; R65.21 Bacteremia due to Proteus species R78.81; B96.4 Peritonitis due to abscess K65.1 Acute aspiration pneumonitis J69.0 Acute kidney injury N17.9 Paroxysmal SVT (supraventricular tachycardia) I47.10
--- NOTE | 2024-09-01 08:48 | Surgery Progress Note ---
Date of Service September 01, 2024 Assessment & Plan (1) Intra-abdominal abscess: Plan: con't NG TPN OOB dry dressing daily Labs OK Admission and Anticipated Discharge Date Admission Date: August 23, 2024 Subjective extubated weak pain control OK Review of Systems Constitutional: no fever and no chills Cardiovascular: no chest pain Gastrointestinal: + abdominal pain and + change in bowel h abits; no nausea and no vomiting NG in place Ranjan serous Neurologic: + generalized weakness Physical Exam Constitutional: WD/WN, vitals as above Respiratory: normal respiratory effort, lungs clear to auscultation Cardiovascular: RRR, no murmur, no edema Gastrointestinal (Abdomen): Inspection/Auscultation: + abdomen distended; + abnormal bowel sounds Percussion/Palpation: + abdomen tender and abdomen soft incision clean Skin: no rashes, warm and dry Results & Data Vital Signs (Past 12 Hours) Vital Signs Temp Pulse Resp BP Pulse Ox O2 Del Method O2 Flow Rate 09/01/24 08:35 60 136/60 09/01/24 08:20 36.3 C L 86 16 145/65 H 95 Room Air 09/01/24 08:20 74 145/65 H 09/01/24 08:10 36.3 C L 63 18 123/53 L 98 Room Air 09/01/24 07:10 36.3 C L 67 16 148/57 H 100 Nasal Cannula 2 09/01/24 07:00 Nasal Cannula 2 09/01/24 06:41 130/48 L 09/01/24 06:41 130/48 L 09/01/24 06:41 130/48 L 09/01/24 06:39 36.3 C L 66 18 100 09/01/24 06:30 36.4 C L 64 19 100 09/01/24 06:10 134/65 09/01/24 06:03 36.4 C L 68 16 100 09/01/24 05:48 36.5 C 71 19 100 09/01/24 05:40 130/60 09/01/24 05:40 130/60 09/01/24 05:30 36.5 C 68 18 100 09/01/24 05:12 36.5 C 69 21 100 09/01/24 05:10 134/51 L 09/01/24 05:10 134/51 L 09/01/24 05:09 36.5 C 72 19 100 09/01/24 05:06 36.5 C 65 19 100 09/01/24 04:42 36.5 C 64 17 100 09/01/24 04:40 134/56 L 09/01/24 04:40 134/56 L 09/01/24 04:40 134/56 L 09/01/24 04:24 36.6 C 65 18 100 09/01/24 04:15 36.6 C 72 18 09/01/24 04:10 127/55 L 09/01/24 04:10 127/55 L 09/01/24 04:10 127/55 L 09/01/24 03:41 121/63 09/01/24 03:39 36.5 C 69 18 09/01/24 03:38 69 152/66 H 09/01/24 03:27 36.5 C 63 17 100 09/01/24 03:10 152/66 H 09/01/24 03:09 36.5 C 86 17 99 09/01/24 02:50 80 156/66 H 09/01/24 02:40 134/59 L 09/01/24 02:40 134/59 L 09/01/24 02:39 36.6 C 71 13 09/01/24 02:36 36.6 C 71 13 09/01/24 02:10 125/58 L 09/01/24 02:10 125/58 L 09/01/24 02:10 125/58 L 09/01/24 02:10 125/58 L 09/01/24 02:09 36.6 C 65 13 09/01/24 02:03 36.6 C 67 12 09/01/24 01:40 134/57 L 09/01/24 01:40 134/57 L 09/01/24 01:36 36.6 C 71 13 09/01/24 01:30 36.6 C 67 13 09/01/24 01:10 128/57 L 09/01/24 01:10 128/57 L 09/01/24 01:09 36.6 C 70 15 09/01/24 00:40 126/57 L 09/01/24 00:39 36.6 C 84 16 09/01/24 00:05 77 09/01/24 00:03 36.6 C 84 18 99 08/31/24 23:42 36.7 C 78 19 99 08/31/24 23:40 124/53 L 08/31/24 23:40 124/53 L 08/31/24 23:33 88 134/62 08/31/24 23:24 88 23 94 08/31/24 23:15 36.7 C 77 16 100 08/31/24 23:10 134/62 08/31/24 23:09 36.7 C 80 17 99 08/31/24 23:00 36.7 C 81 19 99 08/31/24 22:41 130/45 L 08/31/24 22:36 36.7 C 77 14 100 08/31/24 22:30 36.7 C 81 19 100 08/31/24 22:12 36.7 C 73 14 100 08/31/24 22:10 116/54 L 08/31/24 22:10 116/54 L 08/31/24 21:48 36.6 C 69 12 100 08/31/24 21:40 139/66 08/31/24 21:40 139/66 08/31/24 21:33 36.7 C 69 16 100 08/31/24 21:10 115/57 L 08/31/24 21:10 115/57 L 08/31/24 21:03 36.7 C 71 16 100
--- NOTE | 2024-09-01 10:39 | Nephrology Progress Note ---
Date of Service September 01, 2024 Assessment & Plan Admission and Anticipated Discharge Date Admission Date: August 23, 2024 Subjective Assessment & Plan (1) Acute renal failure: Plan: Patient with acute kidney injury likely due to contrast-induced nephropathy. Patient initially had acute kidney injury likely ATN in setting of sepsis but had improved back to normal. Creatinine started rising after contrast administration 08/28. CT showed no hydronephrosis. She has non obstructive kidney stone. Creatinine remained slightly higher today. She has hypocalcemia but corrected Ca++ is only slightly low) and hyperphosphatemia. getting Iv calcium currently. She has signs of volume overload. -Support hemodynamics to maintain MAP above 65. -Avoid further contrast. Creat dropped from yesterday and big Increase in urine output. So good renal recovery overnight No need of dialysis. Will continue to monitor input output Daily BMP (2) Peritonitis due to abscess: Plan: She is s/p colectomy with primary anastomosis. Currently on vancomycin and meropenem renally dosed. Monitor vanco level and avoid levels above 25 which can potentially worsen renal function. Subjective No pressors and off the vent. Making urine 1200 ml yesterday. Labs better. Did get PRBC yesterday and now ON TPN Review of Systems Review of Systems: Unable to obtain Physical Exam Physical Exam: General exam: Appears comfortable and sleeping HEENT: Pupils are equal and reactive to light Neck: No JVD, neck is supple trachea is midline Respiratory system: Clear breath sounds bilaterally. Gastrointestinal: Abdomen is soft, non distended, non tender, bowel sounds are present CVS: Regular rate and rhythm. No murmurs, rubs or gallops Musculoskeletal: No joint or muscle tenderness Extremities: Non tender, 1+ thigh edema, Results & Data Vital Signs (Past 12 Hours) Vital Signs Temp Pulse Resp BP Pulse Ox O2 Del Method O2 Flow Rate 09/01/24 10:11 36.4 C L 69 16 113/49 L 97 Room Air 09/01/24 08:35 60 136/60 09/01/24 08:20 36.3 C L 86 16 145/65 H 95 Room Air 09/01/24 08:20 74 145/65 H 09/01/24 08:10 36.3 C L 63 18 123/53 L 98 Room Air 09/01/24 07:10 36.3 C L 67 16 148/57 H 100 Nasal Cannula 2 09/01/24 07:00 Nasal Cannula 2 09/01/24 06:41 130/48 L 09/01/24 06:41 130/48 L 09/01/24 06:41 130/48 L 09/01/24 06:39 36.3 C L 66 18 100 09/01/24 06:30 36.4 C L 64 19 100 09/01/24 06:10 134/65 09/01/24 06:03 36.4 C L 68 16 09/01/24 05:48 36.5 C 71 19 09/01/24 05:40 130/60 09/01/24 05:40 130/60 09/01/24 05:30 36.5 C 68 18 100 09/01/24 05:12 36.5 C 69 21 09/01/24 05:10 134/51 L 09/01/24 05:10 134/51 L 09/01/24 05:09 36.5 C 72 19 100 09/01/24 05:06 36.5 C 65 19 09/01/24 04:42 36.5 C 64 17 09/01/24 04:40 134/56 L 09/01/24 04:40 134/56 L 09/01/24 04:40 134/56 L 09/01/24 04:24 36.6 C 65 18 09/01/24 04:15 36.6 C 72 18 09/01/24 04:10 127/55 L 09/01/24 04:10 127/55 L 09/01/24 04:10 127/55 L 09/01/24 03:41 121/63 09/01/24 03:39 36.5 C 69 18 09/01/24 03:38 69 152/66 H 09/01/24 03:27 36.5 C 63 17 100 09/01/24 03:10 152/66 H 09/01/24 03:09 36.5 C 86 17 99 09/01/24 02:50 80 156/66 H 09/01/24 02:40 134/59 L 09/01/24 02:40 134/59 L 09/01/24 02:39 36.6 C 71 13 09/01/24 02:36 36.6 C 71 13 09/01/24 02:10 125/58 L 09/01/24 02:10 125/58 L 09/01/24 02:10 125/58 L 09/01/24 02:10 125/58 L 09/01/24 02:09 36.6 C 65 13 09/01/24 02:03 36.6 C 67 12 09/01/24 01:40 134/57 L 09/01/24 01:40 134/57 L 09/01/24 01:36 36.6 C 71 13 09/01/24 01:30 36.6 C 67 13 09/01/24 01:10 128/57 L 09/01/24 01:10 128/57 L 09/01/24 01:09 36.6 C 70 15 09/01/24 00:40 126/57 L 09/01/24 00:39 36.6 C 84 16 100 09/01/24 00:05 77 09/01/24 00:03 36.6 C 84 18 99 08/31/24 23:42 36.7 C 78 19 99 08/31/24 23:40 124/53 L 08/31/24 23:40 124/53 L 08/31/24 23:33 88 134/62 08/31/24 23:24 88 23 94 08/31/24 23:15 36.7 C 77 16 100 08/31/24 23:10 134/62 08/31/24 23:09 36.7 C 80 17 99 08/31/24 23:00 36.7 C 81 19 99 08/31/24 22:41 130/45 L
--- NOTE | 2024-09-01 10:54 | Hospitalist Progress Note ---
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 Presents critically ill with acute renal failure, multiple electrolyte abnormalities and evidence of severe sepsis with organ dysfunction as evidenced by renal failure, postsurgical ileus, and new onset atrial fibrillation. Sepsis Proteus bacteremia Intra abdominal abscesses Postsurgical ileus Recent laparoscopic appendicectomy of large mucocele of appendix by Dr. Pacheco on 08/19/2024 -CT ABD 08/25/24 :Absent appendix consistent with appendectomy history with increased fluid and gas throughout the abdomen and pelvis more than expected particularly at the level of the surgical bed. Dehiscence is not excluded. No discrete encapsulated drainable fluid collection although early abscess cannot be excluded. Prominent fluid distended proximal small bowel and to some extent distal small bowel fecal type densities which can be seen in slow small bowel transit. Mild ileus is not excluded. - CT abdomen with oral contrast: Pneumoperitoneum with right retroperitoneal gas mildly decreased. Cannot rule out anastomotic leak with abscess. Contrast has not reached the distal small bowel. Findings suggestive of ileus. Blood culture grew Proteus vulgaris on preliminary cultures CT Abd/Pelvis with IV contrast on 08/28/24 showed increased pneumoperitoneum and right retroperitoneal gas, multifocal abscesses IV antibiotics broadened to Vanc and meropenem S/p IR placement of drain on 08/28/24 Persistent leukocytosis IR drain culture from 08/28/24 grew E coli S/p Exploratory laparotomy which showed small bowel perforation with abscess on 08/30/24 Antibiotics deescalated to IV ceftriaxone and metronidazole Will need 3-4 weeks of antibiotics per ID Started on TPN on 08/31/24 Acute on chronic anemia Likely due to sepsis and possible blood loss Got 2 PRBC on 08/31/24 Hb is stable at 8.4 today Monitor Atrial fibrillation-new onset In the setting of sepsis Spontaneously converted to sinus -ECHO: EF 55 to 60%. Mild concentric LVH. Left atrium mildly dilated. Mild tricuspid regurgitation. No significant pulmonary hypertension. Cardiology eval noted. No anticoagulation recommended Continue tele monitor IV lopressor 5mg q6h for now. Plan to switch to po metoprolol succinate when able to take po May need ZIO monitor as outpatient Acute kidney injury JANET had initially resolved but developed again yesterday with worsening clinical status Creatinine 3.9>>2.26>>0.94>1.51>>1.87>1.61 Likely from sepsis + contrast Improved urine output since yesterday Cr is improving. Patient currently volume overloaded. Will monitor output and renal function. Avoid contrast and nephrotoxins as much as possible Nephrology on board Hyponatremia Hypokalemia - resolved K is 4.1 today. Mild troponin elevation Likely demand ischemia secondary to sepsis, A-fib RVR Denies any chest pain, dyspnea DVT Px: Heparin SQ on hold for now in view of recent procedure and anemia Code Status Full Code I spent a total of 50 minutes coordinating, documenting and providing care for this patient excluding time spent in performance of separately billed services Admission and Anticipated Discharge Date Admission Date: August 23, 2024 Subjective Patient seen and examined Sitting in chair Reports abd pain is well controlled Improving Got 2 PRBC yesterday Physical Exam Constitutional: + well hydrated; no acute distress Eyes: PERRL, conjunctivae normal, anicteric sclerae ENMT: external ear and nose normal, oropharynx normal NGT in situ Respiratory: normal respiratory effort, lungs clear to auscultation Cardiovascular: Rate/Rhythm: regular rate and regular rhythm Gastrointestinal (Abdomen): Soft, clean dressing over surgical site, reduced bowel sounds, Drain in place Musculoskeletal: +pedal edema Neurologic: PERRL, EOMI, accommodation nl, no face palsy, no dysarthria Psychiatric: A+Ox3, euthymic affect Genitourinary: Leon in situ Results & Data Results & Data Vital Signs (Past 12 Hours) Vital Signs Temp Pulse Resp BP Pulse Ox O2 Del Method O2 Flow Rate 09/01/24 10:41 67 18 128/64 98 Room Air 09/01/24 10:11 36.4 C L 69 16 113/49 L 97 Room Air 09/01/24 08:35 60 136/60 09/01/24 08:20 36.3 C L 86 16 145/65 H 95 Room Air 09/01/24 08:20 74 145/65 H 09/01/24 08:10 36.3 C L 63 18 123/53 L 98 Room Air 09/01/24 07:10 36.3 C L 67 16 148/57 H 100 Nasal Cannula 2 09/01/24 07:00 Nasal Cannula 2 09/01/24 06:41 130/48 L 09/01/24 06:41 130/48 L 09/01/24 06:41 130/48 L 09/01/24 06:39 36.3 C L 66 18 100 09/01/24 06:30 36.4 C L 64 19 100 09/01/24 06:10 134/65 09/01/24 06:03 36.4 C L 68 16 100 09/01/24 05:48 36.5 C 71 19 100 09/01/24 05:40 130/60 09/01/24 05:40 130/60 09/01/24 05:30 36.5 C 68 18 100 09/01/24 05:12 36.5 C 69 21 100 09/01/24 05:10 134/51 L 09/01/24 05:10 134/51 L 09/01/24 05:09 36.5 C 72 19 100 09/01/24 05:06 36.5 C 65 19 100 09/01/24 04:42 36.5 C 64 17 100 09/01/24 04:40 134/56 L 09/01/24 04:40 134/56 L 09/01/24 04:40 134/56 L 09/01/24 04:24 36.6 C 65 18 100 09/01/24 04:15 36.6 C 72 18 100 09/01/24 04:10 127/55 L 09/01/24 04:10 127/55 L 09/01/24 04:10 127/55 L 09/01/24 03:41 121/63 09/01/24 03:39 36.5 C 69 18 100 09/01/24 03:38 69 152/66 H 09/01/24 03:27 36.5 C 63 17 100 09/01/24 03:10 152/66 H 09/01/24 03:09 36.5 C 86 17 99 09/01/24 02:50 80 156/66 H 09/01/24 02:40 134/59 L 09/01/24 02:40 134/59 L 09/01/24 02:39 36.6 C 71 13 09/01/24 02:36 36.6 C 71 13 09/01/24 02:10 125/58 L 09/01/24 02:10 125/58 L 09/01/24 02:10 125/58 L 09/01/24 02:10 125/58 L 09/01/24 02:09 36.6 C 65 13 09/01/24 02:03 36.6 C 67 12 09/01/24 01:40 134/57 L 09/01/24 01:40 134/57 L 09/01/24 01:36 36.6 C 71 13 09/01/24 01:30 36.6 C 67 13 09/01/24 01:10 128/57 L 09/01/24 01:10 128/57 L 09/01/24 01:09 36.6 C 70 15 09/01/24 00:40 126/57 L 09/01/24 00:39 36.6 C 84 16 09/01/24 00:05 77 09/01/24 00:03 36.6 C 84 18 99 08/31/24 23:42 36.7 C 78 19 99 08/31/24 23:40 124/53 L 08/31/24 23:40 124/53 L 08/31/24 23:33 88 134/62 08/31/24 23:24 88 23 94 08/31/24 23:15 36.7 C 77 16 100 08/31/24 23:10 134/62 08/31/24 23:09 36.7 C 80 17 99 08/31/24 23:00 36.7 C 81 19 99 Laboratory Results Abnormal lab results 08/30/24 08/31/24 08/31/24 Range/Units 09:47 12:33 12:40 WBC (4.8-10.8) K/ul RBC (4.20-5.40) M/uL Hgb (12.0-16.0) g/dl Hct (37.0-47.0) % MCV (80.0-100.0) fL RDW Std Deviation (36.4-46.3) fL RDW Coeff of Albino (11.5-14.5) % BUN 55 H (6-23) mg/dl Creatinine 1.87 H (0.6-1.2) mg/dl BUN/Creatinine Ratio 29.4 H (10-20) Glucose 106 H (70-99(Fasting)) mg/dl POC Glucose (70-99) mg/dl POC Glucose (other) 104 H (70-99) mg/dl Calcium 6.4 L (8.6-10.3) mg/dl Phosphorus 6.1 H (2.5-4.9) mg/dl Magnesium (1.7-2.4) mg/dl AST (13-39) U/L Total Protein (6.0-8.3) gm/dl Albumin (3.4-5.0) gm/dl Albumin/Globulin Ratio (0.9-2) Triglycerides (0-150) mg/dl Crossmatch See Detail 08/31/24 08/31/24 08/31/24 Range/Units 14:05 18:25 20:48 WBC (4.8-10.8) K/ul RBC (4.20-5.40) M/uL Hgb 6.8 L* 9.2 L (12.0-16.0) g/dl Hct 20.2 L* 25.1 L (37.0-47.0) % MCV (80.0-100.0) fL RDW Std Deviation (36.4-46.3) fL RDW Coeff of Albino (11.5-14.5) % BUN (6-23) mg/dl Creatinine (0.6-1.2) mg/dl BUN/Creatinine Ratio (10-20) Glucose (70-99(Fasting)) mg/dl POC Glucose (70-99) mg/dl POC Glucose (other) 146 H (70-99) mg/dl Calcium (8.6-10.3) mg/dl Phosphorus (2.5-4.9) mg/dl Magnesium (1.7-2.4) mg/dl AST (13-39) U/L Total Protein (6.0-8.3) gm/dl Albumin (3.4-5.0) gm/dl Albumin/Globulin Ratio (0.9-2) Triglycerides (0-150) mg/dl Crossmatch 08/31/24 09/01/24 09/01/24 Range/Units 23:32 03:54 05:14 WBC 17.45 H (4.8-10.8) K/ul RBC 3.16 L (4.20-5.40) M/uL Hgb 8.5 L (12.0-16.0) g/dl Hct 25.2 L (37.0-47.0) % MCV 79.7 L (80.0-100.0) fL RDW Std Deviation 48.0 H (36.4-46.3) fL RDW Coeff of Albino 16.7 H (11.5-14.5) % BUN 56 H (6-23) mg/dl Creatinine 1.61 H (0.6-1.2) mg/dl BUN/Creatinine Ratio 34.8 H (10-20) Glucose 161 H (70-99(Fasting)) mg/dl POC Glucose 138 H 151 H (70-99) mg/dl POC Glucose (other) (70-99) mg/dl Calcium 7.0 L (8.6-10.3) mg/dl Phosphorus (2.5-4.9) mg/dl Magnesium 2.6 H (1.7-2.4) mg/dl AST 40 H (13-39) U/L Total Protein 4.6 L (6.0-8.3) gm/dl Albumin 2.1 L (3.4-5.0) gm/dl Albumin/Globulin Ratio 0.8 L (0.9-2) Triglycerides 264 H (0-150) mg/dl Crossmatch 09/01/24 Range/Units 08:46 WBC (4.8-10.8) K/ul RBC (4.20-5.40) M/uL Hgb 8.4 L (12.0-16.0) g/dl Hct (37.0-47.0) % MCV (80.0-100.0) fL RDW Std Deviation (36.4-46.3) fL RDW Coeff of Albino (11.5-14.5) % BUN (6-23) mg/dl Creatinine (0.6-1.2) mg/dl BUN/Creatinine Ratio (10-20) Glucose (70-99(Fasting)) mg/dl POC Glucose (70-99) mg/dl POC Glucose (other) (70-99) mg/dl Calcium (8.6-10.3) mg/dl Phosphorus (2.5-4.9) mg/dl Magnesium (1.7-2.4) mg/dl AST (13-39) U/L Total Protein (6.0-8.3) gm/dl Albumin (3.4-5.0) gm/dl Albumin/Globulin Ratio (0.9-2) Triglycerides (0-150) mg/dl Crossmatch
[2024-09-01] MEDS: metroNIDAZOLE 500 MG/100 ML BAG IV SCH (11:43)
[2024-09-01] MEDS: cefTRIAXone SODIUM 2,000 MG/50 ML BAG IV SCH (11:43)
--- NOTE | 2024-09-01 11:54 | Electrocardiogram Report ---
Test Reason : Blood Pressure : */* mmHG Vent. Rate : 160 BPM Atrial Rate : * BPM P-R Int : * ms QRS Dur : 82 ms QT Int : 272 ms P-R-T Axes : * 51 258 degrees QTcB Int : 443 ms Atrial fibrillation with rapid ventricular response Nonspecific ST and T wave abnormality Abnormal ECG When compared with ECG of 28-Aug-2024 21:39, (unconfirmed) T wave inversion now evident in Lateral leads Confirmed by Zachery Robertson ([id number] on 09/01/2024 11:54:26 AM Referred By: REFERRED SELF Confirmed By: Zachery Robertson
--- NOTE | 2024-09-01 12:00 | Electrocardiogram Report ---
Test Reason : Blood Pressure : */* mmHG Vent. Rate : 47 BPM Atrial Rate : 47 BPM P-R Int : 118 ms QRS Dur : 86 ms QT Int : 466 ms P-R-T Axes : 67 43 44 degrees QTcB Int : 412 ms Sinus bradycardia with Premature atrial complexes When compared with ECG of 31-Aug-2024 12:03, (unconfirmed) Sinus rhythm has replaced Atrial fibrillation Vent. rate has decreased by [address] no longer depressed in Anterolateral leads Nonspecific T wave abnormality, improved in Inferior leads T wave inversion no longer evident in Lateral leads Confirmed by Zachery Robertson ([id number] on 09/01/2024 11:59:48 AM Referred By: REFERRED SELF Confirmed By: Zachery Robertson
--- NOTE | 2024-09-01 12:13 | Electrocardiogram Report ---
Test Reason : Blood Pressure : */* mmHG Vent. Rate : 125 BPM Atrial Rate : * BPM P-R Int : * ms QRS Dur : 86 ms QT Int : 312 ms P-R-T Axes : * 75 -6 degrees QTcB Int : 450 ms Atrial fibrillation with rapid ventricular response Nonspecific ST abnormality Abnormal ECG When compared with ECG of 23-Aug-2024 10:37, Nonspecific T wave abnormality has replaced inverted T waves in Inferior leads Confirmed by Zachery Robertson ([id number] on 09/01/2024 12:12:42 PM Referred By: REFERRED SELF Confirmed By: Zachery Robertson
[2024-09-01] MEDS: CENTRAL TPN IV SCH (16:01)
[2024-09-01] MEDS: [UNRECOGNIZED DRUG - OTHER] IV SCH (16:01)
[2024-09-02 06:09] LABS: Hematocrit (blood only) 26.5 % (37.0-47.0); Hemoglobin 8.9 g/dl (12.0-16.0); Mean Corpuscular Hemoglobin 27.0 pg (25.0-34.0); Mean Corpuscular Volume 80.3 fL (80.0-100.0); Platelet Count 354 K/uL (130-400); RDW Standard Deviation 49.7 fL (36.4-46.3); Red Blood Count 3.30 M/uL (4.20-5.40); White Blood Count 14.05 K/ul (4.8-10.8)
[2024-09-02 06:34] LABS: Alanine Aminotransferase 22.0 U/L (7-52); Albumin Globulin Ratio 0.8 (0.9-2); Alkaline Phosphatase 72.0 U/L (34-104); Anion Gap 7.0 (3-11); Bilirubin,Total 0.5 mg/dl (0.2-1.0); Blood Urea Nitrogen 55.0 mg/dl (6-23); Calcium 7.5 mg/dl (8.6-10.3); Carbon Dioxide 25.0 mmol/L (21-32); Chloride 109.0 mmol/L (98-107); Creatinine Clr Calc Pharmacy 60.1 ml/min; Globulin 2.8 gm/dl (2.5-4.0); Glucose 148.0 mg/dl (70-99(Fasting)); Magnesium 2.3 mg/dl (1.7-2.4); Potassium 3.9 mmol/L (3.5-5.1); Sodium 141.0 mmol/L (136-145); Total Protein 4.9 gm/dl (6.0-8.3)
--- NOTE | 2024-09-02 09:40 | Nephrology Progress Note ---
Date of Service September 02, 2024 Assessment & Plan Admission and Anticipated Discharge Date Admission Date: August 23, 2024 Subjective Assessment & Plan (1) Acute renal failure: Plan: Patient with acute kidney injury likely due to contrast-induced nephropathy. Patient initially had acute kidney injury likely ATN in setting of sepsis but had improved back to normal. Creatinine started rising after contrast administration 08/28. CT showed no hydronephrosis. She has non obstructive kidney stone. Creatinine remained slightly higher today. She had hypocalcemia but corrected Ca++ is now normal. with renal recovery should be better anyway. No need of further iv calcium She has signs of volume overload but with increasing urine and renal recovery she should diurese enough. -Avoid further contrast. Creat dropped from yesterday and big Increase in urine output. So good renal recovery overnight Will continue to monitor input output Daily BMP. creat back to normal. will sign off. Call if any issues (2) Peritonitis due to abscess: Plan: She is s/p colectomy with primary anastomosis. Currently on vancomycin and meropenem renally dosed. Monitor vanco level and avoid levels above 25 which can potentially worsen renal function. Subjective Even better now. Off ICU. Made urine 1800 ml yesterday. Labs better. now ON TPN Review of Systems Review of Systems: Unable to obtain Physical Exam Physical Exam: General exam: Appears comfortable and sleeping HEENT: Pupils are equal and reactive to light Neck: No JVD, neck is supple trachea is midline Respiratory system: Clear breath sounds bilaterally. Gastrointestinal: Abdomen is soft, non distended, non tender, bowel sounds are present CVS: Regular rate and rhythm. No murmurs, rubs or gallops Musculoskeletal: No joint or muscle tenderness Extremities: Non tender, 1+ thigh edema, Results & Data Vital Signs (Past 12 Hours) Vital Signs Temp Pulse Pulse Pulse Resp BP BP 09/02/24 09:13 84 114/79 09/02/24 08:22 09/02/24 07:51 36.8 C 16 114/79 09/02/24 03:37 36.7 C 84 18 114/73 09/02/24 03:07 83 114/73 09/02/24 03:06 83 114/73 09/02/24 02:39 97 H 134/79 09/02/24 02:30 97 H 18 134/79 09/01/24 22:46 36.7 C 88 18 139/75 Pulse Ox O2 Del Method 09/02/24 09:13 09/02/24 08:22 Room Air 09/02/24 07:51 94 Room Air 09/02/24 03:37 90 Room Air 09/02/24 03:07 09/02/24 03:06 09/02/24 02:39 09/02/24 02:30 96 Room Air 09/01/24 22:46 93 Room Air
--- NOTE | 2024-09-02 09:57 | Hospitalist Progress Note ---
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 She presented critically ill with acute renal failure, multiple electrolyte abnormalities and evidence of severe sepsis with organ dysfunction as evidenced by renal failure, postsurgical ileus, and new onset atrial fibrillation. Currently s/p IR pelvic drain placement for abscesses on 08/28/24 and extended right colectomy with drainage of abscess by general surgeon Dr. Pacheco on 08/30/24. She is currently being treated as follows: Sepsis Proteus bacteremia Intra abdominal/pelvic abscesses Postsurgical ileus Cholelithiasis w/o evidence of cholecystitis Recent laparoscopic appendicectomy of large mucocele of appendix by Dr. Pacheco on 08/19/2024 CT abdomen/pelvis from 08/25/24 noting "Absent appendix consistent with appendectomy history with increased fluid and gas throughout the abdomen and pelvis more than expected particularly at the level of the surgical bed. Dehiscence is not excluded. No discrete encapsulated drainable fluid collection although early abscess cannot be excluded. Prominent fluid distended proximal small bowel and to some extent distal small bowel fecal type densities which can be seen in slow small bowel transit. Mild ileus is not excluded... CT abdomen with oral contrast: Pneumoperitoneum with right retroperitoneal gas mildly decreased. Cannot rule out anastomotic leak with abscess. Contrast has not reached the distal small bowel. Findings suggestive of ileus. Blood cultures from admission grew Proteus vulgaris, repeat blood cultures negative CT Abd/Pelvis with IV contrast on 08/28/24 showed increased pneumoperitoneum and right retroperitoneal gas, multifocal abscesses IV antibiotics broadened to Vancomycin and meropenem at that time S/p IR placement of drain on 08/28/24 Persistent leukocytosis IR drain culture from 08/28/24 grew E coli, bacteroides vulgatus and Clostridium innocuum c diff gene +, toxin negative S/p Exploratory laparotomy which showed small bowel perforation with abscess on 08/30/24, s/p extended right colectomy with drainage of abscess by general surgeon Dr. Pacheco on 08/30/24 Infectious Disease was consulted, appreciate recs -Antibiotics deescalated to IV ceftriaxone and metronidazole -Plan for a total antibiotic course of 3-4 weeks. -Repeat imaging to reassess abscess size and response to treatment. NG tube still in place, started on TPN on 08/31/24 Required ICU stay postop on 08/30, downgraded on 09/01 PT/OT Improving Esophagitis Noted on CT imaging Continue IV ppi Prediabetes hgba1c of 6.3 Noted hyperglycemia, on TPN currently Continue to monitor at this time Acute on chronic anemia Likely due to sepsis and possible blood loss Got 2UPRBC on 08/31/24 AM anemia panel Hb stable >8 Monitor Atrial fibrillation-new onset In the setting of sepsis Spontaneously converted to sinus ECHO: EF 55 to 60%. Mild concentric LVH. Left atrium mildly dilated. Mild tricuspid regurgitation. No significant pulmonary hypertension. Cardiology eval noted. No anticoagulation recommended Continue tele monitor IV lopressor 5mg q6h for now. Plan to switch to po metoprolol succinate when able to take po May need ZIO monitor as outpatient Acute kidney injury JANET had initially resolved but developed again Creatinine 3.9>>2.26>>0.94>1.51>>1.87>1.61, currently normal Likely from sepsis + contrast Improved urine output Avoid contrast and nephrotoxins as much as possible Nephrology on board, appreciate recs Currently resolved. Hyponatremia Hypokalemia - resolved K is 4.1 today. Mild troponin elevation Likely demand ischemia secondary to sepsis, A-fib RVR Denies any chest pain, dyspnea Diet:NPO at this time, on TPN DVT Px: Heparin SQ on hold for now in view of recent procedure and anemia Code Status :Full Code Dispo: Per PT/OT recs Admission and Anticipated Discharge Date Admission Date: August 23, 2024 Subjective Pt was seen in the AM Still lots of pain and requesting pain meds Also jokingly asking for a hot fudge NG tube still in place at time of exam Denies chest pain, SOB, palps Review of Systems Review of Systems: All systems reviewed & are unremarkable except as noted in Subjective Physical Exam Physical Exam: General: Alert, oriented. No acute distress HEENT: NC/AT, NG tube in place CV: RRR Resp: no increased effort of breathing Abdomen:Soft, ++++ tender, bandage in place Extremities: trace edema in lower extremities bilaterally. Results & Data Results & Data Vital Signs (Past 12 Hours) Vital Signs Temp Pulse Pulse Pulse Resp BP BP 09/02/24 09:13 84 114/79 09/02/24 08:22 09/02/24 07:51 36.8 C 16 114/79 09/02/24 03:37 36.7 C 84 18 114/73 09/02/24 03:07 83 114/73 09/02/24 03:06 83 114/73 09/02/24 02:39 97 H 134/79 09/02/24 02:30 97 H 18 134/79 09/01/24 22:46 36.7 C 88 18 139/75 Pulse Ox O2 Del Method 09/02/24 09:13 09/02/24 08:22 Room Air 09/02/24 07:51 94 Room Air 09/02/24 03:37 90 Room Air 09/02/24 03:07 09/02/24 03:06 09/02/24 02:39 09/02/24 02:30 96 Room Air 09/01/24 22:46 93 Room Air
--- NOTE | 2024-09-02 12:23 | Surgery Progress Note ---
Date of Service September 02, 2024 Assessment & Plan (1) Intra-abdominal abscess: Plan: con't NG singh out maybe tomorrow OOB con't IV abx await bowel function Admission and Anticipated Discharge Date Admission Date: August 23, 2024 Subjective feels a little better pain controilled weak no flatus Review of Systems Constitutional: no fever and no chills Respiratory: + dyspnea; no cough Cardiovascular: no chest pain Gastrointestinal: + abdominal pain and + change in bowel h abits; no nausea and no vomiting Neurologic: + generalized weakness Psychiatric: no behavioral changes Physical Exam Constitutional: WD/WN, vitals as above Gastrointestinal (Abdomen): Inspection/Auscultation: abdomen normal to inspection, + abdomen distended and normal bowel sounds (few) P ercussion/Palpation: + abdomen tender and abdomen soft Musculoskeletal: Head/Neck/Chest: normocephalic and head atraumatic Results & Data Vital Signs (Past 12 Hours) Vital Signs Temp Pulse Pulse Pulse Resp BP BP 09/02/24 10:03 92 H 09/02/24 09:13 84 114/79 09/02/24 08:22 09/02/24 08:00 91 H 09/02/24 07:51 36.8 C 16 114/79 09/02/24 03:37 36.7 C 84 18 114/73 09/02/24 03:07 83 114/73 09/02/24 03:06 83 114/73 09/02/24 02:39 97 H 134/79 09/02/24 02:30 97 H 18 134/79 Pulse Ox O2 Del Method 09/02/24 10:03 09/02/24 09:13 09/02/24 08:22 Room Air 09/02/24 08:00 09/02/24 07:51 94 Room Air 09/02/24 03:37 90 Room Air 09/02/24 03:07 09/02/24 03:06 09/02/24 02:39 09/02/24 02:30 96 Room Air
[2024-09-02] MEDS: ACETAMINOPHEN 1,000 MG/100 ML VIAL IV SCH (13:32)
[2024-09-02] MEDS: CLINOLIPID 20% IV FAT EMULSION 250 ML IV SCH (16:06)
[2024-09-02] MEDS: AA 8%/D14W 1L 1,075 ML in Central TPN bag 0 ML IV SCH (16:06)
[2024-09-02] MEDS: STOP CLINOLIPID SCH (22:06)
[2024-09-03 06:33] LABS: Hematocrit (blood only) 24.1 % (37.0-47.0); Hemoglobin 7.9 g/dl (12.0-16.0); Mean Corpuscular Hemoglobin 27.3 pg (25.0-34.0); Mean Corpuscular Volume 83.4 fL (80.0-100.0); Platelet Count 381 K/uL (130-400); RDW Standard Deviation 53.3 fL (36.4-46.3); Red Blood Count 2.89 M/uL (4.20-5.40); White Blood Count 14.39 K/ul (4.8-10.8)
[2024-09-03 07:13] LABS: Ferritin 205.1 ng/ml (8-388)
[2024-09-03 07:21] LABS: Folate (Folic Acid),Ser orPlas 8.56 ng/ml (>5.38)
[2024-09-03 07:22] LABS: Vitamin B12 > 1500 pg/ml (180-914)
[2024-09-03 07:32] LABS: Dohle Bodies 1+; Immature Granulocytes # (auto) 0.15 K/uL (0.01-0.20); Immature Granulocytes % (auto) 1.0 %; Polychromasia 1+; Toxic Granulation 1+
[2024-09-03 07:38] LABS: Iron < 10 mcg/dl (35-150); Total Iron Binding Cap Calc 186 mcg/dl (250-450); Transferrin 133 mg/dl (200-360)
[2024-09-03 07:57] LABS: Anion Gap 5 (3-11); Blood Urea Nitrogen 48 mg/dl (6-23); Calcium 7.6 mg/dl (8.6-10.3); Carbon Dioxide 26 mmol/L (21-32); Chloride 112 mmol/L (98-107); Creatinine Clr Calc Pharmacy 78.2 ml/min; Glucose 145 mg/dl (70-99(Fasting)); Potassium 3.9 mmol/L (3.5-5.1); Sodium 143 mmol/L (136-145)
[2024-09-03 08:02] LABS: Alanine Aminotransferase 21 U/L (7-52); Albumin Globulin Ratio 0.7 (0.9-2); Alkaline Phosphatase 79 U/L (34-104); Bilirubin,Total 0.5 mg/dl (0.2-1.0); Globulin 2.8 gm/dl (2.5-4.0); Total Protein 4.8 gm/dl (6.0-8.3)
[2024-09-03 08:20] LABS: Magnesium 2.0 mg/dl (1.7-2.4)
--- NOTE | 2024-09-03 10:20 | Hospitalist Progress Note ---
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 She presented critically ill with acute renal failure, multiple electrolyte abnormalities and evidence of severe sepsis with organ dysfunction as evidenced by renal failure, postsurgical ileus, and new onset atrial fibrillation. Currently s/p IR pelvic drain placement for abscesses on 08/28/24 and extended right colectomy with drainage of abscess by general surgeon Dr. Pacheco on 08/30/24. She is currently being treated as follows: Sepsis Proteus bacteremia Intra abdominal/pelvic abscesses Postsurgical ileus Cholelithiasis w/o evidence of cholecystitis Recent laparoscopic appendicectomy of large mucocele of appendix by Dr. Pacheco on 08/19/2024 CT abdomen/pelvis from 08/25/24 noting "Absent appendix consistent with appendectomy history with increased fluid and gas throughout the abdomen and pelvis more than expected particularly at the level of the surgical bed. Dehiscence is not excluded. No discrete encapsulated drainable fluid collection although early abscess cannot be excluded. Prominent fluid distended proximal small bowel and to some extent distal small bowel fecal type densities which can be seen in slow small bowel transit. Mild ileus is not excluded... CT abdomen with oral contrast: Pneumoperitoneum with right retroperitoneal gas mildly decreased. Cannot rule out anastomotic leak with abscess. Contrast has not reached the distal small bowel. Findings suggestive of ileus. Blood cultures from admission grew Proteus vulgaris, repeat blood cultures negative CT Abd/Pelvis with IV contrast on 08/28/24 showed increased pneumoperitoneum and right retroperitoneal gas, multifocal abscesses IV antibiotics broadened to Vancomycin and meropenem at that time S/p IR placement of drain on 08/28/24 Persistent leukocytosis IR drain culture from 08/28/24 grew E coli, bacteroides vulgatus and Clostridium innocuum c diff gene +, toxin negative S/p Exploratory laparotomy which showed small bowel perforation with abscess on 08/30/24, s/p extended right colectomy with drainage of abscess by general surgeon Dr. Pacheco on 08/30/24 Infectious Disease was consulted, appreciate recs -Antibiotics deescalated to IV ceftriaxone and metronidazole -Plan for a total antibiotic course of 3-4 weeks. -Repeat imaging to reassess abscess size and response to treatment. NG tube still in place, started on TPN on 08/31/24 Required ICU stay postop on 08/30, downgraded on 09/01 PT/OT Improving Esophagitis Noted on CT imaging Continue IV ppi Prediabetes hgba1c of 6.3 Noted hyperglycemia, on TPN currently Continue to monitor at this time Acute on chronic anemia Iron Deficiency Anemia Likely due to sepsis, blood loss and iron deficiency Got 2UPRBC on 08/31/24 Anemia panel showed low iron levels- Current recommendations advise against use of IV Venofer in the setting of severe infection, will need po supplementation once able to tolerate po Hb stable Monitor Atrial fibrillation-new onset In the setting of sepsis Spontaneously converted to sinus ECHO: EF 55 to 60%. Mild concentric LVH. Left atrium mildly dilated. Mild tricuspid regurgitation. No significant pulmonary hypertension. Cardiology eval noted. No anticoagulation recommended Continue tele monitor IV lopressor 5mg q6h for now. Plan to switch to po metoprolol succinate when able to take po May need ZIO monitor as outpatient Acute kidney injury JANET had initially resolved but developed again Creatinine 3.9>>2.26>>0.94>1.51>>1.87>1.61, currently normal Likely from sepsis + contrast Improved urine output Avoid contrast and nephrotoxins as much as possible Nephrology on board, appreciate recs Currently resolved. Hyponatremia Hypokalemia - resolved K is 4.1 today. Mild troponin elevation Likely demand ischemia secondary to sepsis, A-fib RVR Denies any chest pain, dyspnea Diet:NPO at this time, on TPN DVT Px: Heparin SQ on hold for now in view of recent procedure and anemia Code Status :Full Code Dispo: Per PT/OT recs Admission and Anticipated Discharge Date Admission Date: August 23, 2024 Subjective Pt was seen in the AM States she is still in lots of pain Denies return of bowel function, still not passing gas Attempt made to contact pt's via telephone, not successful Review of Systems Review of Systems: All systems reviewed & are unremarkable except as noted in Subjective Physical Exam Physical Exam: General: Alert, oriented. No acute distress HEENT: NC/AT, NG tube in place CV: RRR Resp: no increased effort of breathing Abdomen:Soft, tender, bandage in place Extremities: trace edema in lower extremities bilaterally. Results & Data Results & Data Vital Signs (Past 12 Hours) Vital Signs Temp Pulse Pulse Resp BP BP BP 09/03/24 09:50 72 09/03/24 08:59 82 09/03/24 08:25 92 H 156/80 H 09/03/24 07:36 36.9 C 92 H 18 156/80 H 09/03/24 04:11 80 132/75 09/03/24 03:56 87 154/80 H 09/03/24 03:54 36.5 C 88 21 154/80 H 09/03/24 02:38 36.8 C 89 20 174/77 H 09/02/24 22:55 36.6 C 80 20 134/77 Pulse Ox O2 Del Method 09/03/24 09:50 09/03/24 08:59 09/03/24 08:25 09/03/24 07:36 95 Room Air 09/03/24 04:11 09/03/24 03:56 09/03/24 03:54 93 Room Air 09/03/24 02:38 92 Room Air 09/02/24 22:55 93 Room Air
[2024-09-03] MEDS: IRON SUCROSE 200 MG in SODIUM CHLORIDE 0.9% 100 ML IV ONE (11:22)
--- NOTE | 2024-09-03 12:08 | Surgery Progress Note ---
Date of Service September 03, 2024 Assessment & Plan (1) Intra-abdominal abscess: Plan: hopefully NG out in AM con't abx TPN singh out per medicine Admission and Anticipated Discharge Date Admission Date: August 23, 2024 Subjective no flatus yet pain controlled NG decreasing HAYDEE serous Review of Systems Constitutional: no fever and no chills Gastrointestinal: + abdominal pain and + change in bowel h abits; no nausea and no vomiting Neurologic: + generalized weakness Psychiatric: no behavioral changes Physical Exam Gastrointestinal (Abdomen): Inspection/Auscultation: normal bowel sounds; abdomen not distended Percussion/Palpation: + abdomen tender and abdomen soft wound clean and dry Results & Data Vital Signs (Past 12 Hours) Vital Signs Temp Pulse Pulse Resp BP BP BP 09/03/24 11:07 36.9 C 96 H 18 149/80 H 09/03/24 09:50 72 09/03/24 08:59 82 09/03/24 08:25 92 H 156/80 H 09/03/24 07:36 36.9 C 92 H 18 156/80 H 09/03/24 04:11 80 132/75 09/03/24 03:56 87 154/80 H 09/03/24 03:54 36.5 C 88 21 154/80 H 09/03/24 02:38 36.8 C 89 20 174/77 H Pulse Ox O2 Del Method 09/03/24 11:07 93 Room Air 09/03/24 09:50 09/03/24 08:59 09/03/24 08:25 09/03/24 07:36 95 Room Air 09/03/24 04:11 09/03/24 03:56 09/03/24 03:54 93 Room Air 09/03/24 02:38 92 Room Air
[2024-09-03 13:10] LABS: Hematocrit (blood only) 26.1 % (37.0-47.0); Hemoglobin 8.4 g/dl (12.0-16.0)
--- NOTE | 2024-09-03 13:53 | Pharmacy Report ---
Pharmacy PN Follow-up Note - Date of Service September 03, 2024 - Subjective Patient is currently on day #4 of TPN for Indication bowel perforation, NPO > 7 days. - Objective Height & Weight (Last Documented) Height 5 ft 4 in Weight 95.1 kg Diet Order(s) 08/30/24 00:01 NPO Intake & Ouput (24hrs) 09/02/24 09/03/24 09/04/24 06:59 06:59 06:59 Intake Total 1220 / 1220 1876.667 / 1876.667 250 / 250 Output Total 2190 / 2190 2175 / 2175 Balance -970 / -970 -298.333 / -298.333 250 / 250 Selected Laboratory Results 09/03/24 06:04 Sodium 143 Potassium 3.9 Chloride 112 H Carbon Dioxide 26 Anion Gap 5 BUN 48 H Creatinine 0.77 BUN/Creatinine Ratio 62.3 H Glucose 145 H Calcium 7.6 L Phosphorus 2.9 Magnesium 2.0 Total Bilirubin 0.5 AST 27 ALT 21 Alkaline Phosphatase 79 - Assessment & Plan Assessment: * Macronutrients at goal since Day 2, lipids MWF * Output through surgical drains and GI suction noted * Noting some episodes of hyperglycemia, could initiate NovoLog with a correction factor of 50 if consistently above goal. Would avoid adding insulin to TPN due to risk of hypoglycemia and having to waste whole TPN bag. * JANET continues to improve * Noted hyperchloremia, minimizing chloride in TPN * Increase electrolyte concentrations since JANET improving, increase Sodium content to appro 1/4NS. * Phosphate normalized, added phosphate at lower end of recommendations * Calcium low on labs, but corrected for albumin WNL, ionized calcium confirming Plan: * For Day #4 of TPN administration, the following will be ordered: * Macronutrients: * Amino Acids: 85 grams/day * Dextrose: 140 grams/day * Lipids: 50 grams/MWF * Micronutrients: * Sodium acetate: 40 mEq/day * Potassium phosphate: 15 mMol/day * Potassium acetate: 40 mEq/day * Magnesium sulfate: 4.06 mEq/day * Calcium gluconate: 9.3 mEq/day * Multivitamins: 10 mL/day * Trace elements: 1 mL/day * Thiamine: 100 mg/day * Total volume of 1078 mL will be infused over 24 hours and will provide 796 kcal/day * Labs will be ordered per PN protocol. * Pharmacy will follow and adjust PN orders on a daily basis. Thank you!
[2024-09-03] MEDS: AA 8%/D14W 1L 1,078 ML in Central TPN bag 0 ML IV SCH (15:37)
[2024-09-04 06:11] LABS: Hematocrit (blood only) 24.9 % (37.0-47.0); Hemoglobin 8.0 g/dl (12.0-16.0); Mean Corpuscular Hemoglobin 27.0 pg (25.0-34.0); Mean Corpuscular Volume 84.1 fL (80.0-100.0); Platelet Count 475 K/uL (130-400); RDW Standard Deviation 54.8 fL (36.4-46.3); Red Blood Count 2.96 M/uL (4.20-5.40); White Blood Count 12.67 K/ul (4.8-10.8)
[2024-09-04 06:33] LABS: Alanine Aminotransferase 19.0 U/L (7-52); Albumin Globulin Ratio 0.7 (0.9-2); Alkaline Phosphatase 76.0 U/L (34-104); Anion Gap 4.0 (3-11); Bilirubin,Total 0.5 mg/dl (0.2-1.0); Blood Urea Nitrogen 38.0 mg/dl (6-23); Calcium 8.1 mg/dl (8.6-10.3); Carbon Dioxide 28.0 mmol/L (21-32); Chloride 114.0 mmol/L (98-107); Creatinine Clr Calc Pharmacy 87.7 ml/min; Globulin 3.1 gm/dl (2.5-4.0); Glucose 156.0 mg/dl (70-99(Fasting)); Magnesium 1.8 mg/dl (1.7-2.4); Potassium 4.1 mmol/L (3.5-5.1); Sodium 146.0 mmol/L (136-145); Total Protein 5.2 gm/dl (6.0-8.3)
[2024-09-04 06:56] LABS: Immature Granulocytes # (auto) 0.12 K/uL (0.01-0.20); Immature Granulocytes % (auto) 0.9 %
--- NOTE | 2024-09-04 09:25 | Hospitalist Progress Note ---
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 She presented critically ill with acute renal failure, multiple electrolyte abnormalities and evidence of severe sepsis with organ dysfunction as evidenced by renal failure, postsurgical ileus, and new onset atrial fibrillation. Currently s/p IR pelvic drain placement for abscesses on 08/28/24 and extended right colectomy with drainage of abscess by general surgeon Dr. Pacheco on 08/30/24. She is currently being treated as follows: Sepsis Proteus bacteremia Intra abdominal/pelvic abscesses Postsurgical ileus Cholelithiasis w/o evidence of cholecystitis Recent laparoscopic appendicectomy of large mucocele of appendix by Dr. Pacheco on 08/19/2024 CT abdomen/pelvis from 08/25/24 noting "Absent appendix consistent with appendectomy history with increased fluid and gas throughout the abdomen and pelvis more than expected particularly at the level of the surgical bed. Dehiscence is not excluded. No discrete encapsulated drainable fluid collection although early abscess cannot be excluded. Prominent fluid distended proximal small bowel and to some extent distal small bowel fecal type densities which can be seen in slow small bowel transit. Mild ileus is not excluded... CT abdomen with oral contrast: Pneumoperitoneum with right retroperitoneal gas mildly decreased. Cannot rule out anastomotic leak with abscess. Contrast has not reached the distal small bowel. Findings suggestive of ileus. Blood cultures from admission grew Proteus vulgaris, repeat blood cultures negative CT Abd/Pelvis with IV contrast on 08/28/24 showed increased pneumoperitoneum and right retroperitoneal gas, multifocal abscesses IV antibiotics broadened to Vancomycin and meropenem at that time S/p IR placement of drain on 08/28/24 Persistent leukocytosis IR drain culture from 08/28/24 grew E coli, bacteroides vulgatus and Clostridium innocuum c diff gene +, toxin negative S/p Exploratory laparotomy which showed small bowel perforation with abscess on 08/30/24, s/p extended right colectomy with drainage of abscess by general surgeon Dr. Pacheco on 08/30/24 Infectious Disease was consulted, appreciate recs -Antibiotics deescalated to IV ceftriaxone and metronidazole -Plan for a total antibiotic course of 3-4 weeks. -Repeat imaging to reassess abscess size and response to treatment. NG tube still in place, started on TPN on 08/31/24 Required ICU stay postop on 08/30, downgraded on 09/01 PT/OT Pain control- General surgery started morphine vice president financial on 09/04 Improving Tachypnea RR increased on 09/04 CTA chest ordered Possibly in setting of pain, morphine vice president financial started Heprain SQ restarted for DVT prophylaxis Continue to monitor Edema Pt with extremity edema Recent JANET with recovered urinary output a few days ago Gentle diuresis with IV lasix Monitor kidney function Acute kidney injury JANET had initially resolved but developed again Creatinine 3.9>>2.26>>0.94>1.51>>1.87>1.61, currently normal Likely from sepsis + contrast Improved urine output Avoid contrast and nephrotoxins as much as possible Nephrology on board, appreciate recs Currently resolved. Esophagitis Noted on CT imaging Continue IV ppi Prediabetes hgba1c of 6.3 Noted hyperglycemia, on TPN currently Continue to monitor at this time Acute on chronic anemia Iron Deficiency Anemia Likely due to sepsis, blood loss and iron deficiency Got 2UPRBC on 08/31/24 Anemia panel showed low iron levels- Current recommendations advise against use of IV Venofer in the setting of severe infection, will need po supplementation once able to tolerate po Hb stable Monitor Atrial fibrillation-new onset In the setting of sepsis Spontaneously converted to sinus ECHO: EF 55 to 60%. Mild concentric LVH. Left atrium mildly dilated. Mild tricuspid regurgitation. No significant pulmonary hypertension. Cardiology eval noted. No anticoagulation recommended Continue tele monitor IV lopressor 5mg q6h for now. Plan to switch to po metoprolol succinate when able to take po May need ZIO monitor as outpatient Hyponatremia Hypokalemia - resolved K is 4.1 today. Mild troponin elevation Likely demand ischemia secondary to sepsis, A-fib RVR Denies any chest pain, dyspnea Diet:NPO at this time, on TPN DVT Px: Heparin SQ on hold for now in view of recent procedure and anemia Code Status :Full Code Dispo: Per PT/OT recs Admission and Anticipated Discharge Date Admission Date: August 23, 2024 Subjective Pt was seen multiple times during the day In the AM, noting she is still in lots of pain Later called back to bedside as pt having trouble breathing and in lots of pain, morphine pump being started Review of Systems Review of Systems: All systems reviewed & are unremarkable except as noted in Subjective Physical Exam Physical Exam: General: Alert, oriented. No acute distress HEENT: NC/AT, NG tube in place CV: RRR Resp: breath sounds decreased bilaterally, no increased effort of breathing Abdomen:Soft, tender, bandage in place Extremities: edema in lower extremities bilaterally. Results & Data Results & Data Vital Signs (Past 12 Hours) Vital Signs Temp Pulse Pulse Resp BP BP Pulse Ox 09/04/24 09:09 87 135/83 09/04/24 08:54 102 H 143/83 H 09/04/24 07:30 09/04/24 07:10 37.2 C 104 H 18 145/74 H 92 09/04/24 03:21 36.6 C 105 H 16 155/76 H 94 09/04/24 03:01 92 H 155/76 H 09/04/24 02:41 105 H 161/76 H 09/04/24 00:41 84 09/03/24 23:19 36.8 C 98 H 18 148/79 H 94 09/03/24 22:16 O2 Del Method 09/04/24 09:09 09/04/24 08:54 09/04/24 07:30 Room Air 09/04/24 07:10 Room Air 09/04/24 03:21 Room Air 09/04/24 03:01 09/04/24 02:41 09/04/24 00:41 09/03/24 23:19 Room Air 09/03/24 22:16 Room Air
[2024-09-04] MEDS ORDERED: NALOXONE HCL 0.4 MG/1 ML VIAL/CARP IV PRN (09:48)
--- NOTE | 2024-09-04 10:02 | Surgery Progress Note ---
Date of Service September 04, 2024 Assessment & Plan (1) Intra-abdominal abscess: (2) Ileus: (3) Acute kidney injury: (4) Bacteremia due to Proteus species: (5) Septic shock: Plan POD # 5 ex lap, extended right hemicolectomy with primary anastomosis and drainage of intra-abdominal abscess avss tachycardic with HR low 100's, likely due to postop pain not well controlled leukocytosis trending down 12K today (14k yesterday) kirk drain serosanguineous NGT with iminal bilious output No return of bowel funcition yet pain not well controlled + 15 liters this admission (On TPN, IV Cipro/flagyl, IV tylenol, s/p 2 units PRBCs on 08/31/24) abdomen is mildly distended, soft, tender to palpation in RLQ Plan: Needs better pain management 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 Ryder who agrees with above. Admission and Anticipated Discharge Date Admission Date: August 23, 2024 Subjective "feeling awful, just do not know what to do" pain not controlled, pain steady, no change but not controlled. Pain currently 10/10. Pain more in the right lower abdomen. Feels more bloated today. no n,c no flatus or bowel movement, no urge to have bowel movement or pass gas ambulating to the computer and back, not hallway still has singh catheter no chest pain or shortness of breath no fevers or chills Physical Exam Constitutional: + obese, cooperative and + lethargic; no acute distress, not in distress and not diaphoretic Respiratory: no respiratory distress, no labored breathing and no retractions Auscultation: + diminished lung sounds Cardiovascular: Rate/Rhythm: regular rate and regular rhythm Heart Sounds: no murmur Gastrointestinal (Abdomen): Inspection/Auscultation: + abdomen distended, + abdominal surgical incision (midline laparotomy incision with evelin intact), + abdominal surgical drain present (kirk drain serosanguineous, NGT with bilious/green output) and + hypoactive bowel sounds; + abnormal bowel sounds Percussion/Palpation: + abdomen tender (RLQ ) and abdomen soft; no guarding, abdomen not rigid and abdomen not firm Skin: no rashes, warm and dry Psychiatric: Orientation: alert and oriented x 3 Affect: + flat affect Results & Data Vital Signs (Past 12 Hours) Vital Signs Temp Pulse Pulse Resp BP BP Pulse Ox 09/04/24 09:09 87 135/83 09/04/24 08:54 102 H 143/83 H 09/04/24 07:30 09/04/24 07:10 37.2 C 104 H 18 145/74 H 92 09/04/24 03:21 36.6 C 105 H 16 155/76 H 94 09/04/24 03:01 92 H 155/76 H 09/04/24 02:41 105 H 161/76 H 09/04/24 00:41 84 09/03/24 23:19 36.8 C 98 H 18 148/79 H 94 09/03/24 22:16 O2 Del Method 09/04/24 09:09 09/04/24 08:54 09/04/24 07:30 Room Air 09/04/24 07:10 Room Air 09/04/24 03:21 Room Air 09/04/24 03:01 09/04/24 02:41 09/04/24 00:41 09/03/24 23:19 Room Air 09/03/24 22:16 Room Air Laboratory Results 09/04/24 09/04/24 09/04/24 Range/Units 06:11 05:44 00:07 WBC 12.67 H (4.8-10.8) K/ul RBC 2.96 L (4.20-5.40) M/uL Hgb 8.0 L (12.0-16.0) g/dl Hct 24.9 L (37.0-47.0) % MCV 84.1 (80.0-100.0) fL MCH 27.0 (25.0-34.0) pg MCHC 32.1 (32.0-36.0) g/dL RDW Std Deviation 54.8 H (36.4-46.3) fL RDW Coeff of Albino 18.1 H (11.5-14.5) % Plt Count 475 H (130-400) K/uL MPV 9.6 (9.4-12.4) fL Immature Gran % (Auto) 0.9 % Neut % (Auto) 83.5 % Lymph % (Auto) 8.7 % Addison % (Auto) 6.3 % Eos % (Auto) 0.4 % Baso % (Auto) 0.2 % Neut # (Auto) 10.58 H (1.40-6.50) K/uL Lymph # (Auto) 1.10 L (1.20-3.40) K/uL Addison # (Auto) 0.80 H (0.11-0.59) K/uL Eos # (Auto) 0.05 (0.00-0.50) K/uL Baso # (Auto) 0.02 (0.00-0.20) K/uL Immature Gran # (Auto) 0.12 (0.01-0.20) K/uL Sodium 146 H (136-145) mmol/L Potassium 4.1 (3.5-5.1) mmol/L Chloride 114 H (98-107) mmol/L Carbon Dioxide 28 (21-32) mmol/L Anion Gap 4 (3-11) BUN 38 H (6-23) mg/dl Creatinine 0.69 (0.6-1.2) mg/dl Est Cr Clr Drug Dosing 87.7 ml/min eGFR 94.47 BUN/Creatinine Ratio 55.1 H (10-20) Glucose 156 H (70-99(Fasting)) mg/dl POC Glucose 164 H 155 H (70-99) mg/dl Calcium 8.1 L (8.6-10.3) mg/dl Ionized Calcium 1.17 (1.12-1.32) mmol/L Phosphorus 2.5 (2.5-4.9) mg/dl Magnesium 1.8 (1.7-2.4) mg/dl Total Bilirubin 0.5 (0.2-1.0) mg/dl AST 24 (13-39) U/L ALT 19 (7-52) U/L Alkaline Phosphatase 76 (34-104) U/L Total Protein 5.2 L (6.0-8.3) gm/dl Albumin 2.1 L (3.4-5.0) gm/dl Globulin 3.1 (2.5-4.0) gm/dl Albumin/Globulin Ratio 0.7 L (0.9-2) 09/03/24 09/03/24 09/03/24 Range/Units 18:09 12:45 12:05 WBC (4.8-10.8) K/ul RBC (4.20-5.40) M/uL Hgb 8.4 L (12.0-16.0) g/dl Hct 26.1 L (37.0-47.0) % MCV (80.0-100.0) fL MCH (25.0-34.0) pg MCHC (32.0-36.0) g/dL RDW Std Deviation (36.4-46.3) fL RDW Coeff of Albino (11.5-14.5) % Plt Count (130-400) K/uL MPV (9.4-12.4) fL Immature Gran % (Auto) % Neut % (Auto) % Lymph % (Auto) % Addison % (Auto) % Eos % (Auto) % Baso % (Auto) % Neut # (Auto) (1.40-6.50) K/uL Lymph # (Auto) (1.20-3.40) K/uL Addison # (Auto) (0.11-0.59) K/uL Eos # (Auto) (0.00-0.50) K/uL Baso # (Auto) (0.00-0.20) K/uL Immature Gran # (Auto) (0.01-0.20) K/uL Sodium (136-145) mmol/L Potassium (3.5-5.1) mmol/L Chloride (98-107) mmol/L Carbon Dioxide (21-32) mmol/L Anion Gap (3-11) BUN (6-23) mg/dl Creatinine (0.6-1.2) mg/dl Est Cr Clr Drug Dosing ml/min eGFR BUN/Creatinine Ratio (10-20) Glucose (70-99(Fasting)) mg/dl POC Glucose 117 H 132 H (70-99) mg/dl Calcium (8.6-10.3) mg/dl Ionized Calcium (1.12-1.32) mmol/L Phosphorus (2.5-4.9) mg/dl Magnesium (1.7-2.4) mg/dl Total Bilirubin (0.2-1.0) mg/dl AST (13-39) U/L ALT (7-52) U/L Alkaline Phosphatase (34-104) U/L Total Protein (6.0-8.3) gm/dl Albumin (3.4-5.0) gm/dl Globulin (2.5-4.0) gm/dl Albumin/Globulin Ratio (0.9-2) Microbiology 08/30/24 11:20 Gram Stain - Final Peritoneal Fluid Aerobic and Anaerobic Culture - Preliminary Escherichia coli Bacteroides vulgatus group Clostridium innocuum Microbiology 08/30/24 11:20 Peritoneal Fluid Gram Stain - Final 08/30/24 11:20 Peritoneal Fluid Aerobic and Anaerobic Culture - Preliminary Escherichia coli Bacteroides vulgatus group Clostridium innocuum 08/28/24 Unknown Abdomen Gram Stain - Final 08/28/24 Unknown Abdomen Aerobic and Anaerobic Culture - Final Moderate counts mixed probable skin microbiota. No further identifications or sensitivities to follow. 08/30/24 17:16 Blood Aerobic Blood Culture - Preliminary No growth in Aerobic bottle after 48 hours. 08/30/24 17:16 Blood Anaerobic Blood Culture - Preliminary No growth in Anaerobic bottle after 48 hours. 08/30/24 17:17 Blood Aerobic Blood Culture - Preliminary No growth in Aerobic bottle after 48 hours. 08/30/24 17:17 Blood Anaerobic Blood Culture - Final 08/23/24 11:05 Blood Aerobic Blood Culture - Final Proteus vulagris group 08/23/24 11:05 Blood Anaerobic Blood Culture - Final Proteus vulagris group 08/23/24 11:00 Blood Aerobic Blood Culture - Final No growth in Aerobic bottle after 5 days. 08/23/24 11:00 Blood Anaerobic Blood Culture - Final
[2024-09-04] MEDS: FUROSEMIDE INJ 20 MG/2 ML VIAL IV ONE (10:53)
[2024-09-04] MEDS: SODIUM CHLORIDE 0.9% 1,000 ML IV SCH (10:54)
[2024-09-04] MEDS: OPTIRAY 320 125ml IV ONE (11:26)
--- NOTE | 2024-09-04 11:58 | CT Scan Report ---
CT ANGIOGRAM OF THE CHEST CLINICAL HISTORY: Tachypnea. New onset atrial fibrillation. Evaluate for pulmonary embolus. Postopera tive day 5 status post right hemicolectomy. COMPARISON STUDY: Chest CT August 29, 2011. Chest radiograph August 31, 2024. CT of the abdomen and pelvis August 28, 2024. TECHNIQUE: Following the IV administration of 115 cc of Optiray 320, CT angiogram of the chest was pe rformed from the upper abdomen to the thoracic inlet utilizing the pulmonary embolus protocol. Images are reviewed in the axial, sagittal, and coronal planes. 3-D MIPS images are created and assessed. I V contrast was administered without complication. A dose lowering technique was utilized adhering to the principles of ALARA. CT DOSE: 807.73 mGy.cm FINDINGS: There are several bilateral segmental and subsegmental pulmonary emboli. No thoracic aortic dissection is present. The heart is mildly enlarged. There is no pericardial effusion. Tip of nasoga stric tube is within the distal body of the stomach. A small right pleural effusion has mildly increa sed in size since CT of August 28, 2024. There is no pneumothorax. Moderate right lower lobe airspace op acity with volume loss favors atelectasis. There is moderate elevation of the right hemidiaphragm. No definite consolidation to suggest pneumonia. Gallbladder distention has mildly increased since CT of August 28, 2024. There is a gallstone within the gallbladder. Multiple small gas and fluid containing f luid collections within the right paracolic gutter are partially imaged. These were shown on CT of 2024. Loculated right upper quadrant fluid is partially imaged. There is mild body wall edema. IMPRESSION: 1. Several bilateral segmental and subsegmental pulmonary emboli. Findings will be called/faxed to [facility] ordering provider at time of dictation. 2. Small right pleural effusion, increased in size since CT of August 28, 2024. Moderate right lower lob e airspace opacity with volume loss. This favors atelectasis. Elevated right hemidiaphragm. 3. Mild cardiomegaly. 4. Cholelithiasis with increase in nonspecific gallbladder distention. 5. Partially imaged right upper quadrant fluid intra-abdominal collections, as described above. These may represent abscesses. ACT 112: Negative or not required by law. Electronically signed by: Yovany Belle M.D. 09/04/2024 11:57 AM
[2024-09-04] MEDS: Heparin IV Adult Wt-Based Low-Dose *NO* INITIAL Bolus Protocol IV STA (13:14)
[2024-09-04 13:21] LABS: INR 1.1 (0.9-1.1); Partial Thromboplastin Time 25 Seconds (21-31); Prothrombin Time 11.8 Seconds (9.0-12.0)
[2024-09-04] MEDS: HEPARIN 25000 UNIT/500 ML D5W 25,000 UNITS/500 ML BAG IV SCH (13:25)
[2024-09-04] MEDS: [UNRECOGNIZED DRUG - OTHER] IV SCH (15:23)
[2024-09-04] MEDS: CENTRAL TPN IV SCH (15:23)
[2024-09-04] MEDS: CLINOLIPID 20% IV FAT EMULSION 250 ML IV SCH (15:24)
[2024-09-04 20:42] LABS: ANTI-Xa, UFH(UnfractionatedHep < 0.10 IU/ml (0.3-0.7)
[2024-09-04] MEDS: FUROSEMIDE INJ 20 MG/2 ML VIAL IV SCH (20:58)
[2024-09-04] MEDS: HEPARIN SOD (PORCINE) 1000 UNIT/ML IV ONE (22:01)
[2024-09-05 04:41] LABS: Hematocrit (blood only) 25.2 % (37.0-47.0); Hemoglobin 8.1 g/dl (12.0-16.0); Mean Corpuscular Hemoglobin 27.2 pg (25.0-34.0); Mean Corpuscular Volume 84.6 fL (80.0-100.0); Platelet Count 473 K/uL (130-400); RDW Standard Deviation 54.4 fL (36.4-46.3); Red Blood Count 2.98 M/uL (4.20-5.40); White Blood Count 13.87 K/ul (4.8-10.8)
[2024-09-05 04:58] LABS: Alanine Aminotransferase 19.0 U/L (7-52); Albumin Globulin Ratio 0.7 (0.9-2); Alkaline Phosphatase 83.0 U/L (34-104); Anion Gap 5.0 (3-11); Bilirubin,Total 0.5 mg/dl (0.2-1.0); Blood Urea Nitrogen 33.0 mg/dl (6-23); Calcium 8.3 mg/dl (8.6-10.3); Carbon Dioxide 28.0 mmol/L (21-32); Chloride 114.0 mmol/L (98-107); Creatinine Clr Calc Pharmacy 91.7 ml/min; Globulin 3.4 gm/dl (2.5-4.0); Glucose 152.0 mg/dl (70-99(Fasting)); Magnesium 1.6 mg/dl (1.7-2.4); Potassium 4.3 mmol/L (3.5-5.1); Sodium 147.0 mmol/L (136-145); Total Protein 5.7 gm/dl (6.0-8.3)
[2024-09-05 05:04] LABS: ANTI-Xa, UFH(UnfractionatedHep 0.23 IU/ml (0.3-0.7)
[2024-09-05 05:06] LABS: Immature Granulocytes # (auto) 0.11 K/uL (0.01-0.20); Immature Granulocytes % (auto) 0.8 %; Polychromasia 1+
[2024-09-05] MEDS: FUROSEMIDE INJ 20 MG/2 ML VIAL IV ONE ×2 (08:41→09:54)
[2024-09-05] MEDS: MAGNESIUM SULFATE / D5W 1 GM/100 ML BAG IV SCH (08:42)
--- NOTE | 2024-09-05 10:18 | XRay Report ---
Clinical history: Lack of bowel movement 2 views of the abdomen were obtained Findings: Gas is seen within mildly prominent small and large bowel loops, which may be due to ileus. There is a percutaneous drainage catheter with its tip in the left pelvis. No definite renal or ureteral calculi are seen. There are surgical skin evelin. There is mild lumbar scoliosis and degenerative disc disease Impression: Mild diffuse bowel prominence that may be due to ileus Electronically signed by Lane Gurllon 09-05-2024 10:17 AM
--- NOTE | 2024-09-05 11:15 | Surgery Progress Note ---
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 Continue IV abx per ID recommendations Will clamp NGT for now continue aggressive PT/OT Leon per medicine team , would like to remove once patient more mobile consider low dose diuretic given edema , normal creatinine, and +15 liters this admission Continue TPN continue SCDs and incentive spirometry OOB to chair as much as possible continue medical management Admission and Anticipated Discharge Date Admission Date: August 23, 2024 Subjective doing ok; ngt out; no nausea/vomiting Physical Exam Gastrointestinal (Abdomen): Inspection/Auscultation: + abdomen distended, + abdominal surgical incision (midline laparotomy incision with evelin intact) and + abdominal surgical drain present (kirk drain serosanguineous, NGT with bilious/green output) Percussion/Palpation: + abdomen tender (RLQ ) and abdomen soft; no guarding, abdomen not rigid and abdomen not firm Results & Data Vital Signs (Past 12 Hours) Vital Signs Temp Pulse Pulse Resp BP BP Pulse Ox 09/05/24 09:20 85 09/05/24 08:41 85 126/87 09/05/24 08:14 36.6 C 85 18 126/87 100 09/05/24 07:57 09/05/24 02:12 36.4 C L 82 14 148/78 H 99 09/05/24 02:09 82 148/78 H 09/05/24 01:03 93 H 137/81 09/04/24 23:25 93 H O2 Del Method O2 Flow Rate 09/05/24 09:20 09/05/24 08:41 09/05/24 08:14 Nasal Cannula 2.5 09/05/24 07:57 Nasal Cannula 2 09/05/24 02:12 Room Air 3 09/05/24 02:09 09/05/24 01:03 06/13/25 23:25
[2024-09-05 14:11] LABS: ANTI-Xa, UFH(UnfractionatedHep < 0.10 IU/ml (0.3-0.7)
--- NOTE | 2024-09-05 14:36 | Hospitalist Progress Note ---
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 She presented critically ill with acute renal failure, multiple electrolyte abnormalities and evidence of severe sepsis with organ dysfunction as evidenced by renal failure, postsurgical ileus, and new onset atrial fibrillation. Currently s/p IR pelvic drain placement for abscesses on 08/28/24 and extended right colectomy with drainage of abscess by general surgeon Dr. Pacheco on 08/30/24. She is currently being treated as follows: Sepsis Proteus bacteremia Intra abdominal/pelvic abscesses Postsurgical ileus Cholelithiasis w/o evidence of cholecystitis Recent laparoscopic appendicectomy of large mucocele of appendix by Dr. Pacheco on 08/19/2024 CT abdomen/pelvis from 08/25/24 noting "Absent appendix consistent with appendectomy history with increased fluid and gas throughout the abdomen and pelvis more than expected particularly at the level of the surgical bed. Dehiscence is not excluded. No discrete encapsulated drainable fluid collection although early abscess cannot be excluded. Prominent fluid distended proximal small bowel and to some extent distal small bowel fecal type densities which can be seen in slow small bowel transit. Mild ileus is not excluded... CT abdomen with oral contrast: Pneumoperitoneum with right retroperitoneal gas mildly decreased. Cannot rule out anastomotic leak with abscess. Contrast has not reached the distal small bowel. Findings suggestive of ileus. Blood cultures from admission grew Proteus vulgaris, repeat blood cultures negative CT Abd/Pelvis with IV contrast on 08/28/24 showed increased pneumoperitoneum and right retroperitoneal gas, multifocal abscesses IV antibiotics broadened to Vancomycin and meropenem at that time S/p IR placement of drain on 08/28/24 Persistent leukocytosis IR drain culture from 08/28/24 grew E coli, bacteroides vulgatus and Clostridium innocuum c diff gene +, toxin negative S/p Exploratory laparotomy which showed small bowel perforation with abscess on 08/30/24, s/p extended right colectomy with drainage of abscess by general surgeon Dr. Pacheco on 08/30/24 Infectious Disease was consulted, appreciate recs -Antibiotics deescalated to IV ceftriaxone and metronidazole -Plan for a total antibiotic course of 3-4 weeks. -Repeat imaging to reassess abscess size and response to treatment. NG tube still in place, started on TPN on 08/31/24 Required ICU stay postop on 08/30, downgraded on 09/01 PT/OT Pain control- General surgery started morphine director funds development on 09/04 Improving 09/05- KUB ordered, pt declining repeat CT abd/pelvis due to pain with getting the scan done. KUB noting ileus, discussed with surgery Dr Ryder who recommended no change to plan at this time of increased activity postop and advancement of diet to clears today. Pulmonary Emboli Possible DVT RR increased on 09/04 CTA chest ordered- noted bilateral pulmonary emboli Pt declining doppler US lower extremities due to pain with completing medical testing at this time, discussion that results will not change coordinator as she is already on IV heparin Continue IV heparin at this time Monitor H/H Continue to monitor Edema Pt with extremity edema Recent JANET with recovered urinary output a few days ago Gentle diuresis with IV lasix Monitor kidney function Acute kidney injury JANET had initially resolved but developed again Creatinine 3.9>>2.26>>0.94>1.51>>1.87>1.61, currently normal Likely from sepsis + contrast Improved urine output Avoid contrast and nephrotoxins as much as possible Nephrology on board, appreciate recs Currently resolved. Esophagitis Noted on CT imaging Continue IV ppi Prediabetes hgba1c of 6.3 Noted hyperglycemia, on TPN currently Continue to monitor at this time Acute on chronic anemia Iron Deficiency Anemia Likely due to sepsis, blood loss and iron deficiency Got 2UPRBC on 08/31/24 Anemia panel showed low iron levels- Current recommendations advise against use of IV Venofer in the setting of severe infection, will need po supplementation once able to tolerate po Hb stable Monitor Atrial fibrillation-new onset In the setting of sepsis Spontaneously converted to sinus ECHO: EF 55 to 60%. Mild concentric LVH. Left atrium mildly dilated. Mild tricuspid regurgitation. No significant pulmonary hypertension. Cardiology eval noted. No anticoagulation recommended Continue tele monitor IV lopressor 5mg q6h for now. Plan to switch to po metoprolol succinate when able to take po May need ZIO monitor as outpatient Pt currently on IV heparin as noted above in the setting of PEs Hyponatremia Hypokalemia - resolved K is 4.1 today. Mild troponin elevation Likely demand ischemia secondary to sepsis, A-fib RVR Denies any chest pain, dyspnea Diet:advancing as tolerated, on TPN DVT Px: IV heparin Code Status :Full Code Dispo: Per PT/OT recs Admission and Anticipated Discharge Date Admission Date: August 23, 2024 Subjective Pt was seen multiple times during the day. In the AM was washing herself up. Noted that her pain was better controlled. Did not want repeat CT abd/pelvis or doppler US of lower extremity at that time Agreeable to portable KUB Later at bedside to discuss the results of the KUB. Pt was about to go walking. Off oxygen. Had CO2 monitor on Review of Systems Review of Systems: All systems reviewed & are unremarkable except as noted in Subjective Physical Exam Physical Exam: General: Alert, oriented. No acute distress HEENT: NC/AT, NG tube in place CV: RRR Resp: breath sounds decreased bilaterally, no increased effort of breathing Abdomen:Soft, tender, bandage in place Extremities: edema in lower extremities bilaterally. Results & Data Results & Data Vital Signs (Past 12 Hours) Vital Signs Temp Pulse Pulse Resp BP BP Pulse Ox 09/05/24 14:26 92 H 161/83 H 09/05/24 11:15 36.6 C 92 H 17 161/83 H 96 09/05/24 09:20 85 09/05/24 08:41 85 126/87 09/05/24 08:14 36.6 C 85 18 126/87 100 09/05/24 07:57 O2 Del Method O2 Flow Rate 09/05/24 14:26 09/05/24 11:15 Room Air 09/05/24 09:20 09/05/24 08:41 09/05/24 08:14 Nasal Cannula 2.5 09/05/24 07:57 Nasal Cannula 2
[2024-09-05] MEDS: [UNRECOGNIZED DRUG - OTHER] IV SCH (15:09)
[2024-09-05] MEDS: CENTRAL TPN IV SCH (15:09)
[2024-09-05] MEDS: HEPARIN SOD (PORCINE) 1000 UNIT/ML IV ONE (15:13)
--- NOTE | 2024-09-05 17:14 | Nephrology Progress Note ---
Date of Service September 05, 2024 Assessment & Plan (1) Acute renal failure: Plan: Patient initially had acute kidney injury likely ATN in setting of sepsis but had improved back to normal. Creatinine started rising after contrast administration on 08/28 which again resolved and she was signed off by Nephrology on 09/02. CT showed no hydronephrosis. She has non obstructive kidney stone.,Nephrology was again re- consulted today for Volume management-- she is positive by @ 15 pounds since admission, She also had CTA done on 09/04 which showed Several bilateral segmental and subsegmental pulmonary emboli and small R pleural effusion - She has signs of volume overload>>> bilateral pedal edema and body wall edema. - She has excellent UOP with current dose of lasix (40 mg IV)and she is mildly alkalotic, - Her renal function appear normal , but her Scr could be dilutional because of the fluid she is carrying,After correcting by the dilutional factor her Scr is@0.9 Sodium is in high normal side-- She can now have clear liquids as per surgery-- aim for tap water orally 200 mls q 6 hrly -Avoid further contrast. - Renally dose antibiotics. -Daily input/ output , preferably on the same scale (2) Peritonitis due to abscess: Plan: She is s/p colectomy with primary anastomosis. Renally does Abx as per ID /Primary team Admission and Anticipated Discharge Date Admission Date: August 23, 2024 Subjective Comfortble, not in distress,But looks tired Off oxygen. Review of Systems 2 Review of Systems: All systems reviewed & are unremarkable except as noted in HPI & below Physical Exam 2 Physical Exam: General: Alert, oriented. No acute distress HEENT: NC/AT, NG tube in place CV: RRR Resp: breath sounds decreased bilaterally, no increased effort of breathing Abdomen:Soft, tender, bandage in place Extremities: edema in lower extremities bilaterally. Results & Data Vital Signs (Past 12 Hours) Vital Signs Temp Pulse Pulse Resp BP BP Pulse Ox 09/05/24 15:55 90 09/05/24 15:55 36.6 C 96 H 18 157/80 H 97 09/05/24 14:26 92 H 161/83 H 09/05/24 11:15 36.6 C 92 H 17 161/83 H 96 09/05/24 09:20 85 09/05/24 08:41 85 126/87 09/05/24 08:14 36.6 C 85 18 126/87 100 09/05/24 07:57 O2 Del Method O2 Flow Rate 09/05/24 15:55 09/05/24 15:55 Room Air 09/05/24 14:26 09/05/24 11:15 Room Air 09/05/24 09:20 09/05/24 08:41 09/05/24 08:14 Nasal Cannula 2.5 09/05/24 07:57 Nasal Cannula 2 Laboratory Results 09/05/24 04:26 09/05/24 04:26
[2024-09-05] MEDS: FUROSEMIDE INJ 20 MG/2 ML VIAL IV SCH (20:11)
[2024-09-06 00:09] LABS: ANTI-Xa, UFH(UnfractionatedHep 0.34 IU/ml (0.3-0.7)
[2024-09-06 06:21] LABS: Hematocrit (blood only) 26.1 % (37.0-47.0); Hemoglobin 8.5 g/dl (12.0-16.0); Mean Corpuscular Hemoglobin 27.1 pg (25.0-34.0); Mean Corpuscular Volume 83.1 fL (80.0-100.0); Platelet Count 552 K/uL (130-400); RDW Standard Deviation 53.9 fL (36.4-46.3); Red Blood Count 3.14 M/uL (4.20-5.40); White Blood Count 13.65 K/ul (4.8-10.8)
[2024-09-06 06:45] LABS: Alanine Aminotransferase 18.0 U/L (7-52); Albumin Globulin Ratio 0.7 (0.9-2); Alkaline Phosphatase 88.0 U/L (34-104); Anion Gap 8.0 (3-11); Bilirubin,Total 0.5 mg/dl (0.2-1.0); Blood Urea Nitrogen 31.0 mg/dl (6-23); Calcium 8.4 mg/dl (8.6-10.3); Carbon Dioxide 26.0 mmol/L (21-32); Chloride 110.0 mmol/L (98-107); Creatinine Clr Calc Pharmacy 103.6 ml/min; Globulin 3.6 gm/dl (2.5-4.0); Glucose 163.0 mg/dl (70-99(Fasting)); Magnesium 1.7 mg/dl (1.7-2.4); Potassium 3.8 mmol/L (3.5-5.1); Sodium 144.0 mmol/L (136-145); Total Protein 6.1 gm/dl (6.0-8.3)
[2024-09-06 06:46] LABS: ANTI-Xa, UFH(UnfractionatedHep 0.27 IU/ml (0.3-0.7)
[2024-09-06 06:48] LABS: Immature Granulocytes # (auto) 0.14 K/uL (0.01-0.20); Immature Granulocytes % (auto) 1.0 %; Polychromasia 1+
--- NOTE | 2024-09-06 10:51 | Surgery Progress Note ---
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 Tolerating clears. No bowel activity yet. Up and ambulating. Physical Exam Gastrointestinal (Abdomen): Inspection/Auscultation: + abdomen distended, + abdominal surgical incision (midline laparotomy incision with evelni intact) and + abdominal surgical drain present (kirk drain serosanguineous, NGT with bilious/green output) Percussion/Palpation: + abdomen tender (RLQ ) and abdomen soft; no guarding, abdomen not rigid and abdomen not firm Results & Data Vital Signs (Past 12 Hours) Vital Signs Temp Pulse Pulse Resp BP BP Pulse Ox 09/06/24 10:22 88 09/06/24 09:00 96 H 09/06/24 08:25 105 H 157/112 H 09/06/24 07:29 09/06/24 03:00 36.8 C 88 20 148/71 H 96 09/06/24 02:04 83 131/72 09/06/24 01:36 89 147/73 H 09/06/24 00:37 85 09/05/24 23:30 36.6 C 98 H 18 155/75 H 96 O2 Del Method 09/06/24 10:22 09/06/24 09:00 09/06/24 08:25 09/06/24 07:29 Room Air 09/06/24 03:00 Room Air 09/06/24 02:04 09/06/24 01:36 09/06/24 00:37 06/14/25 23:30 Room Air
--- NOTE | 2024-09-06 11:15 | Hospitalist Progress Note ---
Date of Service September 06, 2024 Assessment & Plan (1) Severe sepsis with acute organ dysfunction: (2) Atrial fibrillation, new onset: (3) Acute renal failure: (4) Ileus due to infection: (5) Peritonitis due to abscess: (6) Electrolyte abnormality: (7) Pneumoperitoneum: (8) Demand ischemia of myocardium: (9) Low grade mucinous neoplasm of appendix: (10) Status post laparoscopic appendectomy: (11) Paroxysmal SVT (supraventricular tachycardia): Plan Pt is a 68-year-old female status post appendectomy for mucocele on 08/19/2024. She presented critically ill with acute renal failure, multiple electrolyte abnormalities and evidence of severe sepsis with organ dysfunction as evidenced by renal failure, postsurgical ileus, and new onset atrial fibrillation. Currently s/p IR pelvic drain placement for abscesses on 08/28/24 and extended right colectomy with drainage of abscess by general surgeon Dr. Pacheco on 08/30/24. She is currently being treated as follows: Sepsis Proteus bacteremia Intra abdominal/pelvic abscesses Postsurgical ileus Cholelithiasis w/o evidence of cholecystitis Recent laparoscopic appendicectomy of large mucocele of appendix by Dr. Pacheco on 08/19/2024 CT abdomen/pelvis from 08/25/24 noting "Absent appendix consistent with appendectomy history with increased fluid and gas throughout the abdomen and pelvis more than expected particularly at the level of the surgical bed. Dehiscence is not excluded. No discrete encapsulated drainable fluid collection although early abscess cannot be excluded. Prominent fluid distended proximal small bowel and to some extent distal small bowel fecal type densities which can be seen in slow small bowel transit. Mild ileus is not excluded... CT abdomen with oral contrast: Pneumoperitoneum with right retroperitoneal gas mildly decreased. Cannot rule out anastomotic leak with abscess. Contrast has not reached the distal small bowel. Findings suggestive of ileus. Blood cultures from admission grew Proteus vulgaris, repeat blood cultures negative CT Abd/Pelvis with IV contrast on 08/28/24 showed increased pneumoperitoneum and right retroperitoneal gas, multifocal abscesses IV antibiotics broadened to Vancomycin and meropenem at that time S/p IR placement of drain on 08/28/24 Persistent leukocytosis IR drain culture from 08/28/24 grew E coli, bacteroides vulgatus and Clostridium innocuum c diff gene +, toxin negative S/p Exploratory laparotomy which showed small bowel perforation with abscess on 08/30/24, s/p extended right colectomy with drainage of abscess by general surgeon Dr. Pacheco on 08/30/24 Infectious Disease was consulted, appreciate recs -Antibiotics deescalated to IV ceftriaxone and metronidazole -Plan for a total antibiotic course of 3-4 weeks. -Repeat imaging to reassess abscess size and response to treatment. NG tube still in place, started on TPN on 08/31/24 Required ICU stay postop on 08/30, downgraded on 09/01 PT/OT Pain control- General surgery started morphine assembly operator on 09/04 Improving 09/05- KUB ordered, pt declining repeat CT abd/pelvis due to pain with getting the scan done. KUB noting ileus, discussed with surgery Dr Ryder who recommended no change to plan at this time of increased activity postop and advancement of diet to clears today. 09/06- tolerating clears, on TPN, no flatus/BM yet. Pulmonary Emboli Possible DVT RR increased on 09/04 CTA chest ordered- noted bilateral pulmonary emboli Pt declining doppler US lower extremities due to pain with completing medical testing at this time, discussion that results will not climate change risk assessor as she is already on IV heparin Continue IV heparin at this time Monitor H/H Continue to monitor Edema Pt with extremity edema Recent JANET with recovered urinary output a few days ago Gentle diuresis with IV lasix Monitor kidney function Acute kidney injury JANET had initially resolved but developed again Creatinine 3.9>>2.26>>0.94>1.51>>1.87>1.61, currently normal Likely from sepsis + contrast Improved urine output Avoid contrast and nephrotoxins as much as possible Nephrology on board, appreciate recs Currently resolved. Esophagitis Noted on CT imaging Continue IV ppi Prediabetes hgba1c of 6.3 Noted hyperglycemia, on TPN currently Continue to monitor at this time Acute on chronic anemia Iron Deficiency Anemia Likely due to sepsis, blood loss and iron deficiency Got 2UPRBC on 08/31/24 Anemia panel showed low iron levels- Current recommendations advise against use of IV Venofer in the setting of severe infection, will need po supplementation once able to tolerate po Hb stable Monitor Atrial fibrillation-new onset In the setting of sepsis Spontaneously converted to sinus ECHO: EF 55 to 60%. Mild concentric LVH. Left atrium mildly dilated. Mild tricuspid regurgitation. No significant pulmonary hypertension. Cardiology eval noted. No anticoagulation recommended Continue tele monitor IV lopressor 5mg q6h for now. Plan to switch to po metoprolol succinate when able to take po May need ZIO monitor as outpatient Pt currently on IV heparin as noted above in the setting of PEs Hyponatremia Hypokalemia - resolved K is 4.1 today. Mild troponin elevation Likely demand ischemia secondary to sepsis, A-fib RVR Denies any chest pain, dyspnea Diet:advancing as tolerated, on TPN DVT Px: IV heparin Code Status :Full Code Dispo: Per PT/OT recs Admission and Anticipated Discharge Date Admission Date: August 23, 2024 Subjective Attempted to see pt in the AM. She asked that i return as she was about to watch her [employer] service via telemedicine. Later met with pt and nurse while ambulating the hallway. She noted that pain was less, she did walk further than the day before Was tolerating the clears and asking about advancing. No BM or gas yet Still on TPN Review of Systems Review of Systems: All systems reviewed & are unremarkable except as noted in Subjective Physical Exam Physical Exam: General: Alert, oriented. No acute distress HEENT: NC/AT, NG tube in place CV: RRR Resp: breath sounds decreased bilaterally, no increased effort of breathing Abdomen:Soft, tender, bandage in place Extremities: edema in lower extremities bilaterally. Results & Data Results & Data Vital Signs (Past 12 Hours) Vital Signs Temp Pulse Pulse Resp BP BP Pulse Ox 09/06/24 10:22 88 09/06/24 09:00 96 H 09/06/24 08:25 105 H 157/112 H 09/06/24 07:29 09/06/24 03:00 36.8 C 88 20 148/71 H 96 09/06/24 02:04 83 131/72 09/06/24 01:36 89 147/73 H 09/06/24 00:37 85 09/05/24 23:30 36.6 C 98 H 18 155/75 H 96 O2 Del Method 09/06/24 10:22 09/06/24 09:00 09/06/24 08:25 09/06/24 07:29 Room Air 09/06/24 03:00 Room Air 09/06/24 02:04 09/06/24 01:36 09/06/24 00:37 09/05/24 23:30 Room Air
[2024-09-06 13:36] LABS: ANTI-Xa, UFH(UnfractionatedHep 0.24 IU/ml (0.3-0.7)
[2024-09-06] MEDS: CENTRAL TPN IV SCH (17:57)
[2024-09-06] MEDS: [UNRECOGNIZED DRUG - OTHER] IV SCH (17:57)
[2024-09-06 21:15] LABS: ANTI-Xa, UFH(UnfractionatedHep 0.24 IU/ml (0.3-0.7)
[2024-09-07 03:47] LABS: Hematocrit (blood only) 21.9 % (37.0-47.0); Hemoglobin 7.0 g/dl (12.0-16.0); Mean Corpuscular Hemoglobin 26.7 pg (25.0-34.0); Mean Corpuscular Volume 83.6 fL (80.0-100.0); Platelet Count 465 K/uL (130-400); RDW Standard Deviation 54.0 fL (36.4-46.3); Red Blood Count 2.62 M/uL (4.20-5.40); White Blood Count 15.27 K/ul (4.8-10.8)
[2024-09-07 04:04] LABS: Alanine Aminotransferase 15.0 U/L (7-52); Albumin Globulin Ratio 0.7 (0.9-2); Alkaline Phosphatase 81.0 U/L (34-104); Anion Gap 6.0 (3-11); Bilirubin,Total 0.4 mg/dl (0.2-1.0); Blood Urea Nitrogen 28.0 mg/dl (6-23); Calcium 7.7 mg/dl (8.6-10.3); Carbon Dioxide 28.0 mmol/L (21-32); Chloride 106.0 mmol/L (98-107); Creatinine Clr Calc Pharmacy 113.3 ml/min; Globulin 3.2 gm/dl (2.5-4.0); Glucose 147.0 mg/dl (70-99(Fasting)); Magnesium 1.4 mg/dl (1.7-2.4); Potassium 3.6 mmol/L (3.5-5.1); Sodium 140.0 mmol/L (136-145); Total Protein 5.3 gm/dl (6.0-8.3)
[2024-09-07 04:24] LABS: Immature Granulocytes # (auto) 0.25 K/uL (0.01-0.20); Immature Granulocytes % (auto) 1.6 %; Polychromasia 1+
[2024-09-07 04:26] LABS: ANTI-Xa, UFH(UnfractionatedHep 0.32 IU/ml (0.3-0.7)
[2024-09-07] MEDS: OPTIRAY 320 100ml IV ONE (09:41)
--- NOTE | 2024-09-07 09:50 | Surgery Progress Note ---
Date of Service September 07, 2024 Assessment & Plan (1) Intra-abdominal abscess: Plan: some incresed pain, medicine ordered CT to look for un-drained collections con't abx good BM WBC slightly elevated drain serous if CT OK advance diet Admission and Anticipated Discharge Date Admission Date: August 23, 2024 Subjective had good BM AF VSS some increased R flank pain drain serous Review of Systems Constitutional: no fever and no chills Respiratory: no dyspnea Cardiovascular: no chest pain Gastrointestinal: + abdominal pain; no nausea and no vomit ing Musculoskeletal: + back pain Neurologic: + generalized weakness Psychiatric: no behavioral changes Physical Exam Gastrointestinal (Abdomen): Inspection/Auscultation: abdomen normal to inspection and + abdomen distended Percussion/Palpation: + abdomen tender and abdomen soft; no guarding and abdomen not rigid Musculoskeletal: Head/Neck/Chest: normocephalic and head atraumatic Results & Data Vital Signs (Past 12 Hours) Vital Signs Temp Pulse Pulse Resp BP BP BP 09/07/24 08:35 82 09/07/24 08:27 37.2 C 106 H 18 127/81 09/07/24 08:20 105 H 127/81 09/07/24 03:10 82 133/78 09/07/24 02:26 36.8 C 91 H 24 143/82 H 09/07/24 02:26 91 H 143/82 H 09/06/24 22:45 36.9 C 96 H 18 133/77 Pulse Ox O2 Del Method 09/07/24 08:35 09/07/24 08:27 94 Room Air 09/07/24 08:20 09/07/24 03:10 09/07/24 02:26 96 Room Air 09/07/24 02:26 09/06/24 22:45 98 Room Air
[2024-09-07] MEDS: ACETAMINOPHEN 1,000 MG/100 ML VIAL IV ONE (10:03)
--- NOTE | 2024-09-07 10:17 | CT Scan Report ---
CT SCAN OF THE ABDOMEN AND PELVIS WITH IV CONTRAST CLINICAL HISTORY: Right flank pain. Status post exploratory laparotomy, extended right hemicolectomy and abscess drainage on August 30, 2024. COMPARISON STUDY: CT of the abdomen and pelvis August 28, 2024. KUB September 05, 2024. Chest CT September 04. TECHNIQUE: Following the IV administration of 93 cc of Optiray 320, CT scan of the abdomen and pelvi s is performed from the lung bases to the proximal femora. Images are reviewed in the axial, sagittal , and coronal planes. IV contrast was administered without complication. A dose lowering technique wa s utilized adhering to the principles of ALARA. CT DOSE: 1328.41 mGy.cm FINDINGS: A small right pleural effusion is noted. Subpleural right lower lobe opacity with volume lo ss favors atelectasis. There are no hepatic lesions. No biliary or pancreatic ductal dilatation. Spleen, adrenal glands and pancreas are unremarkable. 5 mm left renal calculus is again noted. There are no ureteral calculi. Mi ld right collecting system dilatation is present. Right kidney is slightly displaced by right retrope ritoneal fluid. There is a small 1.1 cm hypoenhancing focus within the upper pole of the right kidney . Surgical drain is in place. There are postoperative findings consistent with right hemicolectomy. M ultiple small bowel loops are mildly dilated and fluid-filled. No well-defined transition point is id entified. Diffuse mesenteric stranding is noted. Extensive right retroperitoneal fluid is noted with multiple locules of extraluminal gas. There is also a moderate amount of intraperitoneal fluid within the right abdomen which contains several locules of extraluminal gas. There is a small amount of pne umoperitoneum. Right abdominal peritoneal enhancement is present. A rim-enhancing pelvic fluid collec tion, anterior to the distal sigmoid colon measures 6.8 x 5.6 cm. A rim-enhancing fluid collection wi thin the left paracolic gutter measures 5.3 x 3.5 cm intermediate AP by transverse dimensions respect ively. This extends from the level the mid to distal paracolic gutter. A rim-enhancing central mesent vinnie fluid collection image 184 measures 6.4 x 3.4 cm. There is a gallstone within the gallbladder. M oderate gallbladder distention is similar to prior CT. IMPRESSION: 1. Status post right hemicolectomy. Mildly dilated fluid-filled small bowel loops without well-define d transition point. The findings favor an ileus although a partial small bowel obstruction could appe ar similar. 2. Small amount of pneumoperitoneum. This this may be postsurgical. However, a leak could appear vern lar and continued imaging follow-up is recommended. 3. Multiple rim-enhancing fluid collections within the abdomen and pelvis which contain a small amoun t of gas. These are consistent with abscesses. 4. Right retroperitoneal fluid versus phlegmon which contain multiple locules of gas. No peripheral e nhancement. 5. Moderate intraperitoneal fluid within the right abdomen. Peritoneal enhancement and mesenteric str anding may be postsurgical although could also be infectious. 6. Cholelithiasis. No significant change in nonspecific moderate gallbladder distention. 7. Subtle nonspecific 1.1 cm hypoenhancing focus within the upper pole of the right kidney. Mild righ t collecting system dilatation. 5 mm left renal calculus. No ureteral calculi. 8. Small right pleural effusion. Right lower lobe opacity suggestive of atelectasis. ACT 112: Negative or not required by law. Electronically signed by: Yovany Belle M.D. 09/07/2024 10:15 AM
--- NOTE | 2024-09-07 12:33 | Hospitalist Progress Note ---
Date of Service September 07, 2024 Assessment & Plan (1) Severe sepsis with acute organ dysfunction: (2) Atrial fibrillation, new onset: (3) Acute renal failure: (4) Ileus due to infection: (5) Peritonitis due to abscess: (6) Electrolyte abnormality: (7) Pneumoperitoneum: (8) Demand ischemia of myocardium: (9) Low grade mucinous neoplasm of appendix: (10) Status post laparoscopic appendectomy: (11) Paroxysmal SVT (supraventricular tachycardia): Plan Pt is a 68-year-old female status post appendectomy for mucocele on 08/19/2024. She presented critically ill with acute renal failure, multiple electrolyte abnormalities and evidence of severe sepsis with organ dysfunction as evidenced by renal failure, postsurgical ileus, and new onset atrial fibrillation. Currently s/p IR pelvic drain placement for abscesses on 08/28/24 and extended right colectomy with drainage of abscess by general surgeon Dr. Pacheco on 08/30/24. She is currently being treated as follows: Sepsis Proteus bacteremia Intra abdominal/pelvic abscesses Postsurgical ileus Cholelithiasis w/o evidence of cholecystitis Recent laparoscopic appendicectomy of large mucocele of appendix by Dr. Pacheco on 08/19/2024 CT abdomen/pelvis from 08/25/24 noting "Absent appendix consistent with appendectomy history with increased fluid and gas throughout the abdomen and pelvis more than expected particularly at the level of the surgical bed. Dehiscence is not excluded. No discrete encapsulated drainable fluid collection although early abscess cannot be excluded. Prominent fluid distended proximal small bowel and to some extent distal small bowel fecal type densities which can be seen in slow small bowel transit. Mild ileus is not excluded... CT abdomen with oral contrast: Pneumoperitoneum with right retroperitoneal gas mildly decreased. Cannot rule out anastomotic leak with abscess. Contrast has not reached the distal small bowel. Findings suggestive of ileus. Blood cultures from admission grew Proteus vulgaris, repeat blood cultures negative CT Abd/Pelvis with IV contrast on 08/28/24 showed increased pneumoperitoneum and right retroperitoneal gas, multifocal abscesses IV antibiotics broadened to Vancomycin and meropenem at that time S/p IR placement of drain on 08/28/24 Persistent leukocytosis IR drain culture from 08/28/24 grew E coli, bacteroides vulgatus and Clostridium innocuum c diff gene +, toxin negative S/p Exploratory laparotomy which showed small bowel perforation with abscess on 08/30/24, s/p extended right colectomy with drainage of abscess by general surgeon Dr. Pacheco on 08/30/24 Infectious Disease was consulted, appreciate recs -Antibiotics deescalated to IV ceftriaxone and metronidazole -Plan for a total antibiotic course of 3-4 weeks. -Repeat imaging to reassess abscess size and response to treatment. NG tube still in place, started on TPN on 08/31/24 Required ICU stay postop on 08/30, downgraded on 09/01 PT/OT Pain control- General surgery started morphine allergy specialist on 09/04 Improving 09/05- KUB ordered, pt declining repeat CT abd/pelvis due to pain with getting the scan done. KUB noting ileus, discussed with surgery Dr Ryder who recommended no change to plan at this time of increased activity postop and advancement of diet to clears today. 09/06- tolerating clears, on TPN, no flatus/BM yet. 09/07- had bowel movement, advanced to full liquids, TPN discontinued Pulmonary Emboli Possible DVT RR increased on 09/04 CTA chest ordered- noted bilateral pulmonary emboli Pt declining doppler US lower extremities due to pain with completing medical testing at this time, discussion that results will not manager of change as she is already on IV heparin Continue IV heparin at this time Monitor H/H Continue to monitor Edema Pt with extremity edema Recent JANET with recovered urinary output a few days ago Gentle diuresis with IV lasix Monitor kidney function Acute kidney injury JANET had initially resolved but developed again Creatinine 3.9>>2.26>>0.94>1.51>>1.87>1.61, currently normal Likely from sepsis + contrast Improved urine output Avoid contrast and nephrotoxins as much as possible Nephrology on board, appreciate recs Currently resolved. Esophagitis Noted on CT imaging Continue IV ppi Prediabetes hgba1c of 6.3 Noted hyperglycemia, on TPN currently Continue to monitor at this time Acute on chronic anemia Iron Deficiency Anemia Likely due to sepsis, blood loss and iron deficiency Got 2UPRBC on 08/31/24 Anemia panel showed low iron levels- Current recommendations advise against use of IV Venofer in the setting of severe infection, will need po supplementation once able to tolerate po Hb stable Monitor Atrial fibrillation-new onset In the setting of sepsis Spontaneously converted to sinus ECHO: EF 55 to 60%. Mild concentric LVH. Left atrium mildly dilated. Mild tricuspid regurgitation. No significant pulmonary hypertension. Cardiology eval noted. No anticoagulation recommended Continue tele monitor IV lopressor 5mg q6h for now. Plan to switch to po metoprolol succinate when able to take po May need ZIO monitor as outpatient Pt currently on IV heparin as noted above in the setting of PEs Hyponatremia Hypokalemia - resolved K is 4.1 today. 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 No acute distress HEENT: NC/AT, NG tube in place CV: RRR Resp: breath sounds decreased bilaterally, no increased effort of breathing Abdomen:Soft, tender, bandage in place Extremities: edema in lower extremities bilaterally. Results & Data Results & Data Vital Signs (Past 12 Hours) Vital Signs Temp Pulse Pulse Resp BP BP BP 09/07/24 11:26 36.7 C 82 17 125/80 09/07/24 08:35 82 09/07/24 08:27 37.2 C 106 H 18 127/81 09/07/24 08:20 105 H 127/81 09/07/24 08:00 09/07/24 08:00 92 H 09/07/24 03:10 82 133/78 09/07/24 02:26 36.8 C 91 H 24 143/82 H 09/07/24 02:26 91 H 143/82 H Pulse Ox O2 Del Method 09/07/24 11:26 95 Room Air 09/07/24 08:35 09/07/24 08:27 94 Room Air 09/07/24 08:20 09/07/24 08:00 Room Air 09/07/24 08:00 09/07/24 03:10 09/07/24 02:26 96 Room Air 09/07/24 02:26
[2024-09-07] MEDS: MAGNESIUM SULFATE / D5W 1 GM/100 ML BAG IV SCH (12:57)
[2024-09-07] MEDS ORDERED: CLINOLIPID 20% IV FAT EMULSION 250 ML IV SCH (16:00)
[2024-09-07] MEDS ORDERED: AA 8%/D14W 1L 1,071 ML in Central TPN bag 0 ML IV SCH (16:00)
[2024-09-07 17:51] LABS: Hematocrit (blood only) 24.9 % (37.0-47.0); Hemoglobin 8.1 g/dl (12.0-16.0)
[2024-09-08 06:50] LABS: Hematocrit (blood only) 22.6 % (37.0-47.0); Hemoglobin 7.3 g/dl (12.0-16.0); Mean Corpuscular Hemoglobin 26.8 pg (25.0-34.0); Mean Corpuscular Volume 83.1 fL (80.0-100.0); Platelet Count 517 K/uL (130-400); RDW Standard Deviation 52.8 fL (36.4-46.3); Red Blood Count 2.72 M/uL (4.20-5.40); White Blood Count 18.61 K/ul (4.8-10.8)
[2024-09-08 07:06] LABS: Alanine Aminotransferase 12.0 U/L (7-52); Albumin Globulin Ratio 0.6 (0.9-2); Alkaline Phosphatase 85.0 U/L (34-104); Anion Gap 7.0 (3-11); Bilirubin,Total 0.4 mg/dl (0.2-1.0); Blood Urea Nitrogen 21.0 mg/dl (6-23); Calcium 7.7 mg/dl (8.6-10.3); Carbon Dioxide 28.0 mmol/L (21-32); Chloride 102.0 mmol/L (98-107); Creatinine Clr Calc Pharmacy 110.1 ml/min; Globulin 3.5 gm/dl (2.5-4.0); Glucose 106.0 mg/dl (70-99(Fasting)); Magnesium 1.7 mg/dl (1.7-2.4); Potassium 3.5 mmol/L (3.5-5.1); Sodium 137.0 mmol/L (136-145); Total Protein 5.6 gm/dl (6.0-8.3)
[2024-09-08 07:12] LABS: Immature Granulocytes # (auto) 0.24 K/uL (0.01-0.20); Immature Granulocytes % (auto) 1.3 %; Polychromasia 1+
[2024-09-08 07:22] LABS: ANTI-Xa, UFH(UnfractionatedHep 0.35 IU/ml (0.3-0.7)
[2024-09-08] MEDS: 4.5GM X1 IV STA (09:31)
[2024-09-08] MEDS: FUROSEMIDE INJ 20 MG/2 ML VIAL IV SCH (09:31)
--- NOTE | 2024-09-08 10:46 | Hospitalist Progress Note ---
Date of Service September 08, 2024 Assessment & Plan (1) Severe sepsis with acute organ dysfunction: (2) Atrial fibrillation, new onset: (3) Acute renal failure: (4) Ileus due to infection: (5) Peritonitis due to abscess: (6) Electrolyte abnormality: (7) Pneumoperitoneum: (8) Demand ischemia of myocardium: (9) Low grade mucinous neoplasm of appendix: (10) Status post laparoscopic appendectomy: (11) Paroxysmal SVT (supraventricular tachycardia): Plan Pt is a 68-year-old female status post appendectomy for mucocele on 08/19/2024. She presented critically ill with acute renal failure, multiple electrolyte abnormalities and evidence of severe sepsis with organ dysfunction as evidenced by renal failure, postsurgical ileus, and new onset atrial fibrillation. Currently s/p IR pelvic drain placement for abscesses on 08/28/24 and extended right colectomy with drainage of abscess by general surgeon Dr. Pacheco on 08/30/24. She is currently being treated as follows: Sepsis Proteus bacteremia Intra abdominal/pelvic abscesses Postsurgical ileus Cholelithiasis w/o evidence of cholecystitis Recent laparoscopic appendicectomy of large mucocele of appendix by Dr. Pacheco on 08/19/2024 CT abdomen/pelvis from 08/25/24 noting "Absent appendix consistent with appendectomy history with increased fluid and gas throughout the abdomen and pelvis more than expected particularly at the level of the surgical bed. Dehiscence is not excluded. No discrete encapsulated drainable fluid collection although early abscess cannot be excluded. Prominent fluid distended proximal small bowel and to some extent distal small bowel fecal type densities which can be seen in slow small bowel transit. Mild ileus is not excluded... CT abdomen with oral contrast: Pneumoperitoneum with right retroperitoneal gas mildly decreased. Cannot rule out anastomotic leak with abscess. Contrast has not reached the distal small bowel. Findings suggestive of ileus. Blood cultures from admission grew Proteus vulgaris, repeat blood cultures negative CT Abd/Pelvis with IV contrast on 08/28/24 showed increased pneumoperitoneum and right retroperitoneal gas, multifocal abscesses IV antibiotics broadened to Vancomycin and meropenem at that time S/p IR placement of drain on 08/28/24 Persistent leukocytosis IR drain culture from 08/28/24 grew E coli, bacteroides vulgatus and Clostridium innocuum c diff gene +, toxin negative S/p Exploratory laparotomy which showed small bowel perforation with abscess on 08/30/24, s/p extended right colectomy with drainage of abscess by general surgeon Dr. Pacheco on 08/30/24 Infectious Disease was consulted, appreciate recs -Antibiotics deescalated to IV ceftriaxone and metronidazole -Plan for a total antibiotic course of 3-4 weeks. -Repeat imaging to reassess abscess size and response to treatment. NG tube still in place, started on TPN on 08/31/24 Required ICU stay postop on 08/30, downgraded on 09/01 PT/OT Pain control- General surgery started morphine equipment cleaner on 09/04 Improving 09/05- KUB ordered, pt declining repeat CT abd/pelvis due to pain with getting the scan done. KUB noting ileus, discussed with surgery Dr Ryder who recommended no change to plan at this time of increased activity postop and advancement of diet to clears today. 09/06- tolerating clears, on TPN, no flatus/BM yet. 09/07- had bowel movement, advanced to full liquids, TPN discontinued. Case was discussed with ID once more given slowly increasing wbc and repeat CT findings. They advised that we can continue with the current abx if CT scan showed smaller abscesses vs. broadening abx if wbc continues to increase. Surgery considering new drain as well 09/08- continued increase in WBC, IV abx broadened to Zosyn, pt clinically improved, appreciate further Gen surg recs Pulmonary Emboli Possible DVT RR increased on 09/04 CTA chest ordered- noted bilateral pulmonary emboli Pt declining doppler US lower extremities due to pain with completing medical testing at this time, discussion that results will not change agent as she is already on IV heparin Continue IV heparin at this time Monitor H/H Continue to monitor Edema Pt with extremity edema Recent JANET with recovered urinary output a few days ago Gentle diuresis with IV lasix- currently at IV 60mg BID, still 16L Monitor kidney function Acute kidney injury JANET had initially resolved but developed again Creatinine 3.9>>2.26>>0.94>1.51>>1.87>1.61, currently normal Likely from sepsis + contrast Improved urine output Avoid contrast and nephrotoxins as much as possible Nephrology on board, appreciate recs Currently resolved. Esophagitis Noted on CT imaging Continue IV ppi Prediabetes hgba1c of 6.3 Noted hyperglycemia, on TPN currently Continue to monitor at this time Acute on chronic anemia Iron Deficiency Anemia Likely due to sepsis, blood loss and iron deficiency Got 2UPRBC on 08/31/24 Anemia panel showed low iron levels- Current recommendations advise against use of IV Venofer in the setting of severe infection, will need po supplementation once able to tolerate po Hb stable Monitor Atrial fibrillation-new onset In the setting of sepsis Spontaneously converted to sinus ECHO: EF 55 to 60%. Mild concentric LVH. Left atrium mildly dilated. Mild tricuspid regurgitation. No significant pulmonary hypertension. Cardiology eval noted. No anticoagulation recommended Continue tele monitor IV lopressor 5mg q6h for now. Plan to switch to po metoprolol succinate when able to take po May need ZIO monitor as outpatient Pt currently on IV heparin as noted above in the setting of PEs Hyponatremia Hypokalemia - resolved K is 4.1 today. Mild troponin elevation Likely demand ischemia secondary to sepsis, A-fib RVR Denies any chest pain, dyspnea Diet:advancing as tolerated, on TPN DVT Px: IV heparin Code Status :Full Code Dispo: Per PT/OT recs Admission and Anticipated Discharge Date Admission Date: August 23, 2024 Subjective Pt was seen sitting in the chair near her bed Notes an uncomfortable night laying in the bed Notes she is passing gas, tolerated full liquids overnight Asking about NPO status this AM. Review of Systems Review of Systems: All systems reviewed & are unremarkable except as noted in Subjective Physical Exam Physical Exam: General: Alert, oriented. No acute distress HEENT: NC/AT, NG tube in place CV: RRR Resp: breath sounds decreased bilaterally, no increased effort of breathing Abdomen:Soft, tender, bandage in place Extremities: edema in lower extremities bilaterally. Results & Data Results & Data Vital Signs (Past 12 Hours) Vital Signs Temp Pulse Pulse Resp BP BP BP 09/08/24 09:50 77 113/66 09/08/24 09:31 88 119/76 09/08/24 08:14 09/08/24 08:00 36.7 C 88 18 119/76 09/08/24 07:36 82 09/08/24 03:26 76 99/62 L 09/08/24 02:56 91 H 119/71 09/08/24 02:55 36.9 C 91 H 119/71 09/08/24 00:00 90 09/08/24 00:00 37.1 C 91 H 18 121/76 Pulse Ox O2 Del Method 09/08/24 09:50 09/08/24 09:31 09/08/24 08:14 Room Air 09/08/24 08:00 98 Room Air 09/08/24 07:36 09/08/24 03:26 09/08/24 02:56 09/08/24 02:55 94 Room Air 09/08/24 00:00 09/08/24 00:00 95 Room Air
[2024-09-08] MEDS: ACETAMINOPHEN 1,000 MG/100 ML VIAL IV PRN (11:29)
--- NOTE | 2024-09-08 11:51 | Surgery Progress Note ---
Date of Service September 08, 2024 Assessment & Plan (1) Intra-abdominal abscess: (2) Peritonitis due to abscess: (3) Low grade mucinous neoplasm of appendix: (4) Acute renal failure: (5) Septic shock: Plan POD # 9 s/p ex lap extended right hemicolectomy with primary anastomosis in setting of prior laparoscopic appendectomy for large mucocele of appendix -small bowel perforation found during ex lap - afebrile, vss - leukocytosis increasing 18k today (15k yesterday) - abdominal pain in right lower abdomen/right flank stable - + bowel function two days ago - no n,v - Repeat CT scan 09/07/2024 showing multiple fluid collections concerning for abscesses and significant amount of right retroperitoneal fluid and right abdominal fluid plan: Broaden IV abx given ct scan findings. I had a discussion with Yao Valle PA-C with IR as well as Dr. Godinez with radiology who states scan is showing diffuse intra-abdominal fluid with multiple rim enhancing fluid collections with thick fluid concerning for abscesses, small IR drains are possible but do not feel would be therapeutic and risks of procedure outweighs benefit. Patient is afebrile, abdomen is soft without peritonitis and she is subjectively feeling better but having intermittent severe pain of the right abdomen and flank. Discussed CT can finding with patient . Given reassuring examination, afebrile, and soft abdomen with kirk drain intact would recommend IV abx and close monitoring. She is in agreement with this plan. Full liquids for lunch. abdominal binder. pain management as needed encouraged PT/OT moving legs when sitting in chair incentive spirometry continue IV heparin for PE repeat am labs Discussed with Dr. burch who agrees with above. Admission and Anticipated Discharge Date Admission Date: August 23, 2024 Subjective had a lot of pain this morning but feeling better now having a lot of pain with lying in bed, hard to get comfortable, awake at night due to discomfort in the bed. Seems to be better with sitting up in chair. No n,v no chest pain or shortness of breath urinating via singh working with PT, still very fatigued pain controlled with Morphine SLOT MACHINE MECHANIC no flatus today bm two days ago Physical Exam Constitutional: WD/WN, vitals as above + morbidly obese, cooperative and comfortable; no acute distress, not ill appearing, not in distress and not diaphoretic Respiratory: normal respiratory effort; no respiratory distress, no labored breathing and no retractions oxygen via nasal cannula Gastrointestinal (Abdomen): Inspection/Auscultation: abdomen normal to inspection, + abdominal surgical incision (intact with evelin, no surrounding erythmea) and + abdominal surgical drain present (serosanguineous); abdomen not distended Percussion/Palpation: + abdomen tender (Right lateral abdomen and flank) and abdomen soft; no guarding, abdomen not rigid and abdomen not firm no peritonitis or rigidity Skin: no rashes, warm and dry Psychiatric: Orientation: alert and oriented x 3 Results & Data Vital Signs (Past 12 Hours) Vital Signs Temp Pulse Pulse Resp BP BP BP 09/08/24 09:50 77 113/66 09/08/24 09:31 88 119/76 09/08/24 08:14 09/08/24 08:00 36.7 C 88 18 119/76 09/08/24 07:36 82 09/08/24 03:26 76 99/62 L 09/08/24 02:56 91 H 119/71 09/08/24 02:55 36.9 C 91 H 119/71 09/08/24 00:00 90 09/08/24 00:00 37.1 C 91 H 18 121/76 Pulse Ox O2 Del Method 09/08/24 09:50 09/08/24 09:31 09/08/24 08:14 Room Air 09/08/24 08:00 98 Room Air 09/08/24 07:36 09/08/24 03:26 09/08/24 02:56 09/08/24 02:55 94 Room Air 09/08/24 00:00 09/08/24 00:00 95 Room Air Laboratory Results 09/08/24 09/07/24 Range/Units 06:15 17:38 WBC 18.61 H (4.8-10.8) K/ul RBC 2.72 L (4.20-5.40) M/uL Hgb 7.3 L 8.1 L (12.0-16.0) g/dl Hct 22.6 L 24.9 L (37.0-47.0) % MCV 83.1 (80.0-100.0) fL MCH 26.8 (25.0-34.0) pg MCHC 32.3 (32.0-36.0) g/dL RDW Std Deviation 52.8 H (36.4-46.3) fL RDW Coeff of [place] 17.5 H (11.5-14.5) % Plt Count 517 H (130-400) K/uL MPV 10.0 (9.4-12.4) fL Immature Gran % (Auto) 1.3 % Neut % (Auto) 81.6 % Lymph % (Auto) 10.4 % [place] % (Auto) 6.1 % Eos % (Auto) 0.3 % Baso % (Auto) 0.3 % Neut # (Auto) 15.18 H (1.40-6.50) K/uL Lymph # (Auto) 1.94 (1.20-3.40) K/uL [place] # (Auto) 1.13 H (0.11-0.59) K/uL Eos # (Auto) 0.06 (0.00-0.50) K/uL Baso # (Auto) 0.06 (0.00-0.20) K/uL Immature Gran # (Auto) 0.24 H (0.01-0.20) K/uL Polychromasia 1+ Heparin Anti-Xa, Unfract 0.35 (0.3-0.7) IU/ml Sodium 137 (136-145) mmol/L Potassium 3.5 (3.5-5.1) mmol/L Chloride 102 (98-107) mmol/L Carbon Dioxide 28 (21-32) mmol/L Anion Gap 7 (3-11) BUN 21 (6-23) mg/dl Creatinine 0.56 L (0.6-1.2) mg/dl Est Cr Clr Drug Dosing 110.1 ml/min eGFR 99.35 BUN/Creatinine Ratio 37.5 H (10-20) Glucose 106 H (70-99(Fasting)) mg/dl Calcium 7.7 L (8.6-10.3) mg/dl Phosphorus 3.5 (2.5-4.9) mg/dl Magnesium 1.7 (1.7-2.4) mg/dl Total Bilirubin 0.4 (0.2-1.0) mg/dl AST 13 (13-39) U/L ALT 12 (7-52) U/L Alkaline Phosphatase 85 (34-104) U/L Total Protein 5.6 L (6.0-8.3) gm/dl Albumin 2.1 L (3.4-5.0) gm/dl Globulin 3.5 (2.5-4.0) gm/dl Albumin/Globulin Ratio 0.6 L (0.9-2) Diagnostic Findings CT SCAN OF THE ABDOMEN AND PELVIS WITH IV CONTRAST CLINICAL HISTORY: Right flank pain. Status post exploratory laparotomy, extended right hemicolectomy and abscess drainage on August 30, 2024. COMPARISON STUDY: CT of the abdomen and pelvis August 28, 2024. KUB September 05, 2024. Chest CT September 04, 2024. TECHNIQUE: Following the IV administration of 93 cc of Optiray 320, CT scan of the abdomen and pelvis is performed from the lung bases to the proximal femora. Images are reviewed in the axial, sagittal, and coronal planes. IV contrast was administered without complication. A dose lowering technique was utilized adhering to the principles of ALARA. CT DOSE: 1328.41 mGy.cm FINDINGS: A small right pleural effusion is noted. Subpleural right lower lobe opacity with volume loss favors atelectasis. There are no hepatic lesions. No biliary or pancreatic ductal dilatation. Spleen, adrenal glands and pancreas are unremarkable. 5 mm left renal calculus is again noted. There are no ureteral calculi. Mild right collecting system dilatation is present. Right kidney is slightly displaced by right retroperitoneal fluid. There is a small 1.1 cm hypoenhancing focus within the upper pole of the right kidney. Surgical drain is in place. There are postoperative findings consistent with right hemicolectomy. Multiple small bowel loops are mildly dilated and fluid-filled. No well-defined transition point is identified. Diffuse mesenteric stranding is noted. Extensive right retroperitoneal fluid is noted with multiple locules of extraluminal gas. There is also a moderate amount of intraperitoneal fluid within the right abdomen which contains several locules of extraluminal gas. There is a small amount of pneumoperitoneum. Right abdominal peritoneal enhancement is present. A rim- enhancing pelvic fluid collection, anterior to the distal sigmoid colon measures 6.8 x 5.6 cm. A rim-enhancing fluid collection within the left paracolic gutter measures 5.3 x 3.5 cm intermediate AP by transverse dimensions respectively. This extends from the level the mid to distal paracolic gutter. A rim-enhancing central mesenteric fluid collection image 184 measures 6.4 x 3.4 cm. There is a gallstone within the gallbladder. Moderate gallbladder distention is similar to prior CT. IMPRESSION: 1. Status post right hemicolectomy. Mildly dilated fluid-filled small bowel loops without well-defined transition point. The findings favor an ileus although a partial small bowel obstruction could appear similar. 2. Small amount of pneumoperitoneum. This this may be postsurgical. However, a leak could appear similar and continued imaging follow-up is recommended. 3. Multiple rim-enhancing fluid collections within the abdomen and pelvis which contain a small amount of gas. These are consistent with abscesses. 4. Right retroperitoneal fluid versus phlegmon which contain multiple locules of gas. No peripheral enhancement. 5. Moderate intraperitoneal fluid within the right abdomen. Peritoneal enhancement and mesenteric stranding may be postsurgical although could also be infectious. 6. Cholelithiasis. No significant change in nonspecific moderate gallbladder distention. 7. Subtle nonspecific 1.1 cm hypoenhancing focus within the upper pole of the right kidney. Mild right collecting system dilatation. 5 mm left renal calculus. No ureteral calculi. 8. Small right pleural effusion. Right lower lobe opacity suggestive of atelectasis. Personally reviewed CT scan images and concur with above findings.
[2024-09-08 12:20] LABS: Hematocrit (blood only) 22.5 % (37.0-47.0); Hemoglobin 7.5 g/dl (12.0-16.0)
[2024-09-08] MEDS: PIPERACILLIN/TAZOBACTAM 4.5 GM/100 ML BAG IV SCH (15:03)
--- NOTE | 2024-09-09 02:51 | Ultrasound Report ---
EXAM: US arterial duplex LE LT CLINICAL HISTORY: decreased pulse TECHNIQUE: Ultrasound examination of the left lower limb artery was performed in real time and duplex. One or more of the following were performed- spectral analysis, resistive index, waveform analysis, and pulsed Doppler. COMPARISON: None. FINDINGS: Vessel Flow Pattern Left Peak Velocity Left (cm/sec) Common Femoral Artery (KERFER MACHINE OPERATOR) Triphasic 322.9 cm/sec. Superficial Femoral Artery (SFA) proximal Triphasic 131.7 cm/sec. Superficial Femoral Artery (SFA) distal Triphasic 140.3 cm/sec. Popliteal Artery (POP A) proximal Triphasic 65.5 cm/sec. Anterior Tibial Artery (REGISTERED REPRESENTATIVE), proximal Triphasic 156 cm/sec. Posterior Tibial Artery (REGISTERED REPRESENTATIVE), distal Triphasic 50.6 cmsec. Dorsalis Pedis Artery (DPA) Triphasic 48.3 cm/sec. Waveforms in left lower limb arteries triphaisc waveforms are noted. No mural plaques or hemodynamically significant stenosis is noted in the arteries of left lower extremity. The peak systolic velocities are seen elevated at the left KERFER MACHINE OPERATOR, reaching 322 cm/s and proximal DEN reaching 156 cm/s. Normal triphasic waveform pattern observed throughout the evaluated segments. No significant collateral circulation noted indicative of chronic arterial occlusion. Additional Findings: Moderate subcutaneous soft tissue edema of the leg noted. IMPRESSION: 1. The peak systolic velocities are seen elevated at the left KERFER MACHINE OPERATOR reaching 322 cm/s and proximal DEN reaching 156 cm/s. Possibility of stenosis could not be excluded. Please correlate clinically, further CTA angiography is advised if clinically indicated. 2. Otherwise, normal arterial flow characteristics with no evidence of significant stenosis or occlusion. 3. Moderate subcutaneous soft tissue edema of the leg noted, duplex venous system is recommended if clinically indicated. Electronically signed by Wm Napoles 09-09-2024 02:50 AM
[2024-09-09 06:26] LABS: Hematocrit (blood only) 20.3 % (37.0-47.0); Hemoglobin 6.6 g/dl (12.0-16.0); Mean Corpuscular Hemoglobin 27.0 pg (25.0-34.0); Mean Corpuscular Volume 83.2 fL (80.0-100.0); Platelet Count 485 K/uL (130-400); RDW Standard Deviation 52.6 fL (36.4-46.3); Red Blood Count 2.44 M/uL (4.20-5.40); White Blood Count 20.53 K/ul (4.8-10.8)
[2024-09-09 06:27] LABS: Alanine Aminotransferase 11.0 U/L (7-52); Albumin Globulin Ratio 0.6 (0.9-2); Alkaline Phosphatase 77.0 U/L (34-104); Anion Gap 8.0 (3-11); Bilirubin,Total 0.5 mg/dl (0.2-1.0); Blood Urea Nitrogen 16.0 mg/dl (6-23); Calcium 7.4 mg/dl (8.6-10.3); Carbon Dioxide 27.0 mmol/L (21-32); Chloride 101.0 mmol/L (98-107); Creatinine Clr Calc Pharmacy 93.4 ml/min; Globulin 3.3 gm/dl (2.5-4.0); Glucose 117.0 mg/dl (70-99(Fasting)); Magnesium 1.4 mg/dl (1.7-2.4); Potassium 2.9 mmol/L (3.5-5.1); Sodium 136.0 mmol/L (136-145); Total Protein 5.4 gm/dl (6.0-8.3)
[2024-09-09] MEDS ORDERED: SODIUM CHLORIDE 0.9% 100 ML IV PRN (06:34)
--- NOTE | 2024-09-09 06:37 | Communication Note ---
Date of Service: September 09, 2024 Patient hemoglobin 6.6 from 7.5 yesterday. Usual right sided abdominal pain as per RN. 1 episode dark loose stool. AP Acute on chronic anemia secondary to UGIB Esophagitis on imaging Ongoing IV heparin infusion for blood clot Hold IV heparin for now Transfuse PRBC to maintain hemoglobin of at least 7 IV PPI infusion GI consult re: UGIB N.p.o. in anticipation of endoscopy
[2024-09-09 06:40] LABS: ANTI-Xa, UFH(UnfractionatedHep 0.35 IU/ml (0.3-0.7)
[2024-09-09 06:46] LABS: Immature Granulocytes # (auto) 0.22 K/uL (0.01-0.20); Immature Granulocytes % (auto) 1.1 %; Polychromasia 1+
[2024-09-09] MEDS: MAGNESIUM SULFATE / D5W 1 GM/100 ML BAG IV SCH (07:02)
[2024-09-09] MEDS: POTASSIUM CHLORIDE CRTAB 20 MEQ TABCR PO STA (07:03)
--- NOTE | 2024-09-09 08:54 | Surgery Progress Note ---
Date of Service September 09, 2024 Assessment & Plan (1) Intra-abdominal abscess: Plan: fluid collections not amenable to drainage drain near largest collection con't abx; WBC elevated; will trend H/H down; GI evaluation diet once GI recommendations made Admission and Anticipated Discharge Date Admission Date: August 23, 2024 Subjective doing OK pain not worse passing BMs AF VSS Review of Systems Constitutional: no fever and no chills Respiratory: no cough and no dyspnea Cardiovascular: no chest pain Gastrointestinal: + abdominal pain; no nausea, no vomiting and no change in bowel habits Musculoskeletal: + back pain Neurologic: + generalized weakness Psychiatric: no behavioral changes Physical Exam Constitutional: WD/WN, vitals as above Respiratory: normal respiratory effort Cardiovascular: Rate/Rhythm: regular rate and regular rhythm Gastrointestinal (Abdomen): Inspection/Auscultation: abdomen normal to inspection and normal bowel sounds; abdomen not distended Percussion/Palpation: + abdomen tender and abdomen soft; no guarding and abdomen not rigid drain serousanguious Musculoskeletal: Head/Neck/Chest: normocephalic and head atraumatic Skin: no rashes, warm and dry Results & Data Vital Signs (Past 12 Hours) Vital Signs Temp Pulse Pulse Resp BP BP BP 09/09/24 07:38 36.8 C 76 18 126/71 09/09/24 03:34 37.0 C 75 18 112/71 09/09/24 02:45 83 114/71 09/09/24 02:30 85 114/74 09/08/24 22:22 86 09/08/24 22:21 72 112/72 09/08/24 21:50 85 17 112/72 Pulse Ox O2 Del Method 09/09/24 07:38 98 Nasal Cannula 09/09/24 03:34 94 Room Air 09/09/24 02:45 09/09/24 02:30 09/08/24 22:22 09/08/24 22:21 09/08/24 21:50 95 Room Air
--- NOTE | 2024-09-09 09:26 | Gastrointestinal Consultation ---
Date of Consultation September 09, 2024 Assessment & Plan (1) Anemia: 68 year old female w/ history of Laparoscopic appendectomy and removal of massive mucocele 08/19/24 admitted 08/23 w/ afib w/ RVR, renal failure, gram negative bacteremia, pneumoperitoneum, small bowel perforation w/ abscess on s/p Exploratory Laparotomy, Extended Right Colectomy with Drainage of Abscess on 08/30 - GI asked to evaluate for dark stools, anemia requiring transfusion with HGB 6.6. She is NPO w/ heparin on hold. We are happy to arrange diagnostic EGD today to evaluate for UGI source of bleeding. Given her recent surgical history, colonoscopy deferred. Trend H&H. Monitor/document output. Transfuse PRN per primary service. IV PPI. Hold heparin gtt. We appreciate assistance in the management of any serological abnormality and corrections to include: hemoglobin >7, INR <2, platelets >50,000, potassium levels >3.5 but <5.3, and sodium levels within 5 points of the reference range prior to endoscopic evaluation. Thank you for allowing us to participate in the care of this patient. Please call with any acute changes, questions or concerns. Please see addendum below with additional recommendation from my supervising physician. I spent a total of 60 minutes on the date of service in review of patient's record, and previously obtained information in person and appropriate medical visit, discussion and education of plan, with patient and/or caregiver, placing orders for tests/referral/procedures as medically necessary and documentation of pertinent clinical information in patient's medical records for their visit today. Supervising Physician Co-Signing Physician Notes Chart reviewed. Agree with above. Second episode of hemoglobin down in the sixes since this admission. 1 dark stool. EGD posttransfusion if adequate improvement of hemoglobin per anesthesia. Hold heparin till EGD. Surprising though for an upper GI bleed her BUN/creatinine ratio was normal. If EGD negative I would try resuming heparin and observe clinical course. No plan for lower endoscopy based on recent distal small bowel perforation abscess. History of Present Illness Reason for Consultation: UGIB Requesting Physician: Gerry Norton MD Attending Physician: Gerry Norton MD History of Present Illness 68 year old female w/ history of Laparoscopic appendectomy and removal of massive mucocele 08/19/24 admitted 08/23 w/ afib w/ RVR, renal failure, gram negative bacteremia, pneumoperitoneum, small bowel perforation w/ abscess on s/p Exploratory Laparotomy, Extended Right Colectomy with Drainage of Abscess on 08/30 - GI asked to evaluate for dark stools. Pt was seen and evaluated, chart reviewed. She suggests yesterday she had three large BMs which appeared black in color. Denies any BRBPR. She does have some abdominal discomfort but she relates this to her surgical site incisions. Denies any report of black or bloody emesis. HGB 6.6 BUN 16 s/p 2 units RBC 08/31 She has one unit ready to be administered Heparin is on hold CTAP 09/07/24: Status post right hemicolectomy. Mildly dilated fluid-filled small bowel loops without well-defined transition point. The findings favor an ileus although a partial small bowel obstruction could appear similar. Small amount of pneumoperitoneum. This this may be postsurgical. However, a leak could appear similar and continued imaging follow-up is recommended. Multiple rim-enhancing fluid collections within the abdomen and pelvis which contain a small amount of gas. These are consistent with abscesses. Right retroperitoneal fluid versus phlegmon which contain multiple locules of gas. No peripheral enhancement. . Moderate intraperitoneal fluid within the right abdomen. Peritoneal enhancement and mesenteric stranding may be postsurgical although could also be infectious. Cholelithiasis. No significant change in nonspecific moderate gallbladder distention. Subtle nonspecific 1.1 cm hypoenhancing focus within the upper pole of the right kidney. Mild right collecting system dilatation. 5 mm left renal calculus. No ureteral calculi. Small right pleural effusion. Right lower lobe opacity suggestive of atelectasis. Allergies Allergy/AdvReac Type Severity Reaction Status Date / Time No Known Allergies Allergy Verified 08/23/24 11:05 Home Medications Medication Instructions Recorded Confirmed Type No Known Home Medications 08/23/24 08/23/24 History Patient History Medical History Paroxysmal SVT (supraventricular tachycardia) sometimes occurs in the morning hours/not at any other times. no hx medication or intervention. Last occurence: " i don't know" Rotator cuff tear no hx sx, right, denies limitations. Arthritis of both feet Gallstone found on last ct may of 2024/no trouble with at current. Elevated blood pressure reading at dr's offices elevated. monitored. Obesity Surgical History History of foot surgery left/hardware History of colonoscopy Hx of tooth extraction History of lumpectomy of left breast Social History Smoking Status: Never smoker Second Hand Exposure: No; Do You Dip or Chew Tobacco: No; Hx Alcohol Use: No Hx Substance Use: No Preferred Language: Serbian Communication Ability: Effective Visual Impairment: No Limitations Drawer Liner Required: No Beliefs That Will Affect Care: None Current Living Situation: Spouse Feels Safe at Home: Yes Assistive Devices: None Review of Systems Review of Systems: All other findings negative except as noted in HPI. Physical Exam Constitutional: Sitting upright in bed, ill appearing although in no acute distress Respiratory: normal respiratory effort Gastrointestinal (Abdomen): mild discomfort to palpation, bowel sounds active Skin: no rashes, warm and dry Results & Data Vital Signs (Past 12 Hours) Vital Signs Temp Pulse Pulse Resp BP BP BP 09/09/24 07:38 98.2 F 76 18 126/71 09/09/24 03:34 98.6 F 75 18 112/71 09/09/24 02:45 83 114/71 09/09/24 02:30 85 114/74 09/08/24 22:22 86 09/08/24 22:21 72 112/72 09/08/24 21:50 85 17 112/72 Pulse Ox O2 Del Method 09/09/24 07:38 98 Nasal Cannula 09/09/24 03:34 94 Room Air 09/09/24 02:45 09/09/24 02:30 09/08/24 22:22 09/08/24 22:21 09/08/24 21:50 95 Room Air Laboratory Results 09/09/24 09/09/24 09/08/24 Range/Units 07:08 05:24 12:03 WBC 20.53 H (4.8-10.8) K/ul RBC 2.44 L (4.20-5.40) M/uL Hgb 6.6 L* 7.5 L (12.0-16.0) g/dl Hct 20.3 L* 22.5 L (37.0-47.0) % MCV 83.2 (80.0-100.0) fL MCH 27.0 (25.0-34.0) pg MCHC 32.5 (32.0-36.0) g/dL RDW Std Deviation 52.6 H (36.4-46.3) fL RDW Coeff of Albino 17.5 H (11.5-14.5) % Plt Count 485 H (130-400) K/uL MPV 9.9 (9.4-12.4) fL Immature Gran % (Auto) 1.1 % Neut % (Auto) 85.7 % Lymph % (Auto) 7.5 % [place] % (Auto) 5.2 % Eos % (Auto) 0.2 % Baso % (Auto) 0.3 % Neut # (Auto) 17.58 H (1.40-6.50) K/uL Lymph # (Auto) 1.54 (1.20-3.40) K/uL [place] # (Auto) 1.07 H (0.11-0.59) K/uL Eos # (Auto) 0.05 (0.00-0.50) K/uL Baso # (Auto) 0.07 (0.00-0.20) K/uL Immature Gran # (Auto) 0.22 H (0.01-0.20) K/uL Polychromasia 1+ Heparin Anti-Xa, Unfract 0.35 (0.3-0.7) IU/ml Sodium 136 (136-145) mmol/L Potassium 2.9 L (3.5-5.1) mmol/L Chloride 101 (98-107) mmol/L Carbon Dioxide 27 (21-32) mmol/L Anion Gap 8 (3-11) BUN 16 (6-23) mg/dl Creatinine 0.66 (0.6-1.2) mg/dl Est Cr Clr Drug Dosing 93.4 ml/min eGFR 95.49 BUN/Creatinine Ratio 24.2 H (10-20) Glucose 117 H (70-99(Fasting)) mg/dl Calcium 7.4 L (8.6-10.3) mg/dl Phosphorus 3.9 (2.5-4.9) mg/dl Magnesium 1.4 L (1.7-2.4) mg/dl Total Bilirubin 0.5 (0.2-1.0) mg/dl AST 12 L (13-39) U/L ALT 11 (7-52) U/L Alkaline Phosphatase 77 (34-104) U/L Total Protein 5.4 L (6.0-8.3) gm/dl Albumin 2.1 L (3.4-5.0) gm/dl Globulin 3.3 (2.5-4.0) gm/dl Albumin/Globulin Ratio 0.6 L (0.9-2) Blood Type A Positive Antibody Screen NEGATIVE Crossmatch See Detail PG Care Time/CCT Total # of Minutes Spent Total Time Spent with Patient: Total time spent is greater than 50% in coordination of care (as documented) at patient's floor/unit and/or counseling patient: Coding Level of Care Code 58252 INT INP/OBS CARE 2/MIN Diagnoses Anemia D64.9
[2024-09-09] MEDS: PANTOprazole 40 MG/10 ML SYR IV ONE (09:57)
--- NOTE | 2024-09-09 09:59 | Hospitalist Progress Note ---
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 She presented critically ill with acute renal failure, multiple electrolyte abnormalities and evidence of severe sepsis with organ dysfunction as evidenced by renal failure, postsurgical ileus, and new onset atrial fibrillation. Currently s/p IR pelvic drain placement for abscesses on 08/28/24 and extended right colectomy with drainage of abscess by general surgeon Dr. Pacheco on 08/30/24. She is currently being treated as follows: Sepsis Proteus bacteremia Intra abdominal/pelvic abscesses Postsurgical ileus Cholelithiasis w/o evidence of cholecystitis Recent laparoscopic appendicectomy of large mucocele of appendix by Dr. Pacheco on 08/19/2024 CT abdomen/pelvis from 08/25/24 noting "Absent appendix consistent with appendectomy history with increased fluid and gas throughout the abdomen and pelvis more than expected particularly at the level of the surgical bed. Dehiscence is not excluded. No discrete encapsulated drainable fluid collection although early abscess cannot be excluded. Prominent fluid distended proximal small bowel and to some extent distal small bowel fecal type densities which can be seen in slow small bowel transit. Mild ileus is not excluded... CT abdomen with oral contrast: Pneumoperitoneum with right retroperitoneal gas mildly decreased. Cannot rule out anastomotic leak with abscess. Contrast has not reached the distal small bowel. Findings suggestive of ileus. Blood cultures from admission grew Proteus vulgaris, repeat blood cultures negative CT Abd/Pelvis with IV contrast on 08/28/24 showed increased pneumoperitoneum and right retroperitoneal gas, multifocal abscesses IV antibiotics broadened to Vancomycin and meropenem at that time S/p IR placement of drain on 08/28/24 Persistent leukocytosis IR drain culture from 08/28/24 grew E coli, bacteroides vulgatus and Clostridium innocuum c diff gene +, toxin negative S/p Exploratory laparotomy which showed small bowel perforation with abscess on 08/30/24, s/p extended right colectomy with drainage of abscess by general surgeon Dr. Pacheco on 08/30/24 Infectious Disease was consulted, appreciate recs -Antibiotics deescalated to IV ceftriaxone and metronidazole -Plan for a total antibiotic course of 3-4 weeks. -Repeat imaging to reassess abscess size and response to treatment. NG tube still in place, started on TPN on 08/31/24 Required ICU stay postop on 08/30, downgraded on 09/01 PT/OT Pain control- General surgery started morphine food service cashier on 09/04 Improving 09/05- KUB ordered, pt declining repeat CT abd/pelvis due to pain with getting the scan done. KUB noting ileus, discussed with surgery Dr Ryder who recommended no change to plan at this time of increased activity postop and advancement of diet to clears today. 09/06- tolerating clears, on TPN, no flatus/BM yet. 09/07- had bowel movement, advanced to full liquids, TPN discontinued. Case was discussed with ID once more given slowly increasing wbc and repeat CT findings. They advised that we can continue with the current abx if CT scan showed smaller abscesses vs. broadening abx if wbc continues to increase. Surgery considering new drain as well 09/08- continued increase in WBC, IV abx broadened to Zosyn, pt clinically improved, appreciate further Gen surg recs 09/09 Discussed w/ ID and w/ surgery - changed zosyn to ertapenem this AM as previous cultx resistant to zosyn. Will have ID review again. Per surgery cont. current plan, no plan for repeat surgery Pulmonary Emboli Possible DVT RR increased on 09/04 CTA chest ordered- noted bilateral pulmonary emboli Pt declining doppler US lower extremities due to pain with completing medical testing at this time, discussion that results will not filter changer as she is already on IV heparin Continue IV heparin at this time Monitor H/H Continue to monitor 09/09 heparin on hold overnight d/t Hgb drop. dark stools. GI consulted for poss. UGIB, plan for EGD today Edema Pt with extremity edema Recent JANET with recovered urinary output a few days ago Cont. diuresis with IV lasix Monitor kidney function Acute kidney injury JANET had initially resolved but developed again Creatinine 3.9>>2.26>>0.94>1.51>>1.87>1.61, currently normal Likely from sepsis + contrast Improved urine output Avoid contrast and nephrotoxins as much as possible Nephrology on board, appreciate recs Currently resolved. Esophagitis Noted on CT imaging Continue IV ppi Prediabetes hgba1c of 6.3 Noted hyperglycemia, was on TPN, now stopped Continue to monitor at this time Acute on chronic anemia Iron Deficiency Anemia Likely due to sepsis, blood loss and iron deficiency Got 2UPRBC on 08/31/24 Anemia panel showed low iron levels- Current recommendations advise against use of IV Venofer in the setting of severe infection, will need po supplementation once able to tolerate po 09/09 Hgb down again - at 6.6 - per washcoat wiper 1 pRBC ordered, GI consulted, IV heparin on hold Atrial fibrillation-new onset In the setting of sepsis Spontaneously converted to sinus ECHO: EF 55 to 60%. Mild concentric LVH. Left atrium mildly dilated. Mild tricuspid regurgitation. No significant pulmonary hypertension. Cardiology eval noted. No anticoagulation recommended Continue tele monitor IV lopressor 5mg q6h for now. Plan to switch to po metoprolol succinate when able to take po May need ZIO monitor as outpatient Pt been on IV heparin as noted above in the setting of PEs (since 09/04), now on hold (09/09), d/t Hgb down and dark stools - plan for GI/ EGD today Hyponatremia Hypokalemia K is 2.9 today. Replace and monitor Mild troponin elevation Likely demand ischemia secondary to sepsis, A-fib RVR Denies any chest pain, dyspnea Diet:was advancing as tolerated, off TPN, now NPO for EGD DVT Px: IV heparin on hold Code Status :Full Code Dispo: Per PT/OT recs Admission and Anticipated Discharge Date Admission Date: August 23, 2024 Subjective Pt seen in follow up Pt with complex hospital course Gen. surgery (Dr. Pacheco) following closely Pt been on iv heparin for PE WBC increasing Overnight Hgb down - per washcoat wiper heparin on hold, pRBC ordered, GI consulted - pt reportedly had 3 darks stools. LLE arterial duplex was ordered This AM - I changed abx zosyn to ertapenem (d/t previous cultx resistant to zosyn) - contacted ID to pls re-evaluate and help w/ abx management Pt seen in her room w/ GI HAIM Hilton - plan for EGD today Pt is awake , answers appropriately, difficulty moving w/ some abd. pain. No chest pain, no shortness of breath. Having BMs as above Review of Systems Review of Systems: All systems reviewed & are unremarkable except as noted in Subjective Physical Exam Physical Exam: General: obese F, Alert, oriented. No acute distress HEENT: NC/AT, EOMI CV: RRR Resp: breath sounds decreased bilaterally, no increased effort of breathing Abdomen:Soft, tender, bandage and surg. drain in place Extremities: edema in lower extremities bilaterally. Skin: warm, dry Results & Data Results & Data Vital Signs (Past 12 Hours) Vital Signs Temp Pulse Pulse Resp BP BP BP 09/09/24 07:38 36.8 C 76 18 126/71 09/09/24 03:34 37.0 C 75 18 112/71 09/09/24 02:45 83 114/71 09/09/24 02:30 85 114/74 09/08/24 22:22 86 09/08/24 22:21 72 112/72 09/08/24 21:50 85 17 112/72 Pulse Ox O2 Del Method 09/09/24 07:38 98 Nasal Cannula 09/09/24 03:34 94 Room Air 09/09/24 02:45 09/09/24 02:30 09/08/24 22:22 09/08/24 22:21 09/08/24 21:50 95 Room Air Laboratory Results 09/09/24 09/09/24 09/08/24 Range/Units 07:08 05:24 12:03 WBC 20.53 H (4.8-10.8) K/ul RBC 2.44 L (4.20-5.40) M/uL Hgb 6.6 L* 7.5 L (12.0-16.0) g/dl Hct 20.3 L* 22.5 L (37.0-47.0) % MCV 83.2 (80.0-100.0) fL MCH 27.0 (25.0-34.0) pg MCHC 32.5 (32.0-36.0) g/dL RDW Std Deviation 52.6 H (36.4-46.3) fL RDW Coeff of [place] 17.5 H (11.5-14.5) % Plt Count 485 H (130-400) K/uL MPV 9.9 (9.4-12.4) fL Immature Gran % (Auto) 1.1 % Neut % (Auto) 85.7 % Lymph % (Auto) 7.5 % [place] % (Auto) 5.2 % Eos % (Auto) 0.2 % Baso % (Auto) 0.3 % Neut # (Auto) 17.58 H (1.40-6.50) K/uL Lymph # (Auto) 1.54 (1.20-3.40) K/uL [place] # (Auto) 1.07 H (0.11-0.59) K/uL Eos # (Auto) 0.05 (0.00-0.50) K/uL Baso # (Auto) 0.07 (0.00-0.20) K/uL Immature Gran # (Auto) 0.22 H (0.01-0.20) K/uL Polychromasia 1+ Heparin Anti-Xa, Unfract 0.35 (0.3-0.7) IU/ml Sodium 136 (136-145) mmol/L Potassium 2.9 L (3.5-5.1) mmol/L Chloride 101 (98-107) mmol/L Carbon Dioxide 27 (21-32) mmol/L Anion Gap 8 (3-11) BUN 16 (6-23) mg/dl Creatinine 0.66 (0.6-1.2) mg/dl Est Cr Clr Drug Dosing 93.4 ml/min eGFR 95.49 BUN/Creatinine Ratio 24.2 H (10-20) Glucose 117 H (70-99(Fasting)) mg/dl Calcium 7.4 L (8.6-10.3) mg/dl Phosphorus 3.9 (2.5-4.9) mg/dl Magnesium 1.4 L (1.7-2.4) mg/dl Total Bilirubin 0.5 (0.2-1.0) mg/dl AST 12 L (13-39) U/L ALT 11 (7-52) U/L Alkaline Phosphatase 77 (34-104) U/L Total Protein 5.4 L (6.0-8.3) gm/dl Albumin 2.1 L (3.4-5.0) gm/dl Globulin 3.3 (2.5-4.0) gm/dl Albumin/Globulin Ratio 0.6 L (0.9-2) Blood Type A Positive Antibody Screen NEGATIVE Crossmatch See Detail Medications Administered Current Inpatient Medications Albuterol (Albut/Ipratrop 3mg/0.5mg Neb 3 Ml Vial) 3 ml NEB Q4H PRN; Protocol PRN Reason: Wheezing Stop: 09/22/24 13:08 Atropine Sulfate (Atropine Sulfate 0.1 Mg/Ml 10ml Syr) 1 mg IV Q3M PRN PRN Reason: symptomatic bradycardia Stop: 09/25/24 03:16 Dextrose (Dextrose 50% 50 Ml Syringe) 25 - 50 ml IV UD PRN; Protocol PRN Reason: Hypoglycemia Protocol Stop: 09/22/24 11:53 Furosemide (Furosemide Inj 20 Mg/2 Ml Vial) 60 mg IV BID ARMANDO Stop: 10/08/24 08:59 Last Admin: 09/08/24 20:47 Dose: 60 mg Glucagon (Glucagon For Inj 1 Mg Vial) 1 mg SQ UD PRN; Protocol PRN Reason: Hypoglycemia Protocol Stop: 09/22/24 11:53 Glucose (Glucose 40% Gel 15 Gm Tube) 15 - 30 gm PO UD PRN; Protocol PRN Reason: Hypoglycemia Protocol Stop: 09/22/24 11:53 Glucose (Glucose 10 Tab/Tube) 4 - 8 tab PO UD PRN; Protocol PRN Reason: Hypoglycemia Protocol Stop: 09/22/24 11:53 Heparin Sodium (Beef Lung) (Heparin 10 Unit/Ml 5 Ml Flush) 5 ml FLUSH PRN PRN PRN Reason: Flush Stop: 09/29/24 14:03 Last Admin: 09/03/24 18:13 Dose: 10 ml Ceftriaxone Sodium (Rocephin) 2,000 mg in 50 mls @ 100 mls/hr IV Q24H ARMANDO Stop: 09/11/24 11:59 Last Infusion: 09/07/24 13:13 Dose: Infused Metronidazole (Flagyl) 500 mg in 100 mls @ 100 mls/hr IV Q8H ARMANDO Stop: 09/11/24 11:59 Last Infusion: 09/08/24 04:03 Dose: Infused Heparin Sodium/Dextrose (Heparin 17486 Unit/500 Ml D5w) 25,000 units in 500 mls @ 0 mls/hr IV .Q0M ARMANDO; Protocol Stop: 10/04/24 12:29 Last Admin: 09/09/24 08:51 Dose: Not Given Acetaminophen (Ofirmev) 1,000 mg in 100 mls @ 400 mls/hr IV Q8H PRN PRN Reason: Breakthrough Pain Stop: 09/11/24 09:50 Last Infusion: 09/08/24 12:15 Dose: Infused Pantoprazole Sodium 40 mg/ (Dextrose) 100 mls @ 20 mls/hr IV Q5H ARMANDO Stop: 10/09/24 07:14 Sodium Chloride (Nss) 100 mls @ 15 mls/hr IV .Q6H40M PRN PRN Reason: For Transfusion Duration Stop: 09/09/24 14:35 Magnesium Sulfate/Dextrose (Magnesium Sulfate / D5w) 1 gm in 100 mls @ 50 mls/hr IV Q2H [facility] Stop: 09/09/24 10:44 Last Admin: 09/09/24 09:47 Dose: 50 mls/hr Ertapenem (Invanz 1000mg) 1,000 mg in 10 mls @ 2 mls/min IV Q24H ARMANDO Stop: 09/11/24 11:29 Potassium Chloride (K [place] / Wtr) 10 meq in 100 mls @ 100 mls/hr IV Q1H [facility] Stop: 09/09/24 10:14 Metoprolol Tartrate (Metoprolol Tartrate 1 Mg/Ml Vial) 5 mg IV Q2H PRN PRN Reason: HR > 120 Stop: 09/30/24 20:18 Last Admin: 08/31/24 20:25 Dose: 5 mg Metoprolol Tartrate (Metoprolol Tartrate 1 Mg/Ml Vial) 5 mg IV Q6H ARMANDO Stop: 10/01/24 01:59 Last Admin: 09/09/24 02:30 Dose: 5 mg Miscellaneous (Carbohydrates For Hypoglycemia ) 15 - 30 gm PO UD PRN PRN Reason: Hypoglycemia Protocol Stop: 09/22/24 11:53 Morphine Sulfate (Morphine Sulfate Road Train Driver 30 Mg/30 Ml) 30 mg IV PRN PRN; Protocol PRN Reason: SENIOR INTERACTIVE DEVELOPER Pain Titration Stop: 09/18/24 09:48 Last Admin: 09/07/24 08:42 Dose: 30 mg Naloxone HCl (Naloxone Hcl 0.4 Mg/1 Ml Vial/Carp) 0.1 mg IV Q5M PRN; Protocol PRN Reason: Oversedation/Resp Depression Stop: 09/18/24 09:47 Ondansetron HCl (Ondansetron Inj 2 Mg/Ml 2 Ml Vial) 4 mg IV Q6H PRN PRN Reason: Nausea Stop: 09/22/24 13:08 Last Admin: 09/08/24 22:20 Dose: 4 mg Polyethylene Glycol (Polyethylene (Miralax) 17 Gm Pack) 17 gm PO BID [facility] Stop: 09/28/24 20:59 Last Admin: 08/30/24 07:10 Dose: Not Given Potassium Chloride (Potassium Chloride Crtab 20 Meq Tabcr) 20 meq PO BID [facility] Stop: 10/09/24 20:59
[2024-09-09] MEDS: POTASSIUM CHLORIDE CRTAB 20 MEQ TABCR PO ONE (10:01)
[2024-09-09] MEDS: POTASSIUM CHLORIDE / WTR 10 MEQ/100 ML PLCT IV SCH (10:18)
[2024-09-09] MEDS: PANTOprazole 40 MG in DEXTROSE 5% MINI-B 100 ML IV SCH (12:10)
[2024-09-09] MEDS: ERTAPENEM 1000MG 1,000 MG/10 ML SYR IV SCH (12:27)
--- NOTE | 2024-09-09 13:49 | Infectious Disease Progress Nt ---
Date of Service September 09, 2024 Telehealth Information I performed this visit using a real-time telehealth connection between my location and the patients location ([facility]). After connecting through interactive tele-video, patient was identified by name and date of and/or wristband check.Patient (or authorized healthcare cash application representative) was informed that this was a telemedicine visit and it was being conducted confidentially over secure lines. My office door was closed and no one else was present in the room with me.Patient (or authorized healthcare cash application representative) provided consent to proceed with the visit, expressed an understanding of privacy and security of the telemedicine visit, and gave permission to have a hospital cash application representative in the room in order to assist with the visit and to conduct portions of the visit, as needed. I informed the patient (or authorized healthcare cash application representative) that I reviewed their record and presented the opportunity for them to ask any questions regarding the visit today. The patient agreed to participate. Assessment & Plan (1) Intra-abdominal abscess: Plan: The rising WBC is clearly linked with the spread of numerous small abscesses, though RP bleeding and evolving abscess there is also a concern. Broadening abx therapy to ertapenem 1g IV qd is reasonable, but the issue is primarily one of source control. If these areas are not drainable, then her recovery may be slowed. Repeating imaging in the next 1-2 weeks, or if she worsens in the meantime, will be warranted. Total duration of therapy remains a little unclear, but given her current CT findings, I would expect 4-6 weeks. Final plans remain pending. Subjective Reviewed chart this AM. Patient with rising WBC on CTX and GUAMAN. No fevers. Repeat CT obtained and shows numerous small sized abscesses and retroperitoneal phlegmon. Results & Data Vital Signs (Past 12 Hours) Vital Signs Temp Pulse Pulse Resp BP BP BP 09/09/24 12:27 36.6 C 78 18 112/72 09/09/24 11:57 36.4 C L 82 18 121/75 09/09/24 11:42 36.6 C 85 18 121/75 09/09/24 11:19 36.9 C 84 18 125/78 09/09/24 10:20 73 116/73 09/09/24 10:05 76 126/71 09/09/24 07:38 36.8 C 76 18 126/71 09/09/24 03:34 37.0 C 75 18 112/71 09/09/24 02:45 83 114/71 09/09/24 02:30 85 114/74 Pulse Ox O2 Del Method 09/09/24 12:27 97 09/09/24 11:57 97 09/09/24 11:42 97 09/09/24 11:19 97 09/09/24 10:20 09/09/24 10:05 09/09/24 07:38 98 Nasal Cannula 09/09/24 03:34 94 Room Air 09/09/24 02:45 09/09/24 02:30 Laboratory Results WBC up to 20.5 this AM Hgb down to 6.6 Platelets 485 Creatinine 0.66 BUN [address] abdomen reviewed as per HPI
--- NOTE | 2024-09-09 14:51 | Consultation ---
Date of Consultation September 09, 2024 Assessment & Plan (1) Pulmonary embolism: Pt with PE, recommend anticoagulation, however, pt now with severe anemia requiring transfusion and heparin has been held pending EGD ocurring later today. Pt without significant arterial disease, but does have severe BLE edema which is likely contributing to her BLE pain. IF pt unable to resume AC, will require IVC filter for further PE protection. Further recommendations regarding IVC filter placement pending EGD results. History of Present Illness Reason for Consultation: PAD, PE Attending Physician: Gerry Norton MD History of Present Illness 68 yo f with hx of arthritis, admitted after appendectomy and developed abscess with multi organ dysfunction, including a fib and renal failure, and pulmonary embolus, seen in consultation today for possible PAD. Pt without known hx, and states has been having severe swelling and pain in BLE since her recent surgery. Pt was started on IV heparin, but having acute anemia and heparin has been held until EGD being done later today. No hx of DVT in past. Admits fatigue, malaise. Denies COLEMAN, fever, chest pain, SOB presently, N/V, toe ulcerations, other complaints. CT chest with PE noted. Arterial US of BLE demonstrates minimal disease BLE. No venous US performed. Allergies Allergy/AdvReac Type Severity Reaction Status Date / Time No Known Allergies Allergy Verified 08/23/24 11:05 Home Medications Medication Instructions Recorded Confirmed Type No Known Home Medications 08/23/24 08/23/24 History Patient History Medical History Paroxysmal SVT (supraventricular tachycardia) sometimes occurs in the morning hours/not at any other times. no hx medication or intervention. Last occurence: " i don't know" Rotator cuff tear no hx sx, right, denies limitations. Arthritis of both feet Gallstone found on last ct may of 2024/no trouble with at current. Elevated blood pressure reading at dr's offices elevated. monitored. Obesity Surgical History History of foot surgery left/hardware History of colonoscopy Hx of tooth extraction History of lumpectomy of left breast Social History Smoking Status: Never smoker Second Hand Exposure: No; Do You Dip or Chew Tobacco: No; Hx Alcohol Use: No Hx Substance Use: No Preferred Language: Egyptian Communication Ability: Effective Visual Impairment: No Limitations Road Oiler Required: No Beliefs That Will Affect Care: None Current Living Situation: Spouse Feels Safe at Home: Yes Assistive Devices: None Physical Exam Constitutional: WD/WN, vitals as above cooperative and comfortable; not in distress Respiratory: normal respiratory effort, lungs clear to auscultation Auscultation: + diminished lung sounds Cardiovascular: Rate/Rhythm: regular rate and regular rhythm Vessels: posterior tibial pulses present, dorsalis pedis pulses present and radial pulses present; + abnormal peripheral pulses Extremities: normal capillary refill and + edema (+4 BLE) Gastrointestinal (Abdomen): Inspection/Auscultation: normal bowel sounds and + abdominal surgical incision; + abdomen abnormal to inspection Percussion/Palp ation: + abdomen tender and abdomen soft Musculoskeletal: no cyanosis or clubbing, extremities motor strength 5/5 Skin: no rashes, warm and dry Neurologic: moves all extremities and awake; no focal motor deficits and not confused Psychiatric: A+Ox3, euthymic affect Results & Data Vital Signs (Past 12 Hours) Vital Signs Temp Pulse Pulse Resp BP BP BP 09/09/24 12:27 36.6 C 78 18 112/72 09/09/24 11:57 36.4 C L 82 18 121/75 09/09/24 11:42 36.6 C 85 18 121/75 09/09/24 11:19 36.9 C 84 18 125/78 09/09/24 10:20 73 116/73 09/09/24 10:05 76 126/71 09/09/24 08:00 80 09/09/24 07:38 36.8 C 76 18 126/71 09/09/24 03:34 37.0 C 75 18 112/71 09/09/24 02:45 83 114/71 Pulse Ox O2 Del Method 09/09/24 12:27 97 09/09/24 11:57 97 09/09/24 11:42 97 09/09/24 11:19 97 09/09/24 10:20 09/09/24 10:05 09/09/24 08:00 09/09/24 07:38 98 Nasal Cannula 09/09/24 03:34 94 Room Air 09/09/24 02:45
[2024-09-09 15:08] LABS: Hematocrit (blood only) 25.0 % (37.0-47.0); Hemoglobin 8.3 g/dl (12.0-16.0)
--- NOTE | 2024-09-09 15:40 | Anesthesiology Consultation ---
Date of Service September 09, 2024 Assessment & Plan (1) Encounter for pre-operative examination: Chart Review Chart Review: Acceptable Risk for Surgery and Patient NOT seen in Pre Admission Testing Consults Requested none History Surgery Operation Date: 08/30/24 08:30 Proposed Procedures p Sigmoid Colon Resection - Macario Pacheco MD Operation Date: 09/09/24 16:55 Proposed Procedures p Esophagogastroduodenoscopy Dr. Ornelas - Sai Ornelas MD Height/Weight Height: 5 ft 4 in Weight: 103.3 kg Allergies Allergy/AdvReac Type Severity Reaction Status Date / Time No Known Allergies Allergy Verified 08/23/24 11:05 Medications Home Medications Medication Instructions Recorded Confirmed Last Taken No Known Home Medications 08/23/24 08/23/24 Unknown Active Medications Generic Name Dose Route Start Last Admin Trade Name Freq PRN Reason Stop Dose Admin Furosemide 60 mg 09/08/24 09:00 09/09/24 10:13 Furosemide Inj 20 Mg/2 Ml Vial IV 10/08/24 08:59 60 mg BID ARMANDO Administration Heparin Sodium (Beef Lung) 5 ml 08/30/24 14:04 09/03/24 18:13 Heparin 10 Unit/Ml 5 Ml Flush FLUSH 09/29/24 14:03 10 ml PRN PRN Administration Flush Ceftriaxone Sodium 2,000 mg in 50 mls @ 100 mls/hr 09/01/24 12:00 09/07/24 13:13 Rocephin IV 09/11/24 11:59 Infused Q24H ARMANDO Infusion Metronidazole 500 mg in 100 mls @ 100 mls/hr 09/01/24 12:00 09/08/24 04:03 Flagyl IV 09/11/24 11:59 Infused Q8H ARMANDO Infusion Heparin Sodium/Dextrose 25,000 units in 500 mls @ 0 mls/hr 09/04/24 12:30 09/09/24 08:51 Heparin 46464 Unit/500 Ml D5w IV 10/04/24 12:29 Not Given .Q0M ARMANDO Protocol 0 UNITS/HR Acetaminophen 1,000 mg in 100 mls @ 400 mls/hr 09/08/24 09:51 09/08/24 12:15 Ofirmev IV 09/11/24 09:50 Infused Q8H PRN Infusion Breakthrough Pain Pantoprazole Sodium 40 mg/ 100 mls @ 20 mls/hr 09/09/24 07:15 09/09/24 12:10 Dextrose IV 10/09/24 07:14 8 mg/hr Q5H ARMANDO 20 mls/hr Administration 8 MG/HR Ertapenem 1,000 mg in 10 mls @ 2 mls/min 09/09/24 11:30 09/09/24 12:27 Invanz 1000mg IV 09/11/24 11:29 2 mls/min Q24H ARMANDO Administration Metoprolol Tartrate 5 mg 08/31/24 20:19 08/31/24 20:25 Metoprolol Tartrate 1 Mg/Ml Vial IV 09/30/24 20:18 5 mg Q2H PRN Administration HR > 120 Metoprolol Tartrate 5 mg 09/01/24 02:00 09/09/24 10:05 Metoprolol Tartrate 1 Mg/Ml Vial IV 10/01/24 01:59 5 mg Q6H ARMANDO Administration Morphine Sulfate 30 mg 09/04/24 09:49 09/07/24 08:42 Morphine Sulfate Amusement Ride Operator 30 Mg/30 Ml IV 09/18/24 09:48 30 mg PRN PRN Administration W[employer]ER PASSENGER CAR Pain Titration Protocol Ondansetron HCl 4 mg 08/23/24 13:09 09/08/24 22:20 Ondansetron Inj 2 Mg/Ml 2 Ml Vial IV 09/22/24 13:08 4 mg Q6H PRN Administration Nausea Polyethylene Glycol 17 gm 08/29/24 21:00 08/30/24 07:10 Polyethylene (Miralax) 17 Gm Pack PO 09/28/24 20:59 Not Given BID ARMANDO NPO Date Last Intake of Fluids: 09/09/24 Time Last Intake of Fluids: 00:00 Last Intake of Fluids Comment: ice chips Date Last Intake of Solids: 08/30/24 Last Intake of Solids Comment: has been on clear liquids since arrival 08/23/24 Past Medical History Medical History Paroxysmal SVT (supraventricular tachycardia) sometimes occurs in the morning hours/not at any other times. no hx medication or intervention. Last occurence: " i don't know" Rotator cuff tear no hx sx, right, denies limitations. Arthritis of both feet Gallstone found on last ct may of 2024/no trouble with at current. Elevated blood pressure reading at dr's offices elevated. monitored. Obesity Past Surgical History Surgical History History of foot surgery left/hardware History of colonoscopy Hx of tooth extraction History of lumpectomy of left breast Social History Smoking Status: Never smoker Do You Dip or Chew Tobacco: No Hx Alcohol Use: No Alcohol type: wine alcohol intake frequency: a few times a month Hx Substance Use: No substance use type: does not use Physical Exam Vital Signs Last Vital Signs Temp 97.9 F 09/09/24 15:35 Pulse 93 H 09/09/24 15:35 Resp 16 09/09/24 15:35 BP 139/69 09/09/24 15:35 Pulse Ox 96 09/09/24 15:35 O2 Del Method Room Air 09/09/24 15:35 O2 Flow Rate 2.5 09/05/24 08:14 FiO2 21 08/31/24 08:14 Testing Laboratory Results 09/09/24 14:46 09/09/24 05:24 PT 11.8 Seconds (9.0-12.0) 09/04/24 12:28 INR 1.1 (0.9-1.1) 09/04/24 12:28 APTT 25 Seconds (21-31) 09/04/24 12:28 Hemoglobin A1c 6.3 % (4.5-5.6) H 08/27/24 05:59 Urine Color Dark Yellow 08/23/24 Unknown Urine Appearance Turbid (Clear) A 08/23/24 Unknown Urine pH 5.0 (4.5-7.5) 08/23/24 Unknown Ur Specific [place] 1.021 (1.000-1.030) 08/23/24 Unknown Urine Protein 2+ (Negative) H 08/23/24 Unknown Urine Glucose (UA) Negative (Negative) 08/23/24 Unknown Urine Ketones Trace (Negative) H 08/23/24 Unknown Urine Nitrite Negative (Negative) 08/23/24 Unknown Ur Leukocyte Esterase Negative (Negative) 08/23/24 Unknown Urine WBC (Auto) 0-5 /hpf (0-5) 08/23/24 Unknown Urine RBC (Auto) 6-10 /hpf (0-2) H 08/23/24 Unknown U Hyaline Cast (Auto) >20 /lpf (0-2) H 08/23/24 Unknown U Epithel Cells (Auto) 11-20 /hpf (0-2) H 08/23/24 Unknown Urine Bacteria (Auto) None Seen (None Seen) 08/23/24 Unknown Blood Type A Positive 09/09/24 07:08 Antibody Screen NEGATIVE 09/09/24 07:08 08/30/24 17:16 Aerobic Blood Culture - Final Blood No growth in Aerobic bottle after 5 days. Anaerobic Blood Culture - Final No growth in Anaerobic bottle after 5 days. 08/30/24 17:17 Aerobic Blood Culture - Final Blood No growth in Aerobic bottle after 5 days. Anaerobic Blood Culture - Final 08/30/24 11:20 Gram Stain - Final Peritoneal Fluid Aerobic and Anaerobic Culture - Final Escherichia coli Bacteroides vulgatus group Clostridium innocuum 08/28/24 Unknown Gram Stain - Final Abdomen Aerobic and Anaerobic Culture - Final Moderate counts mixed probable skin microbiota. No further identifications or sensitivities to follow. 08/23/24 11:05 Aerobic Blood Culture - Final Blood Proteus vulagris group Anaerobic Blood Culture - Final Proteus vulagris group 08/23/24 11:00 Aerobic Blood Culture - Final Blood No growth in Aerobic bottle after 5 days. Anaerobic Blood Culture - Final Electrocardiogram Date: 08/23/24 Findings: + AFIB @ (@ 150 RVR; ST & T wave abnl) Echocardiogram Date: 08/23/24 EF: 55% LV Function: normal RWMA: + none Other Findings: + atrial enlargement (LA mildly dilated), + LVH (mild) and + diastolic dysfunction (Grade 1) TR/WA-mild
--- NOTE | 2024-09-09 16:12 | Communication Note ---
Date of Service: September 09, 2024 Distal esophageal ulcerations occupying the distal third of the esophagus above a hiatal hernia. No bleeding. No stigmata. Multiple punctate and superficial linear ulcers in the body and antrum of the stomach consistent with stress ulcerations. Again no bleeding or stigmata. Biopsy for H. pylori and histology. Duodenum no duodenal ulcer disease. No blood in the upper GI tract. Rectal performed in the GI lab shows yellow-greenish stool without blood or melena. At this point I would continue twice daily PPI therapy add some Carafate. Patient's head of the bed if possible should stay at 30 degrees to decrease stasis of fluid in the esophagus. I would observe her for further bleeding and transfuse as needed. If heparin is required consider reintroducing and observe for further bleeding. There is no absolute contraindication to heparin use based on the upper GI findings. And noted rectal exam.
--- NOTE | 2024-09-09 16:21 | GI REPORT ---
[facility] Patient: BART PULLIAM : 1955 Sex at : Female Age: 68 Years Procedure: Upper GI endoscopy Date: 09/09/2024 Attending Physician: Sai Ornelas MD Referring MD: Gerry Norton Md Indications: - Suspected upper gastrointestinal bleeding Medications: - Monitored Anesthesia Care Complications: - No immediate complications. Estimated Blood Loss: - Estimated blood loss was minimal. Procedure: - The egd scope was introduced through the mouth and advanced to the third part of the duodenum. - The upper GI endoscopy was accomplished without difficulty. - The patient tolerated the procedure well. Findings: - LA Grade C (one or more mucosal breaks continuous between tops of 2 or more mucosal folds, less than 75% circumference) esophagitis with no bleeding was found in the lower third of the esophagus. - A small hiatal hernia was present. - Four non-bleeding cratered, linear and superficial gastric ulcers with no stigmata of bleeding were found in the gastric body and in the gastric antrum. Biopsies were taken with a cold forceps for histology. - The examined duodenum was normal. Impression: - LA Grade C reflux esophagitis with no bleeding. - Small hiatal hernia. - Non-bleeding gastric ulcers with no stigmata of bleeding. Biopsied. - Normal examined duodenum. Recommendation: - I believe her esophagitis is probably stasis related. There was some retained bile in the stomach which was suction. She has multiple punctate and linear ulcerations in the body and antrum consistent with stress gastritis biopsies were done though for H. pylori. These ulcers were relatively small and superficial and did not show stigmata of bleeding. The duodenum was without ulceration. No definite evidence for upper GI bleeding at this time though a bleed 2 or 3 days ago may not be obvious on today's exam. We did perform a rectal examination in the GI lab. This showed yellow to green liquid stool without blood or melena. - If heparin is required I think it be reasonable to restart and observe for further bleeding. A Susanne filter is not always desirable. If there is evidence of definitive gastrointestinal bleeding with recurrence heparin then we could revisit that issue. Procedure Code(s): - 55553, Esophagogastroduodenoscopy, flexible, transoral; with biopsy, single or multiple Diagnosis Code(s): - K21.00, Gastro-esophageal reflux disease with esophagitis, without bleeding - K44.9, Diaphragmatic hernia without obstruction or gangrene - K25.9, Gastric ulcer, unspecified as acute or chronic, without hemorrhage or perforation CPT(R) - 2023 copyright [employer]. All Rights Reserved. The CPT codes, CCI edits and ICD codes generated are intended as suggestions and were generated based on input data. These codes are preliminary and upon carnallite plant operator review may be revised to meet current compliance and payer requirements. The provider is responsible for the final determination of appropriate codes, and modifiers. Sai Ornelas MD This document has been electronically signed. Note Initiated:09/09/2024 Note Completed:09/09/2024 4:20 PM [id number]
--- NOTE | 2024-09-09 16:27 | Communication Note ---
Date of Service: September 09, 2024 Reviewed with patient postoperatively the findings. Tells me she is on clear liquids only. Patient with stress gastritis may benefit from nutritional supplement enteral type feeds. Surgery to decide if that is reasonable
--- NOTE | 2024-09-09 16:38 | Anesthesiology Progress Note ---
Date of Service September 09, 2024 Anesthesia Post Procedure Vital Signs Vital Signs: Temp Pulse Pulse Resp BP BP BP 09/09/24 16:35 85 18 134/81 09/09/24 16:20 89 16 110/66 09/09/24 15:35 97.9 F 93 H 16 139/69 09/09/24 15:11 81 09/09/24 12:27 97.9 F 78 18 112/72 09/09/24 11:57 97.5 F L 82 18 121/75 09/09/24 11:42 97.9 F 85 18 121/75 09/09/24 11:19 98.4 F 84 18 125/78 09/09/24 10:20 73 116/73 09/09/24 10:05 76 126/71 09/09/24 08:00 80 09/09/24 07:38 98.2 F 76 18 126/71 09/09/24 03:34 98.6 F 75 18 112/71 09/09/24 02:45 83 114/71 09/09/24 02:30 85 114/74 09/08/24 22:22 86 09/08/24 22:21 72 112/72 09/08/24 21:50 85 17 112/72 09/08/24 20:47 90 145/83 H 09/08/24 20:00 99.1 F 90 18 145/83 H Pulse Ox O2 Del Method 09/09/24 16:35 97 Room Air 09/09/24 16:20 100 Room Air 09/09/24 15:35 96 Room Air 09/09/24 15:11 09/09/24 12:27 97 09/09/24 11:57 97 09/09/24 11:42 97 09/09/24 11:19 97 09/09/24 10:20 09/09/24 10:05 09/09/24 08:00 09/09/24 07:38 98 Nasal Cannula 09/09/24 03:34 94 Room Air 09/09/24 02:45 09/09/24 02:30 09/08/24 22:22 09/08/24 22:21 09/08/24 21:50 95 Room Air 09/08/24 20:47 09/08/24 20:00 95 Room Air Pain Intensity Abdomen: Pain Intensity: 7 Right Flank: Pain Intensity: 6 Transfer of Care Handoff Completed per policy Notes Mental Status: alert / awake / arousable and participated in evaluation Patient Amnestic to Procedure: Yes Nausea / Vomiting: adequately controlled Pain: adequately controlled Airway Patency, RR, SpO2: stable & adequate BP & HR: stable & adequate Hydration State: stable & adequate Anesthetic Complications: no major complications apparent and Pt Satisfied with anesthetic care
[2024-09-09] MEDS: PROPOFOL IV EMULSION 10 MG/ML 20 ML VIAL IV ONE (17:13)
[2024-09-09] MEDS: LIDOCAINE 2% 2 ML VIAL/AMP(20MG/ML) INFIL ONE (17:13)
[2024-09-09] MEDS: SUCRALFATE 1 GM/10 ML UDC PO SCH (18:32)
[2024-09-09 18:38] LABS: ANTI-Xa, UFH(UnfractionatedHep < 0.10 IU/ml (0.3-0.7)
[2024-09-09] MEDS: Heparin IV Adult Wt-Based Low-Dose *NO* INITIAL Bolus Protocol IV STA (20:45)
[2024-09-09] MEDS: HEPARIN 25000 UNIT/500 ML D5W 25,000 UNITS/500 ML BAG IV SCH (20:46)
[2024-09-09] MEDS: POTASSIUM CHLORIDE CRTAB 20 MEQ TABCR PO SCH (22:01)
[2024-09-10 02:43] LABS: Hematocrit (blood only) 23.1 % (37.0-47.0); Hemoglobin 7.6 g/dl (12.0-16.0); Mean Corpuscular Hemoglobin 27.5 pg (25.0-34.0); Mean Corpuscular Volume 83.7 fL (80.0-100.0); Platelet Count 501 K/uL (130-400); RDW Standard Deviation 52.4 fL (36.4-46.3); Red Blood Count 2.76 M/uL (4.20-5.40); White Blood Count 16.56 K/ul (4.8-10.8)
[2024-09-10 03:00] LABS: Alanine Aminotransferase 9.0 U/L (7-52); Albumin Globulin Ratio 0.6 (0.9-2); Alkaline Phosphatase 77.0 U/L (34-104); Anion Gap 7.0 (3-11); Bilirubin,Total 0.5 mg/dl (0.2-1.0); Blood Urea Nitrogen 12.0 mg/dl (6-23); Calcium 7.3 mg/dl (8.6-10.3); Carbon Dioxide 27.0 mmol/L (21-32); Chloride 102.0 mmol/L (98-107); Creatinine Clr Calc Pharmacy 92.7 ml/min; Globulin 3.3 gm/dl (2.5-4.0); Glucose 123.0 mg/dl (70-99(Fasting)); Magnesium 1.6 mg/dl (1.7-2.4); Potassium 3.2 mmol/L (3.5-5.1); Sodium 136.0 mmol/L (136-145); Total Protein 5.4 gm/dl (6.0-8.3)
[2024-09-10 03:12] LABS: ANTI-Xa, UFH(UnfractionatedHep < 0.10 IU/ml (0.3-0.7)
[2024-09-10 03:27] LABS: Immature Granulocytes # (auto) 0.19 K/uL (0.01-0.20); Immature Granulocytes % (auto) 1.1 %; Polychromasia 1+
[2024-09-10] MEDS: HEPARIN SOD (PORCINE) 1000 UNIT/ML IV ONE ×3 (03:52→20:33)
[2024-09-10] MEDS: MAGNESIUM SULFATE / D5W 1 GM/100 ML BAG IV ONE (05:24)
[2024-09-10] MEDS: POTASSIUM CHLORIDE CRTAB 20 MEQ TABCR PO STA (05:24)
--- NOTE | 2024-09-10 07:49 | Hospitalist Progress Note ---
Date of Service September 10, 2024 Assessment & Plan (1) Severe sepsis with acute organ dysfunction: (2) Atrial fibrillation, new onset: (3) Acute renal failure: (4) Ileus due to infection: (5) Peritonitis due to abscess: (6) Electrolyte abnormality: (7) Pneumoperitoneum: (8) Demand ischemia of myocardium: (9) Low grade mucinous neoplasm of appendix: (10) Status post laparoscopic appendectomy: (11) Paroxysmal SVT (supraventricular tachycardia): Plan Per previous hospitalist w/ addendum Pt is a 68-year-old female status post appendectomy for mucocele on 08/19/2024. She presented critically ill with acute renal failure, multiple electrolyte abnormalities and evidence of severe sepsis with organ dysfunction as evidenced by renal failure, postsurgical ileus, and new onset atrial fibrillation. Currently s/p IR pelvic drain placement for abscesses on 08/28/24 and extended right colectomy with drainage of abscess by general surgeon Dr. Pacheco on 08/30/24. She is currently being treated as follows: Sepsis Proteus bacteremia Intra abdominal/pelvic abscesses Postsurgical ileus Cholelithiasis w/o evidence of cholecystitis Recent laparoscopic appendicectomy of large mucocele of appendix by Dr. Pacheco on 08/19/2024 CT abdomen/pelvis from 08/25/24 noting "Absent appendix consistent with appendectomy history with increased fluid and gas throughout the abdomen and pelvis more than expected particularly at the level of the surgical bed. Dehiscence is not excluded. No discrete encapsulated drainable fluid collection although early abscess cannot be excluded. Prominent fluid distended proximal small bowel and to some extent distal small bowel fecal type densities which can be seen in slow small bowel transit. Mild ileus is not excluded... CT abdomen with oral contrast: Pneumoperitoneum with right retroperitoneal gas mildly decreased. Cannot rule out anastomotic leak with abscess. Contrast has not reached the distal small bowel. Findings suggestive of ileus. Blood cultures from admission grew Proteus vulgaris, repeat blood cultures negative CT Abd/Pelvis with IV contrast on 08/28/24 showed increased pneumoperitoneum and right retroperitoneal gas, multifocal abscesses IV antibiotics broadened to Vancomycin and meropenem at that time S/p IR placement of drain on 08/28/24 Persistent leukocytosis IR drain culture from 08/28/24 grew E coli, bacteroides vulgatus and Clostridium innocuum c diff gene +, toxin negative S/p Exploratory laparotomy which showed small bowel perforation with abscess on 08/30/24, s/p extended right colectomy with drainage of abscess by general surgeon Dr. Pacheco on 08/30/24 Infectious Disease was consulted, appreciate recs -Antibiotics deescalated to IV ceftriaxone and metronidazole -Repeat imaging to reassess abscess size and response to treatment. 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 KUB noting ileus, discussed with surgery Dr Ryder who re commended no change to plan at this time of increased activity postop and advancement of diet to clears today. 09/06- tolerating clears, on TPN, no flatus/BM yet. 09/07- had bowel movement, advanced to full liquids, TPN discontinued. Case was discussed with ID once more given slowly increasing wbc and repeat CT findings. They advised that we can continue with the current abx if CT scan showed smaller abscesses vs. broadening abx if wbc continues to increase. Surgery considering new drain as well 09/08- continued increase in WBC, IV abx broadened to Zosyn, pt clinically improved, appreciate further Gen surg recs 09/09 Discussed w/ ID and w/ surgery - changed zosyn to ertapenem this AM as previous cultx resistant to zosyn. Will have ID review again. Per surgery cont. current plan, no plan for repeat surgery ID reconsulted - (1) Intra-abdominal abscess: Plan: The rising WBC is clearly linked with the spread of numerous small abscesses, though RP bleeding and evolving abscess there is also a concern. Broadening abx therapy to ertapenem 1g IV qd is reasonable, but the issue is primarily one of source control. If these areas are not drainable, then her recovery may be slowed. Repeating imaging in the next 1-2 weeks, or if she worsens in the meantime, will be warranted. Total duration of therapy remains a little unclear, but given her current CT findings, I would expect 4-6 weeks. Final plans remain pending. 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 dark stools. GI consulted for poss. UGIB, plan for EGD today 09/10 IV heparin was resumed as per GI recs after EGD EGD- Impression: - LA Grade C reflux esophagitis with no bleeding. - Small hiatal hernia. - Non-bleeding gastric ulcers with no stigmata of bleeding. Biopsied. - Normal examined duodenum. Recommendation: - I believe her esophagitis is probably stasis related. There was some retained bile in the stomach which was suction. She has multiple punctate and linear ulcerations in the body and antrum consistent with stress gastritis biopsies were done though for H. pylori. These ulcers were relatively small and superficial and did not show stigmata of bleeding. The duodenum was without ulceration. No definite evidence for upper GI bleeding at this time though a bleed 2 or 3 days ago may not be obvious on today's exam. We did perform a rectal examination in the GI lab. This showed yellow to green liquid stool without blood or melena. - If heparin is required I think it be reasonable to restart and observe for further bleeding. A [place] filter is not always desirable. If there is evidence of definitive gastrointestinal bleeding with recurrence heparin then we could revisit that issue. Edema Pt with extremity edema Recent JANET with recovered urinary output a few days ago Cont. diuresis with IV lasix Monitor kidney function Acute kidney injury JANET had initially resolved but developed again Creatinine 3.9>>2.26>>0.94>1.51>>1.87>1.61 > 0.9, currently normal Likely from sepsis + contrast Improved urine output Avoid contrast and nephrotoxins as much as possible Nephrology on board, appreciate recs Currently resolved. 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 Mild concentric LVH. Left atrium mildly dilated. Mild tricuspid regurgitation. No significant pulmonary hypertension. Cardiology eval noted. No anticoagulation recommended Continue tele monitor IV lopressor 5mg q6h for now. Plan to switch to po metoprolol succinate when able to take po May need ZIO monitor as outpatient Pt been on IV heparin as noted above in the setting of PEs (since 09/04), now on hold (09/09), d/t Hgb down and dark stools - plan for GI/ EGD today Hyponatremia Hypokalemia K is 3.2 today. Replace and monitor Mild troponin elevation Likely demand ischemia secondary to sepsis, A-fib RVR Denies any chest pain, dyspnea Diet:plan to advance diet DVT Px: IV heparin resumed Code Status :Full Code Dispo: Per PT/OT recs Admission and Anticipated Discharge Date Admission Date: August 23, 2024 Subjective Pt seen in follow up Pt with complex hospital course Gen. surgery (Dr. Pacheco) following closely Pt been on iv heparin for PE -resumed last evening after endoscopy WBC 20K yesterday -> down to 16K today Dark stools reported but brown and nonbloody - cont. to closely follow up ID re-consulted yesterday - cont. w/ ertapenem now Pt is awake , answers appropriately, sitting up in chair. difficulty moving w/ some abd. pain. No chest pain, no shortness of breath. Having BMs as above. Diet advanced by surgery. Review of Systems Review of Systems: All systems reviewed & are unremarkable except as noted in Subjective Physical Exam Physical Exam: General: obese F, Alert, oriented. No acute distress HEENT: NC/AT, EOMI CV: RRR Resp: breath sounds decreased bilaterally, no increased effort of breathing Abdomen:Soft, tender, bandage and surg. drain in place Extremities: edema in lower extremities bilaterally. Skin: warm, dry Results & Data Results & Data Vital Signs (Past 12 Hours) Vital Signs Temp Pulse Pulse Resp BP BP Pulse Ox 09/10/24 07:07 37.1 C 78 18 105/61 96 09/10/24 03:01 78 105/61 09/10/24 02:45 86 121/68 09/09/24 23:24 37.1 C 80 18 123/62 96 09/09/24 21:55 87 09/09/24 21:00 72 115/65 09/09/24 20:45 85 122/71 09/09/24 20:00 36.6 C 84 18 125/79 93 O2 Del Method O2 Flow Rate 09/10/24 07:07 2.5 09/10/24 03:01 09/10/24 02:45 09/09/24 23:24 Room Air 09/09/24 21:55 09/09/24 21:00 09/09/24 20:45 09/09/24 20:00 Room Air Laboratory Results 09/10/24 09/09/24 09/09/24 Range/Units 02:18 17:56 14:46 WBC 16.56 H (4.8-10.8) K/ul RBC 2.76 L (4.20-5.40) M/uL Hgb 7.6 L 8.3 L (12.0-16.0) g/dl Hct 23.1 L 25.0 L (37.0-47.0) % MCV 83.7 (80.0-100.0) fL MCH 27.5 (25.0-34.0) pg MCHC 32.9 (32.0-36.0) g/dL RDW Std Deviation 52.4 H (36.4-46.3) fL RDW Coeff of Albino 17.3 H (11.5-14.5) % Plt Count 501 H (130-400) K/uL MPV 9.5 (9.4-12.4) fL Immature Gran % (Auto) 1.1 % Neut % (Auto) 84.8 % Lymph % (Auto) 7.4 % [place] % (Auto) 6.3 % Eos % (Auto) 0.2 % Baso % (Auto) 0.2 % Neut # (Auto) 14.02 H (1.40-6.50) K/uL Lymph # (Auto) 1.23 (1.20-3.40) K/uL Tate # (Auto) 1.05 H (0.11-0.59) K/uL Eos # (Auto) 0.03 (0.00-0.50) K/uL Baso # (Auto) 0.04 (0.00-0.20) K/uL Immature Gran # (Auto) 0.19 (0.01-0.20) K/uL Polychromasia 1+ Heparin Anti-Xa, Unfract < 0.10 L < 0.10 L (0.3-0.7) IU/ml Sodium 136 (136-145) mmol/L Potassium 3.2 L (3.5-5.1) mmol/L Chloride 102 (98-107) mmol/L Carbon Dioxide 27 (21-32) mmol/L Anion Gap 7 (3-11) BUN 12 (6-23) mg/dl Creatinine 0.68 (0.6-1.2) mg/dl Est Cr Clr Drug Dosing 92.7 ml/min eGFR 94.81 BUN/Creatinine Ratio 17.6 (10-20) Glucose 123 H (70-99(Fasting)) mg/dl Calcium 7.3 L (8.6-10.3) mg/dl Phosphorus 3.0 (2.5-4.9) mg/dl Magnesium 1.6 L (1.7-2.4) mg/dl Total Bilirubin 0.5 (0.2-1.0) mg/dl AST 11 L (13-39) U/L ALT 9 (7-52) U/L Alkaline Phosphatase 77 (34-104) U/L Total Protein 5.4 L (6.0-8.3) gm/dl Albumin 2.1 L (3.4-5.0) gm/dl Globulin 3.3 (2.5-4.0) gm/dl Albumin/Globulin Ratio 0.6 L (0.9-2) Blood Type Antibody Screen Crossmatch 09/09/24 Range/Units 07:08 WBC (4.8-10.8) K/ul RBC (4.20-5.40) M/uL Hgb (12.0-16.0) g/dl Hct (37.0-47.0) % MCV (80.0-100.0) fL MCH (25.0-34.0) pg MCHC (32.0-36.0) g/dL RDW Std Deviation (36.4-46.3) fL RDW Coeff of Albino (11.5-14.5) % Plt Count (130-400) K/uL MPV (9.4-12.4) fL Immature Gran % (Auto) % Neut % (Auto) % Lymph % (Auto) % [place] % (Auto) % Eos % (Auto) % Baso % (Auto) % Neut # (Auto) (1.40-6.50) K/uL Lymph # (Auto) (1.20-3.40) K/uL Tate # (Auto) (0.11-0.59) K/uL Eos # (Auto) (0.00-0.50) K/uL Baso # (Auto) (0.00-0.20) K/uL Immature Gran # (Auto) (0.01-0.20) K/uL Polychromasia Heparin Anti-Xa, Unfract (0.3-0.7) IU/ml Sodium (136-145) mmol/L Potassium (3.5-5.1) mmol/L Chloride (98-107) mmol/L Carbon Dioxide (21-32) mmol/L Anion Gap (3-11) BUN (6-23) mg/dl Creatinine (0.6-1.2) mg/dl Est Cr Clr Drug Dosing ml/min eGFR BUN/Creatinine Ratio (10-20) Glucose (70-99(Fasting)) mg/dl Calcium (8.6-10.3) mg/dl Phosphorus (2.5-4.9) mg/dl Magnesium (1.7-2.4) mg/dl Total Bilirubin (0.2-1.0) mg/dl AST (13-39) U/L ALT (7-52) U/L Alkaline Phosphatase (34-104) U/L Total Protein (6.0-8.3) gm/dl Albumin (3.4-5.0) gm/dl Globulin (2.5-4.0) gm/dl Albumin/Globulin Ratio (0.9-2) Blood Type A Positive Antibody Screen NEGATIVE Crossmatch See Detail Medications Administered Current Inpatient Medications Albuterol (Albut/Ipratrop 3mg/0.5mg Neb 3 Ml Vial) 3 ml NEB Q4H PRN; Protocol PRN Reason: Wheezing Stop: 09/22/24 13:08 Atropine Sulfate (Atropine Sulfate 0.1 Mg/Ml 10ml Syr) 1 mg IV Q3M PRN PRN Reason: symptomatic bradycardia Stop: 09/25/24 03:16 Dextrose (Dextrose 50% 50 Ml Syringe) 25 - 50 ml IV UD PRN; Protocol PRN Reason: Hypoglycemia Protocol Stop: 09/22/24 11:53 Furosemide (Furosemide Inj 20 Mg/2 Ml Vial) 60 mg IV BID ARMANDO Stop: 10/08/24 08:59 Last Admin: 09/09/24 21:52 Dose: 60 mg Glucagon (Glucagon For Inj 1 Mg Vial) 1 mg SQ UD PRN; Protocol PRN Reason: Hypoglycemia Protocol Stop: 09/22/24 11:53 Glucose (Glucose 40% Gel 15 Gm Tube) 15 - 30 gm PO UD PRN; Protocol PRN Reason: Hypoglycemia Protocol Stop: 09/22/24 11:53 Glucose (Glucose 10 Tab/Tube) 4 - 8 tab PO UD PRN; Protocol PRN Reason: Hypoglycemia Protocol Stop: 09/22/24 11:53 Heparin Sodium (Beef Lung) (Heparin 10 Unit/Ml 5 Ml Flush) 5 ml FLUSH PRN PRN PRN Reason: Flush Stop: 09/29/24 14:03 Last Admin: 09/03/24 18:13 Dose: 10 ml Ceftriaxone Sodium (Rocephin) 2,000 mg in 50 mls @ 100 mls/hr IV Q24H ARMANDO Stop: 09/11/24 11:59 Last Infusion: 09/07/24 13:13 Dose: Infused Metronidazole (Flagyl) 500 mg in 100 mls @ 100 mls/hr IV Q8H ARMANDO Stop: 09/11/24 11:59 Last Infusion: 09/08/24 04:03 Dose: Infused Acetaminophen (Ofirmev) 1,000 mg in 100 mls @ 400 mls/hr IV Q8H PRN PRN Reason: Breakthrough Pain Stop: 09/11/24 09:50 Last Infusion: 09/08/24 12:15 Dose: Infused Pantoprazole Sodium 40 mg/ (Dextrose) 100 mls @ 20 mls/hr IV Q5H ARMANDO Stop: 10/09/24 07:14 Last Admin: 09/10/24 03:19 Dose: 8 mg/hr, 20 mls/hr Ertapenem (Invanz 1000mg) 1,000 mg in 10 mls @ 2 mls/min IV Q24H [facility] Stop: 09/11/24 11:29 Last Admin: 09/09/24 12:27 Dose: 2 mls/min Heparin Sodium/Dextrose (Heparin 46360 Unit/500 Ml D5w) 25,000 units in 500 mls @ 21 mls/hr IV .[id number] ARMANDO; Protocol Stop: 10/09/24 20:14 Last Titration: 09/10/24 07:26 Dose: 1,050 units/hr, 21 mls/hr Magnesium Oxide (Magnesium Oxide 400 Mg Tab) 400 mg PO BID [facility] Stop: 10/10/24 08:59 Metoprolol Tartrate (Metoprolol Tartrate 1 Mg/Ml Vial) 5 mg IV Q2H PRN PRN Reason: HR > 120 Stop: 09/30/24 20:18 Last Admin: 08/31/24 20:25 Dose: 5 mg Metoprolol Tartrate (Metoprolol Tartrate 1 Mg/Ml Vial) 5 mg IV Q6H [facility] Stop: 10/01/24 01:59 Last Admin: 09/10/24 02:45 Dose: 5 mg Miscellaneous (Carbohydrates For Hypoglycemia ) 15 - 30 gm PO UD PRN PRN Reason: Hypoglycemia Protocol Stop: 09/22/24 11:53 Morphine Sulfate (Morphine Sulfate Friction Saw Operator 30 Mg/30 Ml) 30 mg IV PRN PRN; Protocol 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 Stop: 09/18/24 09:48 Last Admin: 09/07/24 08:42 Dose: 30 mg Naloxone HCl (Naloxone Hcl 0.4 Mg/1 Ml Vial/Carp) 0.1 mg IV Q5M PRN; Protocol PRN Reason: Oversedation/Resp Depression Stop: 09/18/24 09:47 Ondansetron HCl (Ondansetron Inj 2 Mg/Ml 2 Ml Vial) 4 mg IV Q6H PRN PRN Reason: Nausea Stop: 09/22/24 13:08 Last Admin: 09/08/24 22:20 Dose: 4 mg Polyethylene Glycol (Polyethylene (Miralax) 17 Gm Pack) 17 gm PO BID [facility] Stop: 09/28/24 20:59 Last Admin: 08/30/24 07:10 Dose: Not Given Potassium Chloride (Potassium Chloride Crtab 20 Meq Tabcr) 20 meq PO BID ARMANDO Stop: 10/09/24 20:59 Last Admin: 09/09/24 22:01 Dose: 20 meq Sucralfate (Sucralfate 1 Gm/10 Ml Udc) 1 gm PO QID ARMANDO Stop: 10/09/24 16:59 Last Admin: 09/09/24 21:49 Dose: 1 gm
[2024-09-10] MEDS: MAGNESIUM OXIDE 400 MG TAB PO SCH (08:49)
--- NOTE | 2024-09-10 09:19 | Gastroenterology Progress Note ---
Date of Service September 10, 2024 Assessment & Plan (1) Esophagitis: Plan 68 year old female w/ history of Laparoscopic appendectomy and removal of massive mucocele 08/19/24 admitted 08/23 w/ afib w/ RVR, renal failure, gram negative bacteremia, pneumoperitoneum, small bowel perforation w/ abscess on s/p Exploratory Laparotomy, Extended Right Colectomy with Drainage of Abscess on 08/30 - GI asked to evaluate for dark stools, anemia requiring transfusion with HGB 6.6. S/P EGD 09/09 w/ LA Grade C reflux esophagitis with no bleeding, small hiatal hernia, non-bleeding gastric ulcers with no stigmata of bleeding. Follow biopsies. Continue Pantoprazole twice daily. Liquid carafate QID. No current GI contraindication to anticoagulation if required. Head of the bed if possible should stay at 30 degrees to decrease stasis of fluid in the esophagus. Monitor for further bleeding and transfuse as needed. Recall GI as needed. I spent a total of 40 minutes on the date of service in review of patient's record, and previously obtained information in person and appropriate medical visit, discussion and education of plan, with patient and/or caregiver, placing orders for tests/referral/procedures as medically necessary and documentation of pertinent clinical information in patient's medical records for their visit today. Admission and Anticipated Discharge Date Admission Date: August 23, 2024 Supervising Physician Co-Signing Physician Notes Patient sitting up at the bedside. She is back on her heparin there is been no obvious bleeding. She has stasis esophagitis. She had numerous small ulcerations in the body and antrum of the stomach which appear to be stress gastritis. H. pylori pending. On review she did not take significant amounts of NSAID prior to admission. Continue PPI therapy. Carafate. Oral intake if okay with surgery. Will follow from a distance. If she is H. pylori positive I would be inclined not to treat at this time. She would need quadruple therapy. Would unnecessarily complicate her current management. This could be undertaken or treated 2 to [address] Subjective Pt was seen and evaluated, chart reviewed. OOB in chair. Trial of dietary advancement today. Brown stools reported. EGD 2024: LA Grade C reflux esophagitis with no bleeding. - Small hiatal hernia. - Non-bleeding gastric ulcers with no stigmata of bleeding. Biopsied. - Normal examined duodenum. Review of Systems Review of Systems: All other findings negative except as noted in HPI. Physical Exam Constitutional: WD/WN, vitals as above Gastrointestinal (Abdomen): Inspection/Auscultation: normal bowel sounds Skin: no rashes, warm and dry Results & Data Results & Data Vital Signs (Past 12 Hours) Vital Signs Temp Pulse Pulse Resp BP BP Pulse Ox 09/10/24 08:49 90 119/72 09/10/24 07:55 98.6 F 90 18 119/72 92 09/10/24 07:07 98.8 F 78 18 105/61 96 09/10/24 03:01 78 105/61 09/10/24 02:45 86 121/68 09/09/24 23:24 98.8 F 80 18 123/62 96 09/09/24 21:55 87 O2 Del Method O2 Flow Rate 09/10/24 08:49 09/10/24 07:55 Room Air 09/10/24 07:07 2.5 09/10/24 03:01 09/10/24 02:45 09/09/24 23:24 Room Air 09/09/24 21:55 Laboratory Results 09/10/24 09/09/24 09/09/24 Range/Units 02:18 17:56 14:46 WBC 16.56 H (4.8-10.8) K/ul RBC 2.76 L (4.20-5.40) M/uL Hgb 7.6 L 8.3 L (12.0-16.0) g/dl Hct 23.1 L 25.0 L (37.0-47.0) % MCV 83.7 (80.0-100.0) fL MCH 27.5 (25.0-34.0) pg MCHC 32.9 (32.0-36.0) g/dL RDW Std Deviation 52.4 H (36.4-46.3) fL RDW Coeff of Albino 17.3 H (11.5-14.5) % Plt Count 501 H (130-400) K/uL MPV 9.5 (9.4-12.4) fL Immature Gran % (Auto) 1.1 % Neut % (Auto) 84.8 % Lymph % (Auto) 7.4 % [place] % (Auto) 6.3 % Eos % (Auto) 0.2 % Baso % (Auto) 0.2 % Neut # (Auto) 14.02 H (1.40-6.50) K/uL Lymph # (Auto) 1.23 (1.20-3.40) K/uL [place] # (Auto) 1.05 H (0.11-0.59) K/uL Eos # (Auto) 0.03 (0.00-0.50) K/uL Baso # (Auto) 0.04 (0.00-0.20) K/uL Immature Gran # (Auto) 0.19 (0.01-0.20) K/uL Polychromasia 1+ Heparin Anti-Xa, Unfract < 0.10 L < 0.10 L (0.3-0.7) IU/ml Sodium 136 (136-145) mmol/L Potassium 3.2 L (3.5-5.1) mmol/L Chloride 102 (98-107) mmol/L Carbon Dioxide 27 (21-32) mmol/L Anion Gap 7 (3-11) BUN 12 (6-23) mg/dl Creatinine 0.68 (0.6-1.2) mg/dl Est Cr Clr Drug Dosing 92.7 ml/min eGFR 94.81 BUN/Creatinine Ratio 17.6 (10-20) Glucose 123 H (70-99(Fasting)) mg/dl Calcium 7.3 L (8.6-10.3) mg/dl Phosphorus 3.0 (2.5-4.9) mg/dl Magnesium 1.6 L (1.7-2.4) mg/dl Total Bilirubin 0.5 (0.2-1.0) mg/dl AST 11 L (13-39) U/L ALT 9 (7-52) U/L Alkaline Phosphatase 77 (34-104) U/L Total Protein 5.4 L (6.0-8.3) gm/dl Albumin 2.1 L (3.4-5.0) gm/dl Globulin 3.3 (2.5-4.0) gm/dl Albumin/Globulin Ratio 0.6 L (0.9-2) Blood Type Antibody Screen Crossmatch 09/09/24 Range/Units 07:08 WBC (4.8-10.8) K/ul RBC (4.20-5.40) M/uL Hgb (12.0-16.0) g/dl Hct (37.0-47.0) % MCV (80.0-100.0) fL MCH (25.0-34.0) pg MCHC (32.0-36.0) g/dL RDW Std Deviation (36.4-46.3) fL RDW Coeff of Albino (11.5-14.5) % Plt Count (130-400) K/uL MPV (9.4-12.4) fL Immature Gran % (Auto) % Neut % (Auto) % Lymph % (Auto) % [place] % (Auto) % Eos % (Auto) % Baso % (Auto) % Neut # (Auto) (1.40-6.50) K/uL Lymph # (Auto) (1.20-3.40) K/uL [place] # (Auto) (0.11-0.59) K/uL Eos # (Auto) (0.00-0.50) K/uL Baso # (Auto) (0.00-0.20) K/uL Immature Gran # (Auto) (0.01-0.20) K/uL Polychromasia Heparin Anti-Xa, Unfract (0.3-0.7) IU/ml Sodium (136-145) mmol/L Potassium (3.5-5.1) mmol/L Chloride (98-107) mmol/L Carbon Dioxide (21-32) mmol/L Anion Gap (3-11) BUN (6-23) mg/dl Creatinine (0.6-1.2) mg/dl Est Cr Clr Drug Dosing ml/min eGFR BUN/Creatinine Ratio (10-20) Glucose (70-99(Fasting)) mg/dl Calcium (8.6-10.3) mg/dl Phosphorus (2.5-4.9) mg/dl Magnesium (1.7-2.4) mg/dl Total Bilirubin (0.2-1.0) mg/dl AST (13-39) U/L ALT (7-52) U/L Alkaline Phosphatase (34-104) U/L Total Protein (6.0-8.3) gm/dl Albumin (3.4-5.0) gm/dl Globulin (2.5-4.0) gm/dl Albumin/Globulin Ratio (0.9-2) Blood Type A Positive Antibody Screen NEGATIVE Crossmatch See Detail PG Care Time/CCT Total # of Minutes Spent Total Time Spent with Patient: Total time spent is greater than 50% in coordination of care (as documented) at patient's floor/unit and/or counseling patient: Coding Level of Care Code 25881 SUB INP/OBS CARE 2/35MIN Diagnoses Esophagitis K20.90
--- NOTE | 2024-09-10 09:40 | Surgery Progress Note ---
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: (7) PUD (peptic ulcer disease): Plan POD # 11 s/p ex lap with drainage of intra-abdominal abscesses and right hemicolectomy in setting of prior laparoscopic appendectomy for large mucocele and small bowel perforation avss leukocytosis improved this am to 16k (20K yesterday) abdominal pain stable EGD yesterday with small gastric ulcers likely stress related Hgb 7.6 today (8.2 yesterday s/p 1 unit of PRBCs) severely deconditioned Plan: Stop Morhpine TUGBOAT MATE started IV dilaudid q3h prn and oral percocet prn continue IV ertapenem Continue kirk drain continue IV heparin OOB to chair agressive PT/OT incentive BOost breeze BID Hopefully singh catheter out today/tomorrow, still on Lasix for edema IV protonix advance diet as tolerated Dr. burch has seen and examined pt,marisol shultz with above Admission and Anticipated Discharge Date Admission Date: August 23, 2024 Subjective feeling very weak, yesterday took a lot out of her denies chest pain , shortness of breath multiple bowel movements last night, less dark per nursing staff, no sharon blood urinating via Singh still no increasein abdominal pain Morphine causing nausea, nurse states she only pressed morphine TUGBOAT MATE once so far No vomiting tolerating fulls so far no dizziness or lightheadedness swelling in legs slightly better Physical Exam Constitutional: + obese, + frail appearing, cooperative and comfortable; no acute distress, not in distress and not diaphoretic Respiratory: normal respiratory effort; no respiratory distress, no labored breathing and no retractions Gastrointestinal (Abdomen): Inspection/Auscultation: abdomen normal to inspection, + abdominal surgical incision (there is mild breakdown at umbilicus, with fibrinous tissue) and + abdominal surgical drain present (minimal serosangineous output); abdomen not distended Percussion/Palpation: abdomen soft; abdomen nontender, no guarding, abdomen not rigid and abdomen not firm Skin: no rashes, warm and dry Psychiatric: Orientation: alert and oriented x 3 Results & Data Vital Signs (Past 12 Hours) Vital Signs Temp Pulse Pulse Resp BP BP Pulse Ox 09/10/24 08:49 90 119/72 09/10/24 07:55 37.0 C 90 18 119/72 92 09/10/24 07:07 37.1 C 78 18 105/61 96 09/10/24 03:01 78 105/61 09/10/24 02:45 86 121/68 09/09/24 23:24 37.1 C 80 18 123/62 96 09/09/24 21:55 87 O2 Del Method O2 Flow Rate 09/10/24 08:49 09/10/24 07:55 Room Air 09/10/24 07:07 2.5 09/10/24 03:01 09/10/24 02:45 09/09/24 23:24 Room Air 09/09/24 21:55 Laboratory Results 09/10/24 09/09/24 09/09/24 Range/Units 02:18 17:56 14:46 WBC 16.56 H (4.8-10.8) K/ul RBC 2.76 L (4.20-5.40) M/uL Hgb 7.6 L 8.3 L (12.0-16.0) g/dl Hct 23.1 L 25.0 L (37.0-47.0) % MCV 83.7 (80.0-100.0) fL MCH 27.5 (25.0-34.0) pg MCHC 32.9 (32.0-36.0) g/dL RDW Std Deviation 52.4 H (36.4-46.3) fL RDW Coeff of Albino 17.3 H (11.5-14.5) % Plt Count 501 H (130-400) K/uL MPV 9.5 (9.4-12.4) fL Immature Gran % (Auto) 1.1 % Neut % (Auto) 84.8 % Lymph % (Auto) 7.4 % [place] % (Auto) 6.3 % Eos % (Auto) 0.2 % Baso % (Auto) 0.2 % Neut # (Auto) 14.02 H (1.40-6.50) K/uL Lymph # (Auto) 1.23 (1.20-3.40) K/uL Mitchell # (Auto) 1.05 H (0.11-0.59) K/uL Eos # (Auto) 0.03 (0.00-0.50) K/uL Baso # (Auto) 0.04 (0.00-0.20) K/uL Immature Gran # (Auto) 0.19 (0.01-0.20) K/uL Polychromasia 1+ Heparin Anti-Xa, Unfract < 0.10 L < 0.10 L (0.3-0.7) IU/ml Sodium 136 (136-145) mmol/L Potassium 3.2 L (3.5-5.1) mmol/L Chloride 102 (98-107) mmol/L Carbon Dioxide 27 (21-32) mmol/L Anion Gap 7 (3-11) BUN 12 (6-23) mg/dl Creatinine 0.68 (0.6-1.2) mg/dl Est Cr Clr Drug Dosing 92.7 ml/min eGFR 94.81 BUN/Creatinine Ratio 17.6 (10-20) Glucose 123 H (70-99(Fasting)) mg/dl Calcium 7.3 L (8.6-10.3) mg/dl Phosphorus 3.0 (2.5-4.9) mg/dl Magnesium 1.6 L (1.7-2.4) mg/dl Total Bilirubin 0.5 (0.2-1.0) mg/dl AST 11 L (13-39) U/L ALT 9 (7-52) U/L Alkaline Phosphatase 77 (34-104) U/L Total Protein 5.4 L (6.0-8.3) gm/dl Albumin 2.1 L (3.4-5.0) gm/dl Globulin 3.3 (2.5-4.0) gm/dl Albumin/Globulin Ratio 0.6 L (0.9-2) Blood Type Antibody Screen Crossmatch 09/09/24 Range/Units 07:08 WBC (4.8-10.8) K/ul RBC (4.20-5.40) M/uL Hgb (12.0-16.0) g/dl Hct (37.0-47.0) % MCV (80.0-100.0) fL MCH (25.0-34.0) pg MCHC (32.0-36.0) g/dL RDW Std Deviation (36.4-46.3) fL RDW Coeff of Albino (11.5-14.5) % Plt Count (130-400) K/uL MPV (9.4-12.4) fL Immature Gran % (Auto) % Neut % (Auto) % Lymph % (Auto) % [place] % (Auto) % Eos % (Auto) % Baso % (Auto) % Neut # (Auto) (1.40-6.50) K/uL Lymph # (Auto) (1.20-3.40) K/uL Mitchell # (Auto) (0.11-0.59) K/uL Eos # (Auto) (0.00-0.50) K/uL Baso # (Auto) (0.00-0.20) K/uL Immature Gran # (Auto) (0.01-0.20) K/uL Polychromasia Heparin Anti-Xa, Unfract (0.3-0.7) IU/ml Sodium (136-145) mmol/L Potassium (3.5-5.1) mmol/L Chloride (98-107) mmol/L Carbon Dioxide (21-32) mmol/L Anion Gap (3-11) BUN (6-23) mg/dl Creatinine (0.6-1.2) mg/dl Est Cr Clr Drug Dosing ml/min eGFR BUN/Creatinine Ratio (10-20) Glucose (70-99(Fasting)) mg/dl Calcium (8.6-10.3) mg/dl Phosphorus (2.5-4.9) mg/dl Magnesium (1.7-2.4) mg/dl Total Bilirubin (0.2-1.0) mg/dl AST (13-39) U/L ALT (7-52) U/L Alkaline Phosphatase (34-104) U/L Total Protein (6.0-8.3) gm/dl Albumin (3.4-5.0) gm/dl Globulin (2.5-4.0) gm/dl Albumin/Globulin Ratio (0.9-2) Blood Type A Positive Antibody Screen NEGATIVE Crossmatch See Detail
[2024-09-10] MEDS: HYDROmorphone INJ 1 MG/ML SYRINGE IV PRN (09:48)
[2024-09-10 10:52] LABS: ANTI-Xa, UFH(UnfractionatedHep 0.11 IU/ml (0.3-0.7)
[2024-09-10 18:37] LABS: ANTI-Xa, UFH(UnfractionatedHep 0.15 IU/ml (0.3-0.7)
[2024-09-10] MEDS: HYDROmorphone INJ 0.5 MG/0.5 ML SYR IV PRN (19:15)
[2024-09-10] MEDS: METOPROLOL TARTRATE 25 MG TAB PO SCH (20:36)
[2024-09-11 01:29] LABS: ANTI-Xa, UFH(UnfractionatedHep 0.35 IU/ml (0.3-0.7)
[2024-09-11 06:17] LABS: Hematocrit (blood only) 23.2 % (37.0-47.0); Hemoglobin 7.7 g/dl (12.0-16.0); Immature Granulocytes # (auto) 0.14 K/uL (0.01-0.20); Immature Granulocytes % (auto) 0.9 %; Mean Corpuscular Hemoglobin 27.9 pg (25.0-34.0); Mean Corpuscular Volume 84.1 fL (80.0-100.0); Platelet Count 516 K/uL (130-400); RDW Standard Deviation 52.0 fL (36.4-46.3); Red Blood Count 2.76 M/uL (4.20-5.40); White Blood Count 14.91 K/ul (4.8-10.8)
[2024-09-11 06:32] LABS: Alanine Aminotransferase 8.0 U/L (7-52); Albumin Globulin Ratio 0.6 (0.9-2); Alkaline Phosphatase 70.0 U/L (34-104); Anion Gap 6.0 (3-11); Bilirubin,Total 0.4 mg/dl (0.2-1.0); Blood Urea Nitrogen 10.0 mg/dl (6-23); Calcium 7.5 mg/dl (8.6-10.3); Carbon Dioxide 28.0 mmol/L (21-32); Chloride 101.0 mmol/L (98-107); Creatinine Clr Calc Pharmacy 117.1 ml/min; Globulin 3.3 gm/dl (2.5-4.0); Glucose 121.0 mg/dl (70-99(Fasting)); Magnesium 1.5 mg/dl (1.7-2.4); Potassium 3.3 mmol/L (3.5-5.1); Sodium 135.0 mmol/L (136-145); Total Protein 5.4 gm/dl (6.0-8.3)
[2024-09-11 06:36] LABS: Polychromasia 1+
[2024-09-11 06:41] LABS: ANTI-Xa, UFH(UnfractionatedHep 0.27 IU/ml (0.3-0.7)
[2024-09-11] MEDS: POTASSIUM CHLORIDE CRTAB 20 MEQ TABCR PO STA (09:17)
[2024-09-11] MEDS: MAGNESIUM SULFATE / D5W 1 GM/100 ML BAG IV ONE (09:17)
--- NOTE | 2024-09-11 09:43 | Surgery Progress Note ---
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: (7) PUD (peptic ulcer disease): Plan POD # 13 s/p ex lap with drainage of intra-abdominal abscesses and right hemicolectomy in setting of prior laparoscopic appendectomy for large mucocele and small bowel perforation avss leukocytosis improved this am to 14k (16K yesterday) abdominal pain stable EGD 09/09/24 with small gastric ulcers likely stress related, on IV PPI Hgb 7.7 today (7.6 yesterday s/p 1 unit of PRBCs 09/09/24) severely deconditioned Plan: Continue oral percocet prn pain with breakthrough IV dilaudid continue IV ertapenem Continue kirk drain continue IV heparin OOB to chair aggressive PT/OT incentive BOost BID Hopefully singh catheter out today/tomorrow, still on Lasix for edema IV protonix--> transition to oral? low fiber diet Dr. Vaughn covering the weekend continue medical management Admission and Anticipated Discharge Date Admission Date: August 23, 2024 Subjective feeling okay, having some twinges of pain in RLQ this morning, only lasts for 30 seconds. still feeling tired and weak no chest pain, sob no fevers, chills, sweats tolerating some of low fiber diet and vanilla boost no n,v Physical Exam Constitutional: + obese, cooperative and comfortable; no acute distress, not ill appearing, not in distress and not diaphoretic Respiratory: normal respiratory effort; no respiratory distress, no labored breathing and no retractions Gastrointestinal (Abdomen): Inspection/Auscultation: abdomen normal to inspection, + abdominal surgical incision (covered with dry dressing c/d/i) and + abdominal surgical drain present (minimal serosanguineous drainage); abdomen not distended Percussion/Palpation: abdomen soft; abdomen nontender, no guarding and abdomen not rigid Skin: no rashes, warm and dry Psychiatric: Orientation: alert and oriented x 3 Results & Data Vital Signs (Past 12 Hours) Vital Signs Temp Pulse Pulse Resp BP Pulse Ox O2 Del Method 09/11/24 08:00 36.9 C 91 H 18 121/77 97 Room Air 09/11/24 04:25 36.6 C 78 18 110/69 95 Room Air 09/11/24 00:14 36.6 C 77 18 126/75 97 Room Air 09/10/24 22:19 73 Laboratory Results 09/11/24 09/11/24 09/10/24 Range/Units 06:00 00:40 17:56 WBC 14.91 H (4.8-10.8) K/ul RBC 2.76 L (4.20-5.40) M/uL Hgb 7.7 L (12.0-16.0) g/dl Hct 23.2 L (37.0-47.0) % MCV 84.1 (80.0-100.0) fL MCH 27.9 (25.0-34.0) pg MCHC 33.2 (32.0-36.0) g/dL RDW Std Deviation 52.0 H (36.4-46.3) fL RDW Coeff of Albino 17.2 H (11.5-14.5) % Plt Count 516 H (130-400) K/uL MPV 9.3 L (9.4-12.4) fL Immature Gran % (Auto) 0.9 % Neut % (Auto) 80.7 % Lymph % (Auto) 10.9 % [place] % (Auto) 6.4 % Eos % (Auto) 0.7 % Baso % (Auto) 0.4 % Neut # (Auto) 12.03 H (1.40-6.50) K/uL Lymph # (Auto) 1.62 (1.20-3.40) K/uL [place] # (Auto) 0.96 H (0.11-0.59) K/uL Eos # (Auto) 0.10 (0.00-0.50) K/uL Baso # (Auto) 0.06 (0.00-0.20) K/uL Immature Gran # (Auto) 0.14 (0.01-0.20) K/uL Polychromasia 1+ Heparin Anti-Xa, Unfract 0.27 L 0.35 0.15 L (0.3-0.7) IU/ml Sodium 135 L (136-145) mmol/L Potassium 3.3 L (3.5-5.1) mmol/L Chloride 101 (98-107) mmol/L Carbon Dioxide 28 (21-32) mmol/L Anion Gap 6 (3-11) BUN 10 (6-23) mg/dl Creatinine 0.52 L (0.6-1.2) mg/dl Est Cr Clr Drug Dosing 117.1 ml/min eGFR 101.14 BUN/Creatinine Ratio 19.2 (10-20) Glucose 121 H (70-99(Fasting)) mg/dl Calcium 7.5 L (8.6-10.3) mg/dl Phosphorus 2.7 (2.5-4.9) mg/dl Magnesium 1.5 L (1.7-2.4) mg/dl Total Bilirubin 0.4 (0.2-1.0) mg/dl AST 11 L (13-39) U/L ALT 8 (7-52) U/L Alkaline Phosphatase 70 (34-104) U/L Total Protein 5.4 L (6.0-8.3) gm/dl Albumin 2.1 L (3.4-5.0) gm/dl Globulin 3.3 (2.5-4.0) gm/dl Albumin/Globulin Ratio 0.6 L (0.9-2) 09/10/24 Range/Units 09:49 WBC (4.8-10.8) K/ul RBC (4.20-5.40) M/uL Hgb (12.0-16.0) g/dl Hct (37.0-47.0) % MCV (80.0-100.0) fL MCH (25.0-34.0) pg MCHC (32.0-36.0) g/dL RDW Std Deviation (36.4-46.3) fL RDW Coeff of Albino (11.5-14.5) % Plt Count (130-400) K/uL MPV (9.4-12.4) fL Immature Gran % (Auto) % Neut % (Auto) % Lymph % (Auto) % [place] % (Auto) % Eos % (Auto) % Baso % (Auto) % Neut # (Auto) (1.40-6.50) K/uL Lymph # (Auto) (1.20-3.40) K/uL [place] # (Auto) (0.11-0.59) K/uL Eos # (Auto) (0.00-0.50) K/uL Baso # (Auto) (0.00-0.20) K/uL Immature Gran # (Auto) (0.01-0.20) K/uL Polychromasia Heparin Anti-Xa, Unfract 0.11 L (0.3-0.7) IU/ml Sodium (136-145) mmol/L Potassium (3.5-5.1) mmol/L Chloride (98-107) mmol/L Carbon Dioxide (21-32) mmol/L Anion Gap (3-11) BUN (6-23) mg/dl Creatinine (0.6-1.2) mg/dl Est Cr Clr Drug Dosing ml/min eGFR BUN/Creatinine Ratio (10-20) Glucose (70-99(Fasting)) mg/dl Calcium (8.6-10.3) mg/dl Phosphorus (2.5-4.9) mg/dl Magnesium (1.7-2.4) mg/dl Total Bilirubin (0.2-1.0) mg/dl AST (13-39) U/L ALT (7-52) U/L Alkaline Phosphatase (34-104) U/L Total Protein (6.0-8.3) gm/dl Albumin (3.4-5.0) gm/dl Globulin (2.5-4.0) gm/dl Albumin/Globulin Ratio (0.9-2) Microbiology 08/30/24 17:16 Blood Aerobic Blood Culture - Final No growth in Aerobic bottle after 5 days. 08/30/24 17:16 Blood Anaerobic Blood Culture - Final No growth in Anaerobic bottle after 5 days. 08/30/24 17:17 Blood Aerobic Blood Culture - Final No growth in Aerobic bottle after 5 days. 08/30/24 17:17 Blood Anaerobic Blood Culture - Final 08/30/24 11:20 Peritoneal Fluid Gram Stain - Final 08/30/24 11:20 Peritoneal Fluid Aerobic and Anaerobic Culture - Final Escherichia coli Bacteroides vulgatus group Clostridium innocuum 08/28/24 Unknown Abdomen Gram Stain - Final 08/28/24 Unknown Abdomen Aerobic and Anaerobic Culture - Final Moderate counts mixed probable skin microbiota. No further identifications or sensitivities to follow. 08/23/24 11:05 Blood Aerobic Blood Culture - Final Proteus vulagris group 08/23/24 11:05 Blood Anaerobic Blood Culture - Final Proteus vulagris group 08/23/24 11:00 Blood Aerobic Blood Culture - Final No growth in Aerobic bottle after 5 days. 08/23/24 11:00 Blood Anaerobic Blood Culture - Final
[2024-09-11 12:09] LABS: INR 1.1 (0.9-1.1); Prothrombin Time 11.4 Seconds (9.0-12.0)
[2024-09-11 12:16] LABS: ANTI-Xa, UFH(UnfractionatedHep 0.24 IU/ml (0.3-0.7)
--- NOTE | 2024-09-11 16:35 | Hospitalist Progress Note ---
Date of Service September 11, 2024 Assessment & Plan (1) Severe sepsis with acute organ dysfunction: (2) Atrial fibrillation, new onset: (3) Acute renal failure: (4) Ileus due to infection: (5) Peritonitis due to abscess: (6) Electrolyte abnormality: (7) Pneumoperitoneum: (8) Demand ischemia of myocardium: (9) Low grade mucinous neoplasm of appendix: (10) Status post laparoscopic appendectomy: (11) Paroxysmal SVT (supraventricular tachycardia): Plan Per previous hospitalist w/ addendum Pt is a 68-year-old female status post appendectomy for mucocele on 08/19/2024. She presented critically ill with acute renal failure, multiple electrolyte abnormalities and evidence of severe sepsis with organ dysfunction as evidenced by renal failure, postsurgical ileus, and new onset atrial fibrillation. Currently s/p IR pelvic drain placement for abscesses on 08/28/24 and extended right colectomy with drainage of abscess by general surgeon Dr. Pacheco on 08/30/24. She is currently being treated as follows: Sepsis Proteus bacteremia Intra abdominal/pelvic abscesses Postsurgical ileus Cholelithiasis w/o evidence of cholecystitis Recent laparoscopic appendicectomy of large mucocele of appendix by Dr. Pacheco on 08/19/2024 CT abdomen/pelvis from 08/25/24 noting "Absent appendix consistent with appendectomy history with increased fluid and gas throughout the abdomen and pelvis more than expected particularly at the level of the surgical bed. Dehiscence is not excluded. No discrete encapsulated drainable fluid collection although early abscess cannot be excluded. Prominent fluid distended proximal small bowel and to some extent distal small bowel fecal type densities which can be seen in slow small bowel transit. Mild ileus is not excluded... CT abdomen with oral contrast: Pneumoperitoneum with right retroperitoneal gas mildly decreased. Cannot rule out anastomotic leak with abscess. Contrast has not reached the distal small bowel. Findings suggestive of ileus. Blood cultures from admission grew Proteus vulgaris, repeat blood cultures negative CT Abd/Pelvis with IV contrast on 08/28/24 showed increased pneumoperitoneum and right retroperitoneal gas, multifocal abscesses IV antibiotics broadened to Vancomycin and meropenem at that time S/p IR placement of drain on 08/28/24 Persistent leukocytosis IR drain culture from 08/28/24 grew E coli, bacteroides vulgatus and Clostridium innocuum c diff gene +, toxin negative S/p Exploratory laparotomy which showed small bowel perforation with abscess on 08/30/24, s/p extended right colectomy with drainage of abscess by general surgeon Dr. Pacheco on 08/30/24 Infectious Disease was consulted, appreciate recs -Antibiotics deescalated to IV ceftriaxone and metronidazole -Repeat imaging to reassess abscess size and response to treatment. NG tube still in place, started on TPN on 08/31/24 Required ICU stay postop on 08/30, downgraded on 09/01 PT/OT Pain control- General surgery started morphine calciminer on 09/04 Improving 09/05- KUB ordered, pt declining repeat CT abd/pelvis due to pain with getting the scan done. KUB noting ileus, discussed with surgery Dr Ryder who re commended no change to plan at this time of increased activity postop and advancement of diet to clears today. 09/06- tolerating clears, on TPN, no flatus/BM yet. 09/07- had bowel movement, advanced to full liquids, TPN discontinued. Case was discussed with ID once more given slowly increasing wbc and repeat CT findings. They advised that we can continue with the current abx if CT scan showed smaller abscesses vs. broadening abx if wbc continues to increase. Surgery considering new drain as well 09/08- continued increase in WBC, IV abx broadened to Zosyn, pt clinically improved, appreciate further Gen surg recs 09/09 Discussed w/ ID and w/ surgery - changed zosyn to ertapenem this AM as previous cultx resistant to zosyn. Will have ID review again. Per surgery cont. current plan, no plan for repeat surgery ID reconsulted - (1) Intra-abdominal abscess: Plan: The rising WBC is clearly linked with the spread of numerous small abscesses, though RP bleeding and evolving abscess there is also a concern. Broadening abx therapy to ertapenem 1g IV qd is reasonable, but the issue is primarily one of source control. If these areas are not drainable, then her recovery may be slowed. Repeating imaging in the next 1-2 weeks, or if she worsens in the meantime, will be warranted. Total duration of therapy remains a little unclear, but given her current CT findings, I would expect 4-6 weeks. Final plans remain pending. 09/09 WBC 20K 09/10 WBC 16K 09/11 WBC 14.9K Pulmonary Emboli Possible DVT RR increased on 09/04 CTA chest ordered- noted bilateral pulmonary emboli Pt declining doppler US lower extremities due to pain with completing medical testing at this time, discussion that results will not change room attendant as she is already on IV heparin Continue IV heparin at this time Monitor H/H Continue to monitor 09/09 heparin on hold overnight d/t Hgb drop. dark stools. GI consulted for poss. UGIB, plan for EGD today 09/10 IV heparin was resumed as per GI recs after EGD 09/11 plan to start warfarin, monitor INR and H&H closely. Normal BM, no dark stools, no blood in stool noted EGD- Impression: - LA Grade C reflux esophagitis with no bleeding. - Small hiatal hernia. - Non-bleeding gastric ulcers with no stigmata of bleeding. Biopsied. - Normal examined duodenum. Recommendation: - I believe her esophagitis is probably stasis related. There was some retained bile in the stomach which was suction. She has multiple punctate and linear ulcerations in the body and antrum consistent with stress gastritis biopsies were done though for H. pylori. These ulcers were relatively small and superficial and did not show stigmata of bleeding. The duodenum was without ulceration. No definite evidence for upper GI bleeding at this time though a bleed 2 or 3 days ago may not be obvious on today's exam. We did perform a rectal examination in the GI lab. This showed yellow to green liquid stool without blood or melena. - If heparin is required I think it be reasonable to restart and observe for further bleeding. A Sims filter is not always desirable. If there is evidence of definitive gastrointestinal bleeding with recurrence heparin then we could revisit that issue. Edema Pt with extremity edema Recent JANET with recovered urinary output a few days ago Cont. diuresis with IV lasix Monitor kidney function Acute kidney injury - resolved JANET had initially resolved but developed again Creatinine 3.9>>2.26>>0.94>1.51>>1.87>1.61 >> 0.6 Likely from sepsis + contrast Improved urine output Avoid contrast and nephrotoxins as much as possible Nephrology on board, appreciate recs Currently resolved. Esophagitis Noted on CT imaging Continue IV ppi Prediabetes hgba1c of 6.3 Noted hyperglycemia, was on TPN, now stopped Continue to monitor at this time Acute on chronic anemia Iron Deficiency Anemia Likely due to sepsis, blood loss and iron deficiency Got 2UPRBC on 08/31/24 Anemia panel showed low iron levels- Current recommendations advise against use of IV Venofer in the setting of severe infection, will need po supplementation once able to tolerate po 09/09 Hgb down again - at 6.6 - per automation qa lead 1 pRBC ordered, GI consulted, IV heparin on hold 09/10 Hgb 7.6 09/11 Hgb 7.7 Atrial fibrillation-new onset In the setting of sepsis Spontaneously converted to sinus ECHO: EF 55 to 60%. Mild concentric LVH. Left atrium mildly dilated. Mild tricuspid regurgitation. No significant pulmonary hypertension. Cardiology eval noted. No anticoagulation recommended Continue tele monitor IV lopressor 5mg q6h for now. Plan to switch to po metoprolol succinate when able to take po May need ZIO monitor as outpatient Pt been on IV heparin as noted above in the setting of PEs (since 09/04), started warfarin, monitor INR Hyponatremia Hypokalemia K is 3.3 today. Replace and monitor Mild troponin elevation Likely demand ischemia secondary to sepsis, A-fib RVR Denies any chest pain, dyspnea Diet:plan to advance diet DVT Px: IV heparin resumed, warfarin started Code Status :Full Code Dispo: Per PT/OT recs Admission and Anticipated Discharge Date Admission Date: August 23, 2024 Subjective Pt seen in follow up Pt with complex hospital course Gen. surgery (Dr. Pacheco) following closely Pt been on iv heparin for PE -resumed after endoscopy, will start warfarin WBC 20K -> down to 16K -> down to 14.9K No BM this AM, or yesterday PM. Last BM yesterday AM reports to be normal brown/yellow ID re-consulted - cont. w/ ertapenem now Pt is awake , sitting up in chair, answers appropriately. No chest pain, no shortness of breath. Review of Systems Review of Systems: All systems reviewed & are unremarkable except as noted in Subjective Physical Exam Physical Exam: General: obese F, Alert, oriented. No acute distress HEENT: NC/AT, EOMI CV: RRR Resp: breath sounds decreased bilaterally, no increased effort of breathing Abdomen:Soft, tender, bandage and surg. drain in place Extremities: edema in lower extremities bilaterally. Skin: warm, dry Results & Data Results & Data Vital Signs (Past 12 Hours) Vital Signs Temp Pulse Pulse Resp BP Pulse Ox O2 Del Method 09/11/24 12:00 37.3 C 91 H 17 119/77 97 Room Air 09/11/24 08:00 75 09/11/24 08:00 36.9 C 91 H 18 121/77 97 Room Air Laboratory Results 09/11/24 09/11/24 09/11/24 Range/Units 11:32 06:00 00:40 WBC 14.91 H (4.8-10.8) K/ul RBC 2.76 L (4.20-5.40) M/uL Hgb 7.7 L (12.0-16.0) g/dl Hct 23.2 L (37.0-47.0) % MCV 84.1 (80.0-100.0) fL MCH 27.9 (25.0-34.0) pg MCHC 33.2 (32.0-36.0) g/dL RDW Std Deviation 52.0 H (36.4-46.3) fL RDW Coeff of Albino 17.2 H (11.5-14.5) % Plt Count 516 H (130-400) K/uL MPV 9.3 L (9.4-12.4) fL Immature Gran % (Auto) 0.9 % Neut % (Auto) 80.7 % Lymph % (Auto) 10.9 % [place] % (Auto) 6.4 % Eos % (Auto) 0.7 % Baso % (Auto) 0.4 % Neut # (Auto) 12.03 H (1.40-6.50) K/uL Lymph # (Auto) 1.62 (1.20-3.40) K/uL [place] # (Auto) 0.96 H (0.11-0.59) K/uL Eos # (Auto) 0.10 (0.00-0.50) K/uL Baso # (Auto) 0.06 (0.00-0.20) K/uL Immature Gran # (Auto) 0.14 (0.01-0.20) K/uL Polychromasia 1+ PT 11.4 (9.0-12.0) Seconds INR 1.1 (0.9-1.1) Heparin Anti-Xa, Unfract 0.24 L 0.27 L 0.35 (0.3-0.7) IU/ml Sodium 135 L (136-145) mmol/L Potassium 3.3 L (3.5-5.1) mmol/L Chloride 101 (98-107) mmol/L Carbon Dioxide 28 (21-32) mmol/L Anion Gap 6 (3-11) BUN 10 (6-23) mg/dl Creatinine 0.52 L (0.6-1.2) mg/dl Est Cr Clr Drug Dosing 117.1 ml/min eGFR 101.14 BUN/Creatinine Ratio 19.2 (10-20) Glucose 121 H (70-99(Fasting)) mg/dl Calcium 7.5 L (8.6-10.3) mg/dl Phosphorus 2.7 (2.5-4.9) mg/dl Magnesium 1.5 L (1.7-2.4) mg/dl Total Bilirubin 0.4 (0.2-1.0) mg/dl AST 11 L (13-39) U/L ALT 8 (7-52) U/L Alkaline Phosphatase 70 (34-104) U/L Total Protein 5.4 L (6.0-8.3) gm/dl Albumin 2.1 L (3.4-5.0) gm/dl Globulin 3.3 (2.5-4.0) gm/dl Albumin/Globulin Ratio 0.6 L (0.9-2) 09/10/24 Range/Units 17:56 WBC (4.8-10.8) K/ul RBC (4.20-5.40) M/uL Hgb (12.0-16.0) g/dl Hct (37.0-47.0) % MCV (80.0-100.0) fL MCH (25.0-34.0) pg MCHC (32.0-36.0) g/dL RDW Std Deviation (36.4-46.3) fL RDW Coeff of Albino (11.5-14.5) % Plt Count (130-400) K/uL MPV (9.4-12.4) fL Immature Gran % (Auto) % Neut % (Auto) % Lymph % (Auto) % [place] % (Auto) % Eos % (Auto) % Baso % (Auto) % Neut # (Auto) (1.40-6.50) K/uL Lymph # (Auto) (1.20-3.40) K/uL [place] # (Auto) (0.11-0.59) K/uL Eos # (Auto) (0.00-0.50) K/uL Baso # (Auto) (0.00-0.20) K/uL Immature Gran # (Auto) (0.01-0.20) K/uL Polychromasia PT (9.0-12.0) Seconds INR (0.9-1.1) Heparin Anti-Xa, Unfract 0.15 L (0.3-0.7) IU/ml Sodium (136-145) mmol/L Potassium (3.5-5.1) mmol/L Chloride (98-107) mmol/L Carbon Dioxide (21-32) mmol/L Anion Gap (3-11) BUN (6-23) mg/dl Creatinine (0.6-1.2) mg/dl Est Cr Clr Drug Dosing ml/min eGFR BUN/Creatinine Ratio (10-20) Glucose (70-99(Fasting)) mg/dl Calcium (8.6-10.3) mg/dl Phosphorus (2.5-4.9) mg/dl Magnesium (1.7-2.4) mg/dl Total Bilirubin (0.2-1.0) mg/dl AST (13-39) U/L ALT (7-52) U/L Alkaline Phosphatase (34-104) U/L Total Protein (6.0-8.3) gm/dl Albumin (3.4-5.0) gm/dl Globulin (2.5-4.0) gm/dl Albumin/Globulin Ratio (0.9-2) Medications Administered Current Inpatient Medications Albuterol (Albut/Ipratrop 3mg/0.5mg Neb 3 Ml Vial) 3 ml NEB Q4H PRN; Protocol PRN Reason: Wheezing Stop: 09/22/24 13:08 Atropine Sulfate (Atropine Sulfate 0.1 Mg/Ml 10ml Syr) 1 mg IV Q3M PRN PRN Reason: symptomatic bradycardia Stop: 09/25/24 03:16 Dextrose (Dextrose 50% 50 Ml Syringe) 25 - 50 ml IV UD PRN; Protocol PRN Reason: Hypoglycemia Protocol Stop: 09/22/24 11:53 Furosemide (Furosemide Inj 20 Mg/2 Ml Vial) 60 mg IV BID ARMANDO Stop: 10/08/24 08:59 Last Admin: 09/11/24 09:17 Dose: 60 mg Glucagon (Glucagon For Inj 1 Mg Vial) 1 mg SQ UD PRN; Protocol PRN Reason: Hypoglycemia Protocol Stop: 09/22/24 11:53 Glucose (Glucose 40% Gel 15 Gm Tube) 15 - 30 gm PO UD PRN; Protocol PRN Reason: Hypoglycemia Protocol Stop: 09/22/24 11:53 Glucose (Glucose 10 Tab/Tube) 4 - 8 tab PO UD PRN; Protocol PRN Reason: Hypoglycemia Protocol Stop: 09/22/24 11:53 Heparin Sodium (Beef Lung) (Heparin 10 Unit/Ml 5 Ml Flush) 5 ml FLUSH PRN PRN PRN Reason: Flush Stop: 09/29/24 14:03 Last Admin: 09/03/24 18:13 Dose: 10 ml Hydromorphone HCl (Hydromorphone Inj 0.5 Mg/0.5 Ml Syr) 0.5 mg IV Q3H PRN PRN Reason: Moderate Pain (Scale 4, 5, 6) Stop: 09/24/24 09:20 Last Admin: 09/11/24 06:37 Dose: 0.5 mg Hydromorphone HCl (Hydromorphone Inj 1 Mg/Ml Syringe) 1 mg IV Q3H PRN PRN Reason: Severe Pain (Scale 7, 8, 9,10) Stop: 09/24/24 09:20 Last Admin: 09/10/24 09:48 Dose: 1 mg Pantoprazole Sodium 40 mg/ (Dextrose) 100 mls @ 20 mls/hr IV Q5H [facility] Stop: 10/09/24 07:14 Last Admin: 09/11/24 14:09 Dose: 8 mg/hr, 20 mls/hr Ertapenem (Invanz 1000mg) 1,000 mg in 10 mls @ 2 mls/min IV Q24H [facility] Stop: 09/26/24 11:34 Last Admin: 09/11/24 11:23 Dose: 2 mls/min Heparin Sodium/Dextrose (Heparin 94305 Unit/500 Ml D5w) 25,000 units in 500 mls @ 29 mls/hr IV .[id number] [facility]; Protocol Stop: 10/09/24 20:14 Last Admin: 09/11/24 14:09 Dose: Not Given Magnesium Oxide (Magnesium Oxide 400 Mg Tab) 400 mg PO BID [facility] Stop: 10/10/24 08:59 Last Admin: 09/11/24 09:18 Dose: 400 mg Metoprolol Tartrate (Metoprolol Tartrate 1 Mg/Ml Vial) 5 mg IV Q2H PRN PRN Reason: HR > 120 Stop: 09/30/24 20:18 Last Admin: 08/31/24 20:25 Dose: 5 mg Metoprolol Tartrate (Metoprolol Tartrate 25 Mg Tab) 25 mg PO BID [facility] Stop: 10/10/24 20:59 Last Admin: 09/11/24 09:19 Dose: 25 mg Miscellaneous (Carbohydrates For Hypoglycemia ) 15 - 30 gm PO UD PRN PRN Reason: Hypoglycemia Protocol Stop: 09/22/24 11:53 Ondansetron HCl (Ondansetron Inj 2 Mg/Ml 2 Ml Vial) 4 mg IV Q6H PRN PRN Reason: Nausea Stop: 09/22/24 13:08 Last Admin: 09/08/24 22:20 Dose: 4 mg Oxycodone/Acetaminophen (Oxycodone/Acetaminophen 5mg/325mg Tab) 1 tab PO Q4H PRN PRN Reason: Moderate Pain (Scale 4, 5, 6) Stop: 09/24/24 09:20 Last Admin: 09/11/24 09:58 Dose: 1 tab Oxycodone/Acetaminophen (Oxycodone/Acetaminophen 5mg/325mg Tab) 2 tab PO Q4H PRN PRN Reason: Severe Pain (Scale 7, 8, 9,10) Stop: 09/24/24 09:20 Last Admin: 09/10/24 20:35 Dose: 2 tab Potassium Chloride (Potassium Chloride Crtab 20 Meq Tabcr) 20 meq PO BID [facility] Stop: 10/09/24 20:59 Last Admin: 09/11/24 09:19 Dose: 20 meq Sucralfate (Sucralfate 1 Gm/10 Ml Udc) 1 gm PO QID [facility] Stop: 10/09/24 16:59 Last Admin: 09/11/24 14:09 Dose: 1 gm Warfarin Sodium (Warfarin Sod 1 Mg Tab) 1 mg PO DAILY@1600 [facility] Stop: 10/11/24 15:59
[2024-09-11] MEDS: WARFARIN SOD 1 MG TAB PO SCH (17:08)
[2024-09-11 20:08] LABS: ANTI-Xa, UFH(UnfractionatedHep 0.29 IU/ml (0.3-0.7)
--- NOTE | 2024-09-11 20:15 | Communication Note ---
Date of Service: September 11, 2024 Patient incontinent stool, liquid, reddened brown. Patient verbalized new right lateral - left lateral abdominal pain as per RN account. AP LGIB Ongoing IV heparin Coumadin bridge Rx for DVT Recent bowel surgery on ertapenem Rule out C. difficile Hold IV heparin Coumadin H&H now N.p.o. CT abdomen pelvis Stool C. difficile CT abdomen pelvis: 1. Status post right hemicolectomy. Mildly dilated fluid-filled small bowel loops without well-defined transition point. The findings favor an ileus although a partial small bowel obstruction could appear similar. 2. Small amount of pneumoperitoneum. This this may be postsurgical. However, a leak could appear similar and continued imaging follow-up is recommended. 3. Multiple rim-enhancing fluid collections within the abdomen and pelvis which contain a small amount of gas. These are consistent with abscesses. 4. Right retroperitoneal fluid versus phlegmon which contain multiple locules of gas. No peripheral enhancement. 5. Moderate intraperitoneal fluid within the right abdomen. Peritoneal enhancement and mesenteric stranding may be postsurgical although could also be infectious. 6. Cholelithiasis. No significant change in nonspecific moderate gallbladder distention. 7. Subtle nonspecific 1.1 cm hypoenhancing focus within the upper pole of the right kidney. Mild right collecting system dilatation. 5 mm left renal calculus. No ureteral calculi. 8. Small right pleural effusion. Right lower lobe opacity suggestive of atelectasis. Dr. Vaughn (general surgeon on-call) updated of developments over the phone.
[2024-09-11] MEDS: OPTIRAY 320 100ml IV ONE (20:47)
[2024-09-11 21:42] LABS: Cdiff Toxin B Gene (2yr or >) Positive Cdiff Gene (Neg)
[2024-09-11 22:01] LABS: Hematocrit (blood only) 24.8 % (37.0-47.0); Hemoglobin 8.2 g/dl (12.0-16.0)
[2024-09-11 22:08] LABS: INR 1.1 (0.9-1.1); Prothrombin Time 11.5 Seconds (9.0-12.0)
[2024-09-11] MEDS: ACETAMINOPHEN 1,000 MG/100 ML VIAL IV STA (22:08)
[2024-09-11 22:18] LABS: Cdiff Toxin A+B Negative Cdiff Toxin (Negative)
--- NOTE | 2024-09-11 22:49 | CT Scan Report ---
Exam(s): CT ABDOMEN + PELVIS With Contrast IV Amt: 93 ml optiray 320 EXAM: CT Abdomen and Pelvis With Intravenous Contrast CLINICAL HISTORY: Reason for exam: new abd pain, lgib. TECHNIQUE: Axial computed tomography images of the abdomen and pelvis with intravenous contrast. CTDI is 25.63 mGy and DLP is 1263.19 mGy-cm. Automated exposure control was utilized for the study. A dose lowering technique was utilized adhering to the principles of ALARA. CONTRAST: Patient received 93 ml optiray 320 of IV contrast COMPARISON: 09/07/2024 FINDINGS: There is persistent small right pleural effusion with right basilar atelectasis. Liver is enlarged but otherwise unremarkable. There is a stable stone at the gallbladder neck without gallbladder inflammation to suggest cholecystitis. There is no biliary dilatation. Pancreas, spleen, and adrenal glands are unremarkable. Kidneys enhance symmetrically. There is no hydronephrosis. There is a stable nonobstructing 5 mm left kidney stone. There is mild atherosclerosis of the abdominal aorta without aneurysm or dissection. There is no adenopathy. Urinary bladder is decompressed around a Leon catheter. Uterus is unremarkable. There are persistent small and large bowel fluid levels with small-bowel distention favoring ileus. Patient has undergone right hemicolectomy. Appendix is absent. Compared to prior exam, there are increased foci of free air in the right abdomen adjacent to the transverse colon surgical staple line (compare series 2, image 40 on the current exam to series 2, image 39 on the prior exam). There is extensive mesenteric edema and peritoneal enhancement which appears grossly similar to prior exam. There are multiple loculated fluid collections. - There is a right upper quadrant rim enhancing [id number] collection located anterior to the right kidney and extending to the inferior right hepatic border measuring roughly 10 x 10 x 12 cm (series 2, image 40). - There is a left pericolic gutter fluid collection measuring roughly 1. 5 x 5.0 x 15.0 cm, grossly similar to prior exam (series 300, image 40). - There is a large right retroperitoneal etfwk-[id number]-itw collection extending into the upper right inguinal canal measuring roughly 12 x 11 x 23 cm (series 2, image 53; series 300, image 56). - There is a pelvic cul-de-sac rim enhancing collection measuring 8 x 6 x 4 cm (series 2, image 70), grossly similar to prior exam. A right anterior approach surgical drain extends through the pelvis. This does not drain the pelvic cul-de-sac collection. There is generalized anasarca. Regional skeleton appears intact. IMPRESSION: Status post right hemicolectomy. Compared to prior exam, there are increased foci of free air adjacent to the anastomotic staple line in the transverse colon (series 2, image 40). This raises the possibility of bowel leak. Peripherally enhancing collections within the abdomen and right retroperitoneum as detailed above, concerning for abscesses. These appear overall stable from prior CT. Surgical drain extending through the pelvis. This does not drain the abscess in the pelvic cul-de-sac. Generalized peritonitis. Bowel-gas pattern most suggestive of ileus. Small right pleural effusion, right basilar atelectasis, and anasarca. Electronically signed by: Kiana Bro M.D. 09/11/24 22:47 PM
[2024-09-12 01:22] LABS: Hematocrit (blood only) 25.4 % (37.0-47.0); Hemoglobin 8.3 g/dl (12.0-16.0)
--- NOTE | 2024-09-12 07:07 | Hospitalist Progress Note ---
Date of Service September 12, 2024 Assessment & Plan (1) Severe sepsis with acute organ dysfunction: (2) Atrial fibrillation, new onset: (3) Acute renal failure: (4) Ileus due to infection: (5) Peritonitis due to abscess: (6) Electrolyte abnormality: (7) Pneumoperitoneum: (8) Demand ischemia of myocardium: (9) Low grade mucinous neoplasm of appendix: (10) Status post laparoscopic appendectomy: (11) Paroxysmal SVT (supraventricular tachycardia): Plan Per previous hospitalist w/ addendum Pt is a 68-year-old female status post appendectomy for mucocele on 08/19/2024. She presented critically ill with acute renal failure, multiple electrolyte abnormalities and evidence of severe sepsis with organ dysfunction as evidenced by renal failure, postsurgical ileus, and new onset atrial fibrillation. Currently s/p IR pelvic drain placement for abscesses on 08/28/24 and extended right colectomy with drainage of abscess by general surgeon Dr. Pacheco on 08/30/24. She is currently being treated as follows: Sepsis Proteus bacteremia Intra abdominal/pelvic abscesses Postsurgical ileus Cholelithiasis w/o evidence of cholecystitis Recent laparoscopic appendicectomy of large mucocele of appendix by Dr. Pacheco on 08/19/2024 CT abdomen/pelvis from 08/25/24 noting "Absent appendix consistent with appendectomy history with increased fluid and gas throughout the abdomen and pelvis more than expected particularly at the level of the surgical bed. Dehiscence is not excluded. No discrete encapsulated drainable fluid collection although early abscess cannot be excluded. Prominent fluid distended proximal small bowel and to some extent distal small bowel fecal type densities which can be seen in slow small bowel transit. Mild ileus is not excluded... CT abdomen with oral contrast: Pneumoperitoneum with right retroperitoneal gas mildly decreased. Cannot rule out anastomotic leak with abscess. Contrast has not reached the distal small bowel. Findings suggestive of ileus. Blood cultures from admission grew Proteus vulgaris, repeat blood cultures negative CT Abd/Pelvis with IV contrast on 08/28/24 showed increased pneumoperitoneum and right retroperitoneal gas, multifocal abscesses IV antibiotics broadened to Vancomycin and meropenem at that time S/p IR placement of drain on 08/28/24 Persistent leukocytosis IR drain culture from 08/28/24 grew E coli, bacteroides vulgatus and Clostridium innocuum c diff gene +, toxin negative S/p Exploratory laparotomy which showed small bowel perforation with abscess on 08/30/24, s/p extended right colectomy with drainage of abscess by general surgeon Dr. Pacheco on 08/30/24 Infectious Disease was consulted, appreciate recs -Antibiotics deescalated to IV ceftriaxone and metronidazole -Repeat imaging to reassess abscess size and response to treatment. NG tube still in place, started on TPN on 08/31/24 Required ICU stay postop on 08/30, downgraded on 09/01 PT/OT Pain control- General surgery started morphine top lift scourer on 09/04 Improving 09/05- KUB ordered, pt declining repeat CT abd/pelvis due to pain with getting the scan done. KUB noting ileus, discussed with surgery Dr Ryder who re commended no change to plan at this time of increased activity postop and advancement of diet to clears today. 09/06- tolerating clears, on TPN, no flatus/BM yet. 09/07- had bowel movement, advanced to full liquids, TPN discontinued. Case was discussed with ID once more given slowly increasing wbc and repeat CT findings. They advised that we can continue with the current abx if CT scan showed smaller abscesses vs. broadening abx if wbc continues to increase. Surgery considering new drain as well 09/08- continued increase in WBC, IV abx broadened to Zosyn, pt clinically improved, appreciate further Gen surg recs 09/09 Discussed w/ ID and w/ surgery - changed zosyn to ertapenem this AM as previous cultx resistant to zosyn. Will have ID review again. Per surgery cont. current plan, no plan for repeat surgery ID reconsulted - (1) Intra-abdominal abscess: Plan: The rising WBC is clearly linked with the spread of numerous small abscesses, though RP bleeding and evolving abscess there is also a concern. Broadening abx therapy to ertapenem 1g IV qd is reasonable, but the issue is primarily one of source control. If these areas are not drainable, then her recovery may be slowed. Repeating imaging in the next 1-2 weeks, or if she worsens in the meantime, will be warranted. Total duration of therapy remains a little unclear, but given her current CT findings, I would expect 4-6 weeks. Final plans remain pending. 09/09 WBC 20K 09/10 WBC 16K 09/11 WBC 14.9K 09/12 WBC 14.4K 09/12 Overnight incr. abdominal pain, stool reddish -> CT abd. obtained and surgery contacted CT abd/pelvis - Status post right hemicolectomy. Compared to prior exam, there are increased foci of free air adjacent to the anastomotic staple line in the transverse colon (series 2, image 40). This raises the possibility of bowel leak. Peripherally enhancing collections within the abdomen and right retroperitoneum as detailed above, concerning for abscesses. These appear overall stable from prior CT. Surgical drain extending through the pelvis. This does not drain the abscess in the pelvic cul-de-sac. Per surgery - cont. NPO , cont. IV abx Pulmonary Emboli Possible DVT RR increased on 09/04 CTA chest ordered- noted bilateral pulmonary emboli Pt declining doppler US lower extremities due to pain with completing medical testing at this time, discussion that results will not change agent as she is already on IV heparin Continue IV heparin at this time Monitor H/H Continue to monitor 09/09 heparin on hold overnight d/t Hgb drop. dark stools. GI consulted for poss. UGIB, plan for EGD today 09/10 IV heparin was resumed as per GI recs after EGD 09/11 plan to start warfarin, monitor INR and H&H closely. Normal BM, no dark stools, no blood in stool noted 09/12 heparin, warfarin now on hold, as above EGD- Impression: - LA Grade C reflux esophagitis with no bleeding. - Small hiatal hernia. - Non-bleeding gastric ulcers with no stigmata of bleeding. Biopsied. - Normal examined duodenum. Recommendation: - I believe her esophagitis is probably stasis related. There was some retained bile in the stomach which was suction. She has multiple punctate and linear ulcerations in the body and antrum consistent with stress gastritis biopsies were done though for H. pylori. These ulcers were relatively small and superficial and did not show stigmata of bleeding. The duodenum was without ulceration. No definite evidence for upper GI bleeding at this time though a bleed 2 or 3 days ago may not be obvious on today's exam. We did perform a rectal examination in the GI lab. This showed yellow to green liquid stool without blood or melena. - If heparin is required I think it be reasonable to restart and observe for further bleeding. A Susanne filter is not always desirable. If there is evidence of definitive gastrointestinal bleeding with recurrence heparin then we could revisit that issue. Edema Pt with extremity edema Recent JANET with recovered urinary output a few days ago Cont. diuresis with IV lasix Monitor kidney function Acute kidney injury - resolved JANET had initially resolved but developed again Creatinine 3.9>>2.26>>0.94>1.51>>1.87>1.61 >> 0.6 Likely from sepsis + contrast Improved urine output Avoid contrast and nephrotoxins as much as possible Nephrology on board, appreciate recs Currently resolved. Esophagitis Noted on CT imaging Continue IV ppi Prediabetes hgba1c of 6.3 Noted hyperglycemia, was on TPN, now stopped Continue to monitor at this time Acute on chronic anemia Iron Deficiency Anemia Likely due to sepsis, blood loss and iron deficiency Got 2UPRBC on 08/31/24 Anemia panel showed low iron levels- Current recommendations advise against use of IV Venofer in the setting of severe infection, will need po supplementation once able to tolerate po 09/09 Hgb down again - at 6.6 - per aircraft magneto mechanic 1 pRBC ordered, GI consulted, IV heparin on hold 09/10 Hgb 7.6 09/11 Hgb 7.7 09/12 Hgb 7.7 Atrial fibrillation-new onset In the setting of sepsis Spontaneously converted to sinus ECHO: EF 55 to 60%. Mild concentric LVH. Left atrium mildly dilated. Mild tricuspid regurgitation. No significant pulmonary hypertension. Cardiology eval noted. No anticoagulation recommended Continue tele monitor IV lopressor 5mg q6h for now. Plan to switch to po metoprolol succinate when able to take po May need ZIO monitor as outpatient Pt been on IV heparin as noted above in the setting of PEs (since 09/04), started warfarin, monitor INR Hyponatremia Hypokalemia K is 3.8 today. Replace and monitor Mild troponin elevation Likely demand ischemia secondary to sepsis, A-fib RVR Denies any chest pain, dyspnea Diet:plan to advance diet DVT Px: IV heparin, warfarin on hold Code Status :Full Code Dispo: Per PT/OT recs Admission and Anticipated Discharge Date Admission Date: August 23, 2024 Subjective Pt seen in follow up Pt with complex hospital course Gen. surgery (Dr. Pacheco) following closely Pt been on iv heparin for PE - resumed after endoscopy, and started warfarin - overnight again concern for reddish stool -> CT abd. repeated, IV heparin on hold, surgery contacted. Also c.diff tested - gene positive , toxin negat. given pt will need to be on iv abx prolonged course - will start Po vanco for c. diff ppx WBC 20K -> down to 16K -> down to 14.4K ID re-consulted - cont. w/ ertapenem Pt is awake , sitting up in bed, answers appropriately. No chest pain, no shortness of breath. Review of Systems Review of Systems: All systems reviewed & are unremarkable except as noted in Subjective Physical Exam Physical Exam: General: obese F, Alert, oriented. No acute distress HEENT: NC/AT, EOMI CV: RRR Resp: breath sounds decreased bilaterally, no increased effort of breathing Abdomen: Soft, tender, bandage and surg. drain in place Extremities: edema in lower extremities bilaterally. Skin: warm, dry Results & Data Results & Data Vital Signs (Past 12 Hours) Vital Signs Temp Pulse Pulse Pulse Resp BP Pulse Ox 09/12/24 04:00 36.7 C 90 96 H 18 145/70 H 96 09/12/24 00:00 75 09/11/24 23:00 36.8 C 91 H 18 134/74 97 09/11/24 22:30 101 H 09/11/24 19:30 O2 Del Method 09/12/24 04:00 Room Air 09/12/24 00:00 09/11/24 23:00 Room Air 09/11/24 22:30 09/11/24 19:30 Room Air Laboratory Results 09/12/24 09/12/24 09/11/24 Range/Units 06:09 00:16 Unknown WBC Pending RBC Pending Hgb Pending 8.3 L (12.0-16.0) g/dl Hct Pending 25.4 L (37.0-47.0) % MCV Pending MCH Pending MCHC Pending Plt Count Pending PT Pending (9.0-12.0) Seconds INR Pending (0.9-1.1) Heparin Anti-Xa, Unfract Pending (0.3-0.7) IU/ml Sodium Pending Potassium Pending Chloride Pending Carbon Dioxide Pending Anion Gap Pending BUN Pending Creatinine Pending Est Cr Clr Drug Dosing Pending eGFR Pending BUN/Creatinine Ratio Pending Glucose Pending Calcium Pending Phosphorus Pending Magnesium Pending Stl C. diff Tox B Gene Positive Cdiff Gene A (Neg) Stl C.difficile Tox A&B Negative Cdiff Toxin (Negative) Stl C. diff 027-NAP1-BI NEGATIVE 09/11/24 09/11/24 09/11/24 Range/Units 21:38 21:13 19:06 WBC RBC Hgb 8.2 L (12.0-16.0) g/dl Hct 24.8 L (37.0-47.0) % MCV MCH MCHC Plt Count PT 11.5 (9.0-12.0) Seconds INR 1.1 (0.9-1.1) Heparin Anti-Xa, Unfract 0.29 L (0.3-0.7) IU/ml Sodium Potassium Chloride Carbon Dioxide Anion Gap BUN Creatinine Est Cr Clr Drug Dosing eGFR BUN/Creatinine Ratio Glucose Calcium Phosphorus Magnesium Stl C. diff Tox B Gene (Neg) Stl C.difficile Tox A&B (Negative) Stl C. diff [id number]-NAP1-BI 09/11/24 Range/Units 11:32 WBC RBC Hgb (12.0-16.0) g/dl Hct (37.0-47.0) % MCV MCH MCHC Plt Count PT 11.4 (9.0-12.0) Seconds INR 1.1 (0.9-1.1) Heparin Anti-Xa, Unfract 0.24 L (0.3-0.7) IU/ml Sodium Potassium Chloride Carbon Dioxide Anion Gap BUN Creatinine Est Cr Clr Drug Dosing eGFR BUN/Creatinine Ratio Glucose Calcium Phosphorus Magnesium Stl C. diff Tox B Gene (Neg) Stl C.difficile Tox A&B (Negative) Stl C. diff [id number]-NAP1-BI Medications Administered Current Inpatient Medications Albuterol (Albut/Ipratrop 3mg/0.5mg Neb 3 Ml Vial) 3 ml NEB Q4H PRN; Protocol PRN Reason: Wheezing Stop: 09/22/24 13:08 Atropine Sulfate (Atropine Sulfate 0.1 Mg/Ml 10ml Syr) 1 mg IV Q3M PRN PRN Reason: symptomatic bradycardia Stop: 09/25/24 03:16 Dextrose (Dextrose 50% 50 Ml Syringe) 25 - 50 ml IV UD PRN; Protocol PRN Reason: Hypoglycemia Protocol Stop: 09/22/24 11:53 Furosemide (Furosemide Inj 20 Mg/2 Ml Vial) 60 mg IV BID ARMANDO Stop: 10/08/24 08:59 Last Admin: 09/11/24 22:24 Dose: 60 mg Glucagon (Glucagon For Inj 1 Mg Vial) 1 mg SQ UD PRN; Protocol PRN Reason: Hypoglycemia Protocol Stop: 09/22/24 11:53 Glucose (Glucose 40% Gel 15 Gm Tube) 15 - 30 gm PO UD PRN; Protocol PRN Reason: Hypoglycemia Protocol Stop: 09/22/24 11:53 Glucose (Glucose 10 Tab/Tube) 4 - 8 tab PO UD PRN; Protocol PRN Reason: Hypoglycemia Protocol Stop: 09/22/24 11:53 Heparin Sodium (Beef Lung) (Heparin 10 Unit/Ml 5 Ml Flush) 5 ml FLUSH PRN PRN PRN Reason: Flush Stop: 09/29/24 14:03 Last Admin: 09/03/24 18:13 Dose: 10 ml Hydromorphone HCl (Hydromorphone Inj 0.5 Mg/0.5 Ml Syr) 0.5 mg IV Q3H PRN PRN Reason: Moderate Pain (Scale 4, 5, 6) Stop: 09/24/24 09:20 Last Admin: 09/11/24 06:37 Dose: 0.5 mg Hydromorphone HCl (Hydromorphone Inj 1 Mg/Ml Syringe) 1 mg IV Q3H PRN PRN Reason: Severe Pain (Scale 7, 8, 9,10) Stop: 09/24/24 09:20 Last Admin: 09/10/24 09:48 Dose: 1 mg Pantoprazole Sodium 40 mg/ (Dextrose) 100 mls @ 20 mls/hr IV Q5H ARMANDO Stop: 10/09/24 07:14 Last Admin: 09/12/24 05:26 Dose: 8 mg/hr, 20 mls/hr Ertapenem (Invanz 1000mg) 1,000 mg in 10 mls @ 2 mls/min IV Q24H [facility] Stop: 09/26/24 11:34 Last Admin: 09/11/24 11:23 Dose: 2 mls/min Heparin Sodium/Dextrose (Heparin 64962 Unit/500 Ml D5w) 25,000 units in 500 mls @ 0 mls/hr IV .Q0M [facility]; Protocol Stop: 10/09/24 20:14 Last Admin: 09/12/24 02:51 Dose: Not Given Magnesium Oxide (Magnesium Oxide 400 Mg Tab) 400 mg PO BID [facility] Stop: 10/10/24 08:59 Last Admin: 09/11/24 22:25 Dose: 400 mg Metoprolol Tartrate (Metoprolol Tartrate 1 Mg/Ml Vial) 5 mg IV Q2H PRN PRN Reason: HR > 120 Stop: 09/30/24 20:18 Last Admin: 08/31/24 20:25 Dose: 5 mg Metoprolol Tartrate (Metoprolol Tartrate 25 Mg Tab) 25 mg PO BID [facility] Stop: 10/10/24 20:59 Last Admin: 09/11/24 22:25 Dose: 25 mg Metoprolol Tartrate (Metoprolol Tartrate 1 Mg/Ml Vial) 2.5 mg IV Q6 [facility] Stop: 10/12/24 05:59 Miscellaneous (Carbohydrates For Hypoglycemia ) 15 - 30 gm PO UD PRN PRN Reason: Hypoglycemia Protocol Stop: 09/22/24 11:53 Ondansetron HCl (Ondansetron Inj 2 Mg/Ml 2 Ml Vial) 4 mg IV Q6H PRN PRN Reason: Nausea Stop: 09/22/24 13:08 Last Admin: 09/08/24 22:20 Dose: 4 mg Oxycodone/Acetaminophen (Oxycodone/Acetaminophen 5mg/325mg Tab) 1 tab PO Q4H PRN PRN Reason: Moderate Pain (Scale 4, 5, 6) Stop: 09/24/24 09:20 Last Admin: 09/11/24 17:08 Dose: 1 tab Oxycodone/Acetaminophen (Oxycodone/Acetaminophen 5mg/325mg Tab) 2 tab PO Q4H PRN PRN Reason: Severe Pain (Scale 7, 8, 9,10) Stop: 09/24/24 09:20 Last Admin: 09/10/24 20:35 Dose: 2 tab Potassium Chloride (Potassium Chloride Crtab 20 Meq Tabcr) 20 meq PO BID [facility] Stop: 10/09/24 20:59 Last Admin: 09/11/24 22:25 Dose: 20 meq Sucralfate (Sucralfate 1 Gm/10 Ml Udc) 1 gm PO QID [facility] Stop: 10/09/24 16:59 Last Admin: 09/11/24 22:12 Dose: 1 gm Warfarin Sodium (Warfarin Sod 1 Mg Tab) 1 mg PO DAILY@1600 [facility] Stop: 10/11/24 15:59 Last Admin: 09/11/24 17:08 Dose: 1 mg
[2024-09-12 07:11] LABS: Hematocrit (blood only) 23.9 % (37.0-47.0); Hemoglobin 7.7 g/dl (12.0-16.0); Mean Corpuscular Hemoglobin 27.2 pg (25.0-34.0); Mean Corpuscular Volume 84.5 fL (80.0-100.0); Platelet Count 586 K/uL (130-400); RDW Standard Deviation 53.3 fL (36.4-46.3); Red Blood Count 2.83 M/uL (4.20-5.40); White Blood Count 14.42 K/ul (4.8-10.8)
[2024-09-12 07:17] LABS: ANTI-Xa, UFH(UnfractionatedHep < 0.10 IU/ml (0.3-0.7)
[2024-09-12 07:18] LABS: INR 1.1 (0.9-1.1); Prothrombin Time 11.4 Seconds (9.0-12.0)
[2024-09-12 07:21] LABS: Anion Gap 5.0 (3-11); Blood Urea Nitrogen 8.0 mg/dl (6-23); Calcium 7.9 mg/dl (8.6-10.3); Carbon Dioxide 29.0 mmol/L (21-32); Chloride 99.0 mmol/L (98-107); Creatinine Clr Calc Pharmacy 104.3 ml/min; Glucose 110.0 mg/dl (70-99(Fasting)); Magnesium 1.6 mg/dl (1.7-2.4); Potassium 3.8 mmol/L (3.5-5.1); Sodium 133.0 mmol/L (136-145)
--- NOTE | 2024-09-12 08:29 | Surgery Progress Note ---
Date of Service September 12, 2024 Assessment & Plan (1) Intra-abdominal abscess: Plan: POD # 14 s/p ex lap with drainage of intra-abdominal abscesses and right hemicolectomy in setting of prior laparoscopic appendectomy for large mucocele and small bowel perforation pt afebrile, tachycardia 93 leukocytosis remains 14(14) abdominal pain worse right side, stabbing repeat CT abd /pelvis from yesterday showing concern for increase in pneumoperitoneum There are multiple loculated fluid collections.- There is a right upper quadrant rim enhancing ujbdj-pjl-heu collection located anterior to the right kidney and extending to the inferior right hepatic border measuring roughly 10 x 10 x 12 cm (series 2, image 40).- There is a left pericolic gutter fluid collection measuring roughly 1. 5 x 5.0 x 15.0 cm, grossly similar to prior exam (series 300, image 40).- There is a large right retroperitoneal wtafq-ojc-jgt collection extending into the upper right inguinal canal measuring roughly 12 x 11 x 23 cm (series 2, image 53; series 300, image 56).- There is a pelvic cul-de-sac rim enhancing collection measuring 8 x 6 x 4 cm (series 2, image 70), grossly similar to prior exam. A right anterior approach surgical drain extends through the pelvis. This does not drain the pelvic cul-de-sac collection. continue IV ertapenem, kirk drain IV heparin has been held will discuss plan with conservator artifacts surgeon Dr Vaughn (2) Ileus due to infection: (3) Pneumoperitoneum: (4) S/P right colectomy: Admission and Anticipated Discharge Date Admission Date: August 23, 2024 Supervising Physician Co-Signing Physician Notes I personally saw and evaluated the patient with Abi UMANA and agree with the assessment and plan. Postoperative day 13 from exploratory laparotomy and right hemicolectomy for small bowel injury status post laparoscopic appendectomy for mucocele She did have a repeat CT of the abdomen pelvis yesterday which revealed some increased pneumoperitoneum about the anastomosis She states overall she feels similar to yesterday as the CT scan was performed due to rectal bleeding She was on a heparin drip for her pulmonary embolism, this has been stopped She has been made n.p.o. which I would agree with I did discuss with her based on her CT scan results she does have a large right sided abscess and concern for anastomotic breakdown She is hemodynamically stable and without fever and is worried about undergoing another operation I think we can hold off on this for now and continue her IV antibiotics and n.p.o. status and see how she responds Subjective + abd pain right side stabbing Review of Systems Constitutional: no fever and no chills Gastrointestinal: + abdominal pain; no nausea and no vomit ing Psychiatric: no confusion Physical Exam Constitutional: + obese and cooperative Respiratory: normal respiratory effort and able to speak in complete sentences; no respiratory distress Cardiovascular: Rate/Rhythm: + tachycardic Gastrointestinal (Abdomen): Inspection/Auscultation: + abdomen distended and + abdominal surgical incision Genitourinary: singh cath Results & Data Vital Signs (Past 12 Hours) Vital Signs Temp Pulse Pulse Pulse Resp BP Pulse Ox 09/12/24 08:00 98.6 F 93 H 18 128/65 96 09/12/24 04:00 98.1 F 90 96 H 18 145/70 H 96 09/12/24 00:00 75 09/11/24 23:00 98.2 F 91 H 18 134/74 97 09/11/24 22:30 101 H O2 Del Method 09/12/24 08:00 Room Air 09/12/24 04:00 Room Air 09/12/24 00:00 09/11/24 23:00 Room Air 09/11/24 22:30 Diagnostic Findings [place], [place] [phone] CT Scan Report Patient: BART PULLIAM Admit Date: 08/23/24 MR#: [id number] Address1: [address] [place] [address] Acct ID:[id number] Address2: Date: 1955 [facility] Zip: [place] [address] Age: 68 Location: Sex: F Room/Bed: [facility] Att Phy: Gerry Norton MD Diagnosis: JANET Casi Phy: Jairo Broussard DO Service Date: 09/11/24 Fam Phy: Interpreting Phy: Kiana Bro MDAdmit Phy: Julian Oropeza DO Ordering Phy: Luis Felipe Barth MD cc: ~ Exam(s): CT ABDOMEN + PELVIS With Contrast IV Amt: 93 ml optiray 320 EXAM: CT Abdomen and Pelvis With Intravenous Contrast CLINICAL HISTORY: Reason for exam: new abd pain, lgib. TECHNIQUE: Axial computed tomography images of the abdomen and pelvis with intravenous contrast. CTDI is 25.63 mGy and DLP is 1263.19 mGy-cm. Automated exposure control was utilized for the study. A dose lowering technique was utilized adhering to the principles of ALARA. CONTRAST: Patient received 93 ml optiray 320 of IV contrast COMPARISON: 09/07/2024 FINDINGS: There is persistent small right pleural effusion with right basilar atelectasis. Liver is enlarged but otherwise unremarkable. There is a stable stone at the gallbladder neck without gallbladder inflammation to suggest cholecystitis. There is no biliary dilatation. Pancreas, spleen, and adrenal glands are unremarkable. Kidneys enhance symmetrically. There is no hydronephrosis. There is a stable nonobstructing 5 mm left kidney stone. There is mild atherosclerosis of the abdominal aorta without aneurysm or dissection. There is no adenopathy. Urinary bladder is decompressed around a Singh catheter. Uterus is unremarkable. There are persistent small and large bowel fluid levels with small-bowel distention favoring ileus. Patient has undergone right hemicolectomy. Appendix is absent. Compared to prior exam, there are increased foci of free air in the right abdomen adjacent to the transverse colon surgical staple line (compare series 2, image 40 on the current exam to series 2, image 39 on the prior exam). There is extensive mesenteric edema and peritoneal enhancement which appears grossly similar to prior exam. There are multiple loculated fluid collections. - There is a right upper quadrant rim enhancing fcjkx-eyj-syt collection located anterior to the right kidney and extending to the inferior right hepatic border measuring roughly 10 x 10 x 12 cm (series 2, image 40). - There is a left pericolic gutter fluid collection measuring roughly 1. 5 x 5.0 x 15.0 cm, grossly similar to prior exam (series 300, image 40). - There is a large right retroperitoneal hshej-owp-new collection extending into the upper right inguinal canal measuring roughly 12 x 11 x 23 cm (series 2, image 53; series 300, image 56). - There is a pelvic cul-de-sac rim enhancing collection measuring 8 x 6 x 4 cm (series 2, image 70), grossly similar to prior exam. A right anterior approach surgical drain extends through the pelvis. This does not drain the pelvic cul-de-sac collection. There is generalized anasarca. Regional skeleton appears intact. IMPRESSION: Status post right hemicolectomy. Compared to prior exam, there are increased foci of free air adjacent to the anastomotic staple line in the transverse colon (series 2, image 40). This raises the possibility of bowel leak. Peripherally enhancing collections within the abdomen and right retroperitoneum as detailed above, concerning for abscesses. These appear overall stable from prior CT. Surgical drain extending through the pelvis. This does not drain the abscess in the pelvic cul-de-sac. Generalized peritonitis. Bowel-gas pattern most suggestive of ileus. Small right pleural effusion, right basilar atelectasis, and anasarca. Electronically signed by: Kiana Bro M.D. 09/11/24 22:47 PM Dictated: 09/11/242246 Transcribed: 09/11/242246 PG Care Time/CCT Total # of Minutes Spent Total Time Spent with Patient: Total time spent is greater than 50% in coordination of care (as documented) at patient's floor/unit and/or counseling patient: Coding Level of Care Code 96641 SUB INP/OBS CARE 2/35MIN Diagnoses Intra-abdominal abscess K65.1 Ileus due to infection K56.7; B99.9 Pneumoperitoneum K66.8 S/P right colectomy Z90.49
[2024-09-12] MEDS: METOPROLOL TARTRATE 1 MG/ML VIAL IV SCH (08:31)
[2024-09-12] MEDS: MAGNESIUM SULFATE / D5W 1 GM/100 ML BAG IV ONE (08:44)
[2024-09-12] MEDS: SODIUM CHLORIDE 0.9% 500 ML IV ONE (15:01)
[2024-09-12] MEDS: VANCOMYCIN HCL 125 MG/2.5ML SOLN PO SCH (18:07)
[2024-09-12] MEDS: CHERRY SYRUP 5 ML UDP PO SCH (18:07)
[2024-09-13 07:29] LABS: Hematocrit (blood only) 24.7 % (37.0-47.0); Hemoglobin 7.8 g/dl (12.0-16.0); Mean Corpuscular Hemoglobin 27.4 pg (25.0-34.0); Mean Corpuscular Volume 86.7 fL (80.0-100.0); Platelet Count 647 K/uL (130-400); RDW Standard Deviation 57.1 fL (36.4-46.3); Red Blood Count 2.85 M/uL (4.20-5.40); White Blood Count 13.01 K/ul (4.8-10.8)
[2024-09-13 07:45] LABS: Anion Gap 7.0 (3-11); Blood Urea Nitrogen 7.0 mg/dl (6-23); Calcium 8.2 mg/dl (8.6-10.3); Carbon Dioxide 29.0 mmol/L (21-32); Chloride 99.0 mmol/L (98-107); Creatinine Clr Calc Pharmacy 109.0 ml/min; Glucose 105.0 mg/dl (70-99(Fasting)); Magnesium 1.7 mg/dl (1.7-2.4); Potassium 3.9 mmol/L (3.5-5.1); Sodium 135.0 mmol/L (136-145)
--- NOTE | 2024-09-13 07:47 | Hospitalist Progress Note ---
Date of Service September 13, 2024 Assessment & Plan (1) Severe sepsis with acute organ dysfunction: (2) Atrial fibrillation, new onset: (3) Acute renal failure: (4) Ileus due to infection: (5) Peritonitis due to abscess: (6) Electrolyte abnormality: (7) Pneumoperitoneum: (8) Demand ischemia of myocardium: (9) Low grade mucinous neoplasm of appendix: (10) Status post laparoscopic appendectomy: (11) Paroxysmal SVT (supraventricular tachycardia): Plan Per previous hospitalist w/ addendum Pt is a 68-year-old female status post appendectomy for mucocele on 08/19/2024. She presented critically ill with acute renal failure, multiple electrolyte abnormalities and evidence of severe sepsis with organ dysfunction as evidenced by renal failure, postsurgical ileus, and new onset atrial fibrillation. Currently s/p IR pelvic drain placement for abscesses on 08/28/24 and extended right colectomy with drainage of abscess by general surgeon Dr. Pacheco on 08/30/24. She is currently being treated as follows: Sepsis Proteus bacteremia Intra abdominal/pelvic abscesses Postsurgical ileus Cholelithiasis w/o evidence of cholecystitis Recent laparoscopic appendicectomy of large mucocele of appendix by Dr. Pacheco on 08/19/2024 CT abdomen/pelvis from 08/25/24 noting "Absent appendix consistent with appendectomy history with increased fluid and gas throughout the abdomen and pelvis more than expected particularly at the level of the surgical bed. Dehiscence is not excluded. No discrete encapsulated drainable fluid collection although early abscess cannot be excluded. Prominent fluid distended proximal small bowel and to some extent distal small bowel fecal type densities which can be seen in slow small bowel transit. Mild ileus is not excluded... CT abdomen with oral contrast: Pneumoperitoneum with right retroperitoneal gas mildly decreased. Cannot rule out anastomotic leak with abscess. Contrast has not reached the distal small bowel. Findings suggestive of ileus. Blood cultures from admission grew Proteus vulgaris, repeat blood cultures negative CT Abd/Pelvis with IV contrast on 08/28/24 showed increased pneumoperitoneum and right retroperitoneal gas, multifocal abscesses IV antibiotics broadened to Vancomycin and meropenem at that time S/p IR placement of drain on 08/28/24 Persistent leukocytosis IR drain culture from 08/28/24 grew E coli, bacteroides vulgatus and Clostridium innocuum c diff gene +, toxin negative S/p Exploratory laparotomy which showed small bowel perforation with abscess on 08/30/24, s/p extended right colectomy with drainage of abscess by general surgeon Dr. Pacheco on 08/30/24 Infectious Disease was consulted, appreciate recs -Antibiotics deescalated to IV ceftriaxone and metronidazole -Repeat imaging to reassess abscess size and response to treatment. 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 KUB noting ileus, discussed with surgery Dr Ryder who re commended no change to plan at this time of increased activity postop and advancement of diet to clears today. 09/06- tolerating clears, on TPN, no flatus/BM yet. 09/07- had bowel movement, advanced to full liquids, TPN discontinued. Case was discussed with ID once more given slowly increasing wbc and repeat CT findings. They advised that we can continue with the current abx if CT scan showed smaller abscesses vs. broadening abx if wbc continues to increase. Surgery considering new drain as well 09/08- continued increase in WBC, IV abx broadened to Zosyn, pt clinically improved, appreciate further Gen surg recs 09/09 Discussed w/ ID and w/ surgery - changed zosyn to ertapenem this AM as previous cultx resistant to zosyn. Will have ID review again. Per surgery cont. current plan, no plan for repeat surgery ID reconsulted - (1) Intra-abdominal abscess: Plan: The rising WBC is clearly linked with the spread of numerous small abscesses, though RP bleeding and evolving abscess there is also a concern. Broadening abx therapy to ertapenem 1g IV qd is reasonable, but the issue is primarily one of source control. If these areas are not drainable, then her recovery may be slowed. Repeating imaging in the next 1-2 weeks, or if she worsens in the meantime, will be warranted. Total duration of therapy remains a little unclear, but given her current CT findings, I would expect 4-6 weeks. Final plans remain pending. 09/09 WBC 20K 09/10 WBC 16K 09/11 WBC 14.9K 09/12 WBC 14.4K 09/13 WBC 13k 09/12 Overnight incr. abdominal pain, stool reddish -> CT abd. obtained and surgery contacted CT abd/pelvis - Status post right hemicolectomy. Compared to prior exam, there are increased foci of free air adjacent to the anastomotic staple line in the transverse colon (series 2, image 40). This raises the possibility of bowel leak. Peripherally enhancing collections within the abdomen and right retroperitoneum as detailed above, concerning for abscesses. These appear overall stable from prior CT. Surgical drain extending through the pelvis. This does not drain the abscess in the pelvic cul-de-sac. Per surgery - cont. NPO , cont. IV abx 09/13 NPO after MN, IV abx, can poss. 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 dark stools. GI consulted for poss. UGIB, plan for EGD today 09/10 IV heparin was resumed as per GI recs after EGD 09/11 plan to start warfarin, monitor INR and H&H closely. Normal BM, no dark stools, no blood in stool noted 09/12 heparin, warfarin now on hold, as above EGD- Impression: - LA Grade C reflux esophagitis with no bleeding. - Small hiatal hernia. - Non-bleeding gastric ulcers with no stigmata of bleeding. Biopsied. - Normal examined duodenum. Recommendation: - I believe her esophagitis is probably stasis related. There was some retained bile in the stomach which was suction. She has multiple punctate and linear ulcerations in the body and antrum consistent with stress gastritis biopsies were done though for H. pylori. These ulcers were relatively small and superficial and did not show stigmata of bleeding. The duodenum was without ulceration. No definite evidence for upper GI bleeding at this time though a bleed 2 or 3 days ago may not be obvious on today's exam. We did perform a rectal examination in the GI lab. This showed yellow to green liquid stool without blood or melena. - If heparin is required I think it be reasonable to restart and observe for further bleeding. A Susanne filter is not always desirable. If there is evidence of definitive gastrointestinal bleeding with recurrence heparin then we could revisit that issue. Edema Pt with extremity edema Recent JANET with recovered urinary output a few days ago Cont. diuresis with IV lasix Monitor kidney function Acute kidney injury - resolved JANET had initially resolved but developed again Creatinine 3.9>>2.26>>0.94>1.51>>1.87>1.61 >> 0.6 Likely from sepsis + contrast Improved urine output Avoid contrast and nephrotoxins as much as possible Nephrology on board, appreciate recs Currently resolved. Esophagitis Noted on CT imaging Continue IV ppi Prediabetes hgba1c of 6.3 Noted hyperglycemia, was on TPN, now stopped Continue to monitor at this time Acute on chronic anemia Iron Deficiency Anemia Likely due to sepsis, blood loss and iron deficiency Got 2UPRBC on 08/31/24 Anemia panel showed low iron levels- Current recommendations advise against use of IV Venofer in the setting of severe infection, will need po supplementation once able to tolerate po 09/09 Hgb down again - at 6.6 - per project management it specialist 1 pRBC ordered, GI consulted, IV heparin on hold 09/10 Hgb 7.6 09/11 Hgb 7.7 09/12 Hgb 7.7 09/13 Hgb 7.8 Atrial fibrillation-new onset In the setting of sepsis Spontaneously converted to sinus ECHO: EF 55 to 60%. Mild concentric LVH. Left atrium mildly dilated. Mild tricuspid regurgitation. No significant pulmonary hypertension. Cardiology eval noted. No anticoagulation recommended Continue tele monitor IV lopressor 5mg q6h for now. Plan to switch to po metoprolol succinate when able to take po May need ZIO monitor as outpatient Pt been on IV heparin as noted above in the setting of PEs (since 09/04), started warfarin, monitor INR, then heparin on hold as above Hyponatremia Hypokalemia K is 3.9 today. Replace and monitor Mild troponin elevation Likely demand ischemia secondary to sepsis, A-fib RVR Denies any chest pain, dyspnea Diet:plan to advance diet DVT Px: IV heparin, warfarin on hold, plan to resume iv heparin Code Status :Full Code Dispo: Per PT/OT recs Admission and Anticipated Discharge Date Admission Date: August 23, 2024 Subjective Pt seen in follow up Pt with complex hospital course Gen. surgery (Dr. Pacheco) following closely ID re-consulted - cont. w/ ertapenem Pt been on iv heparin for PE - resumed after endoscopy, and started warfarin - then concern for reddish stool -> CT abd. repeated, IV heparin on hold, surgery contacted. Also c.diff tested - gene positive , toxin negat. given pt will need to be on iv abx prolonged course - started Po vanco for c. diff ppx Today Hgb stable, as per surgery will resume iv heparin, keep npo after MN, closely monitor. Discussed w/ RN - will obtain FOBT when stool available. Pt reports no BM yesterday. WBC 20K -> down to 16K -> down to 13K Pt is awake , sitting up in bed, answers appropriately. No chest pain, no shortness of breath. Pt's present at the bedside as well and updated. Review of Systems Review of Systems: All systems reviewed & are unremarkable except as noted in Subjective Physical Exam Physical Exam: General: obese F, Alert, oriented. No acute distress HEENT: NC/AT, EOMI CV: RRR Resp: breath sounds decreased bilaterally, no increased effort of breathing Abdomen: Soft, tender, bandage and surg. drain in place Extremities: edema in lower extremities bilaterally. Skin: warm, dry Results & Data Results & Data Vital Signs (Past 12 Hours) Vital Signs Temp Pulse Pulse Pulse Resp BP BP 09/13/24 06:21 83 09/13/24 06:06 88 113/71 09/13/24 03:12 36.9 C 105 H 18 108/64 09/13/24 00:33 90 09/13/24 00:18 100 H 138/78 09/12/24 23:17 36.9 C 98 H 18 116/58 L Pulse Ox O2 Del Method 09/13/24 06:21 09/13/24 06:06 09/13/24 03:12 92 Room Air 09/13/24 00:33 09/13/24 00:18 09/12/24 23:17 95 Room Air Laboratory Results 09/13/24 Range/Units 06:04 WBC 13.01 H (4.8-10.8) K/ul RBC 2.85 L (4.20-5.40) M/uL Hgb 7.8 L (12.0-16.0) g/dl Hct 24.7 L (37.0-47.0) % MCV 86.7 (80.0-100.0) fL MCH 27.4 (25.0-34.0) pg MCHC 31.6 L (32.0-36.0) g/dL RDW Std Deviation 57.1 H (36.4-46.3) fL RDW Coeff of Albino 17.8 H (11.5-14.5) % Plt Count 647 H (130-400) K/uL MPV 9.3 L (9.4-12.4) fL PT Pending INR Pending Sodium 135 L (136-145) mmol/L Potassium 3.9 (3.5-5.1) mmol/L Chloride 99 (98-107) mmol/L Carbon Dioxide 29 (21-32) mmol/L Anion Gap 7 (3-11) BUN 7 (6-23) mg/dl Creatinine 0.56 L (0.6-1.2) mg/dl Est Cr Clr Drug Dosing 109.0 ml/min eGFR 99.35 BUN/Creatinine Ratio 12.5 (10-20) Glucose 105 H (70-99(Fasting)) mg/dl Calcium 8.2 L (8.6-10.3) mg/dl Phosphorus 3.4 (2.5-4.9) mg/dl Magnesium 1.7 (1.7-2.4) mg/dl Medications Administered Current Inpatient Medications Albuterol (Albut/Ipratrop 3mg/0.5mg Neb 3 Ml Vial) 3 ml NEB Q4H PRN; Protocol PRN Reason: Wheezing Stop: 09/22/24 13:08 Atropine Sulfate (Atropine Sulfate 0.1 Mg/Ml 10ml Syr) 1 mg IV Q3M PRN PRN Reason: symptomatic bradycardia Stop: 09/25/24 03:16 Storey Syrup (Storey Syrup 5 Ml Udp) 5 ml PO Q6 ARMANDO Stop: 09/22/24 17:59 Last Admin: 09/13/24 06:06 Dose: 5 ml Dextrose (Dextrose 50% 50 Ml Syringe) 25 - 50 ml IV UD PRN; Protocol PRN Reason: Hypoglycemia Protocol Stop: 09/22/24 11:53 Furosemide (Furosemide Inj 20 Mg/2 Ml Vial) 60 mg IV BID ARMANDO Stop: 10/08/24 08:59 Last Admin: 09/12/24 20:19 Dose: 60 mg Glucagon (Glucagon For Inj 1 Mg Vial) 1 mg SQ UD PRN; Protocol PRN Reason: Hypoglycemia Protocol Stop: 09/22/24 11:53 Glucose (Glucose 40% Gel 15 Gm Tube) 15 - 30 gm PO UD PRN; Protocol PRN Reason: Hypoglycemia Protocol Stop: 09/22/24 11:53 Glucose (Glucose 10 Tab/Tube) 4 - 8 tab PO UD PRN; Protocol PRN Reason: Hypoglycemia Protocol Stop: 09/22/24 11:53 Heparin Sodium (Beef Lung) (Heparin 10 Unit/Ml 5 Ml Flush) 5 ml FLUSH PRN PRN PRN Reason: Flush Stop: 09/29/24 14:03 Last Admin: 09/03/24 18:13 Dose: 10 ml Hydromorphone HCl (Hydromorphone Inj 0.5 Mg/0.5 Ml Syr) 0.5 mg IV Q3H PRN PRN Reason: Moderate Pain (Scale 4, 5, 6) Stop: 09/24/24 09:20 Last Admin: 09/13/24 03:49 Dose: 0.5 mg Hydromorphone HCl (Hydromorphone Inj 1 Mg/Ml Syringe) 1 mg IV Q3H PRN PRN Reason: Severe Pain (Scale 7, 8, 9,10) Stop: 09/24/24 09:20 Last Admin: 09/12/24 19:34 Dose: 1 mg Pantoprazole Sodium 40 mg/ (Dextrose) 100 mls @ 20 mls/hr IV Q5H [facility] Stop: 10/09/24 07:14 Last Admin: 09/13/24 03:10 Dose: 8 mg/hr, 20 mls/hr Ertapenem (Invanz 1000mg) 1,000 mg in 10 mls @ 2 mls/min IV Q24H [facility] Stop: 09/26/24 11:34 Last Admin: 09/12/24 11:55 Dose: 2 mls/min Heparin Sodium/Dextrose (Heparin 07246 Unit/500 Ml D5w) 25,000 units in 500 mls @ 0 mls/hr IV .Q0M ARMANDO; Protocol Stop: 10/09/24 20:14 Last Admin: 09/12/24 02:51 Dose: Not Given Magnesium Oxide (Magnesium Oxide 400 Mg Tab) 400 mg PO BID [facility] Stop: 10/10/24 08:59 Last Admin: 09/12/24 20:19 Dose: 400 mg Metoprolol Tartrate (Metoprolol Tartrate 1 Mg/Ml Vial) 5 mg IV Q2H PRN PRN Reason: HR > 120 Stop: 09/30/24 20:18 Last Admin: 08/31/24 20:25 Dose: 5 mg Metoprolol Tartrate (Metoprolol Tartrate 25 Mg Tab) 25 mg PO BID [facility] Stop: 10/10/24 20:59 Last Admin: 09/11/24 22:25 Dose: 25 mg Metoprolol Tartrate (Metoprolol Tartrate 1 Mg/Ml Vial) 2.5 mg IV Q6 [facility] Stop: 10/12/24 05:59 Last Admin: 09/13/24 06:06 Dose: 2.5 mg Miscellaneous (Carbohydrates For Hypoglycemia ) 15 - 30 gm PO UD PRN PRN Reason: Hypoglycemia Protocol Stop: 09/22/24 11:53 Ondansetron HCl (Ondansetron Inj 2 Mg/Ml 2 Ml Vial) 4 mg IV Q6H PRN PRN Reason: Nausea Stop: 09/22/24 13:08 Last Admin: 09/08/24 22:20 Dose: 4 mg Oxycodone/Acetaminophen (Oxycodone/Acetaminophen 5mg/325mg Tab) 1 tab PO Q4H PRN PRN Reason: Moderate Pain (Scale 4, 5, 6) Stop: 09/24/24 09:20 Last Admin: 09/11/24 17:08 Dose: 1 tab Oxycodone/Acetaminophen (Oxycodone/Acetaminophen 5mg/325mg Tab) 2 tab PO Q4H PRN PRN Reason: Severe Pain (Scale 7, 8, 9,10) Stop: 09/24/24 09:20 Last Admin: 09/10/24 20:35 Dose: 2 tab Potassium Chloride (Potassium Chloride Crtab 20 Meq Tabcr) 20 meq PO BID [facility] Stop: 10/09/24 20:59 Last Admin: 09/12/24 20:21 Dose: 20 meq Sucralfate (Sucralfate 1 Gm/10 Ml Udc) 1 gm PO QID [facility] Stop: 10/09/24 16:59 Last Admin: 09/12/24 20:19 Dose: 1 gm Vancomycin HCl (Vancomycin Hcl 125 Mg/2.5ml Soln) 125 mg PO Q6 [facility] Stop: 09/22/24 17:59 Last Admin: 09/13/24 06:08 Dose: 125 mg Warfarin Sodium (Warfarin Sod 1 Mg Tab) 1 mg PO DAILY@1600 [facility] Stop: 10/11/24 15:59 Last Admin: 09/11/24 17:08 Dose: 1 mg
[2024-09-13 07:59] LABS: INR 1.1 (0.9-1.1); Prothrombin Time 11.4 Seconds (9.0-12.0)
[2024-09-13] MEDS: MAGNESIUM SULFATE / D5W 1 GM/100 ML BAG IV ONE (08:05)
--- NOTE | 2024-09-13 09:25 | Surgery Progress Note ---
Date of Service September 13, 2024 Assessment & Plan (1) S/P right colectomy: Plan: s/p exploratory laparotomy and right hemicolectomy for small bowel injury status post laparoscopic appendectomy for mucocele WBC 13. Vitals stable, no fevers Stable overnight, intermittent episodes of pain relieved with medications. Otherwise okay Okay to have some small sips of clears and will formally make NPO at midnight Continue IV abx, HAYDEE drain, dressing changes to abdomen Hbg is stable 7.8 (7.7) without further rectal bleeding, can consider resuming hep gtt Continue current management, will tsfer care back to dr. burch tomorrow for further decision on further care moving forward Admission and Anticipated Discharge Date Admission Date: August 23, 2024 Supervising Physician Co-Signing Physician Notes I personally saw and evaluated the patient with Tasha Maynard PA-C and agree with the assessment and plan. Postoperative day 13 from exploratory laparotomy and right hemicolectomy for small bowel injury status post laparoscopic appendectomy for mucocele She has been stable over the last 24 hours and her white count did come down slightly She has no fevers At this point we will continue to watch her and see if she improves slowly She can have some sips of clear liquids Subjective Patient feeling about the same. Had a flare up of pain this AM that passed with pain meds. Passing some gas. Physical Exam Physical Exam: awake/alert, no distress Gastrointestinal (Abdomen): Inspection/Auscultation: + abdominal surgical incision (midline incision w/ evelin) Percussion/Palpation: + abdomen tender HAYDEE drain with tannish fluid Results & Data Vital Signs (Past 12 Hours) Vital Signs Temp Pulse Pulse Pulse Resp BP BP 09/13/24 07:00 97.9 F 88 18 117/65 09/13/24 06:21 83 09/13/24 06:06 88 113/71 09/13/24 03:12 98.4 F 105 H 18 108/64 09/13/24 00:33 90 09/13/24 00:18 100 H 138/78 09/12/24 23:17 98.4 F 98 H 18 116/58 L Pulse Ox O2 Del Method 09/13/24 07:00 95 Room Air 09/13/24 06:21 09/13/24 06:06 09/13/24 03:12 92 Room Air 09/13/24 00:33 09/13/24 00:18 09/12/24 23:17 95 Room Air PG Care Time/CCT Total # of Minutes Spent Total Time Spent with Patient: Total time spent is greater than 50% in coordination of care (as documented) at patient's floor/unit and/or counseling patient: Coding Level of Care Code 20610 SUB INP/OBS CARE 04/18MIN Diagnoses S/P right colectomy Z90.49
[2024-09-13 19:09] LABS: ANTI-Xa, UFH(UnfractionatedHep < 0.10 IU/ml (0.3-0.7)
[2024-09-13] MEDS: HEPARIN SOD (PORCINE) 1000 UNIT/ML IV ONE (20:12)
[2024-09-14 03:24] LABS: ANTI-Xa, UFH(UnfractionatedHep 0.21 IU/ml (0.3-0.7)
[2024-09-14 05:51] LABS: Hematocrit (blood only) 24.1 % (37.0-47.0); Hemoglobin 7.5 g/dl (12.0-16.0); Mean Corpuscular Hemoglobin 26.8 pg (25.0-34.0); Mean Corpuscular Volume 86.1 fL (80.0-100.0); Platelet Count 673 K/uL (130-400); RDW Standard Deviation 54.9 fL (36.4-46.3); Red Blood Count 2.80 M/uL (4.20-5.40); White Blood Count 11.72 K/ul (4.8-10.8)
[2024-09-14 06:07] LABS: Anion Gap 7.0 (3-11); Blood Urea Nitrogen 6.0 mg/dl (6-23); Calcium 8.2 mg/dl (8.6-10.3); Carbon Dioxide 29.0 mmol/L (21-32); Chloride 98.0 mmol/L (98-107); Creatinine Clr Calc Pharmacy 122.1 ml/min; Glucose 117.0 mg/dl (70-99(Fasting)); Magnesium 1.8 mg/dl (1.7-2.4); Potassium 3.9 mmol/L (3.5-5.1); Sodium 134.0 mmol/L (136-145)
[2024-09-14 06:14] LABS: INR 1.1 (0.9-1.1); Prothrombin Time 11.9 Seconds (9.0-12.0)
--- NOTE | 2024-09-14 07:43 | Hospitalist Progress Note ---
Date of Service September 14, 2024 Assessment & Plan (1) Severe sepsis with acute organ dysfunction: (2) Atrial fibrillation, new onset: (3) Acute renal failure: (4) Ileus due to infection: (5) Peritonitis due to abscess: (6) Electrolyte abnormality: (7) Pneumoperitoneum: (8) Demand ischemia of myocardium: (9) Low grade mucinous neoplasm of appendix: (10) Status post laparoscopic appendectomy: (11) Paroxysmal SVT (supraventricular tachycardia): Plan Per previous hospitalist w/ addendum Pt is a 68-year-old female status post appendectomy for mucocele on 08/19/2024. She presented critically ill with acute renal failure, multiple electrolyte abnormalities and evidence of severe sepsis with organ dysfunction as evidenced by renal failure, postsurgical ileus, and new onset atrial fibrillation. Currently s/p IR pelvic drain placement for abscesses on 08/28/24 and extended right colectomy with drainage of abscess by general surgeon Dr. Pacheco on 08/30/24. She is currently being treated as follows: Sepsis Proteus bacteremia Intra abdominal/pelvic abscesses Postsurgical ileus Cholelithiasis w/o evidence of cholecystitis Recent laparoscopic appendicectomy of large mucocele of appendix by Dr. Pacheco on 08/19/2024 CT abdomen/pelvis from 08/25/24 noting "Absent appendix consistent with appendectomy history with increased fluid and gas throughout the abdomen and pelvis more than expected particularly at the level of the surgical bed. Dehiscence is not excluded. No discrete encapsulated drainable fluid collection although early abscess cannot be excluded. Prominent fluid distended proximal small bowel and to some extent distal small bowel fecal type densities which can be seen in slow small bowel transit. Mild ileus is not excluded... CT abdomen with oral contrast: Pneumoperitoneum with right retroperitoneal gas mildly decreased. Cannot rule out anastomotic leak with abscess. Contrast has not reached the distal small bowel. Findings suggestive of ileus. Blood cultures from admission grew Proteus vulgaris, repeat blood cultures negative CT Abd/Pelvis with IV contrast on 08/28/24 showed increased pneumoperitoneum and right retroperitoneal gas, multifocal abscesses IV antibiotics broadened to Vancomycin and meropenem at that time S/p IR placement of drain on 08/28/24 Persistent leukocytosis IR drain culture from 08/28/24 grew E coli, bacteroides vulgatus and Clostridium innocuum c diff gene +, toxin negative S/p Exploratory laparotomy which showed small bowel perforation with abscess on 08/30/24, s/p extended right colectomy with drainage of abscess by general surgeon Dr. Pacheco on 08/30/24 Infectious Disease was consulted, appreciate recs -Antibiotics deescalated to IV ceftriaxone and metronidazole -Repeat imaging to reassess abscess size and response to treatment. 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 KUB noting ileus, discussed with surgery Dr Ryder who re commended no change to plan at this time of increased activity postop and advancement of diet to clears today. 09/06- tolerating clears, on TPN, no flatus/BM yet. 09/07- had bowel movement, advanced to full liquids, TPN discontinued. Case was discussed with ID once more given slowly increasing wbc and repeat CT findings. They advised that we can continue with the current abx if CT scan showed smaller abscesses vs. broadening abx if wbc continues to increase. Surgery considering new drain as well 09/08- continued increase in WBC, IV abx broadened to Zosyn, pt clinically improved, appreciate further Gen surg recs 09/09 Discussed w/ ID and w/ surgery - changed zosyn to ertapenem this AM as previous cultx resistant to zosyn. Will have ID review again. Per surgery cont. current plan, no plan for repeat surgery ID reconsulted - (1) Intra-abdominal abscess: Plan: The rising WBC is clearly linked with the spread of numerous small abscesses, though RP bleeding and evolving abscess there is also a concern. Broadening abx therapy to ertapenem 1g IV qd is reasonable, but the issue is primarily one of source control. If these areas are not drainable, then her recovery may be slowed. Repeating imaging in the next 1-2 weeks, or if she worsens in the meantime, will be warranted. Total duration of therapy remains a little unclear, but given her current CT findings, I would expect 4-6 weeks. Final plans remain pending. 09/09 WBC 20K 09/10 WBC 16K 09/11 WBC 14.9K 09/12 WBC 14.4K 09/13 WBC 13k 09/14 WBC 11K 09/12 Overnight incr. abdominal pain, stool reddish -> CT abd. obtained and surgery contacted CT abd/pelvis - Status post right hemicolectomy. Compared to prior exam, there are increased foci of free air adjacent to the anastomotic staple line in the transverse colon (series 2, image 40). This raises the possibility of bowel leak. Peripherally enhancing collections within the abdomen and right retroperitoneum as detailed above, concerning for abscesses. These appear overall stable from prior CT. Surgical drain extending through the pelvis. This does not drain the abscess in the pelvic cul-de-sac. Per surgery - cont. NPO , cont. IV abx 09/13 NPO after MN, IV abx, can poss. resume heparin, will monitor H&H, and stools for hemoccult 09/14 No plan for surg. intervention at this time, cont. IV abx, IV heparin, resum ediet Pulmonary Emboli Possible DVT RR increased on 09/04 CTA chest ordered- noted bilateral pulmonary emboli Pt declining doppler US lower extremities due to pain with completing medical testing at this time, discussion that results will not globe changer as she is already on IV heparin Continue IV heparin at this time Monitor H/H Continue to monitor 09/09 heparin on hold overnight d/t Hgb drop. dark stools. GI consulted for poss. UGIB, plan for EGD today 09/10 IV heparin was resumed as per GI recs after EGD 09/11 plan to start warfarin, monitor INR and H&H closely. Normal BM, no dark stools, no blood in stool noted 09/12 heparin, warfarin now on hold, as above 09/13- cont. IV heparin EGD- Impression: - LA Grade C reflux esophagitis with no bleeding. - Small hiatal hernia. - Non-bleeding gastric ulcers with no stigmata of bleeding. Biopsied. - Normal examined duodenum. Recommendation: - I believe her esophagitis is probably stasis related. There was some retained bile in the stomach which was suction. She has multiple punctate and linear ulcerations in the body and antrum consistent with stress gastritis biopsies were done though for H. pylori. These ulcers were relatively small and superficial and did not show stigmata of bleeding. The duodenum was without ulceration. No definite evidence for upper GI bleeding at this time though a bleed 2 or 3 days ago may not be obvious on today's exam. We did perform a rectal examination in the GI lab. This showed yellow to green liquid stool without blood or melena. - If heparin is required I think it be reasonable to restart and observe for further bleeding. A Susanne filter is not always desirable. If there is evidence of definitive gastrointestinal bleeding with recurrence heparin then we could revisit that issue. Edema Pt with extremity edema Recent JANET with recovered urinary output a few days ago Cont. diuresis with IV lasix Monitor kidney function Acute kidney injury - resolved JANET had initially resolved but developed again Creatinine 3.9>>2.26>>0.94>1.51>>1.87>1.61 >> 0.6 Likely from sepsis + contrast Improved urine output Avoid contrast and nephrotoxins as much as possible Nephrology on board, appreciate recs Currently resolved. Esophagitis Noted on CT imaging Continue IV ppi Prediabetes hgba1c of 6.3 Noted hyperglycemia, was on TPN, now stopped Continue to monitor at this time Acute on chronic anemia Iron Deficiency Anemia Likely due to sepsis, blood loss and iron deficiency Got 2UPRBC on 08/31/24 Anemia panel showed low iron levels- Current recommendations advise against use of IV Venofer in the setting of severe infection, will need po supplementation once able to tolerate po 09/09 Hgb down again - at 6.6 - per general practitioner 1 pRBC ordered, GI consulted, IV heparin on hold 09/10 Hgb 7.6 09/11 Hgb 7.7 09/12 Hgb 7.7 09/13 Hgb 7.8 09/14 Hgb 7.5 Atrial fibrillation-new onset In the setting of sepsis Spontaneously converted to sinus ECHO: EF 55 to 60%. Mild concentric LVH. Left atrium mildly dilated. Mild tricuspid regurgitation. No significant pulmonary hypertension. Cardiology eval noted. No anticoagulation recommended Continue tele monitor IV lopressor 5mg q6h for now. Plan to switch to po metoprolol succinate when a ble to take po May need ZIO monitor as outpatient Pt been on IV heparin as noted above in the setting of PEs (since 09/04), started warfarin, monitor INR, then heparin on hold as above Currently back on IV heparin Hyponatremia Hypokalemia K is 3.9 today. Replace and monitor Mild troponin elevation Likely demand ischemia secondary to sepsis, A-fib RVR Denies any chest pain, dyspnea Diet:plan to advance diet DVT Px: IV heparin Code Status :Full Code Dispo: Per PT/OT recs Admission and Anticipated Discharge Date Admission Date: August 23, 2024 Subjective Pt seen in follow up Pt with complex hospital course Gen. surgery (Dr. Pacheco) following closely ID re-consulted - cont. w/ ertapenem Pt been on iv heparin for PE - resumed after endoscopy, and started warfarin - then concern for reddish stool -> CT abd. repeated, IV heparin on hold, surgery contacted. Also c.diff tested - gene positive , toxin negat. given pt will need to be on iv abx prolonged course - started Po vanco for c. diff ppx Hgb stable, Discussed w/ RN - will obtain FOBT when stool available. Pt reports no BM WBC 20K -> down to 16K -> down to 13K -> down to 11K Pt is awake , sitting up in bed, answers appropriately. Reports more pain in low R abdominal area. No chest pain, no shortness of breath. Pt's present at the bedside as well and updated. Per surgery cont. w/ current regimen - no intervention at this time, may need drainage of fluid collection later. Diet was resumed, IV heparin resumed. Review of Systems Review of Systems: All systems reviewed & are unremarkable except as noted in Subjective Physical Exam Physical Exam: General: obese F, Alert, oriented. No acute distress HEENT: NC/AT, EOMI CV: RRR Resp: breath sounds decreased bilaterally, no increased effort of breathing Abdomen: Soft, tender, bandage and surg. drain in place Extremities: edema in lower extremities bilaterally, improved. Skin: warm, dry Results & Data Results & Data Vital Signs (Past 12 Hours) Vital Signs Temp Pulse Pulse Resp BP BP Pulse Ox 09/14/24 05:42 85 09/14/24 05:22 93 H 106/61 09/14/24 03:53 36.9 C 94 H 16 112/57 L 94 09/13/24 23:18 92 H 09/13/24 23:06 36.9 C 104 H 16 127/68 97 09/13/24 23:03 104 H 127/68 06/22/25 22:36 100 H 09/13/24 19:46 O2 Del Method 09/14/24 05:42 09/14/24 05:22 09/14/24 03:53 Room Air 09/13/24 23:18 09/13/24 23:06 Room Air 09/13/24 23:03 09/13/24 22:36 09/13/24 19:46 Room Air Laboratory Results 09/14/24 09/14/24 09/14/24 Range/Units 05:38 02:31 00:33 WBC 11.72 H (4.8-10.8) K/ul RBC 2.80 L (4.20-5.40) M/uL Hgb 7.5 L (12.0-16.0) g/dl Hct 24.1 L (37.0-47.0) % MCV 86.1 (80.0-100.0) fL MCH 26.8 (25.0-34.0) pg MCHC 31.1 L (32.0-36.0) g/dL RDW Std Deviation 54.9 H (36.4-46.3) fL RDW Coeff of Albino 17.7 H (11.5-14.5) % Plt Count 673 H (130-400) K/uL MPV 9.1 L (9.4-12.4) fL PT 11.9 (9.0-12.0) Seconds INR 1.1 (0.9-1.1) Heparin Anti-Xa, Unfract 0.21 L Cancelled (0.3-0.7) IU/ml Sodium 134 L (136-145) mmol/L Potassium 3.9 (3.5-5.1) mmol/L Chloride 98 (98-107) mmol/L Carbon Dioxide 29 (21-32) mmol/L Anion Gap 7 (3-11) BUN 6 (6-23) mg/dl Creatinine 0.50 L (0.6-1.2) mg/dl Est Cr Clr Drug Dosing 122.1 ml/min eGFR 102.10 BUN/Creatinine Ratio 12.0 (10-20) Glucose 117 H (70-99(Fasting)) mg/dl Calcium 8.2 L (8.6-10.3) mg/dl Phosphorus 3.6 (2.5-4.9) mg/dl Magnesium 1.8 (1.7-2.4) mg/dl 09/13/24 09/13/24 Range/Units 18:20 06:04 WBC (4.8-10.8) K/ul RBC (4.20-5.40) M/uL Hgb (12.0-16.0) g/dl Hct (37.0-47.0) % MCV (80.0-100.0) fL MCH (25.0-34.0) pg MCHC (32.0-36.0) g/dL RDW Std Deviation (36.4-46.3) fL RDW Coeff of Albino (11.5-14.5) % Plt Count (130-400) K/uL MPV (9.4-12.4) fL PT 11.4 (9.0-12.0) Seconds INR 1.1 (0.9-1.1) Heparin Anti-Xa, Unfract < 0.10 L (0.3-0.7) IU/ml Sodium 135 L (136-145) mmol/L Potassium 3.9 (3.5-5.1) mmol/L Chloride 99 (98-107) mmol/L Carbon Dioxide 29 (21-32) mmol/L Anion Gap 7 (3-11) BUN 7 (6-23) mg/dl Creatinine 0.56 L (0.6-1.2) mg/dl Est Cr Clr Drug Dosing 109.0 ml/min eGFR 99.35 BUN/Creatinine Ratio 12.5 (10-20) Glucose 105 H (70-99(Fasting)) mg/dl Calcium 8.2 L (8.6-10.3) mg/dl Phosphorus 3.4 (2.5-4.9) mg/dl Magnesium 1.7 (1.7-2.4) mg/dl Medications Administered Current Inpatient Medications Albuterol (Albut/Ipratrop 3mg/0.5mg Neb 3 Ml Vial) 3 ml NEB Q4H PRN; Protocol PRN Reason: Wheezing Stop: 09/22/24 13:08 Atropine Sulfate (Atropine Sulfate 0.1 Mg/Ml 10ml Syr) 1 mg IV Q3M PRN PRN Reason: symptomatic bradycardia Stop: 09/25/24 03:16 Storey Syrup (Storey Syrup 5 Ml Udp) 5 ml PO Q6 ARMANDO Stop: 09/22/24 17:59 Last Admin: 09/14/24 05:27 Dose: 5 ml Dextrose (Dextrose 50% 50 Ml Syringe) 25 - 50 ml IV UD PRN; Protocol PRN Reason: Hypoglycemia Protocol Stop: 09/22/24 11:53 Furosemide (Furosemide Inj 20 Mg/2 Ml Vial) 60 mg IV BID ARMANDO Stop: 10/08/24 08:59 Last Admin: 09/13/24 20:13 Dose: 60 mg Glucagon (Glucagon For Inj 1 Mg Vial) 1 mg SQ UD PRN; Protocol PRN Reason: Hypoglycemia Protocol Stop: 09/22/24 11:53 Glucose (Glucose 40% Gel 15 Gm Tube) 15 - 30 gm PO UD PRN; Protocol PRN Reason: Hypoglycemia Protocol Stop: 09/22/24 11:53 Glucose (Glucose 10 Tab/Tube) 4 - 8 tab PO UD PRN; Protocol PRN Reason: Hypoglycemia Protocol Stop: 09/22/24 11:53 Heparin Sodium (Beef Lung) (Heparin 10 Unit/Ml 5 Ml Flush) 5 ml FLUSH PRN PRN PRN Reason: Flush Stop: 09/29/24 14:03 Last Admin: 09/03/24 18:13 Dose: 10 ml Hydromorphone HCl (Hydromorphone Inj 0.5 Mg/0.5 Ml Syr) 0.5 mg IV Q3H PRN PRN Reason: Moderate Pain (Scale 4, 5, 6) Stop: 09/24/24 09:20 Last Admin: 09/14/24 01:29 Dose: 0.5 mg Hydromorphone HCl (Hydromorphone Inj 1 Mg/Ml Syringe) 1 mg IV Q3H PRN PRN Reason: Severe Pain (Scale 7, 8, 9,10) Stop: 09/24/24 09:20 Last Admin: 09/12/24 19:34 Dose: 1 mg Pantoprazole Sodium 40 mg/ (Dextrose) 100 mls @ 20 mls/hr IV Q5H [facility] Stop: 10/09/24 07:14 Last Admin: 09/14/24 04:15 Dose: 8 mg/hr, 20 mls/hr Ertapenem (Invanz 1000mg) 1,000 mg in 10 mls @ 2 mls/min IV Q24H [facility] Stop: 09/26/24 11:34 Last Admin: 09/13/24 12:18 Dose: 2 mls/min Heparin Sodium/Dextrose (Heparin 06426 Unit/500 Ml D5w) 25,000 units in 500 mls @ 22 mls/hr IV .[id number] [facility]; Protocol Stop: 10/09/24 20:14 Last Titration: 09/14/24 07:38 Dose: 0 units/hr, 0 mls/hr Magnesium Oxide (Magnesium Oxide 400 Mg Tab) 400 mg PO BID [facility] Stop: 10/10/24 08:59 Last Admin: 09/13/24 20:14 Dose: 400 mg Metoprolol Tartrate (Metoprolol Tartrate 1 Mg/Ml Vial) 5 mg IV Q2H PRN PRN Reason: HR > 120 Stop: 09/30/24 20:18 Last Admin: 08/31/24 20:25 Dose: 5 mg Metoprolol Tartrate (Metoprolol Tartrate 25 Mg Tab) 25 mg PO BID [facility] Stop: 10/10/24 20:59 Last Admin: 09/11/24 22:25 Dose: 25 mg Metoprolol Tartrate (Metoprolol Tartrate 1 Mg/Ml Vial) 2.5 mg IV Q6 [facility] Stop: 10/12/24 05:59 Last Admin: 09/14/24 05:27 Dose: 2.5 mg Miscellaneous (Carbohydrates For Hypoglycemia ) 15 - 30 gm PO UD PRN PRN Reason: Hypoglycemia Protocol Stop: 09/22/24 11:53 Ondansetron HCl (Ondansetron Inj 2 Mg/Ml 2 Ml Vial) 4 mg IV Q6H PRN PRN Reason: Nausea Stop: 09/22/24 13:08 Last Admin: 09/08/24 22:20 Dose: 4 mg Oxycodone/Acetaminophen (Oxycodone/Acetaminophen 5mg/325mg Tab) 1 tab PO Q4H PRN PRN Reason: Moderate Pain (Scale 4, 5, 6) Stop: 09/24/24 09:20 Last Admin: 09/11/24 17:08 Dose: 1 tab Oxycodone/Acetaminophen (Oxycodone/Acetaminophen 5mg/325mg Tab) 2 tab PO Q4H PRN PRN Reason: Severe Pain (Scale 7, 8, 9,10) Stop: 09/24/24 09:20 Last Admin: 09/14/24 05:26 Dose: 2 tab Potassium Chloride (Potassium Chloride Crtab 20 Meq Tabcr) 20 meq PO BID [facility] Stop: 10/09/24 20:59 Last Admin: 09/13/24 20:15 Dose: 20 meq Sucralfate (Sucralfate 1 Gm/10 Ml Udc) 1 gm PO QID [facility] Stop: 10/09/24 16:59 Last Admin: 09/13/24 20:14 Dose: 1 gm Vancomycin HCl (Vancomycin Hcl 125 Mg/2.5ml Soln) 125 mg PO Q6 [facility] Stop: 09/22/24 17:59 Last Admin: 09/14/24 05:27 Dose: 125 mg Warfarin Sodium (Warfarin Sod 1 Mg Tab) 1 mg PO DAILY@1600 [facility] Stop: 10/11/24 15:59 Last Admin: 09/11/24 17:08 Dose: 1 mg
--- NOTE | 2024-09-14 10:51 | Surgery Progress Note ---
Date of Service September 14, 2024 Assessment & Plan (1) Intra-abdominal abscess: Plan: responding to abx WBC 11 AF bake draining majority of collection pelvic collection may need intervention possibly later if does not keep doing well begin diet remove singh Admission and Anticipated Discharge Date Admission Date: August 23, 2024 Subjective feels OK still some abdominal pain Review of Systems Constitutional: no fever and no chills Gastrointestinal: no abdominal pain, no nausea and no vomiting Physical Exam Constitutional: WD/WN, vitals as above Gastrointestinal (Abdomen): Inspection/Auscultation: abdomen normal to inspection and normal bowel sounds; abdomen not distended Percussi on/Palpation: + abdomen tender and abdomen soft; no guarding and abdomen not rigid joey purulent Results & Data Vital Signs (Past 12 Hours) Vital Signs Temp Pulse Pulse Resp BP BP Pulse Ox 09/14/24 08:00 37.0 C 101 H 18 134/74 96 09/14/24 05:42 85 09/14/24 05:22 93 H 106/61 09/14/24 03:53 36.9 C 94 H 16 112/57 L 94 09/13/24 23:18 92 H 09/13/24 23:06 36.9 C 104 H 16 127/68 97 09/13/24 23:03 104 H 127/68 O2 Del Method 09/14/24 08:00 Room Air 09/14/24 05:42 09/14/24 05:22 09/14/24 03:53 Room Air 09/13/24 23:18 09/13/24 23:06 Room Air 09/13/24 23:03
[2024-09-14 18:40] LABS: ANTI-Xa, UFH(UnfractionatedHep 0.17 IU/ml (0.3-0.7)
[2024-09-14] MEDS: HEPARIN SOD (PORCINE) 1000 UNIT/ML IV ONE (19:36)
[2024-09-15 02:46] LABS: ANTI-Xa, UFH(UnfractionatedHep 0.42 IU/ml (0.3-0.7)
[2024-09-15 06:06] LABS: Hematocrit (blood only) 21.9 % (37.0-47.0); Hemoglobin 7.1 g/dl (12.0-16.0); Mean Corpuscular Hemoglobin 27.7 pg (25.0-34.0); Mean Corpuscular Volume 85.5 fL (80.0-100.0); Platelet Count 635 K/uL (130-400); RDW Standard Deviation 53.9 fL (36.4-46.3); Red Blood Count 2.56 M/uL (4.20-5.40); White Blood Count 10.72 K/ul (4.8-10.8)
[2024-09-15 06:23] LABS: Anion Gap 6.0 (3-11); Calcium 7.9 mg/dl (8.6-10.3); Carbon Dioxide 31.0 mmol/L (21-32); Chloride 98.0 mmol/L (98-107); Magnesium 1.7 mg/dl (1.7-2.4); Potassium 3.9 mmol/L (3.5-5.1); Sodium 135.0 mmol/L (136-145)
[2024-09-15 06:24] LABS: INR 1.1 (0.9-1.1); Prothrombin Time 11.9 Seconds (9.0-12.0)
[2024-09-15 06:29] LABS: Blood Urea Nitrogen 6.0 mg/dl (6-23); Creatinine Clr Calc Pharmacy 96.6 ml/min; Glucose 106.0 mg/dl (70-99(Fasting))
--- NOTE | 2024-09-15 08:10 | Hospitalist Progress Note ---
Date of Service September 15, 2024 Assessment & Plan (1) Severe sepsis with acute organ dysfunction: (2) Atrial fibrillation, new onset: (3) Acute renal failure: (4) Ileus due to infection: (5) Peritonitis due to abscess: (6) Electrolyte abnormality: (7) Pneumoperitoneum: (8) Demand ischemia of myocardium: (9) Low grade mucinous neoplasm of appendix: (10) Status post laparoscopic appendectomy: (11) Paroxysmal SVT (supraventricular tachycardia): Plan Pt is a 68-year-old female status post appendectomy for mucocele on 08/19/2024. She presented critically ill with acute renal failure, multiple electrolyte abnormalities and evidence of severe sepsis with organ dysfunction as evidenced by renal failure, postsurgical ileus, and new onset atrial fibrillation. Currently s/p IR pelvic drain placement for abscesses on 08/28/24 and extended right colectomy with drainage of abscess by general surgeon Dr. Pacheco on 08/30/24. She is currently being treated as follows: Sepsis Proteus bacteremia Intra abdominal/pelvic abscesses Postsurgical ileus Cholelithiasis w/o evidence of cholecystitis Recent laparoscopic appendicectomy of large mucocele of appendix by Dr. Pacheco on 08/19/2024 CT abdomen/pelvis from 08/25/24 noting "Absent appendix consistent with appendectomy history with increased fluid and gas throughout the abdomen and pelvis more than expected particularly at the level of the surgical bed. Dehiscence is not excluded. No discrete encapsulated drainable fluid collection although early abscess cannot be excluded. Prominent fluid distended proximal small bowel and to some extent distal small bowel fecal type densities which can be seen in slow small bowel transit. Mild ileus is not excluded... CT abdomen with oral contrast: Pneumoperitoneum with right retroperitoneal gas mildly decreased. Cannot rule out anastomotic leak with abscess. Contrast has not reached the distal small bowel. Findings suggestive of ileus. Blood cultures from admission grew Proteus vulgaris, repeat blood cultures negative CT Abd/Pelvis with IV contrast on 08/28/24 showed increased pneumoperitoneum and right retroperitoneal gas, multifocal abscesses IV antibiotics broadened to Vancomycin and meropenem at that time S/p IR placement of drain on 08/28/24 Persistent leukocytosis IR drain culture from 08/28/24 grew E coli, bacteroides vulgatus and Clostridium innocuum c diff gene +, toxin negative S/p Exploratory laparotomy which showed small bowel perforation with abscess on 08/30/24, s/p extended right colectomy with drainage of abscess by general surgeon Dr. Pacheco on 08/30/24 Infectious Disease was consulted, appreciate recs -Antibiotics deescalated to IV ceftriaxone and metronidazole -Repeat imaging to reassess abscess size and response to treatment. NG tube still in place, started on TPN on 08/31/24 Required ICU stay postop on 08/30, downgraded on 09/01 PT/OT Pain control- General surgery started morphine branch services manager on 09/04 Improving 09/05- KUB ordered, pt declining repeat CT abd/pelvis due to pain with getting the scan done. KUB noting ileus, discussed with surgery Dr Ryder who recommended no change to plan at this time of increased activity postop and advancement of diet to clears today. 09/06- tolerating clears, on TPN, no flatus/BM yet. 09/07- had bowel movement, advanced to full liquids, TPN discontinued. Case was discussed with ID once more given slowly increasing wbc and repeat CT findings. They advised that we can continue with the current abx if CT scan showed smaller abscesses vs. broadening abx if wbc continues to increase. Surgery considering new drain as well 09/08- continued increase in WBC, IV abx broadened to Zosyn, pt clinically improved, appreciate further Gen surg recs 09/09 Discussed w/ ID and w/ surgery - changed zosyn to ertapenem this AM as previous cultx resistant to zosyn. Will have ID review again. Per surgery cont. current plan, no plan for repeat surgery ID reconsulted - (1) Intra-abdominal abscess: Plan: The rising WBC is clearly linked with the spread of numerous small abscesses, though RP bleeding and evolving abscess there is also a concern. Broadening abx therapy to ertapenem 1g IV qd is reasonable, but the issue is primarily one of source control. If these areas are not drainable, then her recovery may be slowed. Repeating imaging in the next 1-2 weeks, or if she worsens in the meantime, will be warranted. Total duration of therapy remains a little unclear, but given her current CT findings, I would expect 4-6 weeks. Final plans remain pending. 09/09 WBC 20K 09/10 WBC 16K 09/11 WBC 14.9K 09/12 WBC 14.4K 09/13 WBC 13k 09/14 WBC 11K 09/15 WBC 10.7K (normalized) 09/12 Overnight incr. abdominal pain, stool reddish -> CT abd. obtained and surgery contacted CT abd/pelvis - Status post right hemicolectomy. Compared to prior exam, there are increased foci of free air adjacent to the anastomotic staple line in the transverse colon (series 2, image 40). This raises the possibility of bowel leak. Peripherally enhancing collections within the abdomen and right retroperitoneum as detailed above, concerning for abscesses. These appear overall stable from prior CT. Surgical drain extending through the pelvis. This does not drain the abscess in the pelvic cul-de-sac. Per surgery - cont. NPO , cont. IV abx 09/13 NPO after MN, IV abx, can poss. resume heparin, will monitor H&H, and stools for hemoccult 09/14 No plan for surg. intervention at this time, cont. IV abx, IV heparin, resume diet Pulmonary Emboli Possible DVT RR increased on 09/04 CTA chest ordered- noted bilateral pulmonary emboli Pt declining doppler US lower extremities due to pain with completing medical testing at this time, discussion that results will not address change clerk as she is already on IV heparin Continue IV heparin at this time Monitor H/H Continue to monitor 09/09 heparin on hold overnight d/t Hgb drop. dark stools. GI consulted for poss. UGIB, plan for EGD today 09/10 IV heparin was resumed as per GI recs after EGD 09/11 plan to start warfarin, monitor INR and H&H closely. Normal BM, no dark stools, no blood in stool noted 09/12 heparin, warfarin now on hold, as above 09/13- cont. IV heparin EGD- Impression: - LA Grade C reflux esophagitis with no bleeding. - Small hiatal hernia. - Non-bleeding gastric ulcers with no stigmata of bleeding. Biopsied. - Normal examined duodenum. Recommendation: - I believe her esophagitis is probably stasis related. There was some retained bile in the stomach which was suction. She has multiple punctate and linear ulcerations in the body and antrum consistent with stress gastritis biopsies were done though for H. pylori. These ulcers were relatively small and superficial and did not show stigmata of bleeding. The duodenum was without ulceration. No definite evidence for upper GI bleeding at this time though a bleed 2 or 3 days ago may not be obvious on today's exam. We did perform a rectal examination in the GI lab. This showed yellow to green liquid stool without blood or melena. - If heparin is required I think it be reasonable to restart and observe for further bleeding. A Susanne filter is not always desirable. If there is evidence of definitive gastrointestinal bleeding with recurrence heparin then we could revisit that issue. Edema Pt with extremity edema Recent JANET with recovered urinary output a few days ago Cont. diuresis with IV lasix Monitor kidney function Acute kidney injury - resolved JANET had initially resolved but developed again Creatinine 3.9>>2.26>>0.94>1.51>>1.87>1.61 >> 0.6 Likely from sepsis + contrast Improved urine output Avoid contrast and nephrotoxins as much as possible Nephrology on board, appreciate recs Currently resolved. Esophagitis Noted on CT imaging Continue IV ppi Prediabetes hgba1c of 6.3 Noted hyperglycemia, was on TPN, now stopped Continue to monitor at this time Acute on chronic anemia Iron Deficiency Anemia Likely due to sepsis, blood loss and iron deficiency Got 2UPRBC on 08/31/24 Anemia panel showed low iron levels- Current recommendations advise against use of IV Venofer in the setting of severe infection, will need po supplementation once able to tolerate po 09/09 Hgb down again - at 6.6 - per snuff grinder and screener 1 pRBC ordered, GI consulted, IV heparin on hold 09/10 Hgb 7.6 09/11 Hgb 7.7 09/12 Hgb 7.7 09/13 Hgb 7.8 09/14 Hgb 7.5 09/15 Hgb 7.1 - discussed with the pt - pt would prefer to hold on transfusion for now - will cont. to monitor H&H Atrial fibrillation-new onset In the setting of sepsis Spontaneously converted to sinus ECHO: EF 55 to 60%. Mild concentric LVH. Left atrium mildly dilated. Mild tricuspid regurgitation. No significant pulmonary hypertension. Cardiology eval noted. No anticoagulation recommended Continue tele monitor IV lopressor 5mg q6h for now. Plan to switch to po metoprolol succinate when able to take po May need ZIO monitor as outpatient Pt been on IV heparin as noted above in the setting of PEs (since 09/04), started warfarin, monitor INR, then heparin on hold as above Currently back on IV heparin Hyponatremia Hypokalemia K is 3.9 today. Replace and monitor Mild troponin elevation Likely demand ischemia secondary to sepsis, A-fib RVR Denies any chest pain, dyspnea Diet:regular DVT Px: IV heparin Code Status :Full Code Dispo: Per PT/OT recs Admission and Anticipated Discharge Date Admission Date: August 23, 2024 Subjective Pt seen in follow up Pt with complex hospital course Gen. surgery (Dr. Pacheco) following closely ID re-consulted - cont. w/ ertapenem Pt been on iv heparin for PE - resumed after endoscopy, and started warfarin - then concern for reddish stool -> CT abd. repeated, IV heparin on hold, surgery contacted. Also c.diff tested - gene positive , toxin negat. given pt will need to be on iv abx prolonged course - started Po vanco for c. diff ppx FOBT ordered Hgb 7.1 today, discussed w/ the pt today, prefers to hold on transfusion today, will cont. to monitor WBC 20K -> down to 16K -> down to 13K -> down to 10.7K (normalized) Pt is awake , sitting up in chair, answers appropriately. Reports pain better controlled now. No chest pain, no shortness of breath. Per surgery cont. w/ current regimen - no intervention at this time, may need drainage of fluid collection later. Diet was resumed, IV heparin resumed yesterday. Review of Systems Review of Systems: All systems reviewed & are unremarkable except as noted in Subjective Physical Exam Physical Exam: General: obese F, Alert, oriented. No acute distress HEENT: NC/AT, EOMI CV: RRR Resp: breath sounds decreased bilaterally, no increased effort of breathing Abdomen: Soft, tender, bandage and surg. drain in place Extremities: edema in lower extremities bilaterally, improved. Skin: warm, dry Results & Data Results & Data Vital Signs (Past 12 Hours) Vital Signs Temp Pulse Pulse Resp BP BP Pulse Ox 09/15/24 07:29 36.9 C 93 H 18 129/77 95 09/15/24 05:57 78 09/15/24 05:24 76 110/66 09/15/24 04:00 36.6 C 87 18 113/73 97 09/14/24 23:34 36.7 C 84 18 129/84 98 09/14/24 23:34 78 114/72 09/14/24 23:19 78 112/74 09/14/24 22:00 78 O2 Del Method 09/15/24 07:29 Room Air 09/15/24 05:57 09/15/24 05:24 09/15/24 04:00 Room Air 09/14/24 23:34 Room Air 09/14/24 23:34 09/14/24 23:19 09/14/24 22:00 Laboratory Results 09/15/24 09/15/24 09/14/24 Range/Units 05:49 02:07 18:23 WBC 10.72 (4.8-10.8) K/ul RBC 2.56 L (4.20-5.40) M/uL Hgb 7.1 L (12.0-16.0) g/dl Hct 21.9 L (37.0-47.0) % MCV 85.5 (80.0-100.0) fL MCH 27.7 (25.0-34.0) pg MCHC 32.4 (32.0-36.0) g/dL RDW Std Deviation 53.9 H (36.4-46.3) fL RDW Coeff of Albino 17.2 H (11.5-14.5) % Plt Count 635 H (130-400) K/uL MPV 9.0 L (9.4-12.4) fL PT 11.9 (9.0-12.0) Seconds INR 1.1 (0.9-1.1) Heparin Anti-Xa, Unfract 0.42 0.17 L (0.3-0.7) IU/ml Sodium 135 L (136-145) mmol/L Potassium 3.9 (3.5-5.1) mmol/L Chloride 98 (98-107) mmol/L Carbon Dioxide 31 (21-32) mmol/L Anion Gap 6 (3-11) BUN 6 (6-23) mg/dl Creatinine 0.61 (0.6-1.2) mg/dl Est Cr Clr Drug Dosing 96.6 ml/min eGFR 97.32 BUN/Creatinine Ratio 9.8 L (10-20) Glucose 106 H (70-99(Fasting)) mg/dl Calcium 7.9 L (8.6-10.3) mg/dl Phosphorus 3.6 (2.5-4.9) mg/dl Magnesium 1.7 (1.7-2.4) mg/dl Medications Administered Current Inpatient Medications Albuterol (Albut/Ipratrop 3mg/0.5mg Neb 3 Ml Vial) 3 ml NEB Q4H PRN; Protocol PRN Reason: Wheezing Stop: 09/22/24 13:08 Atropine Sulfate (Atropine Sulfate 0.1 Mg/Ml 10ml Syr) 1 mg IV Q3M PRN PRN Reason: symptomatic bradycardia Stop: 09/25/24 03:16 Storey Syrup (Storey Syrup 5 Ml Udp) 5 ml PO Q6 ARMANDO Stop: 09/22/24 17:59 Last Admin: 09/15/24 05:24 Dose: 5 ml Dextrose (Dextrose 50% 50 Ml Syringe) 25 - 50 ml IV UD PRN; Protocol PRN Reason: Hypoglycemia Protocol Stop: 09/22/24 11:53 Furosemide (Furosemide Inj 20 Mg/2 Ml Vial) 60 mg IV BID ARMANDO Stop: 10/08/24 08:59 Last Admin: 09/14/24 20:57 Dose: 60 mg Glucagon (Glucagon For Inj 1 Mg Vial) 1 mg SQ UD PRN; Protocol PRN Reason: Hypoglycemia Protocol Stop: 09/22/24 11:53 Glucose (Glucose 40% Gel 15 Gm Tube) 15 - 30 gm PO UD PRN; Protocol PRN Reason: Hypoglycemia Protocol Stop: 09/22/24 11:53 Glucose (Glucose 10 Tab/Tube) 4 - 8 tab PO UD PRN; Protocol PRN Reason: Hypoglycemia Protocol Stop: 09/22/24 11:53 Heparin Sodium (Beef Lung) (Heparin 10 Unit/Ml 5 Ml Flush) 5 ml FLUSH PRN PRN PRN Reason: Flush Stop: 09/29/24 14:03 Last Admin: 09/03/24 18:13 Dose: 10 ml Hydromorphone HCl (Hydromorphone Inj 0.5 Mg/0.5 Ml Syr) 0.5 mg IV Q3H PRN PRN Reason: Moderate Pain (Scale 4, 5, 6) Stop: 09/24/24 09:20 Last Admin: 09/14/24 11:48 Dose: 0.5 mg Hydromorphone HCl (Hydromorphone Inj 1 Mg/Ml Syringe) 1 mg IV Q3H PRN PRN Reason: Severe Pain (Scale 7, 8, 9,10) Stop: 09/24/24 09:20 Last Admin: 09/12/24 19:34 Dose: 1 mg Pantoprazole Sodium 40 mg/ (Dextrose) 100 mls @ 20 mls/hr IV Q5H [facility]O Stop: 10/09/24 07:14 Last Admin: 09/15/24 04:24 Dose: 8 mg/hr, 20 mls/hr Ertapenem (Invanz 1000mg) 1,000 mg in 10 mls @ 2 mls/min IV Q24H [facility] Stop: 09/26/24 11:34 Last Admin: 09/14/24 11:48 Dose: 2 mls/min Heparin Sodium/Dextrose (Heparin 27166 Unit/500 Ml D5w) 25,000 units in 500 mls @ 25 mls/hr IV .Q20H [facility]; Protocol Stop: 10/09/24 20:14 Last Titration: 09/15/24 07:19 Dose: 1,250 units/hr, 25 mls/hr Magnesium Oxide (Magnesium Oxide 400 Mg Tab) 400 mg PO BID [facility] Stop: 10/10/24 08:59 Last Admin: 09/14/24 20:57 Dose: 400 mg Metoprolol Tartrate (Metoprolol Tartrate 1 Mg/Ml Vial) 5 mg IV Q2H PRN PRN Reason: HR > 120 Stop: 09/30/24 20:18 Last Admin: 08/31/24 20:25 Dose: 5 mg Metoprolol Tartrate (Metoprolol Tartrate 25 Mg Tab) 25 mg PO BID [facility] Stop: 10/10/24 20:59 Last Admin: 09/11/24 22:25 Dose: 25 mg Metoprolol Tartrate (Metoprolol Tartrate 1 Mg/Ml Vial) 2.5 mg IV Q6 [facility] Stop: 10/12/24 05:59 Last Admin: 09/15/24 05:24 Dose: 2.5 mg Miscellaneous (Carbohydrates For Hypoglycemia ) 15 - 30 gm PO UD PRN PRN Reason: Hypoglycemia Protocol Stop: 09/22/24 11:53 Ondansetron HCl (Ondansetron Inj 2 Mg/Ml 2 Ml Vial) 4 mg IV Q6H PRN PRN Reason: Nausea Stop: 09/22/24 13:08 Last Admin: 09/08/24 22:20 Dose: 4 mg Oxycodone/Acetaminophen (Oxycodone/Acetaminophen 5mg/325mg Tab) 1 tab PO Q4H PRN PRN Reason: Moderate Pain (Scale 4, 5, 6) Stop: 09/24/24 09:20 Last Admin: 09/11/24 17:08 Dose: 1 tab Oxycodone/Acetaminophen (Oxycodone/Acetaminophen 5mg/325mg Tab) 2 tab PO Q4H PRN PRN Reason: Severe Pain (Scale 7, 8, 9,10) Stop: 09/24/24 09:20 Last Admin: 09/14/24 17:21 Dose: 2 tab Potassium Chloride (Potassium Chloride Crtab 20 Meq Tabcr) 20 meq PO BID [facility] Stop: 10/09/24 20:59 Last Admin: 09/14/24 20:57 Dose: 20 meq Sucralfate (Sucralfate 1 Gm/10 Ml Udc) 1 gm PO QID [facility] Stop: 10/09/24 16:59 Last Admin: 09/14/24 20:57 Dose: 1 gm Vancomycin HCl (Vancomycin Hcl 125 Mg/2.5ml Soln) 125 mg PO Q6 [facility] Stop: 09/22/24 17:59 Last Admin: 09/15/24 05:24 Dose: 125 mg Warfarin Sodium (Warfarin Sod 1 Mg Tab) 1 mg PO DAILY@1600 [facility] Stop: 10/11/24 15:59 Last Admin: 09/11/24 17:08 Dose: 1 mg
--- NOTE | 2024-09-15 08:34 | Surgery Progress Note ---
Date of Service September 15, 2024 Assessment & Plan (1) Intra-abdominal abscess: Plan: responding to conservative measures [facility] singh Admission and Anticipated Discharge Date Admission Date: August 23, 2024 Subjective feels better today AF VSS eating better Review of Systems Constitutional: no fever and no chills Respiratory: no dyspnea Cardiovascular: no chest pain Gastrointestinal: + abdominal pain; no nausea and no vomit ing Neurologic: + generalized weakness Psychiatric: no behavioral changes Physical Exam Constitutional: WD/WN, vitals as above Eyes: no scleral abnormality Respiratory: normal respiratory effort, lungs clear to auscultation Cardiovascular: RRR, no murmur, no edema Gastrointestinal (Abdomen): Inspection/Auscultation: normal bowel sounds; abdomen not distended Percussion/Palpation: + abdomen tender and abdomen soft; no guarding and abdomen not rigid joey purulent Results & Data Vital Signs (Past 12 Hours) Vital Signs Temp Pulse Pulse Resp BP BP Pulse Ox 09/15/24 08:27 88 09/15/24 07:29 36.9 C 93 H 18 129/77 95 09/15/24 05:57 78 09/15/24 05:24 76 110/66 09/15/24 04:00 36.6 C 87 18 113/73 97 09/14/24 23:34 36.7 C 84 18 129/84 98 09/14/24 23:34 78 114/72 09/14/24 23:19 78 112/74 09/14/24 22:00 78 O2 Del Method 09/15/24 08:27 09/15/24 07:29 Room Air 09/15/24 05:57 09/15/24 05:24 09/15/24 04:00 Room Air 09/14/24 23:34 Room Air 09/14/24 23:34 09/14/24 23:19 09/14/24 22:00
[2024-09-15] MEDS: MAGNESIUM SULFATE / D5W 1 GM/100 ML BAG IV ONE (10:42)
[2024-09-16 06:18] LABS: Hematocrit (blood only) 23.1 % (37.0-47.0); Hemoglobin 7.3 g/dl (12.0-16.0); Mean Corpuscular Hemoglobin 26.8 pg (25.0-34.0); Mean Corpuscular Volume 84.9 fL (80.0-100.0); Platelet Count 642 K/uL (130-400); RDW Standard Deviation 53.7 fL (36.4-46.3); Red Blood Count 2.72 M/uL (4.20-5.40); White Blood Count 10.86 K/ul (4.8-10.8)
[2024-09-16 06:43] LABS: INR 1.1 (0.9-1.1); Prothrombin Time 11.9 Seconds (9.0-12.0)
[2024-09-16 06:44] LABS: Anion Gap 6.0 (3-11); Blood Urea Nitrogen 6.0 mg/dl (6-23); Calcium 8.3 mg/dl (8.6-10.3); Carbon Dioxide 32.0 mmol/L (21-32); Chloride 97.0 mmol/L (98-107); Creatinine Clr Calc Pharmacy 87.0 ml/min; Glucose 100.0 mg/dl (70-99(Fasting)); Magnesium 1.8 mg/dl (1.7-2.4); Potassium 4.0 mmol/L (3.5-5.1); Sodium 135.0 mmol/L (136-145)
[2024-09-16 06:52] LABS: ANTI-Xa, UFH(UnfractionatedHep 0.30 IU/ml (0.3-0.7)
--- NOTE | 2024-09-16 09:01 | Surgery Progress Note ---
Date of Service September 16, 2024 Assessment & Plan (1) S/P right colectomy: Plan: con't IV abx PT slow progress Admission and Anticipated Discharge Date Admission Date: August 23, 2024 Subjective busy day yesterday with a lot of activity some intermittent abdominal pain AF VSS Review of Systems Constitutional: no fever and no chills Respiratory: no dyspnea Cardiovascular: no chest pain Gastrointestinal: + abdominal pain; no nausea and no vomit ing Neurologic: + generalized weakness Psychiatric: no behavioral changes Physical Exam Gastrointestinal (Abdomen): Inspection/Auscultation: abdomen normal to insp ection and normal bowel sounds; abdomen not distended Percussion/Palpation: + abdomen tender and abdomen soft; no guarding and abdomen not rigid drain in place Results & Data Vital Signs (Past 12 Hours) Vital Signs Temp Pulse Pulse Pulse Resp BP BP 09/16/24 08:34 103 H 127/73 09/16/24 08:16 37.1 C 103 H 18 127/73 09/16/24 06:07 99 H 09/16/24 04:00 36.5 C 99 H 18 109/69 09/16/24 03:28 36.5 C 99 H 18 109/69 09/16/24 01:40 88 09/16/24 01:21 103 H 09/15/24 23:30 36.8 C 91 H 91 H 18 118/74 09/15/24 23:26 89 Pulse Ox O2 Del Method 09/16/24 08:34 09/16/24 08:16 93 Room Air 09/16/24 06:07 09/16/24 04:00 96 Room Air 09/16/24 03:28 99 Room Air 09/16/24 01:40 09/16/24 01:21 09/15/24 23:30 98 Room Air 09/15/24 23:26
--- NOTE | 2024-09-16 12:12 | Hospitalist Progress Note ---
Date of Service September 16, 2024 Assessment & Plan (1) Severe sepsis with acute organ dysfunction: (2) Atrial fibrillation, new onset: (3) Acute renal failure: (4) Ileus due to infection: (5) Peritonitis due to abscess: (6) Electrolyte abnormality: (7) Pneumoperitoneum: (8) Demand ischemia of myocardium: (9) Low grade mucinous neoplasm of appendix: (10) Status post laparoscopic appendectomy: (11) Paroxysmal SVT (supraventricular tachycardia): Plan Pt is a 68-year-old female status post appendectomy for mucocele on 08/19/2024. She presented critically ill with acute renal failure, multiple electrolyte abnormalities and evidence of severe sepsis with organ dysfunction as evidenced by renal failure, postsurgical ileus, and new onset atrial fibrillation. Currently s/p IR pelvic drain placement for abscesses on 08/28/24 and extended right colectomy with drainage of abscess by general surgeon Dr. Pacheco on 08/30/24. She is currently being treated as follows: Sepsis Proteus bacteremia Intra abdominal/pelvic abscesses Postsurgical ileus Cholelithiasis w/o evidence of cholecystitis Recent laparoscopic appendicectomy of large mucocele of appendix by Dr. Pacheco on 08/19/2024 CT abdomen/pelvis from 08/25/24 noting "Absent appendix consistent with appendectomy history with increased fluid and gas throughout the abdomen and pelvis more than expected particularly at the level of the surgical bed. Dehiscence is not excluded. No discrete encapsulated drainable fluid collection although early abscess cannot be excluded. Prominent fluid distended proximal small bowel and to some extent distal small bowel fecal type densities which can be seen in slow small bowel transit. Mild ileus is not excluded... CT abdomen with oral contrast: Pneumoperitoneum with right retroperitoneal gas mildly decreased. Cannot rule out anastomotic leak with abscess. Contrast has not reached the distal small bowel. Findings suggestive of ileus. Blood cultures from admission grew Proteus vulgaris, repeat blood cultures negative CT Abd/Pelvis with IV contrast on 08/28/24 showed increased pneumoperitoneum and right retroperitoneal gas, multifocal abscesses IV antibiotics broadened to Vancomycin and meropenem at that time S/p IR placement of drain on 08/28/24 Persistent leukocytosis IR drain culture from 08/28/24 grew E coli, bacteroides vulgatus and Clostridium innocuum c diff gene +, toxin negative S/p Exploratory laparotomy which showed small bowel perforation with abscess on 08/30/24, s/p extended right colectomy with drainage of abscess by general surgeon Dr. Pacheco on 08/30/24 Infectious Disease was consulted, appreciate recs -Antibiotics deescalated to IV ceftriaxone and metronidazole -Repeat imaging to reassess abscess size and response to treatment. NG tube still in place, started on TPN on 08/31/24 Required ICU stay postop on 08/30, downgraded on 09/01 PT/OT Pain control- General surgery started morphine sprayer insecticide on 09/04 ID reconsulted on 09/09, note the following: The rising WBC is clearly linked with the spread of numerous small abscesses, though RP bleeding and evolving abscess there is also a concern. Broadening abx therapy to ertapenem 1g IV qd is reasonable, but the issue is primarily one of source control. If these areas are not drainable, then her recovery may be slowed. Repeating imaging in the next 1-2 weeks, or if she worsens in the meantime, will be warranted. Total duration of therapy remains a little unclear, but given her current CT findings, I would expect 4-6 weeks. Final plans remain pending. 09/12 Overnight incr. abdominal pain, stool reddish -> CT abd. obtained and surgery contacted. Conservative management. WBC has since normalized 09/16- FOBT + GI consulted, multiple BMs, c diff gene positive, on po vancomycin Pulmonary Emboli Possible DVT RR increased on 09/04 CTA chest ordered- noted bilateral pulmonary emboli Pt declining doppler US lower extremities due to pain with completing medical testing at this time, discussion that results will not exchange specialist as she is already on IV heparin Continue IV heparin at this time Monitor H/H Continue to monitor On IV heparin Edema Pt with extremity edema Recent JANET with recovered urinary output a few days ago Cont. diuresis with IV lasix 60mg BID Monitor kidney function Acute kidney injury - resolved JANET had initially resolved but developed again Creatinine 3.9>>2.26>>0.94>1.51>>1.87>1.61 >> 0.6 Likely from sepsis + contrast Improved urine output Avoid contrast and nephrotoxins as much as possible Nephrology on board, appreciate recs Currently resolved. Esophagitis Possible GI bleed Noted on CT imaging and EGD performed on 09/09 by GI Continue IV ppi, sucralfate FOBT positive, GI consulted once more on 09/16- awaiting further recs Prediabetes hgba1c of 6.3 Noted hyperglycemia, was on TPN, now stopped Continue to monitor at this time Acute on chronic anemia Iron Deficiency Anemia Likely due to sepsis, blood loss and iron deficiency Got 2UPRBC on 08/31/24 Anemia panel showed low iron levels- Current recommendations advise against use of IV Venofer in the setting of severe infection, will need po supplementation once able to tolerate po- started Continue to monitor h/h Atrial fibrillation-new onset In the setting of sepsis Spontaneously converted to sinus ECHO: EF 55 to 60%. Mild concentric LVH. Left atrium mildly dilated. Mild tricuspid regurgitation. No significant pulmonary hypertension. Cardiology eval noted. No anticoagulation recommended Continue tele monitor IV lopressor 5mg q6h for now. Plan to switch to po metoprolol succinate when able to take po May need ZIO monitor as outpatient Pt been on IV heparin as noted above in the setting of PEs (since 09/04), started warfarin, monitor INR, then heparin on hold as above Currently back on IV heparin Hyponatremia Hypokalemia K is 3.9 today. Replace and monitor Mild troponin elevation Likely demand ischemia secondary to sepsis, A-fib RVR Denies any chest pain, dyspnea Diet:regular DVT Px: IV heparin Code Status :Full Code Dispo: Per PT/OT recs Admission and Anticipated Discharge Date Admission Date: August 23, 2024 Subjective Pt was seen in the AM Sitting up in the chair Per nursing many bowel movements Review of Systems Review of Systems: All systems reviewed & are unremarkable except as noted in Subjective Physical Exam Physical Exam: General: Alert, oriented. No acute distress HEENT: NC/AT CV: RRR Resp: breath sounds decreased bilaterally, no increased effort of breathing Abdomen:Soft, tender, binder in place Extremities: edema in lower extremities bilaterally. Results & Data Results & Data Vital Signs (Past 12 Hours) Vital Signs Temp Pulse Pulse Resp BP BP Pulse Ox 09/16/24 12:01 110 H 143/81 H 09/16/24 08:34 103 H 127/73 09/16/24 08:16 37.1 C 103 H 18 127/73 93 09/16/24 06:07 99 H 09/16/24 04:00 36.5 C 99 H 18 109/69 96 09/16/24 03:28 36.5 C 99 H 18 109/69 99 09/16/24 01:40 88 09/16/24 01:21 103 H O2 Del Method 09/16/24 12:01 09/16/24 08:34 09/16/24 08:16 Room Air 09/16/24 06:07 09/16/24 04:00 Room Air 09/16/24 03:28 Room Air 09/16/24 01:40 09/16/24 01:21
[2024-09-16 12:32] LABS: Hematocrit (blood only) 26.8 % (37.0-47.0); Hemoglobin 8.5 g/dl (12.0-16.0)
[2024-09-16] MEDS: FERROUS SULFATE 325 MG TAB PO SCH (18:33)
[2024-09-16 20:53] LABS: Cdiff Toxin B Gene (2yr or >) Positive Cdiff Gene (Neg)
[2024-09-16 20:54] LABS: Cdiff Toxin A+B Negative Cdiff Toxin (Negative)
[2024-09-17 07:05] LABS: Hematocrit (blood only) 23.4 % (37.0-47.0); Hemoglobin 7.4 g/dl (12.0-16.0); Immature Granulocytes # (auto) 0.20 K/uL (0.01-0.20); Immature Granulocytes % (auto) 1.9 %; Mean Corpuscular Hemoglobin 27.0 pg (25.0-34.0); Mean Corpuscular Volume 85.4 fL (80.0-100.0); Platelet Count 715 K/uL (130-400); RDW Standard Deviation 54.4 fL (36.4-46.3); Red Blood Count 2.74 M/uL (4.20-5.40); White Blood Count 10.79 K/ul (4.8-10.8)
[2024-09-17 07:24] LABS: ANTI-Xa, UFH(UnfractionatedHep 0.34 IU/ml (0.3-0.7)
[2024-09-17 07:32] LABS: Alanine Aminotransferase 10.0 U/L (7-52); Albumin Globulin Ratio 0.7 (0.9-2); Alkaline Phosphatase 83.0 U/L (34-104); Anion Gap 8.0 (3-11); Bilirubin,Total 0.4 mg/dl (0.2-1.0); Blood Urea Nitrogen 6.0 mg/dl (6-23); Calcium 8.6 mg/dl (8.6-10.3); Carbon Dioxide 31.0 mmol/L (21-32); Chloride 96.0 mmol/L (98-107); Creatinine Clr Calc Pharmacy 80.2 ml/min; Globulin 3.7 gm/dl (2.5-4.0); Glucose 117.0 mg/dl (70-99(Fasting)); Magnesium 1.8 mg/dl (1.7-2.4); Potassium 3.9 mmol/L (3.5-5.1); Sodium 135.0 mmol/L (136-145); Total Protein 6.2 gm/dl (6.0-8.3)
--- NOTE | 2024-09-17 09:40 | Gastroenterology Progress Note ---
Date of Service September 17, 2024 Assessment & Plan (1) S/P right colectomy: (2) PUD (peptic ulcer disease): (3) Esophagitis: (4) Anemia: (5) Heme positive stool: Plan GI was asked to re-evaluate for heme positive stools. Certainly she has multiple reasons for this from recent surgical history as well as history of ulcer/esophagitis. No signs of active GI bleeding at this time. Case was discussed with Dr. Shelton. No plans for any GI intervention at this time. she would be a high risk for any lower GI endoscopic evaluation. - continue with protonix drip and carafate 1 gm qid. - continue to follow hgb/hct. transfuse as needed. Admission and Anticipated Discharge Date Admission Date: August 23, 2024 Subjective Patient is a 68 year old female with history of Laparoscopic appendectomy and removal of massive mucocele 08/19/24. she was admitted 08/23 w/ afib w/ RVR, renal failure, gram negative bacteremia, pneumoperitoneum, small bowel perforation w/ abscess on s/p Exploratory Laparotomy, Extended Right Colectomy with Drainage of Abscess on 08/30. GI was asked at that time to evaluate for dark stools, anemia requiring transfusion with HGB 6.6. She underwent an EGD 09/09 w/ LA Grade C reflux esophagitis with no bleeding, small hiatal hernia, non-bleeding gastric ulcers with no stigmata of bleeding. GI asked to see again on 09/17 for occult blood positive stools. she is not seeing blood in her stools and denies black stools. she is on a protonix drip and carafate. she has some abdominal discomfort related to her surgical sites, but she feels this is improving. she tells me that she was having diarrhea, but this has improved. hgb has been bouncing around the 7-8 range. 09/17/24 BUN 6, Creatinine .72. HGB 7.4. Review of Systems Review of Systems: All systems reviewed & are unremarkable except as noted in HPI & below Physical Exam Constitutional: WD/WN, vitals as above Respiratory: normal respiratory effort, lungs clear to auscultation Cardiovascular: Rate/Rhythm: regular rate and regular rhythm Gastrointestinal (Abdomen): incisional site tenderness, normal bowel sounds. soft. no guarding. Psychiatric: Orientation: alert and oriented x 3 Results & Data Results & Data Vital Signs (Past 12 Hours) Vital Signs Temp Pulse Pulse Resp BP BP BP 09/17/24 07:23 97.5 F L 89 20 125/79 09/17/24 06:23 82 114/72 09/17/24 06:06 101 H 124/77 09/17/24 03:50 97.9 F 99 H 18 116/72 09/17/24 00:48 91 H 09/16/24 23:46 88 100/68 09/16/24 23:24 97.7 F 102 H 18 113/72 09/16/24 22:59 Pulse Ox O2 Del Method 09/17/24 07:23 97 Room Air 09/17/24 06:23 09/17/24 06:06 09/17/24 03:50 93 Room Air 09/17/24 00:48 09/16/24 23:46 09/16/24 23:24 96 Room Air 09/16/24 22:59 Room Air Coding Level of Care Code 96787 SUB INP/OBS CARE 2/35MIN Diagnoses S/P right colectomy Z90.49 PUD (peptic ulcer disease) K27.9 Esophagitis K20.90 Anemia D64.9 Heme positive stool R19.5
--- NOTE | 2024-09-17 12:24 | Surgery Progress Note ---
Date of Service September 17, 2024 Assessment & Plan (1) S/P right colectomy: Plan: con't IV abx drain in place dressings daily and as needed encourage po and activity Admission and Anticipated Discharge Date Admission Date: August 23, 2024 Subjective feels OK eating OK Review of Systems Constitutional: no fever and no chills Respiratory: no dyspnea Cardiovascular: no chest pain Gastrointestinal: + abdominal pain; no nausea and no vomit ing Physical Exam Gastrointestinal (Abdomen): Inspection/Auscultation: + abdominal surgical incision (two open areas draining; probed at bedside no undrained collection ); abdomen not distended Results & Data Vital Signs (Past 12 Hours) Vital Signs Temp Pulse Pulse Resp BP BP BP 09/17/24 11:14 99 H 118/76 09/17/24 11:06 36.5 C 99 H 22 118/76 09/17/24 07:23 36.4 C L 89 20 125/79 09/17/24 06:23 82 114/72 09/17/24 06:06 101 H 124/77 09/17/24 03:50 36.6 C 99 H 18 116/72 09/17/24 00:48 91 H Pulse Ox O2 Del Method 09/17/24 11:14 09/17/24 11:06 96 Room Air 09/17/24 07:23 97 Room Air 09/17/24 06:23 09/17/24 06:06 09/17/24 03:50 93 Room Air 09/17/24 00:48
--- NOTE | 2024-09-17 13:40 | Hospitalist Progress Note ---
Date of Service September 17, 2024 Assessment & Plan (1) Severe sepsis with acute organ dysfunction: (2) Atrial fibrillation, new onset: (3) Acute renal failure: (4) Ileus due to infection: (5) Peritonitis due to abscess: (6) Electrolyte abnormality: (7) Pneumoperitoneum: (8) Demand ischemia of myocardium: (9) Low grade mucinous neoplasm of appendix: (10) Status post laparoscopic appendectomy: (11) Paroxysmal SVT (supraventricular tachycardia): Plan Pt is a 68-year-old female status post appendectomy for mucocele on 08/19/2024. She presented critically ill with acute renal failure, multiple electrolyte abnormalities and evidence of severe sepsis with organ dysfunction as evidenced by renal failure, postsurgical ileus, and new onset atrial fibrillation. Currently s/p IR pelvic drain placement for abscesses on 08/28/24 and extended right colectomy with drainage of abscess by general surgeon Dr. Pacheco on 08/30/24. She is currently being treated as follows: Sepsis Proteus bacteremia Intra abdominal/pelvic abscesses Postsurgical ileus Cholelithiasis w/o evidence of cholecystitis Recent laparoscopic appendicectomy of large mucocele of appendix by Dr. Pacheco on 08/19/2024 CT abdomen/pelvis from 08/25/24 noting "Absent appendix consistent with appendectomy history with increased fluid and gas throughout the abdomen and pelvis more than expected particularly at the level of the surgical bed. Dehiscence is not excluded. No discrete encapsulated drainable fluid collection although early abscess cannot be excluded. Prominent fluid distended proximal small bowel and to some extent distal small bowel fecal type densities which can be seen in slow small bowel transit. Mild ileus is not excluded... CT abdomen with oral contrast: Pneumoperitoneum with right retroperitoneal gas mildly decreased. Cannot rule out anastomotic leak with abscess. Contrast has not reached the distal small bowel. Findings suggestive of ileus. Blood cultures from admission grew Proteus vulgaris, repeat blood cultures negative CT Abd/Pelvis with IV contrast on 08/28/24 showed increased pneumoperitoneum and right retroperitoneal gas, multifocal abscesses IV antibiotics broadened to Vancomycin and meropenem at that time S/p IR placement of drain on 08/28/24 Persistent leukocytosis IR drain culture from 08/28/24 grew E coli, bacteroides vulgatus and Clostridium innocuum c diff gene +, toxin negative S/p Exploratory laparotomy which showed small bowel perforation with abscess on 08/30/24, s/p extended right colectomy with drainage of abscess by general surgeon Dr. Pacheco on 08/30/24 Infectious Disease was consulted, appreciate recs -Antibiotics deescalated to IV ceftriaxone and metronidazole -Repeat imaging to reassess abscess size and response to treatment. NG tube still in place, started on TPN on 08/31/24 Required ICU stay postop on 08/30, downgraded on 09/01 PT/OT Pain control- General surgery started morphine touch up edger on 09/04 ID reconsulted on 09/09, note the following: The rising WBC is clearly linked with the spread of numerous small abscesses, though RP bleeding and evolving abscess there is also a concern. Broadening abx therapy to ertapenem 1g IV qd is reasonable, but the issue is primarily one of source control. If these areas are not drainable, then her recovery may be slowed. Repeating imaging in the next 1-2 weeks, or if she worsens in the meantime, will be warranted. Total duration of therapy remains a little unclear, but given her current CT findings, I would expect 4-6 weeks. Final plans remain pending. 09/12 Overnight incr. abdominal pain, stool reddish -> CT abd. obtained and surgery contacted. Conservative management. WBC has since normalized 09/16- FOBT + GI consulted, multiple BMs, c diff gene positive, on po vancomycin 09/17/24- surgical wound now with pus-like drainage, wound culture obtained overnight and pending. On IV Ertapenem and PO vancomycin for c diff rx, added IV Daptomycin for empiric MRSA coverage until culture results. General Surgery aware. Pulmonary Emboli Possible DVT RR increased on 09/04 CTA chest ordered- noted bilateral pulmonary emboli Pt declining doppler US lower extremities due to pain with completing medical testing at this time, discussion that results will not private branch exchange service advisor as she is already on IV heparin Continue IV heparin at this time Monitor H/H Continue to monitor On IV heparin Edema Pt with extremity edema Recent JANET with recovered urinary output a few days ago Cont. diuresis with IV lasix 60mg BID Monitor kidney function Input from Nephrology appreciated, discussed on 09/17 Acute kidney injury - resolved JANET had initially resolved but developed again Creatinine 3.9>>2.26>>0.94>1.51>>1.87>1.61 >> 0.6 Likely from sepsis + contrast Improved urine output Avoid contrast and nephrotoxins as much as possible Nephrology on board, appreciate recs Currently resolved. Esophagitis Possible GI bleed Noted on CT imaging and EGD performed on 09/09 by GI Continue IV ppi, sucralfate FOBT positive, GI consulted once more on 09/16- appreciate further GI recs on 09/17 Prediabetes hgba1c of 6.3 Noted hyperglycemia, was on TPN, now stopped Continue to monitor at this time Acute on chronic anemia Iron Deficiency Anemia Likely due to sepsis, blood loss and iron deficiency Got 2UPRBC on 08/31/24 Anemia panel showed low iron levels- Current recommendations advise against use of IV Venofer in the setting of severe infection, will need po supplementation once able to tolerate po- started Continue to monitor h/h Atrial fibrillation-new onset In the setting of sepsis Spontaneously converted to sinus ECHO: EF 55 to 60%. Mild concentric LVH. Left atrium mildly dilated. Mild tricuspid regurgitation. No significant pulmonary hypertension. Cardiology eval noted. No anticoagulation recommended Continue tele monitor IV lopressor 5mg q6h for now. Plan to switch to po metoprolol succinate when able to take po---restarted on po Toprol at 12.5mg BID on 09/17/24 May need ZIO monitor as outpatient Pt been on IV heparin as noted above in the setting of PEs (since 09/04), started warfarin, monitor INR, then heparin on hold as above Currently back on IV heparin Hyponatremia Hypokalemia K is 3.9 today. Replace and monitor Mild troponin elevation Likely demand ischemia secondary to sepsis, A-fib RVR Denies any chest pain, dyspnea Diet:regular DVT Px: IV heparin Code Status :Full Code Dispo: Per PT/OT recs Admission and Anticipated Discharge Date Admission Date: August 23, 2024 Subjective Pt was seen in the AM Sitting in a chair near her bed Overnight, concerns about surgical wound draining fluid, wound culture obtained overnight. Review of Systems Review of Systems: All systems reviewed & are unremarkable except as noted in Subjective Physical Exam Physical Exam: General: Alert, oriented. No acute distress HEENT: NC/AT CV: RRR Resp: breath sounds decreased bilaterally, no increased effort of breathing Abdomen:Soft, tender, wound with noted drainage, soiled bandages Extremities: edema in lower extremities bilaterally. Results & Data Results & Data Vital Signs (Past 12 Hours) Vital Signs Temp Pulse Pulse Resp BP BP BP 09/17/24 12:43 88 118/76 09/17/24 11:14 99 H 118/76 09/17/24 11:06 36.5 C 99 H 22 118/76 09/17/24 07:23 36.4 C L 89 20 125/79 09/17/24 06:23 82 114/72 09/17/24 06:06 101 H 124/77 09/17/24 03:50 36.6 C 99 H 18 116/72 Pulse Ox O2 Del Method 09/17/24 12:43 09/17/24 11:14 09/17/24 11:06 96 Room Air 09/17/24 07:23 97 Room Air 09/17/24 06:23 09/17/24 06:06 09/17/24 03:50 93 Room Air
[2024-09-17] MEDS: DAPTOmycin 500 MG in SYRINGE 0 ML IV SCH (17:39)
--- NOTE | 2024-09-17 18:00 | Nephrology Progress Note ---
Date of Service September 17, 2024 Assessment & Plan (1) Electrolyte and fluid disorder: Plan: marked edema of the extremities after extended and complex hospital admission. nephro was reconsulted 09/05 for assistance w/ volume mgt and approved of 40 mg daily lasix dose w/ appropriate creatinine/resolved JANET. on admission weighed 81.3 kg on 08/24, up rapidly to 86.2 by 08/26; on 09/05 (when nephro was reconsulted for vol mgt) weighed 95.8 kg. today weighs 87.8 kg on bed w/ wt down trending from 97.5 on 09/14. her serum albumin is 2.5, up from bao 1.6 on 08/30 her creatinien has run generally 0.4-0.8 since 09/03 resolution of JANET; today it is 0.7. Notably a significant portion of changes in albumin and creatinine in the serum may relate to changes in volume status as much as or more than actual improvement of function. Her Leon was removed 09/16. she has been maintained on lasix 60 mg IV bid w/ 20 mEq bid K since at least 09/08. She is on RA and SBP 110s generally; as of September 17, she is 15.1 L positive on the admission per her intake and output. > Will give Lasix dose tonight at 1900 instead of 2100 and tomorrow changed to 9 AM and 4 PM Lasix dosing Given complexity of maintaining her nutrition would not impose fluid limit at this time Continue daily bed weights and aim for daily standing weight when feasible Suggest gentle compression on the legs whether Tubigrip's or mikaela wraps since compression hose and SCDs not tolerated Encourage protein intake and continue to offer boost or other protein supplements Daily basic metabolic panel and magnesium -elevate feet as much as able wes when sitting up Appreciate reconsultation will follow with you (2) Acute renal failure: Plan: Patient initially had acute kidney injury likely ATN in setting of sepsis but had improved back to normal. Creatinine started rising after contrast administration on 08/28 which again resolved and she was signed off by Nephrology on 09/02. CT showed no hydronephrosis. She has non obstructive kidney stone. Nephrology was again re- consulted today for Volume management-- she is positive by @ 15 pounds since admission, She also had CTA done on 09/04 which showed Several bilateral segmental and subsegmental pulmonary emboli and small R pleural effusion - She has signs of volume overload>>> bilateral pedal edema and body wall edema. - She has excellent UOP with current dose of lasix (40 mg IV)and she is mildly alkalotic, - Her renal function appear normal , but her Scr could be dilutional because of the fluid she is carrying,After correcting by the dilutional factor her Scr is@0.9 Sodium is in high normal side-- She can now have clear liquids as per surgery-- aim for tap water orally 200 mls q 6 hrly -Avoid further contrast. - Renally dose antibiotics. -Daily input/ output , preferably on the same scale (3) Peritonitis due to abscess: Plan: she is s/p appendectomy for mucocele on 08/19/24; then postoperatively had JANET w/ multiple electrolyte abnormalities, post surgical ileus and new onset a fib. blood cultures from 07/23 admission grew P vulgaris. s/p IR pelvic drain placement for abscess 08/28; IR drain culture 08/30 grew E coli, B vulgatus and Clostridium innocuum; s/p extended R colectomy w/ abscess drainage 08/30, from which cxs grew . started TPN 08/31 on 09/16 w/ FOBT+ and multiple BM; C diff gene + >> starteed po vanoc 09/17 surg wound now w/ pus like drainage; wound cx pending. on ertapenem and IV dapto added for empiric MRSA coverage Admission and Anticipated Discharge Date Admission Date: August 23, 2024 Subjective asked to come back and reevaluate pt to help w/ volume mgt/discharge recs after we were consulted on her earlier this admission for JANET in the setting of sepsis/bacteremia; c/o edema in legs, w/ some TTP; abd is TTP w/ "deep inside pain" per her; no sob, frequent bowel movements but denies sharon diarrhea; no cough feels her edema has not changed much in the past several days particularly in the lower extremities though it has improved in the upper extremities; states that SCDs were too painful to use; was allowed to take solid food only very recently after multiple times n.p.o. and then not Review of Systems 2 Review of Systems: All systems reviewed & are unremarkable except as noted in Subjective Physical Exam 2 Constitutional: well developed and well nourished Eyes: EOM intact bilaterally ENMT: Mouth: + dry oral mucous membranes Respiratory: normal respiratory effort Auscultation: + diminished lung sounds Cardiovascular: Rate/Rhythm: regular rate and regular rhythm Extremities: + edema (2-3+ dependent pitting edema and 2+ nonpitting edema bilateral lower extrem) Gastrointestinal (Abdomen): Inspection/Auscultation: normal bowel sounds P ercussion/Palpation: abdomen soft; abdomen nontender Musculoskeletal: Extremities: strength 5/5 throughout Skin: no rashes, warm and dry Neurologic: nunez, fluent speech, no tremor Results & Data Vital Signs (Past 12 Hours) Vital Signs Temp Pulse Pulse Resp BP BP Pulse Ox 09/17/24 15:23 36.7 C 98 H 20 116/73 94 09/17/24 12:43 88 118/76 09/17/24 11:14 99 H 118/76 09/17/24 11:06 36.5 C 99 H 22 118/76 96 09/17/24 08:00 09/17/24 07:23 36.4 C L 89 20 125/79 97 09/17/24 06:23 82 114/72 09/17/24 06:06 101 H 124/77 O2 Del Method 09/17/24 15:23 Room Air 09/17/24 12:43 09/17/24 11:14 09/17/24 11:06 Room Air 09/17/24 08:00 Room Air 09/17/24 07:23 Room Air 09/17/24 06:23 09/17/24 06:06 Laboratory Results 09/17/24 06:26 09/17/24 06:26 Diagnostic Findings last cxr 08/31
[2024-09-17] MEDS: FUROSEMIDE INJ 20 MG/2 ML VIAL IV SCH (19:30)
[2024-09-18 06:29] LABS: Hematocrit (blood only) 22.1 % (37.0-47.0); Hemoglobin 6.9 g/dl (12.0-16.0); Mean Corpuscular Hemoglobin 26.7 pg (25.0-34.0); Mean Corpuscular Volume 85.7 fL (80.0-100.0); Platelet Count 665 K/uL (130-400); RDW Standard Deviation 54.4 fL (36.4-46.3); Red Blood Count 2.58 M/uL (4.20-5.40); White Blood Count 10.32 K/ul (4.8-10.8)
--- NOTE | 2024-09-18 06:31 | Communication Note ---
Date of Service: September 18, 2024 Made aware by RN of a.m. hemoglobin of 6.9 from 7.4 yesterday. No overt bleeding or unusual pain as per RN. AP Progressive anemia Ongoing IV heparin Rx Hold heparin for now Repeat H&H at 10 AM
[2024-09-18 06:36] LABS: Alanine Aminotransferase 9.0 U/L (7-52); Albumin Globulin Ratio 0.7 (0.9-2); Alkaline Phosphatase 77.0 U/L (34-104); Anion Gap 7.0 (3-11); Bilirubin,Total 0.3 mg/dl (0.2-1.0); Blood Urea Nitrogen 6.0 mg/dl (6-23); Calcium 8.5 mg/dl (8.6-10.3); Carbon Dioxide 31.0 mmol/L (21-32); Chloride 98.0 mmol/L (98-107); Creatinine Clr Calc Pharmacy 76.8 ml/min; Globulin 3.4 gm/dl (2.5-4.0); Glucose 100.0 mg/dl (70-99(Fasting)); Magnesium 1.8 mg/dl (1.7-2.4); Potassium 3.7 mmol/L (3.5-5.1); Sodium 136.0 mmol/L (136-145); Total Protein 5.8 gm/dl (6.0-8.3)
[2024-09-18 06:45] LABS: INR 1.1 (0.9-1.1); Prothrombin Time 11.9 Seconds (9.0-12.0)
[2024-09-18 06:48] LABS: ANTI-Xa, UFH(UnfractionatedHep 0.36 IU/ml (0.3-0.7)
[2024-09-18 07:06] LABS: Immature Granulocytes # (auto) 0.23 K/uL (0.01-0.20); Immature Granulocytes % (auto) 2.2 %; RBC Morphology Unremarkable
[2024-09-18 10:32] LABS: Hematocrit (blood only) 24.8 % (37.0-47.0); Hemoglobin 7.9 g/dl (12.0-16.0)
[2024-09-18 10:56] LABS: Partial Thromboplastin Time 28 Seconds (21-31)
--- NOTE | 2024-09-18 13:05 | Nephrology Progress Note ---
Date of Service September 18, 2024 Assessment & Plan (1) Electrolyte and fluid disorder: Plan: marked edema of the extremities after extended and complex hospital admission. nephro was reconsulted 09/05 for assistance w/ volume mgt and approved of 40 mg daily lasix dose w/ appropriate creatinine/resolved JANET. on admission weighed 81.3 kg on 08/24, up rapidly to 86.2 by 08/26; on 09/05 (when nephro was reconsulted for vol mgt) weighed 95.8 kg. today weighs 87.8 kg on bed w/ wt down trending from 97.5 on 09/14. her serum albumin is 2.5, up from bao 1.6 on 08/30 her creatinien has run generally 0.4-0.8 since 09/03 resolution of JANET; today it is 0.7. Notably a significant portion of changes in albumin and creatinine in the serum may relate to changes in volume status as much as or more than actual improvement of function. Her Leon was removed 09/16. she has been maintained on lasix 60 mg IV bid w/ 20 mEq bid K since at least 09/08. She is on RA and SBP 110s generally; as of September 17, she is 15.1 L positive on the admission per her intake and output. > Will give Lasix dose tonight at 1900 instead of 2100 and tomorrow changed to 9 AM and 4 PM Lasix dosing >maintain K 4.0 >> increased bid 20 mEq dose to tid Given complexity of maintaining her nutrition would not impose fluid limit at this time Continue daily bed weights and aim for daily standing weight when feasible Suggest gentle compression on the legs whether Tubigrip's or mikaela wraps since compression hose and SCDs not tolerated >> did review w/ RN today Encourage protein intake and continue to offer boost or other protein supplements Daily basic metabolic panel and magnesium -elevate feet as much as able wes when sitting up Care coordinated w/ Dr Helm via TTExt re changes made, wrapping recs; we are in agreement. (2) Acute renal failure: Plan: Patient initially had acute kidney injury likely ATN in setting of sepsis but had improved back to normal. Creatinine started rising after contrast administration on 08/28 which again resolved and she was signed off by Nephrology on 09/02. CT showed no hydronephrosis. She has non obstructive kidney stone. Nephrology was again re- consulted today for Volume management-- she is positive by @ 15 pounds since admission, She also had CTA done on 09/04 which showed Several bilateral segmental and subsegmental pulmonary emboli and small R pleural effusion - She has signs of volume overload>>> bilateral pedal edema and body wall edema. - She has excellent UOP with current dose of lasix (40 mg IV)and she is mildly alkalotic, - Her renal function appear normal , but her Scr could be dilutional because of the fluid she is carrying,After correcting by the dilutional factor her Scr is@0.9 Sodium is in high normal side-- She can now have clear liquids as per surgery-- aim for tap water orally 200 mls q 6 hrly -Avoid further contrast. - Renally dose antibiotics. -Daily input/ output , preferably on the same scale (3) Peritonitis due to abscess: Plan: she is s/p appendectomy for mucocele on 08/19/24; then postoperatively had JANET w/ multiple electrolyte abnormalities, post surgical ileus and new onset a fib. blood cultures from 07/23 admission grew P vulgaris. s/p IR pelvic drain placement for abscess 08/28; IR drain culture 08/30 grew E coli, B vulgatus and Clostridium innocuum; s/p extended R colectomy w/ abscess drainage 08/30, from which cxs grew . started TPN 08/31 on 09/16 w/ FOBT+ and multiple BM; C diff gene + >> starteed po vanoc 09/17 surg wound now w/ pus like drainage; wound cx pending. on ertapenem and IV dapto added for empiric MRSA coverage Admission and Anticipated Discharge Date Admission Date: August 23, 2024 Subjective had some bloody BM again last evening and heparin held w/ late AM recheck planned; pt w/o c/o new pain or change in edema; feels a bit cold Review of Systems 2 Review of Systems: All systems reviewed & are unremarkable except as noted in Subjective Physical Exam 2 Constitutional: well developed and well nourished Eyes: EOM intact bilaterally ENMT: Mouth: + dry oral mucous membranes Respiratory: normal respiratory effort Auscultation: + diminished lung sounds Cardiovascular: Rate/Rhythm: regular rate and regular rhythm Extremities: + edema (2-3+ dependent pitting edema and 2+ nonpitting edema bilateral lower extrem) Gastrointestinal (Abdomen): Inspection/Auscultation: normal bowel sounds P ercussion/Palpation: abdomen soft; abdomen nontender Musculoskeletal: Extremities: strength 5/5 throughout Skin: no rashes, warm and dry Neurologic: +BLUE tremors; more oriented today Results & Data Vital Signs (Past 12 Hours) Vital Signs Temp Pulse Resp BP BP Pulse Ox O2 Del Method 09/18/24 11:06 36.5 C 105 H 20 130/78 95 Room Air 09/18/24 10:49 Room Air 09/18/24 07:39 36.5 C 95 H 20 142/76 H 96 Room Air 09/18/24 03:14 36.5 C 89 18 146/81 H 95 Room Air Laboratory Results 09/18/24 10:04 09/18/24 05:40
[2024-09-18] MEDS: POTASSIUM CHLORIDE CRTAB 20 MEQ TABCR PO SCH (13:35)
--- NOTE | 2024-09-18 14:01 | Hospitalist Progress Note ---
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 She presented critically ill with acute renal failure, multiple electrolyte abnormalities and evidence of severe sepsis with organ dysfunction as evidenced by renal failure, postsurgical ileus, and new onset atrial fibrillation. Currently s/p IR pelvic drain placement for abscesses on 08/28/24 and extended right colectomy with drainage of abscess by general surgeon Dr. Pacheco on 08/30/24. She is currently being treated as follows: Sepsis Proteus bacteremia Intra abdominal/pelvic abscesses Postsurgical ileus Cholelithiasis w/o evidence of cholecystitis Recent laparoscopic appendicectomy of large mucocele of appendix by Dr. Pacheco on 08/19/2024 CT abdomen/pelvis from 08/25/24 noting "Absent appendix consistent with appendectomy history with increased fluid and gas throughout the abdomen and pelvis more than expected particularly at the level of the surgical bed. Dehiscence is not excluded. No discrete encapsulated drainable fluid collection although early abscess cannot be excluded. Prominent fluid distended proximal small bowel and to some extent distal small bowel fecal type densities which can be seen in slow small bowel transit. Mild ileus is not excluded... CT abdomen with oral contrast: Pneumoperitoneum with right retroperitoneal gas mildly decreased. Cannot rule out anastomotic leak with abscess. Contrast has not reached the distal small bowel. Findings suggestive of ileus. Blood cultures from admission grew Proteus vulgaris, repeat blood cultures negative CT Abd/Pelvis with IV contrast on 08/28/24 showed increased pneumoperitoneum and right retroperitoneal gas, multifocal abscesses IV antibiotics broadened to Vancomycin and meropenem at that time S/p IR placement of drain on 08/28/24 Persistent leukocytosis IR drain culture from 08/28/24 grew E coli, bacteroides vulgatus and Clostridium innocuum c diff gene +, toxin negative S/p Exploratory laparotomy which showed small bowel perforation with abscess on 08/30/24, s/p extended right colectomy with drainage of abscess by general surgeon Dr. Pacheco on 08/30/24 Infectious Disease was consulted, appreciate recs -Antibiotics deescalated to IV ceftriaxone and metronidazole -Repeat imaging to reassess abscess size and response to treatment. 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 Broadening abx therapy to ertapenem 1g IV qd is reasonable, but the issue is primarily one of source control. If these areas are not drainable, then her recovery may be slowed. Repeating imaging in the next 1-2 weeks, or if she worsens in the meantime, will be warranted. Total duration of therapy remains a little unclear, but given her current CT findings, I would expect 4-6 weeks. Final plans remain pending. 09/12 Overnight incr. abdominal pain, stool reddish -> CT abd. obtained and surgery contacted. Conservative management. WBC has since normalized 09/16- FOBT + GI consulted, multiple BMs, c diff gene positive, on po vancomycin 09/17/24- surgical wound now with pus-like drainage, wound culture obtained overnight and pending. On IV Ertapenem and PO vancomycin for c diff rx, added IV Daptomycin for empiric MRSA coverage until culture results. General Surgery aware. 09/18- wound cx NGTD, continue with IV Ertapenem and Daptomycin, po vancomycin for c diff + gene and diarrhea treatment. Pulmonary Emboli Possible DVT RR increased on 09/04 CTA chest ordered- noted bilateral pulmonary emboli Pt declining doppler US lower extremities due to pain with completing medical testing at this time, discussion that results will not climate change risk assessor as she is already on IV heparin Continue IV heparin at this time Monitor H/H Continue to monitor On IV heparin 09/18-Hgb of 6.9 today, heparin held and H/H repeated. 7.9 on repeat, will trend q4h. Edema Pt with extremity edema Recent JANET with recovered urinary output a few days ago Cont. diuresis with IV lasix 60mg BID Monitor kidney function Input from Nephrology appreciated, discussed on 09/17 -recommending leg wraps, communication order placed Acute kidney injury - resolved JANET had initially resolved but developed again Creatinine 3.9>>2.26>>0.94>1.51>>1.87>1.61 >> 0.6 Likely from sepsis + contrast Improved urine output Avoid contrast and nephrotoxins as much as possible Nephrology on board, appreciate recs Currently resolved. Esophagitis Possible GI bleed Noted on CT imaging and EGD performed on 09/09 by GI Continue IV ppi, sucralfate FOBT positive, GI consulted once more on 09/16- appreciate further GI recs on 09/17 Prediabetes hgba1c of 6.3 Noted hyperglycemia, was on TPN, now stopped Continue to monitor at this time Acute on chronic anemia Iron Deficiency Anemia Likely due to sepsis, blood loss and iron deficiency Got 2UPRBC on 08/31/24 Anemia panel showed low iron levels- Current recommendations advise against use of IV Venofer in the setting of severe infection, will need po supplementation once able to tolerate po- started Continue to monitor h/h Atrial fibrillation-new onset In the setting of sepsis Spontaneously converted to sinus ECHO: EF 55 to 60%. Mild concentric LVH. Left atrium mildly dilated. Mild tricuspid regurgitation. No significant pulmonary hypertension. Cardiology eval noted. No anticoagulation recommended Continue tele monitor IV lopressor 5mg q6h for now. Plan to switch to po metoprolol succinate when able to take po---restarted on po Toprol at 12.5mg BID on 09/17/24 May need ZIO monitor as outpatient Pt been on IV heparin as noted above in the setting of PEs (since 09/04), started warfarin, monitor INR, then heparin on hold as above Currently back on IV heparin Hyponatremia Hypokalemia K is 3.9 today. Replace and monitor Mild troponin elevation Likely demand ischemia secondary to sepsis, A-fib RVR Denies any chest pain, dyspnea Diet:regular DVT Px: IV heparin Code Status :Full Code Dispo: Per PT/OT recs Admission and Anticipated Discharge Date Admission Date: August 23, 2024 Subjective Pt was seen with her daughter at bedside No overnight events Wound still with some drainage Hgb of 6.9 today, >7 on repeat Review of Systems Review of Systems: All systems reviewed & are unremarkable except as noted in Subjective Physical Exam Physical Exam: General: Alert, oriented. No acute distress HEENT: NC/AT CV: RRR Resp: breath sounds decreased bilaterally, no increased effort of breathing Abdomen:Soft, tender, wound with noted drainage, soiled bandages Extremities: edema in lower extremities bilaterally. Results & Data Results & Data Vital Signs (Past 12 Hours) Vital Signs Temp Pulse Resp BP BP Pulse Ox O2 Del Method 09/18/24 11:06 36.5 C 105 H 20 130/78 95 Room Air 09/18/24 10:49 Room Air 09/18/24 07:39 36.5 C 95 H 20 142/76 H 96 Room Air 09/18/24 03:14 36.5 C 89 18 146/81 H 95 Room Air
[2024-09-18 14:26] LABS: Hematocrit (blood only) 23.6 % (37.0-47.0); Hemoglobin 7.7 g/dl (12.0-16.0)
--- NOTE | 2024-09-18 15:00 | Surgery Progress Note ---
Date of Service September 18, 2024 Assessment & Plan (1) S/P right colectomy: Plan: slow progress IV abx encourage PO and ambulating drain slowing wound not draining much; probed yesterday will see Saturday Dr Galloway roundchen this weekend; appreciated. Admission and Anticipated Discharge Date Admission Date: August 23, 2024 Subjective good day ambulating eating OK AF VSS Review of Systems Constitutional: no fever and no chills Gastrointestinal: + abdominal pain Neurologic: + generalized weakness Psychiatric: no behavioral changes Physical Exam Constitutional: WD/WN, vitals as above Respiratory: normal respiratory effort Gastrointestinal (Abdomen): Inspection/Auscultation: + abdominal surgical incision (less drainage) Percussion/Palpation: + abdomen tender and abdomen soft Musculoskeletal: Head/Neck/Chest: normocephalic and head atraumatic Results & Data Vital Signs (Past 12 Hours) Vital Signs Temp Pulse Resp BP BP Pulse Ox O2 Del Method 09/18/24 11:06 36.5 C 105 H 20 130/78 95 Room Air 09/18/24 10:49 Room Air 09/18/24 07:39 36.5 C 95 H 20 142/76 H 96 Room Air 09/18/24 03:14 36.5 C 89 18 146/81 H 95 Room Air
[2024-09-18 17:36] LABS: ANTI-Xa, UFH(UnfractionatedHep 0.32 IU/ml (0.3-0.7)
[2024-09-18] MEDS: METOPROLOL TARTRATE 25 MG TAB PO SCH (19:59)
[2024-09-18 20:31] LABS: Hematocrit (blood only) 25.0 % (37.0-47.0); Hemoglobin 7.9 g/dl (12.0-16.0)
[2024-09-19 02:08] LABS: Hematocrit (blood only) 22.4 % (37.0-47.0); Hemoglobin 7.3 g/dl (12.0-16.0); Immature Granulocytes # (auto) 0.17 K/uL (0.01-0.20); Immature Granulocytes % (auto) 1.5 %; Mean Corpuscular Hemoglobin 27.5 pg (25.0-34.0); Mean Corpuscular Volume 84.5 fL (80.0-100.0); Platelet Count 626 K/uL (130-400); RDW Standard Deviation 53.8 fL (36.4-46.3); Red Blood Count 2.65 M/uL (4.20-5.40); White Blood Count 11.49 K/ul (4.8-10.8)
[2024-09-19 02:47] LABS: Polychromasia 1+
[2024-09-19 07:08] LABS: ANTI-Xa, UFH(UnfractionatedHep 0.44 IU/ml (0.3-0.7)
[2024-09-19 07:30] LABS: Anion Gap 9.0 (3-11); Bilirubin,Total 0.4 mg/dl (0.2-1.0); Calcium 8.9 mg/dl (8.6-10.3); Carbon Dioxide 29.0 mmol/L (21-32); Chloride 98.0 mmol/L (98-107); Magnesium 1.9 mg/dl (1.7-2.4); Potassium 4.3 mmol/L (3.5-5.1); Sodium 136.0 mmol/L (136-145)
[2024-09-19 07:36] LABS: Alanine Aminotransferase 10.0 U/L (7-52); Albumin Globulin Ratio 0.8 (0.9-2); Alkaline Phosphatase 85.0 U/L (34-104); Blood Urea Nitrogen 7.0 mg/dl (6-23); Creatinine Clr Calc Pharmacy 73.1 ml/min; Globulin 3.6 gm/dl (2.5-4.0); Glucose 106.0 mg/dl (70-99(Fasting)); Total Protein 6.3 gm/dl (6.0-8.3)
[2024-09-19 08:50] LABS: Hematocrit (blood only) 23.6 % (37.0-47.0); Hemoglobin 7.4 g/dl (12.0-16.0)
--- NOTE | 2024-09-19 08:55 | Surgery Progress Note ---
Date of Service September 19, 2024 Assessment & Plan (1) S/P right colectomy: Plan: Patient is s/p exploratory laparotomy and right hemicolectomy for small bowel injury status post laparoscopic appendectomy for mucocele WBC 11.4, VSS, and afebrile Continue diet as tolerated Encourage OOB and ambulation while awake Continue IV abx, HAYDEE drain, and dressing changes to surgical sites Continue current medical management, surgery will continue to follow Admission and Anticipated Discharge Date Admission Date: August 23, 2024 Supervising Physician Co-Signing Physician Notes Patient seen and examined, labs reviewed, agree with above. History of appendectomy complicated by small bowel injury status post right hemicolectomy with intra-abdominal fluid collections. Overall doing well, feels better each and every day. No fevers. Working with PT at the bedside. Afebrile with stable vitals. Abdomen soft, dressing in place. HAYDEE cloudy and feculent material. WBC stable around 11. Continue current management. Will likely need long-term antibiotics and possibly rehab. Subjective Patient sitting up in chair this morning, states she is feeling ok Tolerating diet however does complain the food is "too heavy" Passing gas and having BMs VSS, Afebrile, and WBC 11.4. Continues on IV abx Physical Exam Constitutional: WD/WN, vitals as above Respiratory: normal respiratory effort, lungs clear to auscultation Cardiovascular: Rate/Rhythm: regular rate Gastrointestinal (Abdomen): Abdomen soft, surgical sites with minimal drainage present. HAYDEE drain in place with mcfarland-colored fluid Results & Data Vital Signs (Past 12 Hours) Vital Signs Temp Pulse Pulse Resp BP BP Pulse Ox 09/19/24 07:55 36.7 C 95 H 20 115/75 97 09/19/24 02:54 37.0 C 98 H 17 125/77 95 09/18/24 23:04 37.0 C 102 H 16 144/78 H 94 09/18/24 21:50 96 H O2 Del Method 09/19/24 07:55 Room Air 09/19/24 02:54 Room Air 09/18/24 23:04 Room Air 09/18/24 21:50 PG Care Time/CCT Total # of Minutes Spent Total Time Spent with Patient: Total time spent is greater than 50% in coordination of care (as documented) at patient's floor/unit and/or counseling patient: Coding [place] [address] SUB INP/OBS CARE 04/18MIN Patient Type Established Medical Decision Making Straight Forward Diagnoses S/P right colectomy Z90.49
--- NOTE | 2024-09-19 14:23 | Hospitalist Progress Note ---
Date of Service September 19, 2024 Assessment & Plan (1) Severe sepsis with acute organ dysfunction: (2) Atrial fibrillation, new onset: (3) Acute renal failure: (4) Ileus due to infection: (5) Peritonitis due to abscess: (6) Electrolyte abnormality: (7) Pneumoperitoneum: (8) Demand ischemia of myocardium: (9) Low grade mucinous neoplasm of appendix: (10) Status post laparoscopic appendectomy: (11) Paroxysmal SVT (supraventricular tachycardia): Plan Pt is a 68-year-old female status post appendectomy for mucocele on 08/19/2024. She presented critically ill with acute renal failure, multiple electrolyte abnormalities and evidence of severe sepsis with organ dysfunction as evidenced by renal failure, postsurgical ileus, and new onset atrial fibrillation. Currently s/p IR pelvic drain placement for abscesses on 08/28/24 and extended right colectomy with drainage of abscess by general surgeon Dr. Pacheco on 08/30/24. She is currently being treated as follows: Sepsis Proteus bacteremia Intra abdominal/pelvic abscesses Postsurgical ileus Cholelithiasis w/o evidence of cholecystitis Recent laparoscopic appendicectomy of large mucocele of appendix by Dr. Pacheco on 08/19/2024 CT abdomen/pelvis from 08/25/24 noting "Absent appendix consistent with appendectomy history with increased fluid and gas throughout the abdomen and pelvis more than expected particularly at the level of the surgical bed. Dehiscence is not excluded. No discrete encapsulated drainable fluid collection although early abscess cannot be excluded. Prominent fluid distended proximal small bowel and to some extent distal small bowel fecal type densities which can be seen in slow small bowel transit. Mild ileus is not excluded... CT abdomen with oral contrast: Pneumoperitoneum with right retroperitoneal gas mildly decreased. Cannot rule out anastomotic leak with abscess. Contrast has not reached the distal small bowel. Findings suggestive of ileus. Blood cultures from admission grew Proteus vulgaris, repeat blood cultures negative CT Abd/Pelvis with IV contrast on 08/28/24 showed increased pneumoperitoneum and right retroperitoneal gas, multifocal abscesses IV antibiotics broadened to Vancomycin and meropenem at that time S/p IR placement of drain on 08/28/24 Persistent leukocytosis IR drain culture from 08/28/24 grew E coli, bacteroides vulgatus and Clostridium innocuum c diff gene +, toxin negative S/p Exploratory laparotomy which showed small bowel perforation with abscess on 08/30/24, s/p extended right colectomy with drainage of abscess by general surgeon Dr. Pacheco on 08/30/24 Infectious Disease was consulted, appreciate recs -Antibiotics deescalated to IV ceftriaxone and metronidazole -Repeat imaging to reassess abscess size and response to treatment. NG tube still in place, started on TPN on 08/31/24 Required ICU stay postop on 08/30, downgraded on 09/01 PT/OT Pain control- General surgery started morphine consumer affairs director on 09/04 ID reconsulted on 09/09, note the following: The rising WBC is clearly linked with the spread of numerous small abscesses, though RP bleeding and evolving abscess there is also a concern. Broadening abx therapy to ertapenem 1g IV qd is reasonable, but the issue is primarily one of source control. If these areas are not drainable, then her recovery may be slowed. Repeating imaging in the next 1-2 weeks, or if she worsens in the meantime, will be warranted. Total duration of therapy remains a little unclear, but given her current CT findings, I would expect 4-6 weeks. Final plans remain pending. 09/12 Overnight incr. abdominal pain, stool reddish -> CT abd. obtained and surgery contacted. Conservative management. WBC has since normalized 09/16- FOBT + GI consulted, multiple BMs, c diff gene positive, on po vancomycin 09/17/24- surgical wound now with pus-like drainage, wound culture obtained overnight and pending. On IV Ertapenem and PO vancomycin for c diff rx, added IV Daptomycin for empiric MRSA coverage until culture results. General Surgery aware. 09/18- wound cx NGTD, continue with IV Ertapenem and Daptomycin, po vancomycin for c diff + gene and diarrhea treatment. 09/19-lactobacillus growing on wound culture, contaminant? Pulmonary Emboli Possible DVT RR increased on 09/04 CTA chest ordered- noted bilateral pulmonary emboli Pt declining doppler US lower extremities due to pain with completing medical testing at this time, discussion that results will not jacket changer as she is already on IV heparin Continue IV heparin at this time Monitor H/H Continue to monitor On IV heparin 09/18-Hgb of 6.9 today, heparin held and H/H repeated. 7.9 on repeat, will trend q4h. 09/19- hgb 7.4 Edema Pt with extremity edema Recent JANET with recovered urinary output a few days ago Cont. diuresis with IV lasix 60mg BID Monitor kidney function Input from Nephrology appreciated, discussed on 09/17 -recommending leg wraps, communication order placed Acute kidney injury - resolved JANET had initially resolved but developed again Creatinine 3.9>>2.26>>0.94>1.51>>1.87>1.61 >> 0.6 Likely from sepsis + contrast Improved urine output Avoid contrast and nephrotoxins as much as possible Nephrology on board, appreciate recs Currently resolved. Esophagitis Possible GI bleed Noted on CT imaging and EGD performed on 09/09 by GI Continue IV ppi, sucralfate FOBT positive, GI consulted once more on 09/16- appreciate further GI recs on 09/17 Prediabetes hgba1c of 6.3 Noted hyperglycemia, was on TPN, now stopped Continue to monitor at this time Acute on chronic anemia Iron Deficiency Anemia Likely due to sepsis, blood loss and iron deficiency Got 2UPRBC on 08/31/24 Anemia panel showed low iron levels- Current recommendations advise against use of IV Venofer in the setting of severe infection, will need po supplementation once able to tolerate po- started Continue to monitor h/h Atrial fibrillation-new onset In the setting of sepsis Spontaneously converted to sinus ECHO: EF 55 to 60%. Mild concentric LVH. Left atrium mildly dilated. Mild tricuspid regurgitation. No significant pulmonary hypertension. Cardiology eval noted. No anticoagulation recommended Continue tele monitor IV lopressor 5mg q6h for now. Plan to switch to po metoprolol succinate when able to take po---restarted on po Toprol at 12.5mg BID on 09/17/24 May need ZIO monitor as outpatient Pt been on IV heparin as noted above in the setting of PEs (since 09/04), started warfarin, monitor INR, then heparin on hold as above Currently back on IV heparin Hyponatremia Hypokalemia K is 3.9 today. Replace and monitor Mild troponin elevation Likely demand ischemia secondary to sepsis, A-fib RVR Denies any chest pain, dyspnea Diet:regular DVT Px: IV heparin Code Status :Full Code Dispo: Per PT/OT recs Admission and Anticipated Discharge Date Admission Date: August 23, 2024 Subjective extensive discussion with pt, daughter and at bedside With difficulty aaox3 Family noticing episodes of confusion She is concerned about the frequent bouts of urinary incontinence Review of Systems Review of Systems: All systems reviewed & are unremarkable except as noted in Subjective Physical Exam Physical Exam: General: Alert, oriented. No acute distress HEENT: NC/AT CV: RRR Resp: breath sounds decreased bilaterally, no increased effort of breathing Abdomen:Soft, tender, wound with noted drainage, soiled bandages Extremities: edema in lower extremities bilaterally. Results & Data Results & Data Vital Signs (Past 12 Hours) Vital Signs Temp Pulse Pulse Resp BP BP Pulse Ox 09/19/24 14:17 97 H 09/19/24 12:47 93 H 09/19/24 11:30 36.5 C 94 H 18 109/74 96 09/19/24 07:55 36.7 C 95 H 20 115/75 97 09/19/24 07:30 09/19/24 02:54 37.0 C 98 H 17 125/77 95 O2 Del Method 09/19/24 14:17 09/19/24 12:47 09/19/24 11:30 Room Air 09/19/24 07:55 Room Air 09/19/24 07:30 Room Air 09/19/24 02:54 Room Air
--- NOTE | 2024-09-19 15:51 | Nephrology Progress Note ---
Date of Service September 19, 2024 Assessment & Plan (1) Electrolyte and fluid disorder: Plan: marked edema of the extremities after extended and complex hospital admission. nephro was reconsulted 09/05 for assistance w/ volume mgt and approved of 40 mg daily lasix dose w/ appropriate creatinine/resolved JANET. on admission weighed 81.3 kg on 08/24, up rapidly to 86.2 by 08/26; on 09/05 (when nephro was reconsulted for vol mgt) weighed 95.8 kg. today weighs 87.9 kg on bed w/ wt down trending from 97.5 on 09/13. her serum albumin is 2.7, slowly up from bao 1.6 on 08/30 her creatinine has run generally 0.4-0.8 since 09/03 resolution of JANET; today it is 0.8. Notably a significant portion of changes in albumin and creatinine in the serum may relate to changes in volume status as much as or more than actual improvement of function. Her Leon was removed 09/16. she has been maintained on lasix 60 mg IV bid w/ 20 mEq bid> tid K since at least 09/08. She is on RA and SBP 110s generally; as of September 17, she is 15.1 L positive on the admission per her intake and output but these are cleraly at times incomplete (days w/o uop). > continue current lasix dosing >maintain K 4.0 >> cont K tid Given complexity of maintaining her nutrition would not impose fluid limit at this time Continue daily bed weights and aim for daily standing weight when feasible Suggest gentle compression on the legs whether Tubigrip's or sigifredo wraps since compression hose and SCDs not tolerated >> suggest continuing to wrap SIGIFREDO gentlyl as tolerated once - 2X daily Encourage protein intake and continue to offer boost or other protein supplements Daily basic metabolic panel and magnesium -elevate feet as much as able wes when sitting up Care coordinated w/ Dr Helm via TTExt re current volume parameters and status, wrapping recs; we are in agreement. (2) Acute renal failure: Plan: Patient initially had acute kidney injury likely ATN in setting of sepsis but had improved back to normal. Creatinine started rising after contrast administration on 08/28 which again resolved and she was signed off by Nephrology on 09/02. CT showed no hydronephrosis. She has non obstructive kidney stone. (3) Peritonitis due to abscess: Plan: she is s/p appendectomy for mucocele on 08/19/24; then postoperatively had JANET w/ multiple electrolyte abnormalities, post surgical ileus and new onset a fib. blood cultures from 07/23 admission grew P vulgaris. s/p IR pelvic drain placement for abscess 08/28; IR drain culture 08/30 grew E coli, B vulgatus and Clostridium innocuum; s/p extended R colectomy w/ abscess drainage 08/30, from which cxs grew . started TPN 08/31 on 09/16 w/ FOBT+ and multiple BM; C diff gene + >> started po vanoc 09/17 surg wound now w/ pus like drainage; wound cx pending. on ertapenem and IV dapto added for empiric MRSA coverage Admission and Anticipated Discharge Date Admission Date: August 23, 2024 Subjective tolerating sigifredo wraps though legs soaked w/ urine; considering trial of purewick and encouraged her to consider; struggling to take in protein but trying;aware to minimze sodium Review of Systems 2 Review of Systems: All systems reviewed & are unremarkable except as noted in Subjective Physical Exam 2 Constitutional: well developed (sitting up in chair on ra) and well nourished; no acute distress Eyes: EOM intact bilaterally ENMT: Mouth: + dry oral mucous membranes Respiratory: normal respiratory effort Cardiovascular: Extremities: + edema (1+ dependent pitting edema and 2-3+ nonpitting edema bilateral lower extrem) Gastrointestinal (Abdomen): Inspection/Auscultation: normal bowel sounds P ercussion/Palpation: abdomen soft; abdomen nontender Musculoskeletal: Extremities: strength 5/5 throughout Skin: no rashes, warm and dry Results & Data Vital Signs (Past 12 Hours) Vital Signs Temp Pulse Pulse Resp BP BP Pulse Ox 09/19/24 14:17 97 H 09/19/24 12:47 93 H 09/19/24 11:30 36.5 C 94 H 18 109/74 96 09/19/24 07:55 36.7 C 95 H 20 115/75 97 09/19/24 07:30 O2 Del Method 09/19/24 14:17 09/19/24 12:47 09/19/24 11:30 Room Air 09/19/24 07:55 Room Air 09/19/24 07:30 Room Air Laboratory Results 09/19/24 08:20 09/19/24 06:16
[2024-09-19] MEDS: METOPROLOL TARTRATE 25 MG TAB PO SCH (19:56)
[2024-09-20 06:23] LABS: Hematocrit (blood only) 24.8 % (37.0-47.0); Hemoglobin 7.9 g/dl (12.0-16.0); Immature Granulocytes # (auto) 0.14 K/uL (0.01-0.20); Immature Granulocytes % (auto) 1.2 %; Mean Corpuscular Hemoglobin 27.2 pg (25.0-34.0); Mean Corpuscular Volume 85.5 fL (80.0-100.0); Platelet Count 689 K/uL (130-400); RDW Standard Deviation 55.5 fL (36.4-46.3); Red Blood Count 2.90 M/uL (4.20-5.40); White Blood Count 11.53 K/ul (4.8-10.8)
[2024-09-20 06:40] LABS: Alanine Aminotransferase 11.0 U/L (7-52); Albumin Globulin Ratio 0.8 (0.9-2); Alkaline Phosphatase 89.0 U/L (34-104); Anion Gap 8.0 (3-11); Bilirubin,Total 0.4 mg/dl (0.2-1.0); Blood Urea Nitrogen 7.0 mg/dl (6-23); Calcium 9.0 mg/dl (8.6-10.3); Carbon Dioxide 30.0 mmol/L (21-32); Chloride 99.0 mmol/L (98-107); Creatinine Clr Calc Pharmacy 77.7 ml/min; Globulin 3.7 gm/dl (2.5-4.0); Glucose 97.0 mg/dl (70-99(Fasting)); Magnesium 1.9 mg/dl (1.7-2.4); Potassium 3.9 mmol/L (3.5-5.1); Sodium 137.0 mmol/L (136-145); Total Protein 6.5 gm/dl (6.0-8.3)
[2024-09-20 06:47] LABS: Polychromasia 1+
[2024-09-20 06:51] LABS: ANTI-Xa, UFH(UnfractionatedHep 0.46 IU/ml (0.3-0.7)
[2024-09-20 07:01] LABS: INR 1.1 (0.9-1.1); Prothrombin Time 11.8 Seconds (9.0-12.0)
--- NOTE | 2024-09-20 08:14 | Surgery Progress Note ---
Date of Service September 20, 2024 Assessment & Plan (1) S/P right colectomy: Plan: Patient is s/p exploratory laparotomy and right hemicolectomy for small bowel injury status post laparoscopic appendectomy for mucocele WBC 11.5, VSS, and afebrile Continue diet as tolerated Encourage OOB, ambulation, and aggressive PT while awake Continue IV abx HAYDEE drain to remain in place for now Daily dressing changes to surgical sites Medical management per primary team, surgery will continue to follow and will transfer care back to Dr. Pacheco tomorrow. Admission and Anticipated Discharge Date Admission Date: August 23, 2024 Supervising Physician Co-Signing Physician Notes Patient seen and examined, labs reviewed, agree with above. History of appendectomy complicated by small bowel injury status post right hemicolectomy with intra-abdominal fluid collections. Overall doing well, feels better each and every day. No fevers. Afebrile with stable vitals. Abdomen soft, dressing in place. HAYDEE cloudy and feculent material. WBC stable around 11. Continue current management. Will likely need long-term antibiotics and possibly rehab. Dr. Schulz back tomorrow. Subjective Patient seen and examined this morning, feels well. Eating breakfast VSS, afebrile, WBC 11.5 today, continues on IV abx at this time HAYDEE remains in place, recorded 50cc, continues to be cloudy/feculent appearing in color Hemodynamically stable, hgb 7.9 Passing gas and having BMs Physical Exam Constitutional: WD/WN, vitals as above Respiratory: normal respiratory effort, lungs clear to auscultation Cardiovascular: Rate/Rhythm: regular rate Gastrointestinal (Abdomen): Abdomen soft, surgical sites with minimal drainage present. [place] in place. HAYDEE drain with cloudy and feculent material, 50cc output Results & Data Vital Signs (Past 12 Hours) Vital Signs Temp Pulse Resp BP Pulse Ox O2 Del Method 09/20/24 07:40 Room Air 09/20/24 07:38 36.7 C 95 H 18 127/76 93 Room Air 09/20/24 03:17 36.8 C 87 17 122/74 94 Room Air 09/19/24 23:25 36.6 C 86 18 138/81 95 Room Air PG Care Time/CCT Total # of Minutes Spent Total Time Spent with Patient: Total time spent is greater than 50% in coordination of care (as documented) at patient's floor/unit and/or counseling patient: [place] [address] SUB INP/OBS CARE Patient Type Established Medical Decision Making Straight Forward Diagnoses S/P right colectomy Z90.49
--- NOTE | 2024-09-20 08:48 | Nephrology Progress Note ---
Date of Service September 20, 2024 Assessment & Plan (1) Electrolyte and fluid disorder: Plan: marked edema of the extremities after extended and complex hospital admission. nephro was reconsulted 09/05 for assistance w/ volume mgt and approved of 40 mg daily lasix dose w/ appropriate creatinine/resolved JANET. on admission weighed 81.3 kg on 08/24, up rapidly to 86.2 by 08/26; on 09/05 (when nephro was reconsulted for vol mgt) weighed 95.8 kg. then nephro reconsulted 09/17 for volume mgt. she weighed 97.5 on 09/13, has been mid to high 87s on 09/17-; today 84.8 (all bedscale wts) her serum albumin is 2.8 today, slowly up from bao 1.6 on 08/30 her creatinine has run generally 0.4-0.8 since 09/03 resolution of JANET; today it is 0.7. Notably a significant portion of changes in albumin and creatinine in the serum may relate to changes in volume status as much as or more than actual improvement of function. Her Leon was removed 09/16. she has been maintained on lasix 60 mg IV bid w/ 20 mEq bid> tid K since at least 09/08; on increased lasix to 60 mg iV lasix tid at adn upped K to qid She is on RA and SBP 110s generally; as of September 17, she is 15.1 L positive on the admission per her intake and output but these are clearly at times incomplete (days w/o uop). >>>>> increased lasix dosing as above >>>>>maintain K 4.0 >> upped K to qid Given complexity of maintaining her nutrition would not impose fluid limit at this time Continue daily bed weights and aim for daily standing weight when feasible continue gentle compression on the legs whether Tubigrip's or sigifredo wraps since compression hose and SCDs not tolerated >> suggest continuing to wrap SIGIFREDO gentlyl as tolerated once - 2X daily Encourage protein intake and continue to offer boost or other protein supplements Daily basic metabolic panel and magnesium -elevate feet as much as able wes when sitting up Care coordinated w/ Dr Helm via TTExt re current volume parameters and status/meds, thrombocytosis, wrapping recs; we are in agreement. (2) Thrombocytosis, unspecified: Plan: present consistently since mid month; likely reactive >>defer to primary service to evaluate as needed (3) Peritonitis due to abscess: Plan: she is s/p appendectomy for mucocele on 08/19/24; then postoperatively had JANET w/ multiple electrolyte abnormalities, post surgical ileus and new onset a fib. blood cultures from 07/23 admission grew P vulgaris. s/p IR pelvic drain placement for abscess 08/28; IR drain culture 08/30 grew E coli, B vulgatus and Clostridium innocuum; s/p extended R colectomy w/ abscess drainage 08/30, w/ + cultures. started TPN 08/31 but off that since at least 09/17 on 09/16 w/ FOBT+ and multiple BM; C diff gene + >> started po vanoc 09/17 surg wound now w/ pus like drainage; wound cx pending. on ertapenem and IV dapto added for empiric MRSA coverage (4) Acute renal failure: Plan: RESOLVED. Patient initially had acute kidney injury likely ATN in setting of sepsis but had improved back to normal. Creatinine started rising after contrast administration on 08/28 which again resolved and she was signed off by Nephrology on 09/02. CT showed no hydronephrosis. She has non obstructive kidney stone. Admission and Anticipated Discharge Date Admission Date: August 23, 2024 Subjective Some issues with the pure wick. Maybe will retry it later today. No shortness of breath. Edema slowly coming down. Still struggling to find food especially protein rich food on hospital menu that appeals to her Review of Systems 2 Review of Systems: All systems reviewed & are unremarkable except as noted in Subjective Physical Exam 2 Constitutional: well developed (sitting up in chair on ra) and well nourished; no acute distress Eyes: EOM intact bilaterally ENMT: Mouth: + dry oral mucous membranes Respiratory: normal respiratory effort Auscultation: + diminished lung sounds Cardiovascular: Rate/Rhythm: regular rate and regular rhythm Extremities: + edema (tr dependent pitting edema and 2+ nonpitting edema bilateral lower extrem) Gastrointestinal (Abdomen): Inspection/Auscultation: normal bowel sounds P ercussion/Palpation: abdomen soft; abdomen nontender Musculoskeletal: Extremities: strength 5/5 throughout Skin: no rashes, warm and dry Results & Data Vital Signs (Past 12 Hours) Vital Signs Temp Pulse Resp BP Pulse Ox O2 Del Method 09/20/24 07:40 Room Air 09/20/24 07:38 36.7 C 95 H 18 127/76 93 Room Air 09/20/24 03:17 36.8 C 87 17 122/74 94 Room Air 09/19/24 23:25 36.6 C 86 18 138/81 95 Room Air Laboratory Results 09/20/24 05:56 09/20/24 05:56
[2024-09-20] MEDS ORDERED: POTASSIUM CHLORIDE 20 MEQ/15 ML UDC PO SCH (09:00)
[2024-09-20] MEDS: POTASSIUM CHLORIDE 20 MEQ/15 ML UDC PO SCH (09:25)
[2024-09-20] MEDS: FUROSEMIDE INJ 20 MG/2 ML VIAL IV SCH (09:34)
--- NOTE | 2024-09-20 12:11 | Hospitalist Progress Note ---
Date of Service September 20, 2024 Assessment & Plan (1) Severe sepsis with acute organ dysfunction: (2) Atrial fibrillation, new onset: (3) Acute renal failure: (4) Ileus due to infection: (5) Peritonitis due to abscess: (6) Electrolyte abnormality: (7) Pneumoperitoneum: (8) Demand ischemia of myocardium: (9) Low grade mucinous neoplasm of appendix: (10) Status post laparoscopic appendectomy: (11) Paroxysmal SVT (supraventricular tachycardia): Plan Pt is a 68-year-old female status post appendectomy for mucocele on 08/19/2024. She presented critically ill with acute renal failure, multiple electrolyte abnormalities and evidence of severe sepsis with organ dysfunction as evidenced by renal failure, postsurgical ileus, and new onset atrial fibrillation. Currently s/p IR pelvic drain placement for abscesses on 08/28/24 and extended right colectomy with drainage of abscess by general surgeon Dr. Pacheco on 08/30/24. She is currently being treated as follows: Sepsis Proteus bacteremia Intra abdominal/pelvic abscesses Postsurgical ileus Cholelithiasis w/o evidence of cholecystitis Recent laparoscopic appendicectomy of large mucocele of appendix by Dr. Pacheco on 08/19/2024 CT abdomen/pelvis from 08/25/24 noting "Absent appendix consistent with appendectomy history with increased fluid and gas throughout the abdomen and pelvis more than expected particularly at the level of the surgical bed. Dehiscence is not excluded. No discrete encapsulated drainable fluid collection although early abscess cannot be excluded. Prominent fluid distended proximal small bowel and to some extent distal small bowel fecal type densities which can be seen in slow small bowel transit. Mild ileus is not excluded... CT abdomen with oral contrast: Pneumoperitoneum with right retroperitoneal gas mildly decreased. Cannot rule out anastomotic leak with abscess. Contrast has not reached the distal small bowel. Findings suggestive of ileus. Blood cultures from admission grew Proteus vulgaris, repeat blood cultures negative CT Abd/Pelvis with IV contrast on 08/28/24 showed increased pneumoperitoneum and right retroperitoneal gas, multifocal abscesses IV antibiotics broadened to Vancomycin and meropenem at that time S/p IR placement of drain on 08/28/24 Persistent leukocytosis IR drain culture from 08/28/24 grew E coli, bacteroides vulgatus and Clostridium innocuum c diff gene +, toxin negative S/p Exploratory laparotomy which showed small bowel perforation with abscess on 08/30/24, s/p extended right colectomy with drainage of abscess by general surgeon Dr. Pacheco on 08/30/24 Infectious Disease was consulted, appreciate recs -Antibiotics deescalated to IV ceftriaxone and metronidazole -Repeat imaging to reassess abscess size and response to treatment. 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 Broadening abx therapy to ertapenem 1g IV qd is reasonable, but the issue is primarily one of source control. If these areas are not drainable, then her recovery may be slowed. Repeating imaging in the next 1-2 weeks, or if she worsens in the meantime, will be warranted. Total duration of therapy remains a little unclear, but given her current CT findings, I would expect 4-6 weeks. Final plans remain pending. 09/12 Overnight incr. abdominal pain, stool reddish -> CT abd. obtained and surgery contacted. Conservative management. WBC has since normalized 09/16- FOBT + GI consulted, multiple BMs, c diff gene positive, on po vancomycin 09/17/24- surgical wound now with pus-like drainage, wound culture obtained overnight and pending. On IV Ertapenem and PO vancomycin for c diff rx, added IV Daptomycin for empiric MRSA coverage until culture results. General Surgery aware. 09/18- wound cx NGTD, continue with IV Ertapenem and Daptomycin, po vancomycin for c diff + gene and diarrhea treatment. 09/19-lactobacillus growing on wound culture, contaminant? 09/20- increasing wbc once more, to follow up with ID tomorrow for final abx recs. Could be reactive component? Pulmonary Emboli Possible DVT RR increased on 09/04 CTA chest ordered- noted bilateral pulmonary emboli Pt declining doppler US lower extremities due to pain with completing medical testing at this time, discussion that results will not change control coordinator as she is already on IV heparin Continue IV heparin at this time Monitor H/H Continue to monitor On IV heparin 09/18-Hgb of 6.9 today, heparin held and H/H repeated. 7.9 on repeat, will trend q4h. 09/19- hgb 7.4 hgb 7.9 today, still on heparin drip until clear no further procedures needed Edema Pt with extremity edema Recent JANET with recovered urinary output a few days ago Cont. diuresis with IV lasix 60mg BID Monitor kidney function Input from Nephrology appreciated, discussed on 09/17 -recommending leg wraps, communication order placed -increased to IV Lasix 60mg TID on 09/20 Discussion with pt about purwik or singh, prefers purwick to help with urinary incontinence with inability to get to the bathroom quickly Acute kidney injury - resolved JANET had initially resolved but developed again Creatinine 3.9>>2.26>>0.94>1.51>>1.87>1.61 >> 0.6 Likely from sepsis + contrast Improved urine output Avoid contrast and nephrotoxins as much as possible Nephrology on board, appreciate recs Currently resolved. Esophagitis Possible GI bleed Noted on CT imaging and EGD performed on 09/09 by GI Continue IV ppi, sucralfate FOBT positive, GI consulted once more on 09/16- appreciate further GI recs on 09/17 Prediabetes hgba1c of 6.3 Noted hyperglycemia, was on TPN, now stopped Continue to monitor at this time Acute on chronic anemia Iron Deficiency Anemia Likely due to sepsis, blood loss and iron deficiency Got 2UPRBC on 08/31/24 Anemia panel showed low iron levels- Current recommendations advise against use of IV Venofer in the setting of severe infection, will need po supplementation once able to tolerate po- started Continue to monitor h/h Atrial fibrillation-new onset In the setting of sepsis Spontaneously converted to sinus ECHO: EF 55 to 60%. Mild concentric LVH. Left atrium mildly dilated. Mild tricuspid regurgitation. No significant pulmonary hypertension. Cardiology eval noted. No anticoagulation recommended Continue tele monitor IV lopressor 5mg q6h for now. Plan to switch to po metoprolol succinate when able to take po---restarted on po Toprol at 12.5mg BID on 09/17/24 May need ZIO monitor as outpatient Pt been on IV heparin as noted above in the setting of PEs (since 09/04), started warfarin, monitor INR, then heparin on hold as above Currently back on IV heparin Hyponatremia Hypokalemia K is 3.9 today. Replace and monitor Mild troponin elevation Likely demand ischemia secondary to sepsis, A-fib RVR Denies any chest pain, dyspnea Thrombocytosis Platelets elevated chronically Likely reactive AM peripheral smear Diet:regular DVT Px: IV heparin Code Status :Full Code Dispo: Per PT/OT recs Admission and Anticipated Discharge Date Admission Date: August 23, 2024 Subjective Pt was seen with her daughter at bedside intially while she walked the halls with PT. Later came back, and pt was resting comfortably listening to her Omnidrone service Denied acute concerns Review of Systems Review of Systems: All systems reviewed & are unremarkable except as noted in Subjective Physical Exam Physical Exam: General: Alert, oriented. No acute distress HEENT: NC/AT CV: RRR Resp: breath sounds decreased bilaterally, no increased effort of breathing Abdomen:Soft, tender Extremities: edema in lower extremities bilaterally, wraps on. Results & Data Results & Data Vital Signs (Past 12 Hours) Vital Signs Temp Pulse Pulse Resp BP Pulse Ox O2 Del Method 09/20/24 11:25 36.7 C 85 18 136/82 96 Room Air 09/20/24 09:06 98 H 09/20/24 07:40 Room Air 09/20/24 07:38 36.7 C 95 H 18 127/76 93 Room Air 09/20/24 03:17 36.8 C 87 17 122/74 94 Room Air
[2024-09-21 06:46] LABS: Hematocrit (blood only) 24.7 % (37.0-47.0); Hemoglobin 7.9 g/dl (12.0-16.0); Immature Granulocytes # (auto) 0.16 K/uL (0.01-0.20); Immature Granulocytes % (auto) 1.4 %; Mean Corpuscular Hemoglobin 27.3 pg (25.0-34.0); Mean Corpuscular Volume 85.5 fL (80.0-100.0); Platelet Count 690 K/uL (130-400); RDW Standard Deviation 56.1 fL (36.4-46.3); Red Blood Count 2.89 M/uL (4.20-5.40); White Blood Count 11.19 K/ul (4.8-10.8)
[2024-09-21 07:05] LABS: Alanine Aminotransferase 11.0 U/L (7-52); Albumin Globulin Ratio 0.8 (0.9-2); Alkaline Phosphatase 92.0 U/L (34-104); Anion Gap 10.0 (3-11); Bilirubin,Total 0.4 mg/dl (0.2-1.0); Blood Urea Nitrogen 8.0 mg/dl (6-23); Calcium 9.1 mg/dl (8.6-10.3); Carbon Dioxide 30.0 mmol/L (21-32); Chloride 96.0 mmol/L (98-107); Creatinine Clr Calc Pharmacy 68.1 ml/min; Globulin 3.8 gm/dl (2.5-4.0); Glucose 108.0 mg/dl (70-99(Fasting)); Magnesium 2.0 mg/dl (1.7-2.4); Potassium 3.8 mmol/L (3.5-5.1); Sodium 136.0 mmol/L (136-145); Total Protein 6.7 gm/dl (6.0-8.3)
[2024-09-21 07:08] LABS: RBC Morphology Unremarkable
[2024-09-21 07:15] LABS: ANTI-Xa, UFH(UnfractionatedHep 0.58 IU/ml (0.3-0.7)
--- NOTE | 2024-09-21 09:29 | Surgery Progress Note ---
Date of Service September 21, 2024 Assessment & Plan (1) S/P right colectomy: Plan: con't IV abx PT encourage PO slow progress Admission and Anticipated Discharge Date Admission Date: August 23, 2024 Subjective strength improving eating OK AF VSS Review of Systems Constitutional: no fever and no chills Gastrointestinal: + abdominal pain; no nausea and no vomit ing Neurologic: + generalized weakness Psychiatric: no behavioral changes Physical Exam Constitutional: WD/WN, vitals as above Respiratory: normal respiratory effort Cardiovascular: Rate/Rhythm: regular rate and regular rhythm Gastrointestinal (Abdomen): Inspection/Auscultation: + abdominal surgical incision (few open areas; no purulent drainage this AM) Percussion/Palpation: + abdomen tender and abdomen soft Musculoskeletal: Head/Neck/Chest: normocephalic and head atraumatic Results & Data Vital Signs (Past 12 Hours) Vital Signs Temp Pulse Pulse Resp BP Pulse Ox O2 Del Method 09/21/24 07:23 36.4 C L 90 18 113/75 100 Room Air 09/21/24 03:10 36.5 C 83 16 120/72 97 Room Air 09/21/24 00:18 Room Air 09/20/24 23:08 36.9 C 84 17 130/77 94 Room Air 09/20/24 21:59 89
--- NOTE | 2024-09-21 15:16 | Hospitalist Progress Note ---
Date of Service September 21, 2024 Assessment & Plan (1) Severe sepsis with acute organ dysfunction: (2) Atrial fibrillation, new onset: (3) Acute renal failure: (4) Ileus due to infection: (5) Peritonitis due to abscess: (6) Electrolyte abnormality: (7) Pneumoperitoneum: (8) Demand ischemia of myocardium: (9) Low grade mucinous neoplasm of appendix: (10) Status post laparoscopic appendectomy: (11) Paroxysmal SVT (supraventricular tachycardia): Plan Pt is a 68-year-old female status post appendectomy for mucocele on 08/19/2024. She presented critically ill with acute renal failure, multiple electrolyte abnormalities and evidence of severe sepsis with organ dysfunction as evidenced by renal failure, postsurgical ileus, and new onset atrial fibrillation. Currently s/p IR pelvic drain placement for abscesses on 08/28/24 and extended right colectomy with drainage of abscess by general surgeon Dr. Pacheco on 08/30/24. She is currently being treated as follows: Sepsis Proteus bacteremia Intra abdominal/pelvic abscesses Postsurgical ileus Cholelithiasis w/o evidence of cholecystitis Recent laparoscopic appendicectomy of large mucocele of appendix by Dr. Pacheco on 08/19/2024 CT abdomen/pelvis from 08/25/24 noting "Absent appendix consistent with appendectomy history with increased fluid and gas throughout the abdomen and pelvis more than expected particularly at the level of the surgical bed. Dehiscence is not excluded. No discrete encapsulated drainable fluid collection although early abscess cannot be excluded. Prominent fluid distended proximal small bowel and to some extent distal small bowel fecal type densities which can be seen in slow small bowel transit. Mild ileus is not excluded... CT abdomen with oral contrast: Pneumoperitoneum with right retroperitoneal gas mildly decreased. Cannot rule out anastomotic leak with abscess. Contrast has not reached the distal small bowel. Findings suggestive of ileus. Blood cultures from admission grew Proteus vulgaris, repeat blood cultures negative CT Abd/Pelvis with IV contrast on 08/28/24 showed increased pneumoperitoneum and right retroperitoneal gas, multifocal abscesses IV antibiotics broadened to Vancomycin and meropenem at that time S/p IR placement of drain on 08/28/24 Persistent leukocytosis IR drain culture from 08/28/24 grew E coli, bacteroides vulgatus and Clostridium innocuum c diff gene +, toxin negative S/p Exploratory laparotomy which showed small bowel perforation with abscess on 08/30/24, s/p extended right colectomy with drainage of abscess by general surgeon Dr. Pacheco on 08/30/24 Infectious Disease was consulted, appreciate recs -Antibiotics deescalated to IV ceftriaxone and metronidazole -Repeat imaging to reassess abscess size and response to treatment. NG tube still in place, started on TPN on 08/31/24 Required ICU stay postop on 08/30, downgraded on 09/01 PT/OT Pain control- General surgery started morphine lining folder on 09/04 ID reconsulted on 09/09, note the following: The rising WBC is clearly linked with the spread of numerous small abscesses, though RP bleeding and evolving abscess there is also a concern. Broadening abx therapy to ertapenem 1g IV qd is reasonable, but the issue is primarily one of source control. If these areas are not drainable, then her recovery may be slowed. Repeating imaging in the next 1-2 weeks, or if she worsens in the meantime, will be warranted. Total duration of therapy remains a little unclear, but given her current CT findings, I would expect 4-6 weeks. Final plans remain pending. 09/12 Overnight incr. abdominal pain, stool reddish -> CT abd. obtained and surgery contacted. Conservative management. WBC has since normalized 09/16- FOBT + GI consulted, multiple BMs, c diff gene positive, on po vancomycin 09/17/24- surgical wound now with pus-like drainage, wound culture obtained overnight and pending. On IV Ertapenem and PO vancomycin for c diff rx, added IV Daptomycin for empiric MRSA coverage until culture results. General Surgery aware. 09/18- wound cx NGTD, continue with IV Ertapenem and Daptomycin, po vancomycin for c diff + gene and diarrhea treatment. 09/19-lactobacillus growing on wound culture, contaminant? 09/20- increasing wbc once more, to follow up with ID tomorrow for final abx recs. Could be reactive component? 09/21- wbc stable in 11K range, ID consulted once more for final recs pending. Pulmonary Emboli Possible DVT RR increased on 09/04 CTA chest ordered- noted bilateral pulmonary emboli Pt declining doppler US lower extremities due to pain with completing medical testing at this time, discussion that results will not pattern changer and repairer as she is already on IV heparin Continue IV heparin at this time Monitor H/H Continue to monitor On IV heparin 09/18-Hgb of 6.9 today, heparin held and H/H repeated. 7.9 on repeat, will trend q4h. 09/19- hgb 7.4 hgb 7.9 today, still on heparin drip until clear no further procedures needed Edema Pt with extremity edema- has received IV fluids, blood transfusions, TPN while hospitalized which all likely contributed to the fluid overload. Recent JANET with recovered urinary output Cont. diuresis with IV lasix Monitor kidney function Input from Nephrology appreciated, discussed on 09/17, has been following since then again -recommending leg wraps, communication order placed -increased to IV Lasix 60mg TID on 09/20 Discussion with pt about purwik or singh, prefers purwick to help with urinary incontinence with inability to get to the bathroom quickly. Family declining singh, pt unable to use purwik still 14K liters over Acute kidney injury - resolved JANET had initially resolved but developed again Creatinine 3.9>>2.26>>0.94>1.51>>1.87>1.61 >> 0.6 Likely from sepsis + contrast Improved urine output Avoid contrast and nephrotoxins as much as possible Nephrology on board, appreciate recs Currently resolved. Esophagitis Possible GI bleed Noted on CT imaging and EGD performed on 09/09 by GI Continue IV ppi, sucralfate FOBT positive, GI consulted once more on 09/16- appreciate further GI recs on 09/17 Prediabetes hgba1c of 6.3 Noted hyperglycemia, was on TPN, now stopped Continue to monitor at this time Acute on chronic anemia Iron Deficiency Anemia Likely due to sepsis, blood loss and iron deficiency Got 2UPRBC on 08/31/24 Anemia panel showed low iron levels- Current recommendations advise against use of IV Venofer in the setting of severe infection, will need po supplementation once able to tolerate po- started Continue to monitor h/h Atrial fibrillation-new onset In the setting of sepsis Spontaneously converted to sinus ECHO: EF 55 to 60%. Mild concentric LVH. Left atrium mildly dilated. Mild tricuspid regurgitation. No significant pulmonary hypertension. Cardiology eval noted. No anticoagulation recommended Continue tele monitor IV lopressor 5mg q6h for now. Plan to switch to po metoprolol succinate when able to take po---restarted on po Toprol at 12.5mg BID on 09/17/24 May need ZIO monitor as outpatient Pt been on IV heparin as noted above in the setting of PEs (since 09/04), started warfarin, monitor INR, then heparin on hold as above Currently back on IV heparin Hyponatremia Hypokalemia K is 3.9 today. Replace and monitor Mild troponin elevation Likely demand ischemia secondary to sepsis, A-fib RVR Denies any chest pain, dyspnea Thrombocytosis Platelets elevated chronically Likely reactive AM peripheral smear Diet:regular DVT Px: IV heparin Code Status :Full Code Dispo: Per PT/OT recs Admission and Anticipated Discharge Date Admission Date: August 23, 2024 Subjective Extensive discussion today with pt and at bedside Dietitian to follow up on food/texture/temp requests Pt sometimes confused per nursing and family- unsure of time of day Trying to eat protein Review of Systems Review of Systems: All systems reviewed & are unremarkable except as noted in Subjective Physical Exam Physical Exam: General: Alert, oriented. No acute distress HEENT: NC/AT CV: RRR Resp: breath sounds decreased bilaterally, no increased effort of breathing Abdomen:Soft, tender Extremities: edema in lower extremities bilaterally Results & Data Results & Data Vital Signs (Past 12 Hours) Vital Signs Temp Pulse Pulse Resp BP Pulse Ox O2 Del Method 09/21/24 10:56 36.4 C L 86 18 126/79 98 Room Air 09/21/24 08:00 Room Air 09/21/24 08:00 87 09/21/24 07:23 36.4 C L 90 18 113/75 100 Room Air 09/21/24 03:10 36.5 C 83 16 120/72 97 Room Air
[2024-09-22 06:29] LABS: Hematocrit (blood only) 21.2 % (37.0-47.0); Hemoglobin 6.9 g/dl (12.0-16.0); Mean Corpuscular Hemoglobin 27.6 pg (25.0-34.0); Mean Corpuscular Volume 84.8 fL (80.0-100.0); Platelet Count 520 K/uL (130-400); RDW Standard Deviation 55.7 fL (36.4-46.3); Red Blood Count 2.50 M/uL (4.20-5.40); White Blood Count 12.77 K/ul (4.8-10.8)
[2024-09-22 06:36] LABS: Alanine Aminotransferase 9.0 U/L (7-52); Albumin Globulin Ratio 0.8 (0.9-2); Alkaline Phosphatase 83.0 U/L (34-104); Anion Gap 9.0 (3-11); Bilirubin,Total 0.3 mg/dl (0.2-1.0); Blood Urea Nitrogen 10.0 mg/dl (6-23); Calcium 8.6 mg/dl (8.6-10.3); Carbon Dioxide 28.0 mmol/L (21-32); Chloride 97.0 mmol/L (98-107); Creatinine Clr Calc Pharmacy 57.7 ml/min; Globulin 3.3 gm/dl (2.5-4.0); Glucose 91.0 mg/dl (70-99(Fasting)); Magnesium 1.9 mg/dl (1.7-2.4); Potassium 4.0 mmol/L (3.5-5.1); Sodium 134.0 mmol/L (136-145); Total Protein 5.9 gm/dl (6.0-8.3)
[2024-09-22 06:52] LABS: INR 1.1 (0.9-1.1); Prothrombin Time 11.9 Seconds (9.0-12.0)
[2024-09-22 06:58] LABS: Immature Granulocytes # (auto) 0.15 K/uL (0.01-0.20); Immature Granulocytes % (auto) 1.2 %; Polychromasia 1+
[2024-09-22] MEDS ORDERED: SODIUM CHLORIDE 0.9% 100 ML IV PRN (07:20)
--- NOTE | 2024-09-22 07:32 | Hospitalist Progress Note ---
Date of Service September 22, 2024 Assessment & Plan (1) Severe sepsis with acute organ dysfunction: (2) Atrial fibrillation, new onset: (3) Acute renal failure: (4) Ileus due to infection: (5) Peritonitis due to abscess: (6) Electrolyte abnormality: (7) Pneumoperitoneum: (8) Demand ischemia of myocardium: (9) Low grade mucinous neoplasm of appendix: (10) Status post laparoscopic appendectomy: (11) Paroxysmal SVT (supraventricular tachycardia): Plan Ms Cherry is a 68-year-old female status post appendectomy for mucocele on 08/19/2024. She presented critically ill with acute renal failure, multiple electrolyte abnormalities and evidence of severe sepsis with organ dysfunction as evidenced by renal failure, postsurgical ileus, and new onset atrial fibrillation. Currently s/p IR pelvic drain placement for abscesses on 08/28/24 and extended right colectomy with drainage of abscess by general surgeon Dr. Pacheco on 08/30/24. Course prolonged by continued leukocytosis and anemia. Patient with EGD performed on 09/09 without clear GI source for bleed. Hgb appears to be dropping every few days slowly, noted iron deficiency with prior anemia work up, so likely iso critical illness. Repeat Hgb was 6.9 this am, but repeat was 7.8. Requested labs not be drawn from central line. Repeat CT ab/p with stable collections. #Acute on chronic anemia #Iron Deficiency Anemia Likely due to sepsis, blood loss and iron deficiency Got 2UPRBC on 08/31/24, hgb intermittently "drops" but discovered that CBC being drawn off central line and repeat is normal Anemia panel showed low iron levels- continue po iron supplementation Trend HGB if stable and once final ID recs, plan for PICC line #Sepsis resolved #Proteus bacteremia #Multiple Intra abdominal/pelvic abscesses Recent laparoscopic appendicectomy of large mucocele of appendix by Dr. Pacheco on 08/19/2024 Blood cultures from admission grew Proteus vulgaris, repeat blood cultures negative CT Abd/Pelvis with IV contrast on 08/28/24 showed increased pneumoperitoneum and right retroperitoneal gas, multifocal abscesses S/p IR placement of drain on 08/28/24, cx grew E coli, bacteroides vulgatus and Clostridium innocuum S/p Exploratory laparotomy which showed small bowel perforation with abscess on 08/30/24, s/p extended right colectomy with drainage of abscess by general surgeon Dr. Pacheco on 08/30/24 Required ICU stay postop on 08/30, downgraded on 09/01 Infectious Disease was consulted: continue daptomycin and ertapenem 1g IV q24h, "duration of therapy remains unclear..final plans pending" Discuss final recommendations, will need to remove central line and place PICC #C Diff infection stared on PO vancomycin, completed 10 days po more formed stool reported per patient "greenish" iso iron supplementation #Bilateral Pulmonary Emboli RR increased on 09/04 CTA chest ordered- noted bilateral pulmonary emboli declined doppler US lower extremities due to pain with completing medical t esting at this time, Continue IV heparin, consider resumption of warfarin v DOAC when hgb stable and dispo plan confirmed #BLE Edema Pt with extremity edema- has received IV fluids, blood transfusions, TPN while hospitalized which all likely contributed to the fluid overload. Recent JANET with recovered urinary output Cont. diuresis with IV lasix Monitor kidney function Input from Nephrology appreciated, discussed on 09/17, has been following since then again -recommending leg wraps,encouraged ongoing compression -increased to IV Lasix 60mg TID on 09/20, still tolerating ongoing diuersis; consider deescalating lasic and potassium contingent #Acute kidney injury - resolved JANET had initially resolved but developed again Creatinine 3.9>>2.26>>0.94>1.51>>1.87>1.61 >> 0.6 Likely from sepsis + contrast Improved urine output Avoid contrast and nephrotoxins as much as possible Nephrology on board, appreciate recs Currently resolved. #Esophagitis #Possible GI bleed Noted on CT imaging and EGD performed on 09/09 by GI FOBT positive, GI consulted once more on 09/16: no active bleed noted transition to PO protonix continue carafate #Prediabetes resolved Continue to monitor at this time #Postsurgical ileus #Cholelithiasis w/o evidence of cholecystitis follow LFTs as op, no intervention ileus improved #Atrial fibrillation-new onset In the setting of sepsis Spontaneously converted to sinus ECHO: EF 55 to 60%. Mild concentric LVH. Left atrium mildly dilated. Mild tricuspid regurgitation. No significant pulmonary hypertension. Cardiology eval noted. No anticoagulation recommended Continue tele monitor continue metoprolol started on Coumadin then transitioned back to heparin given complex course, #Hyponatremia #Hypokalemia. Replace and monitor #Thrombocytosis Platelets elevated chronically Likely reactive, iron deficiency Diet:regular DVT Px: IV heparin Code Status :Full Code Dispo: Per PT/OT: plan for juniper once final recs in place Admission and Anticipated Discharge Date Admission Date: August 23, 2024 Subjective NAEO Hgb 6.9 this morning, however, repeat WNL--discovered that labs being pulled from PICC which perhaps is resulting in diluted labs as repeat draws stable Patient reports some intermittent groin pain, but otherwise no other acute concerns some delirium noted--patient asking about "storey gelatin suppository", but otherwise oriented to year, place, self, and circumstances around admission no nausea, vomiting, improved diarrhea Physical Exam Constitutional: WD/WN, vitals as above Respiratory: normal respiratory effort, lungs clear to auscultation Cardiovascular: tachycardic Gastrointestinal (Abdomen): NTND, Drain with thick cloudy material Results & Data Results & Data Vital Signs (Past 12 Hours) Vital Signs Temp Pulse Pulse Resp BP BP Pulse Ox 09/22/24 07:21 36.8 C 93 H 18 108/72 95 09/22/24 02:40 36.8 C 87 18 136/78 95 09/21/24 23:03 36.4 C L 87 17 133/68 96 09/21/24 22:09 83 09/21/24 20:00 09/21/24 19:48 36.6 C 106 H 20 116/75 97 O2 Del Method 09/22/24 07:21 Room Air 09/22/24 02:40 Room Air 09/21/24 23:03 Room Air 09/21/24 22:09 09/21/24 20:00 Room Air 09/21/24 19:48 Room Air Laboratory Results Short CBC 09/22/24 09/22/24 Range/Units 05:56 07:33 WBC 12.77 H (4.8-10.8) K/ul Hgb 6.9 L* 7.8 L (12.0-16.0) g/dl Hct 21.2 L 24.7 L (37.0-47.0) % Plt Count 520 H (130-400) K/uL BMP 09/22/24 05:56 Sodium 134 L Potassium 4.0 Chloride 97 L Carbon Dioxide 28 BUN 10 Creatinine 0.94 Glucose 91 Calcium 8.6 Liver Function 09/22/24 Range/Units 05:56 Total Bilirubin 0.3 (0.2-1.0) mg/dl AST 13 (13-39) U/L ALT 9 (7-52) U/L Alkaline Phosphatase 83 (34-104) U/L Albumin 2.6 L (3.4-5.0) gm/dl Medications Administered Home Medications Medication Instructions Recorded Confirmed Last Taken No Known Home Medications 08/23/24 08/23/24 Unknown Active Medications Generic Name Dose Route Start Last Admin Trade Name Freq PRN Reason Stop Dose Admin Storey Syrup 5 ml 09/12/24 18:00 09/22/24 11:48 Storey Syrup 5 Ml Udp PO 09/22/24 17:59 5 ml Q6 ARMANDO Administration Ferrous Sulfate 325 mg 09/16/24 18:30 09/22/24 08:17 Ferrous Sulfate 325 Mg Tab PO 10/16/24 18:29 325 mg QAM ARMANDO Administration Furosemide 60 mg 09/20/24 09:00 09/22/24 17:11 Furosemide Inj 20 Mg/2 Ml Vial IV 10/20/24 08:59 60 mg TID@0900,1300,1700 ARMANDO Administration Heparin Sodium (Beef Lung) 5 ml 08/30/24 14:04 09/21/24 08:52 Heparin 10 Unit/Ml 5 Ml Flush FLUSH 10/21/24 14:03 5 ml PRN PRN Administration Flush Hydromorphone HCl 0.5 mg 09/10/24 09:21 09/17/24 09:20 Hydromorphone Inj 0.5 Mg/0.5 Ml Syr IV 10/21/24 09:20 0.5 mg Q3H PRN Administration Moderate Pain (Scale 4, 5, 6) Hydromorphone HCl 1 mg 09/10/24 09:21 09/12/24 19:34 Hydromorphone Inj 1 Mg/Ml Syringe IV 10/21/24 09:20 1 mg Q3H PRN Administration Severe Pain (Scale 7, 8, 9,10) Pantoprazole Sodium 40 mg/ 100 mls @ 20 mls/hr 09/09/24 07:15 09/22/24 17:03 Dextrose IV 10/09/24 07:14 8 mg/hr Q5H ARMANDO 20 mls/hr Administration 8 MG/HR Ertapenem 1,000 mg in 10 mls @ 2 mls/min 09/09/24 11:30 09/22/24 11:47 Invanz 1000mg IV 09/26/24 11:34 2 mls/min Q24H ARMANDO Administration Heparin Sodium/Dextrose 25,000 units in 500 mls @ 25 mls/hr 09/09/24 20:15 09/22/24 07:09 Heparin 93442 Unit/500 Ml D5w IV 10/09/24 20:14 1,250 units/hr .Q20H ARMANDO 25 mls/hr Titration Protocol 1,250 UNITS/HR Daptomycin 500 mg/ Syringe 10 mls @ 5 mls/min 09/17/24 17:30 09/22/24 17:11 IV 09/24/24 17:29 5 mls/min Q24H ARMANDO Administration Protocol Metoprolol Tartrate 5 mg 08/31/24 20:19 08/31/24 20:25 Metoprolol Tartrate 1 Mg/Ml Vial IV 10/21/24 20:18 5 mg Q2H PRN Administration HR > 120 Metoprolol Tartrate 25 mg 09/19/24 21:00 09/22/24 08:18 Metoprolol Tartrate 25 Mg Tab PO 10/19/24 20:59 25 mg BID ARMANDO Administration Ondansetron HCl 4 mg 08/23/24 13:09 09/08/24 22:20 Ondansetron Inj 2 Mg/Ml 2 Ml Vial IV 10/21/24 13:08 4 mg Q6H PRN Administration Nausea Oxycodone/Acetaminophen 1 tab 09/10/24 09:21 09/21/24 19:35 Oxycodone/Acetaminophen 5mg/325mg Tab PO 09/24/24 09:20 1 tab Q4H PRN Administration Moderate Pain (Scale 4, 5, 6) Oxycodone/Acetaminophen 2 tab 09/10/24 09:21 09/17/24 21:14 Oxycodone/Acetaminophen 5mg/325mg Tab PO 09/24/24 09:20 2 tab Q4H PRN Administration Severe Pain (Scale 7, 8, 9,10) Potassium Chloride 20 meq 09/20/24 09:00 09/22/24 17:02 Potassium Chloride 20 Meq/15 Ml Udc PO 10/20/24 08:59 20 meq QID ARMANDO Administration Sucralfate 1 gm 09/09/24 17:00 09/22/24 17:02 Sucralfate 1 Gm/10 Ml Udc PO 10/09/24 16:59 1 gm QID ARMANDO Administration Vancomycin HCl 125 mg 09/12/24 18:00 09/22/24 11:47 Vancomycin Hcl 125 Mg/2.5ml Soln PO 09/22/24 17:59 125 mg Q6 ARMANDO Administration Warfarin Sodium 1 mg 09/11/24 16:00 09/11/24 17:08 Warfarin Sod 1 Mg Tab PO 10/11/24 15:59 1 mg DAILY@1600 ARMANDO Administration
[2024-09-22 07:35] LABS: ANTI-Xa, UFH(UnfractionatedHep 0.49 IU/ml (0.3-0.7)
[2024-09-22 08:21] LABS: Hematocrit (blood only) 24.7 % (37.0-47.0); Hemoglobin 7.8 g/dl (12.0-16.0); Reticulated Hemoglobin 32.2 pg (28.2-36.6); Reticulocytes # 0.080 10^6/uL (0.020-0.100)
[2024-09-22 08:31] LABS: Ferritin 404.9 ng/ml (8-388)
[2024-09-22] MEDS: OPTIRAY 320 100ml IV ONE (10:27)
--- NOTE | 2024-09-22 12:11 | Surgery Progress Note ---
Date of Service September 22, 2024 Assessment & Plan (1) S/P right colectomy: Plan: drain in place con't IV abx Admission and Anticipated Discharge Date Admission Date: August 23, 2024 Subjective feels well taking po PT Review of Systems Constitutional: no fever and no chills Respiratory: no dyspnea Cardiovascular: no chest pain Gastrointestinal: + abdominal pain; no nausea and no vomit ing Neurologic: + generalized weakness Psychiatric: no behavioral changes Physical Exam Constitutional: WD/WN, vitals as above Eyes: no scleral abnormality Respiratory: normal respiratory effort Cardiovascular: Rate/Rhythm: regular rate and regular rhythm Gastrointestinal (Abdomen): Inspection/Auscultation: + abdomen distended, normal bowel sounds and + abdominal surgical incision (healing portions by secondary intention) Percussion/Palpation: + abdomen tender and abdomen soft; no guarding and abdomen not rigid Results & Data Vital Signs (Past 12 Hours) Vital Signs Temp Pulse Resp BP BP Pulse Ox O2 Del Method 09/22/24 11:21 36.3 C L 92 H 16 100/63 97 Room Air 09/22/24 08:00 Room Air 09/22/24 07:21 36.8 C 93 H 18 108/72 95 Room Air 09/22/24 02:40 36.8 C 87 18 136/78 95 Room Air
--- NOTE | 2024-09-22 12:54 | CT Scan Report ---
ABDOMEN AND PELVIS CT WITH IV CONTRAST CT DOSE: 1205.94 mGy.cm HISTORY: anemia, f/u abscesses , increase wbc TECHNIQUE: Multiaxial CT images of the abdomen and pelvis were performed following the IV administrat ion of 90 cc of Optiray, A dose lowering technique was utilized adhering to the principles of ALARA. COMPARISON STUDY: 09/11/2024 FINDINGS: There is stable mild elevation of the right hemidiaphragm with stable atelectasis at the [facility] base. ABDOMEN: There is fatty liver. There is a gallstone without evidence of acute cholecystitis. Spleen, pancreas, and adrenal glands are unremarkable. Kidneys show no hydronephrosis. Stable small calculus lower left kidney. No abdominal aortic aneurysm. Pelvis: There is a stable drain from a right lower quadrant approach with the distal aspect in the lo w pelvis. Urinary bladder is nondistended. Uterus and adnexa are grossly unremarkable. There is stabl e right colectomy with anastomosis. There is stable scattered small amount of free air. There is stab le scattered fluid with largest collection at the right paracolic gutter and right pelvis measuring 8 cm greatest axial dimension by 16 cm craniocaudad. Collection in the cul-de-sac measuring 6 cm great est axial dimension by 4 cm craniocaudad is also stable. Stable small collection in left paracolic gu tter and stable small amount of scattered free fluid in the mesentery. There is peritoneal enhancemen t and enhancement at the margins of the fluid consistent with infection/peritonitis. No bowel obstruc tion seen. IMPRESSION: 1. Stable scattered free fluid and small amount of free air with largest collections as described. Th ere is peritoneal enhancement and enhancement peripherally at the fluid collections consistent with d iffuse peritonitis and infection. 2. Otherwise as described. ACT 112: Negative or not required by law. The above report was generated using voice recognition software. It may contain grammatical, syntax o r spelling errors. Electronically signed by: Joshua Godinez M.D. 09/22/2024 12:53 PM
[2024-09-22 18:25] LABS: Hematocrit (blood only) 27.5 % (37.0-47.0); Hemoglobin 8.8 g/dl (12.0-16.0)
[2024-09-23 06:10] LABS: Hematocrit (blood only) 22.7 % (37.0-47.0); Hemoglobin 7.6 g/dl (12.0-16.0); Mean Corpuscular Hemoglobin 28.1 pg (25.0-34.0); Mean Corpuscular Volume 84.1 fL (80.0-100.0); Platelet Count 569 K/uL (130-400); RDW Standard Deviation 54.6 fL (36.4-46.3); Red Blood Count 2.70 M/uL (4.20-5.40); White Blood Count 12.07 K/ul (4.8-10.8)
[2024-09-23 06:30] LABS: Alanine Aminotransferase 10.0 U/L (7-52); Albumin Globulin Ratio 0.7 (0.9-2); Alkaline Phosphatase 93.0 U/L (34-104); Anion Gap 10.0 (3-11); Bilirubin,Total 0.4 mg/dl (0.2-1.0); Blood Urea Nitrogen 13.0 mg/dl (6-23); Calcium 9.1 mg/dl (8.6-10.3); Carbon Dioxide 29.0 mmol/L (21-32); Chloride 95.0 mmol/L (98-107); Creatinine Clr Calc Pharmacy 52.2 ml/min; Globulin 3.9 gm/dl (2.5-4.0); Glucose 96.0 mg/dl (70-99(Fasting)); Magnesium 2.0 mg/dl (1.7-2.4); Potassium 4.0 mmol/L (3.5-5.1); Sodium 134.0 mmol/L (136-145); Total Protein 6.8 gm/dl (6.0-8.3)
[2024-09-23 06:57] LABS: ANTI-Xa, UFH(UnfractionatedHep 0.60 IU/ml (0.3-0.7)
[2024-09-23] MEDS: MAGNESIUM CHLORIDE W/CALCIUM 64MG DELAYED REL TAB PO SCH (08:57)
--- NOTE | 2024-09-23 13:30 | Hospitalist Progress Note ---
Date of Service September 23, 2024 Assessment & Plan (1) Severe sepsis with acute organ dysfunction: (2) Atrial fibrillation, new onset: (3) Acute renal failure: (4) Ileus due to infection: (5) Peritonitis due to abscess: (6) Electrolyte abnormality: (7) Pneumoperitoneum: (8) Demand ischemia of myocardium: (9) Low grade mucinous neoplasm of appendix: (10) Status post laparoscopic appendectomy: (11) Paroxysmal SVT (supraventricular tachycardia): Plan Ms Cherry is a 68-year-old female status post appendectomy for mucocele on 08/19/2024. She presented critically ill with acute renal failure, multiple electrolyte abnormalities and evidence of severe sepsis with organ dysfunction as evidenced by renal failure, postsurgical ileus, and new onset atrial fibrillation. Currently s/p IR pelvic drain placement for abscesses on 08/28/24 and extended right colectomy with drainage of abscess by general surgeon Dr. Pacheco on 08/30/24. Course prolonged by continued leukocytosis and anemia. Patient with EGD performed on 09/09 without clear GI source for bleed. Repeat CT ab/p with stable collections. #Sepsis resolved #Proteus bacteremia #Multiple Intra abdominal/pelvic abscesses laparoscopic appendicectomy of large mucocele of appendix by Dr. Pacheco on 08/19/2024 Blood cultures from admission grew Proteus vulgaris, repeat blood cultures negative CT Abd/Pelvis with IV contrast on 08/28/24 showed increased pneumoperitoneum and right retroperitoneal gas, multifocal abscesses S/p IR placement of drain on 08/28/24, cx grew E coli, bacteroides vulgatus and Clostridium innocuum S/p Exploratory laparotomy which showed small bowel perforation with abscess on 08/30/24, s/p extended right colectomy with drainage of abscess by general surgeon Dr. Pacheco on 08/30/24 Required ICU stay postop on 08/30, downgraded on 09/01 Infectious Disease was consulted; seen on 09/09: continue daptomycin and ertapenem 1g IV q24h, "duration of therapy remains unclear..final plans pending" Contacted infectious disease for final recommendation. Her last CT abdomen/pelvis from September 22 showed "stable scattered free fluid and a small amount of free air with largest collection in the right paracolic gutter and right pelvis measuring 8 cm x 16 cm. Peritoneal enhancement and enhancement peripherally at the fluid collection consistent with diffuse peritonitis and infection". Will place her on oral Vanco twice daily prophylactically given tox gene pos itive while she is on antibiotics; monitor for diarrhea. Plan to switch over to PICC line and remove central line; consult taken. #Acute on chronic anemia #Iron Deficiency Anemia Likely due to sepsis, blood loss and iron deficiency Got 2UPRBC on 08/31/24, hgb intermittently "drops" but discovered that CBC being drawn off central line and repeat is normal Anemia panel showed low iron levels- continue po iron supplementation #C Diff gene positive Completed 10 days of oral vanc; on prophylactic vancomycin while on antiboitics. more formed stool reported per patient "greenish" iso iron supplementation #Bilateral Pulmonary Emboli RR increased on 09/04 CTA chest ordered- noted bilateral pulmonary emboli declined doppler US lower extremities due to pain with completing medical testing at this time, Continue IV heparin,;Reached out to surgery regarding whether patient will need any further intervention. Will plan to switch over to either subcu Lovenox versus DOAC's depending on recommendation. #BLE Edema Pt with extremity edema- has received IV fluids, blood transfusions, TPN while hospitalized which all likely contributed to the fluid overload. Recent JANET with recovered urinary output Cont. diuresis with IV lasix Monitor kidney function Input from Nephrology appreciated, discussed on 09/17, has been following since then again -recommending leg wraps,encouraged ongoing compression -increased to IV Lasix 60mg TID on 09/20, still tolerating ongoing diuersis; consider deescalating lasic and potassium contingent #Acute kidney injury - resolved JANET had initially resolved but developed again Creatinine 3.9>>2.26>>0.94>1.51>>1.87>1.61 >> 0.6 Likely from sepsis + contrast Improved urine output Avoid contrast and nephrotoxins as much as possible Nephrology on board, appreciate recs Currently resolved. #Esophagitis #Possible GI bleed Noted on CT imaging and EGD performed on 09/09 by GI FOBT positive, GI consulted once more on 09/16: no active bleed noted transition to PO protonix continue carafate #Prediabetes Continue to monitor at this time #Postsurgical ileus #Cholelithiasis w/o evidence of cholecystitis follow LFTs as op, no intervention ileus improved #Atrial fibrillation-new onset In the setting of sepsis Spontaneously converted to sinus ECHO: EF 55 to 60%. Mild concentric LVH. Left atrium mildly dilated. Mild tricuspid regurgitation. No significant pulmonary hypertension. Cardiology eval noted. No anticoagulation recommended Continue tele monitor continue metoprolol started on Coumadin then transitioned back to heparin given complex course, #Hyponatremia #Hypokalemia. Replace and monitor #Thrombocytosis Platelets elevated chronically Likely reactive, iron deficiency Diet:regular DVT Px: IV heparin Code Status :Full Code Dispo: Per PT/OT: plan for juniper once final recs in place Time spent evaluating patient, direct bedside care, chart review, placing orders, interpretation of diagnostic studies, discussion with consultants, patient, and family members, as well as other required patient management activities is 50 minutes Please note the above document was generated using voice recognition software. It may contain grammatical, syntax or spelling errors. Any formal questions or concerns about the content, text or information contained within the body of this dictation should be directly addressed to the provider for clarification Admission and Anticipated Discharge Date Admission Date: August 23, 2024 Subjective Patient seen and examined at bedside. She is sitting up on a chair at the side of the bed; denies any pain or discomfort. She was afebrile overnight. Saturating well on room air. Review of Systems Review of Systems: All systems reviewed & are unremarkable except as noted in Subjective Physical Exam Physical Exam: Constitutional: Alert and oriented to time place and person. Respiratory: Bilateral vesicular breath sound. Cardiovascular: RRR, no murmur, no edema Vessels: no JVD or carotid bruit Chest: normal inspection of chest Abdomen dressing in place with drain intact. Drain with pus. Musculoskeletal: no cyanosis or clubbing, extremities motor strength 5/5 Skin: no rashes, warm and dry normal turgor Neurologic: PERRL, EOMI, accommodation nl, no face palsy, no dysarthria CN's II- XI intact bilaterally and moves all extremities Results & Data Results & Data Vital Signs (Past 12 Hours) Vital Signs Temp Pulse Pulse Pulse Resp BP Pulse Ox 09/23/24 13:00 84 110/90 09/23/24 11:52 37.1 C 93 H 18 104/71 96 09/23/24 09:55 95 H 09/23/24 07:57 36.8 C 94 H 18 108/68 96 09/23/24 07:49 09/23/24 03:45 36.4 C L 86 18 102/65 96 09/23/24 03:23 98 H O2 Del Method 09/23/24 13:00 09/23/24 11:52 Room Air 09/23/24 09:55 09/23/24 07:57 Room Air 09/23/24 07:49 Room Air 09/23/24 03:45 Room Air 09/23/24 03:23
[2024-09-23] MEDS: VANCOMYCIN HCL 125 MG/2.5ML SOLN PO SCH (15:04)
[2024-09-23] MEDS: CHERRY SYRUP 5 ML UDP PO SCH (15:04)
--- NOTE | 2024-09-23 15:38 | Electrocardiogram Report ---
Test Reason : Blood Pressure : */* mmHG Vent. Rate : 91 BPM Atrial Rate : 91 BPM P-R Int : 162 ms QRS Dur : 74 ms QT Int : 332 ms P-R-T Axes : 45 42 20 degrees QTcB Int : 408 ms Poor data quality, interpretation may be adversely affected Normal sinus rhythm T wave abnormality, consider lateral ischemia Abnormal ECG When compared with ECG of 31-Aug-2024 13:56, Premature atrial complexes are no longer Present Vent. rate has increased by 44 bpm T wave inversion now evident in Lateral leads Confirmed by Wilfrido Hopkins ([id number]) on 09/23/2024 3:37:48 PM Referred By: REFERRED SELF Confirmed By: Wilfrido Hopkins
--- NOTE | 2024-09-23 17:05 | Surgery Progress Note ---
Date of Service September 23, 2024 Assessment & Plan (1) S/P right colectomy: Plan: POD # 24 s/p ex alp, right extended colectomy -afebrile, vss - leukocytosis stable at 12k today - kirk drain with purulent output - +bowel function Plan: Continue IV abx will need PICC line for prolonged IV abx continue diet continue boost/protein supplementation continue Heparin for bilateral PE Continue kirk drain to bulb suction continue current medical management continue aggressive PT likely here through holiday weekend follow labs Admission and Anticipated Discharge Date Admission Date: August 23, 2024 Subjective feeling better today no abdominal pain cap on kirk drain keeps coming off and has drainage at times. no fever or chills appetite slowly improving loose stools in evening no persistent nausea or vomiting working with PT, able to walk up and down hallway urinating without difficulty Physical Exam Constitutional: WD/WN, vitals as above cooperative and comfortable; no acute distress and not ill appearing Respiratory: normal respiratory effort; no respiratory distress, no labored breathing and no retractions Gastrointestinal (Abdomen): Inspection/Auscultation: abdomen normal to inspection, + abdominal surgical incision (midline laparotomy , loosely approximated with fibrinous tissue) and + abdominal surgical drain present (right kirk drain with purulent drainage); abdomen not distended Percussion/Palpation: abdomen soft; abdomen nontender, no guarding and abdomen not rigid Skin: no rashes, warm and dry Psychiatric: Orientation: alert and oriented x 3 Results & Data Vital Signs (Past 12 Hours) Vital Signs Temp Pulse Pulse Pulse Resp BP Pulse Ox 09/23/24 15:54 36.8 C 59 L 19 119/74 99 09/23/24 14:16 89 09/23/24 13:00 84 110/90 09/23/24 11:52 37.1 C 93 H 18 104/71 96 09/23/24 09:55 95 H 09/23/24 07:57 36.8 C 94 H 18 108/68 96 09/23/24 07:49 O2 Del Method 09/23/24 15:54 Room Air 09/23/24 14:16 09/23/24 13:00 09/23/24 11:52 Room Air 09/23/24 09:55 09/23/24 07:57 Room Air 09/23/24 07:49 Room Air Laboratory Results 09/23/24 09/22/24 Range/Units 05:43 18:02 WBC 12.07 H (4.8-10.8) K/ul RBC 2.70 L (4.20-5.40) M/uL Hgb 7.6 L 8.8 L (12.0-16.0) g/dl Hct 22.7 L 27.5 L (37.0-47.0) % MCV 84.1 (80.0-100.0) fL MCH 28.1 (25.0-34.0) pg MCHC 33.5 (32.0-36.0) g/dL RDW Std Deviation 54.6 H (36.4-46.3) fL RDW Coeff of Albino 17.9 H (11.5-14.5) % Plt Count 569 H (130-400) K/uL MPV 9.0 L (9.4-12.4) fL Heparin Anti-Xa, Unfract 0.60 (0.3-0.7) IU/ml Sodium 134 L (136-145) mmol/L Potassium 4.0 (3.5-5.1) mmol/L Chloride 95 L (98-107) mmol/L Carbon Dioxide 29 (21-32) mmol/L Anion Gap 10 (3-11) BUN 13 (6-23) mg/dl Creatinine 1.04 (0.6-1.2) mg/dl Est Cr Clr Drug Dosing 52.2 ml/min eGFR 58.54 BUN/Creatinine Ratio 12.5 (10-20) Glucose 96 (70-99(Fasting)) mg/dl Calcium 9.1 (8.6-10.3) mg/dl Phosphorus 4.9 (2.5-4.9) mg/dl Magnesium 2.0 (1.7-2.4) mg/dl Total Bilirubin 0.4 (0.2-1.0) mg/dl AST 15 (13-39) U/L ALT 10 (7-52) U/L Alkaline Phosphatase 93 (34-104) U/L Total Protein 6.8 (6.0-8.3) gm/dl Albumin 2.9 L (3.4-5.0) gm/dl Globulin 3.9 (2.5-4.0) gm/dl Albumin/Globulin Ratio 0.7 L (0.9-2)
[2024-09-24 06:43] LABS: Hematocrit (blood only) 24.8 % (37.0-47.0); Hemoglobin 8.0 g/dl (12.0-16.0); Immature Granulocytes # (auto) 0.13 K/uL (0.01-0.20); Immature Granulocytes % (auto) 0.9 %; Mean Corpuscular Hemoglobin 27.7 pg (25.0-34.0); Mean Corpuscular Volume 85.8 fL (80.0-100.0); Platelet Count 548 K/uL (130-400); RDW Standard Deviation 56.4 fL (36.4-46.3); Red Blood Count 2.89 M/uL (4.20-5.40); White Blood Count 13.76 K/ul (4.8-10.8)
[2024-09-24 07:09] LABS: ANTI-Xa, UFH(UnfractionatedHep 0.60 IU/ml (0.3-0.7)
[2024-09-24 07:10] LABS: Creatine Kinase 773.0 U/L (26-192)
[2024-09-24 07:12] LABS: INR 1.1 (0.9-1.1); Prothrombin Time 11.9 Seconds (9.0-12.0)
--- NOTE | 2024-09-24 09:45 | Surgery Progress Note ---
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) -afebrile, vss - leukocytosis slightly increased today to 13.7K - santo drain with purulent output - +bowel function Plan: Continue IV abx will need PICC line for prolonged IV abx continue diet continue boost/protein supplementation continue Heparin for bilateral PE Continue santo drain to bulb suction, nursing to strip drain TID to help with drainage of large intra-abdominal abscess continue current medical management continue aggressive PT likely here through holiday weekend follow labs due to wbc trending up she may require IR drainage of intra-abdominal abscess if feasible and this would likely require transfer to tertiary center given Holiday weekend. She is aware this is a possibility. We may need to consider transfer today given Holiday tomorrow and IR unavailable on weekends. Will discuss with hospitalist. [facility] surgery starts coverage tomorrow 09/25 through weekend. Discussed with Daisha [facility]MA[facility]. Admission and Anticipated Discharge Date Admission Date: August 23, 2024 Subjective feeling okay no nausea tolerating some diet this am some RLQ/flank pain with movement in and out of bed last night urinating multiple times Santo drain leaking at times (cap comes off) no fevers or chills Physical Exam Constitutional: + obese, cooperative and comfortable; no acute distress, not ill appearing, not in distress and not diaphoretic Respiratory: normal respiratory effort; no respiratory distress Gastrointestinal (Abdomen): Inspection/Auscultation: abdomen normal to inspection, + abdominal surgical incision (midline laparotomy loosely approximated with evelin, fibrinous drainage.) and + abdominal surgical drain present (purulent drainage); abdomen not distended Percussion/Palpation: + abdomen tender (RLQ) and abdomen soft; no guarding, abdomen not rigid and abdomen not firm Skin: no rashes, warm and dry Psychiatric: Orientation: alert and oriented x 3 Results & Data Vital Signs (Past 12 Hours) Vital Signs Temp Pulse Pulse Resp BP Pulse Ox O2 Del Method 09/24/24 07:42 36.5 C 92 H 18 136/79 94 Room Air 09/24/24 04:00 36.8 C 92 H 18 116/85 94 Room Air 09/23/24 23:33 36.8 C 85 18 111/71 95 Room Air 09/23/24 23:05 88 Laboratory Results 09/24/24 Range/Units 05:56 WBC 13.76 H (4.8-10.8) K/ul RBC 2.89 L (4.20-5.40) M/uL Hgb 8.0 L (12.0-16.0) g/dl Hct 24.8 L (37.0-47.0) % MCV 85.8 (80.0-100.0) fL MCH 27.7 (25.0-34.0) pg MCHC 32.3 (32.0-36.0) g/dL RDW Std Deviation 56.4 H (36.4-46.3) fL RDW Coeff of Albino 17.9 H (11.5-14.5) % Plt Count 548 H (130-400) K/uL MPV 9.1 L (9.4-12.4) fL Immature Gran % (Auto) 0.9 % Neut % (Auto) 70.3 % Lymph % (Auto) 16.7 % Kingfisher % (Auto) 9.0 % Eos % (Auto) 2.4 % Baso % (Auto) 0.7 % Neut # (Auto) 9.67 H (1.40-6.50) K/uL Lymph # (Auto) 2.30 (1.20-3.40) K/uL Kingfisher # (Auto) 1.24 H (0.11-0.59) K/uL Eos # (Auto) 0.33 (0.00-0.50) K/uL Baso # (Auto) 0.09 (0.00-0.20) K/uL Immature Gran # (Auto) 0.13 (0.01-0.20) K/uL PT 11.9 (9.0-12.0) Seconds INR 1.1 (0.9-1.1) Heparin Anti-Xa, Unfract 0.60 (0.3-0.7) IU/ml Sodium Pending Potassium Pending Chloride Pending Carbon Dioxide Pending Anion Gap Pending BUN Pending Creatinine Pending Est Cr Clr Drug Dosing Pending eGFR Pending BUN/Creatinine Ratio Pending Glucose Pending Calcium Pending Total Creatine Kinase 773 H (26-192) U/L
--- NOTE | 2024-09-24 12:37 | Hospitalist Progress Note ---
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 Pacheco on 08/19/2024 Blood cultures from admission grew Proteus vulgaris, repeat blood cultures negative CT Abd/Pelvis with IV contrast on 08/28/24 showed increased pneumoperitoneum and right retroperitoneal gas, multifocal abscesses S/p IR placement of drain on 08/28/24, cx grew E coli, bacteroides vulgatus and Clostridium innocuum S/p Exploratory laparotomy which showed small bowel perforation with abscess on 08/30/24, s/p extended right colectomy with drainage of abscess by general surgeon Dr. Pacheco on 08/30/24 Required ICU stay postop on 08/30, downgraded on 09/01 CT abdomen pelvis on 09/22 showed " stable scattered fluid with largest col lection at the right paracolic gutter and right pelvis measuring 8 cm greatest axial dimension by 16 cm craniocaudad. Collection in the cul-de-sac measuring 6 cm greatest axial dimension". Discussed with surgery PA; recommended transfer to tertiary care center for possible IR drainage given persistent WBC elevation and presence of large abscess in the recent CT abdomen pelvis done on 09/22/2024. Case was also discussed with infectious disease on consult(Dr. Rodarte); he also recommended IR drainage. He recommended to continue ertapenem for the time being and discontinue daptomycin. Plan to place a PICC line and remove right IJ prior to transfer. [place] [facility] [place] patient was accepted for transfer by Dr. Devorah Heredia. #C Diff gene positive - On empiric oral vancomycin while on antibiotics #Bilateral Pulmonary Emboli CTA chest on 09/04- noted bilateral pulmonary emboli Continue IV heparin while in route for transfer. #BLE Edema Pt with extremity edema- has received IV fluids, blood transfusions, TPN while hospitalized which all likely contributed to the fluid overload. Recent JANET with recovered urinary output Cont. diuresis with IV lasix Monitor kidney function Input from Nephrology appreciated, discussed on 09/17, has been following since then again -recommending leg wraps,encouraged ongoing compression -increased to IV Lasix 60mg TID since 09/20 JANET- resolved Creatinine 3.9>>2.26>>0.94>1.51>>1.87>1.61 >> 0.6 Likely from sepsis + contrast Improved urine output Avoid contrast and nephrotoxins as much as possible Nephrology on board, appreciate recs Currently resolved. #Esophagitis #Possible GI bleed Noted on CT imaging and EGD performed on 09/09 by GI; found to have LA grade C reflux esophagitis with no bleeding #Atrial fibrillation-new onset In the setting of sepsis Spontaneously converted to sinus ECHO: EF 55 to 60%. Mild concentric LVH. Left atrium mildly dilated. Mild tricuspid regurgitation. No significant pulmonary hypertension. Cardiology eval noted. No anticoagulation recommended Continue tele monitor continue metoprolol #Hyponatremia #Hypokalemia. Replace and monitor Diet:regular DVT Px: IV heparin Code Status :Full Code Dispo: Transfer to tertiary care center Time spent evaluating patient, direct bedside care, chart review, placing orders, interpretation of diagnostic studies, discussion with consultants, patient, and family members, as well as other required patient management activities is 90 minutes Please note the above document was generated using voice recognition software. It may contain grammatical, syntax or spelling errors. Any formal questions or concerns about the content, text or information contained within the body of this dictation should be directly addressed to the provider for clarification Admission and Anticipated Discharge Date Admission Date: August 23, 2024 Subjective Patient seen and examined at bedside. She reports that she is feeling she denies fever, chills, chest pain, shortness of breath or abdominal pain. Review of Systems Review of Systems: All systems reviewed & are unremarkable except as noted in Subjective Physical Exam Physical Exam: Constitutional: Alert and oriented to time place and person. Respiratory: Bilateral vesicular breath sound. Cardiovascular: RRR, no murmur, no edema Vessels: no JVD or carotid bruit Chest: normal inspection of chest Abdomen dressing in place with drain intact. Drain with pus. Musculoskeletal: no cyanosis or clubbing, extremities motor strength 5/5 Skin: no rashes, warm and dry normal turgor Neurologic: PERRL, EOMI, accommodation nl, no face palsy, no dysarthria CN's II- XI intact bilaterally and moves all extremities Results & Data Results & Data Vital Signs (Past 12 Hours) Vital Signs Temp Pulse Resp BP Pulse Ox O2 Del Method 09/24/24 11:02 36.6 C 86 18 113/62 97 Room Air 09/24/24 07:42 36.5 C 92 H 18 136/79 94 Room Air 09/24/24 04:00 36.8 C 92 H 18 116/85 94 Room Air
--- NOTE | 2024-09-24 13:14 | Discharge Summary ---
Date of Service September 24, 2024 Admission HPI Per Admitting Provider Patient is a 68-year-old female who underwent laparoscopic appendectomy and removal of mucocele on 08/19/2024. There were no immediate postoperative complications. Patient was at home recovering. However she continued with some significant abdominal pain. Since her discharge she really has been unable to eat or drink much at all. She denies any fever or chills but noticed increasing abdominal pain and no bowel movement since yesterday came to the emergency room for evaluation. In the emergency room laboratory studies were revealing for significant electrolyte abnormalities, elevated white blood cell count and acute renal failure. Imaging was consistent with ileus and fluid and gas surrounding the surgical site. While in the emergency department patient also had new onset of atrial fibrillation with rapid ventricular response. Unfortunately when inserting the NG tube patient had some emesis at the high suspicion of aspiration with acute desaturation. Patient was referred to our service for medical management and coordination of specialty care. Time my evaluation patient had just had NG tube placed. She was on oxy mask to support oxygen. She states that she has had persistent abdominal pain and is worsening over the last 24 hours. She denies any fever or chills. She is short of breath with some audible wheezing after this aspiration event but was not short of breath prior to insertion of the NG tube. No chest pain. No noted changes in her urinary habits. is at the bedside confirms history. They both state that at the most she has had a few bites of applesauce, crackers and a little bit of fluid intake since her discharge. No new joint pains. No new noted swelling. Reviewing her medical history she has had a previous history of paroxysmal SVT this is somewhat remotely and she is not on any medications for this. Admission Exam Per Admitting Provider Constitutional: Alert, ill in appearance, moderate distress, mildly toxic HEENT: Mucous membranes dry sclera clear Neck: Soft, no adenopathy Lungs: Decreased breath sounds, tight airflow with wheezing and some upper airway rhonchi CV: S1-S2, irregular, tachycardic, no murmurs Abdomen: Hypoactive bowel sounds, moderate distention, diffuse tenderness right lower quadrant with guarding, no definitive rigidity Extremities: Trace pretibial edema Musculoskeletal: No significant joint tenderness Neuro: No focal deficits, generally weak Psych: Cooperative, slightly anxious Principal Diagnosis #Sepsis resolved #Proteus bacteremia #Multiple Intra abdominal/pelvic abscesses Discharge Exam Constitutional: Alert and oriented to time place and person. Respiratory: Bilateral vesicular breath sound. Cardiovascular: RRR, no murmur, no edema Vessels: no JVD or carotid bruit Chest: normal inspection of chest Abdomen dressing in place with drain intact. Drain with pus. Musculoskeletal: no cyanosis or clubbing, extremities motor strength 5/5 Skin: no rashes, warm and dry normal turgor Neurologic: PERRL, EOMI, accommodation nl, no face palsy, no dysarthria CN's II- XI intact bilaterally and moves all extremities Discharge Data Allergies Allergy/AdvReac Type Severity Reaction Status Date / Time No Known Allergies Allergy Verified 08/23/24 11:05 Consultations 08/23/24 10:54 ED Decision to Admit Stat 08/23/24 10:55 Consult General Surgery Routine 08/23/24 13:09 Consult Cardiology Routine 08/28/24 08:00 Consult Infectious Diseases Routine 08/29/24 09:09 Consult Nephrology Routine 08/30/24 13:32 Consult Division Service Manager Routine 09/05/24 07:52 Consult Nephrology Routine 09/09/24 06:35 Consult Gastroenterology Routine 09/09/24 09:46 Consult Vascular Surgery Routine 09/16/24 14:04 Consult Gastroenterology Routine 09/17/24 09:50 Consult Nephrology Routine 09/21/24 09:29 Consult Infectious Diseases Routine 09/24/24 12:56 Burn CD for patient Stat Procedures Performed Operation Date: 09/09/24 16:55 Actual Procedures p EGD Biopsy Cytology - Sai Ornelas MD Ordered Studies 08/23/24 10:01 CT abd pelvis wo con Stat 08/24/24 12:00 CT abd pelvis oral con only Urgent 08/25/24 07:00 CT abd pelvis wo con Routine 08/28/24 09:16 CT abd pelvis IV con only Urgent 08/28/24 13:[address] visceral Routine 09/04/24 10:44 CT angio chest PE protocol Urgent 09/07/24 08:40 CT Abd and Pelvis [CT abd pelvis IV con only] Stat 09/09/24 US arterial duplex LE LT Stat 09/11/24 20:17 CT Abd and Pelvis [CT abd pelvis IV con only] Stat 09/22/24 07:24 CT Abd and Pelvis [CT abd pelvis IV con only] Routine Hospital Course (1) Severe sepsis with acute organ dysfunction: (2) Atrial fibrillation, new onset: (3) Acute renal failure: (4) Ileus due to infection: (5) Peritonitis due to abscess: (6) Electrolyte abnormality: (7) Pneumoperitoneum: (8) Demand ischemia of myocardium: (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 Patient had undergone laparoscopic appendicectomy of large mucocele of appendix by Dr. Pacheco on 08/19/2024. CT abdomen on presentation(08/23/2024) showed " Absent appendix consistent with appendectomy history with increased fluid and gas throughout the abdomen and pelvis more than expected particularly at the level of the surgical bed. Dehiscence is not excluded. No discrete encapsulated drainable fluid collection although early abscess cannot be excluded. Recommend contrast-enhanced exam. Recommend surgical consult" Blood cultures from admission grew Proteus vulgaris, repeat blood cultures negative CT Abd/Pelvis with IV contrast on 08/28/24 showed increased pneumoperitoneum and right retroperitoneal gas, multifocal abscesses S/p IR placement of drain on 08/28/24, cx grew E coli, bacteroides vulgatus and Clostridium innocuum S/p Exploratory laparotomy which showed small bowel perforation with abscess on 08/30/24, s/p extended right colectomy with drainage of abscess by general surgeon Dr. Pacheco on 08/30/24 Required ICU stay postop on 08/30, downgraded on 09/01 CT abdomen pelvis on 09/22 showed " stable scattered fluid with largest collection at the right paracolic gutter and right pelvis measuring 8 cm greatest axial dimension by 16 cm craniocaudad. Collection in the cul-de-sac measuring 6 cm greatest axial dimension". Discussed with surgery PA; recommended transfer to tertiary care center for another IR drainage given persistent WBC elevation and presence of large abscess in the recent CT abdomen pelvis done on 09/22/2024. Case was also discussed with infectious disease on consult(Dr. Rodarte); he also recommended IR drainage. He recommended to continue ertapenem for the time being and discontinue daptomycin. Plan to remove right IJ central line and put in ultrasound guided piv prior to discharge. Discussion was done with [facility] [place] [facility]; patient was accepted for transfer by Dr. Devorah Heredia. #C Diff gene positive - On empiric oral vancomycin while on antibiotics #Bilateral Pulmonary Emboli CTA chest on 09/04- noted bilateral pulmonary emboli Continue IV heparin while in route for transfer. #BLE Edema Pt with extremity edema- has received IV fluids, blood transfusions, TPN while hospitalized which all likely contributed to the fluid overload. Recent JANET with recovered urinary output Cont. diuresis with IV lasix Monitor kidney function Input from Nephrology appreciated, -recommending leg wraps,encouraged ongoing compression -on IV Lasix 60mg TID since 09/20 JANET- resolved Creatinine 3.9>>2.26>>0.94>1.51>>1.87>1.61 >> 0.6 Likely from sepsis + contrast Improved urine output Avoid contrast and nephrotoxins as much as possible Nephrology on board, appreciate recs Currently resolved. #Esophagitis #Possible GI bleed Noted on CT imaging and EGD performed on 09/09 by GI; found to have LA grade C reflux esophagitis with no bleeding #Atrial fibrillation-new onset In the setting of sepsis Spontaneously converted to sinus ECHO: EF 55 to 60%. Mild concentric LVH. Left atrium mildly dilated. Mild tricuspid regurgitation. No significant pulmonary hypertension. Cardiology eval noted. No anticoagulation recommended Continue tele monitor continue metoprolol #Hyponatremia #Hypokalemia. Replace and monitor Diet:regular DVT Px: IV heparin Code Status :Full Code Dispo: Transfer to tertiary care center Time spent evaluating patient, direct bedside care, chart review, placing orders, interpretation of diagnostic studies, discussion with consultants, patient, and family members, as well as other required patient management activities is 90 minutes Please note the above document was generated using voice recognition software. It may contain grammatical, syntax or spelling errors. Any formal questions or concerns about the content, text or information contained within the body of this dictation should be directly addressed to the provider for clarification Total Time Total Time Spent Total Time Spent (In Minutes): 67 Total Time Includes: Examination of the Patient, Discharge Planning, Medication Reconciliation, Communication With Other Providers and Other Discharge Plan Discharge Items Patient Disposition: Transfer Acute Care Hospital Reason For Visit: JANET Discharge Diagnosis: #Sepsis resolved #Proteus bacteremia #Multiple Intra abdominal/pelvic abscesses Condition on Discharge: Serious Activity: Resume your previous activity Non-emergency contact: Primary Care Provider Call non-emergency contact if: you have any medication questions and your symptoms worsen Follow-up/Referrals: Jairo Broussard DO [Primary Care Provider] - Diet: Regular Addtl Attending Provider Instructions: Date of Service: September 24, 2024 Current Inpatient Medications Albuterol (Albut/Ipratrop 3mg/0.5mg Neb 3 Ml Vial) 3 ml NEB Q4H PRN; Protocol PRN Reason: Wheezing Stop: 10/21/24 13:08 Atropine Sulfate (Atropine Sulfate 0.1 Mg/Ml 10ml Syr) 1 mg IV Q3M PRN PRN Reason: symptomatic bradycardia Stop: 10/21/24 03:16 Storey Syrup (Storey Syrup 5 Ml Udp) 5 ml PO BID ARMANDO Stop: 10/03/24 13:44 Last Admin: 09/24/24 09:28 Dose: 5 ml Dextrose (Dextrose 50% 50 Ml Syringe) 25 - 50 ml IV UD PRN; Protocol PRN Reason: Hypoglycemia Protocol Stop: 10/21/24 11:53 Ferrous Sulfate (Ferrous Sulfate 325 Mg Tab) 325 mg PO QAM ARMANDO Stop: 10/16/24 18:29 Last Admin: 09/24/24 09:32 Dose: 325 mg Furosemide (Furosemide Inj 20 Mg/2 Ml Vial) 60 mg IV TID@0900,1300,1700 ARMANDO Stop: 10/20/24 08:59 Last Admin: 09/24/24 09:29 Dose: 60 mg Glucagon (Glucagon For Inj 1 Mg Vial) 1 mg SQ UD PRN; Protocol PRN Reason: Hypoglycemia Protocol Stop: 10/21/24 11:53 Glucose (Glucose 40% Gel 15 Gm Tube) 15 - 30 gm PO UD PRN; Protocol PRN Reason: Hypoglycemia Protocol Stop: 10/21/24 11:53 Glucose (Glucose 10 Tab/Tube) 4 - 8 tab PO UD PRN; Protocol PRN Reason: Hypoglycemia Protocol Stop: 10/21/24 11:53 Heparin Sodium (Beef Lung) (Heparin 10 Unit/Ml 5 Ml Flush) 5 ml FLUSH PRN PRN PRN Reason: Flush Stop: 10/21/24 14:03 Last Admin: 09/23/24 08:39 Dose: 10 ml Hydromorphone HCl (Hydromorphone Inj 0.5 Mg/0.5 Ml Syr) 0.5 mg IV Q3H PRN PRN Reason: Moderate Pain (Scale 4, 5, 6) Stop: 10/21/24 09:20 Last Admin: 09/17/24 09:20 Dose: 0.5 mg Ertapenem (Invanz 1000mg) 1,000 mg in 10 mls @ 2 mls/min IV Q24H [facility] Stop: 10/21/24 11:29 Last Admin: 09/24/24 11:47 Dose: 2 mls/min Heparin Sodium/Dextrose (Heparin 79077 Unit/500 Ml D5w) 25,000 units in 500 mls @ 25 mls/hr IV .Q20H [facility]; Protocol Stop: 10/09/24 20:14 Last Titration: 09/24/24 07:13 Dose: 1,250 units/hr, 25 mls/hr Magnesium Chloride (Magnesium Chloride W/Calcium 64mg Delayed Rel Tab) 64 mg PO QAM [facility] Stop: 10/23/24 08:59 Last Admin: 09/24/24 09:32 Dose: 64 mg Metoprolol Tartrate (Metoprolol Tartrate 25 Mg Tab) 25 mg PO BID [facility] Stop: 10/19/24 20:59 Last Admin: 09/24/24 09:34 Dose: 25 mg Miscellaneous (Carbohydrates For Hypoglycemia ) 15 - 30 gm PO UD PRN PRN Reason: Hypoglycemia Protocol Stop: 10/21/24 11:53 Ondansetron HCl (Ondansetron Inj 2 Mg/Ml 2 Ml Vial) 4 mg IV Q6H PRN PRN Reason: Nausea Stop: 10/21/24 13:08 Last Admin: 09/08/24 22:20 Dose: 4 mg Pantoprazole Sodium (Pantoprazole 40 Mg Tab) 40 mg PO BID [facility] Stop: 10/22/24 20:59 Last Admin: 09/24/24 09:34 Dose: 40 mg Potassium Chloride (Potassium Chloride 20 Meq/15 Ml Udc) 20 meq PO QID [facility] Stop: 10/20/24 08:59 Last Admin: 09/24/24 09:28 Dose: 20 meq Sucralfate (Sucralfate 1 Gm/10 Ml Udc) 1 gm PO QID [facility] Stop: 10/09/24 16:59 Last Admin: 09/24/24 09:28 Dose: 1 gm Vancomycin HCl (Vancomycin Hcl 125 Mg/2.5ml Soln) 125 mg PO BID [facility] Stop: 10/03/24 13:44 Last Admin: 09/24/24 09:28 Dose: 125 mg Warfarin Sodium (Warfarin Sod 1 Mg Tab) 1 mg PO DAILY@1600 ARMANDO Stop: 10/11/24 15:59 Last Admin: 09/11/24 17:08 Dose: 1 mg Pending Studies at Discharge: No Stand-Alone Forms: My [facility] Skilled Items Patient informed of condition?: No DNR: No Discharge Level of Care: Other Communicable Disease: No Discharge Prognosis: Stable Lines: US Guided Peripheral IV Urinary Catheter: No Medications and DC Order Prescriptions: No Action No Known Home Medications Discharge Orders: Discharge Order (Routine); Ordered 09/24/24 Ordered By: Rashel Manuel/Faith Patient Handouts: Prediabetes, 5 Steps for Eating Healthier Admission Data Admit Date/Time: 08/23/24 11:47 Attending Provider: Rashel Jin Admit Provider: Julian Oropeza Primary Care Provider: Jairo Broussard Other Providers: [facility]; [facility]; Julian Oropeza; Ranjan Vaughn; Franc Plummer; Andrew Quiros; Johnson Russell I.; Huang Ross II; Marva Waters; Robert Oropeza; Addison Edmondson; Caitlyn Rodarte; Devi Fuller; Isi Shoemaker; Js Chase; Lashawn Helm; Ricco May; Jeffery Angela; Antonia Ortiz; Grace Durán; Elif Nix; Cami Vasquez; Gideon Barrera; Pete Palomino; Jori Ward; Francisco Cerrato; Lida Oropeza; Amina Lam; Kendy Negrete; Devorah Orosco; Neelam Danielle; Cullen Vaca; Leonel Carreno; Malu Morin; Kika Castillo Jr; Sam Solorio; Michelet Vizcarra; David Charlton; Leland Hardy; Jessica Townsend; Pj Castanon I; Sherry Vincent; Sai Ornelas; Frandy Gracia; Macario Shelton; Frank Mortensen; Manju Kelley Other Interventions: Discharge Summary Assessment (RN) Last Done: 09/24/24 14:51
[2024-09-24 14:32] LABS: Anion Gap 15.0 (3-11); Blood Urea Nitrogen 13.0 mg/dl (6-23); Calcium 9.4 mg/dl (8.6-10.3); Carbon Dioxide 26.0 mmol/L (21-32); Chloride 96.0 mmol/L (98-107); Creatinine Clr Calc Pharmacy 58.2 ml/min; Glucose 97.0 mg/dl (70-99(Fasting)); Potassium 3.6 mmol/L (3.5-5.1); Sodium 137.0 mmol/L (136-145)
== END 2024-09-24 16:40 | disposition short-term general hospital (02) | DRG 329 ==
LOC: ED 08:53 → SUATTDRO 11:47 → 4W 11:47 → 1E 08-30 13:24 → 2S 09-01 15:42